=== PATIENT | male | born 1960 | race Caucasian/White ===

== ENCOUNTER 2021-01-24 09:43 | Outpatient (RCR) | payer BC, SELFPAY ==
[2021-01-24] MEDS: COVID-19 VACC, MRNA(PFIZER)/PF 30 MCG/0.3 ML SYRINGE IM (17:15)
[2021-02-14] MEDS: COVID-19 VACC, MRNA(PFIZER)/PF 30 MCG/0.3 ML SYRINGE IM (16:55)
== END 2021-01-24 23:59 ==
LOC: IMMUN 09:43
PROVIDERS: Visit Provider Family Medicine
DX: Z23 Encounter for immunization (principal)
CPT/HCPCS: 0001A; 0002A; 91300

== ENCOUNTER 2021-11-17 10:39 | Outpatient (CLI) | payer BC, SELFPAY ==
[2021-11-17 12:18] LABS: Absolute Lymphocyte Count 1.53 X10^3/uL (0.83-4.51); Basophil# 0.02 X10^3/uL; Basophil% 0.3 % (0-1); Eosinophil# 0.13 X10^3/uL; Eosinophils% 1.7 % (0-5); Hematocrit 42.4 % (40-54); Hemoglobin 15.3 g/dL (13.0-16.5); Lymphocyte # 1.53 X10^3/ul (0.83-4.51); Lymphocyte % 20.4 % (19-41); Mean Corp Hgb Conc 36.1 g/dL (32-36); Mean Corpuscular Hgb 33.3 pg (27.0-32.0); Mean Corpuscular Volume 92.2 fL (80-94); Mean Platelet Vol. 9.7 fl (6.2-12.0); Monocyte# 0.75 X10^3/uL; NRBC Flagged by Analyzer 0 % (0-5); Neutrophil # 5.02 X10^3/uL (2.7-7.7); Neutrophil % 66.9 % (47-70); Platelet Count 257 K/mm3 (150-450); RBC Distribution Width CV 12.5 % (11.6-14.6); RBC Distribution Width SD 41.2 fl (35.1-43.9); White Blood Count 7.5 K/mm3 (4.4-11.0)
[2021-11-17 12:42] LABS: AST(SGOT) 26 U/L (15-37); Alanine Aminotransfer ALT/SGPT 50 U/L (16-61); Albumin, Serum 3.8 g/dL (3.2-5.0); Alkaline Phosphatase 59 U/L (45-117); Anion Gap 8 (5-15); BUN 16 mg/dL (7-18); BUN/Creat Ratio 17.9 RATIO (10-20); Calcium,Total 9.2 mg/dL (8.5-10.1); Chloride 104 mmol/L (98-107); Cholesterol 210 mg/dL (200); Creatinine, Serum 0.89 mg/dL (0.70-1.30); EST Glomerular Filtration Rate 91 mL/min (>60); Est Glom Filt Rate - Afr Amer 111 mL/min (>60); Globulin 3.9 g/dL (2.2-4.2); Glucose 125 mg/dL (74-106); High Density Lipoprotein 42 mg/dL; Potassium 4.9 mmol/L (3.5-5.1); Protein, Total 7.7 g/dL (6.4-8.2); Sodium Level 139 mmol/L (136-145); Triglycerides 173 mg/dL; Very Low Density Lipoprotein 35 mg/dL (5-40)
[2021-11-18 12:49] LABS: Hemoglobin A1c 5.5 % (3.8-5.6)
[2021-11-20 11:08] LABS: Testosterone, Free 8.11 ng/dL (5.00-21.00)
[2021-11-21 13:59] LABS: Testosterone, % Free 2.21 % (1.50-4.20); Testosterone, Total 367 ng/dL (264-916)
== END 2021-11-17 23:59 | disposition short-term general hospital (02) ==
LOC: BIMLAB 10:40
PROVIDERS: PCP Internal Medicine; Referring Provider Internal Medicine; Visit Provider Internal Medicine
DX: I10 Essential (primary) hypertension (principal); R73.9 Hyperglycemia, unspecified; N52.9 Male erectile dysfunction, unspecified
CPT/HCPCS: 36415; 80053; 80061; 83036; 84402; 84403; 85025

== ENCOUNTER 2022-01-05 13:58 | Outpatient (CLI) | payer BC, SELFPAY ==
[2022-01-05 15:37] LABS: Anion Gap 6 (5-15); BUN 17 mg/dL (7-18); BUN/Creat Ratio 18.5 RATIO (10-20); Calcium,Total 8.9 mg/dL (8.5-10.1); Chloride 98 mmol/L (98-107); Creatinine, Serum 0.92 mg/dL (0.70-1.30); EST Glomerular Filtration Rate 89 mL/min (>60); Est Glom Filt Rate - Afr Amer 107 mL/min (>60); Glucose 129 mg/dL (74-106); Potassium 3.8 mmol/L (3.5-5.1); Sodium Level 135 mmol/L (136-145)
== END 2022-01-05 23:59 | disposition home or self-care (01) ==
LOC: BIMLAB 13:59
PROVIDERS: PCP Internal Medicine; Visit Provider Internal Medicine
DX: I10 Essential (primary) hypertension (principal)
CPT/HCPCS: 36415; 80048

== ENCOUNTER 2022-01-29 08:13 | Outpatient (CLI) | payer BC, SELFPAY ==
--- NOTE | 2022-01-29 08:14 | EKG12_ITS ---
Test Reason : HTN Blood Pressure : / mmHG Vent. Rate : 076 BPM Atrial Rate : 076 BPM P-R Int : 146 ms QRS Dur : 094 ms QT Int : 384 ms P-R-T Axes : 023 005 049 degrees QTc Int : 432 ms Normal sinus rhythm Normal ECG Confirmed by CAMILLA FELDER, JC ([id number]), editor sound MEHREEN TORRES ([id number]) on 01/29/2022 1:33:59 PM Referred By: Filipe Ybarra Confirmed By:JOE SAMPSON MD
== END 2022-01-29 23:59 | disposition home or self-care (01) ==
LOC: PSN 08:13
PROVIDERS: PCP Internal Medicine; Referring Provider Internal Medicine; Visit Provider Internal Medicine
DX: I10 Essential (primary) hypertension (principal)
CPT/HCPCS: 93005

== ENCOUNTER → 2022-06-09 | Outpatient (CLI) | payer BC, SELFPAY ==
--- NOTE | 2022-06-09 13:36 | VDLE_ITS ---
Reason For Study: Swelling Procedure LEFT This is a venous duplex using B-mode, color GSV is normal. flow and spectral Doppler. CFV is compressible, spontaneous, phasic, Exam performed in department. competent, and demonstrates normal A preliminary report was called and/or faxed augmentation. to [facility]. FV is compressible, spontaneous, phasic, competent and demonstrates normal augmentation. POP V is compressible, spontaneous, phasic, competent and demonstrates normal augmentation. T/P Trunk is compressible. PTV is compressible. LT PerV is compressible. VL/Venous Duplex US, Unilateral Interpretation Summary There is no evidence of left lower extremity deep vein thrombosis. Left great s aphenous vein appears patent and compressible segmentally. Ordering Physician: Khadar Mead Referring Physician: Filipe Ybarra Performed By: Thalia Nielsen RVT
== END | disposition home or self-care (01) ==
PROVIDERS: PCP Internal Medicine; Visit Provider Surgery
DX: M79.89 Other specified soft tissue disorders (principal); R23.8 Other skin changes
CPT/HCPCS: 93971

== ENCOUNTER → 2022-09-25 | Outpatient (CLI) | payer BC, SELFPAY ==
[2022-09-25 15:26] LABS: Anion Gap 6 (5-15); BUN 22 mg/dL (7-18); BUN/Creat Ratio 22.8 RATIO (10-20); Calcium,Total 8.9 mg/dL (8.5-10.1); Chloride 102 mmol/L (98-107); Creatinine, Serum 0.96 mg/dL (0.70-1.30); EST Glomerular Filtration Rate 83 mL/min (>60); Est Glom Filt Rate - Afr Amer 101 mL/min (>60); Glucose 115 mg/dL (74-106); Potassium 4.3 mmol/L (3.5-5.1); Sodium Level 137 mmol/L (136-145)
== END | disposition home or self-care (01) ==
LOC: BIMLAB 11:48
PROVIDERS: PCP Internal Medicine; Referring Provider Internal Medicine; Visit Provider Internal Medicine
DX: I10 Essential (primary) hypertension (principal)
CPT/HCPCS: 36415; 80048

== ENCOUNTER → 2023-04-21 | Outpatient (CLI) | payer BC, SELFPAY ==
[2023-04-21 13:09] LABS: Absolute Lymphocyte Count 1.13 X10^3/uL (0.83-4.51); Absolute Neutrophil Count 2.7 X10^3/uL (2.0-7.7); Basophil# 0.01 X10^3/uL; Basophil% 0.2 % (0-1); Eosinophil# 0.14 X10^3/uL; Eosinophils% 3.1 % (0-5); Hematocrit 41.8 % (40-54); Hemoglobin 14.8 g/dL (13.0-16.5); Lymphocyte # 1.13 X10^3/ul (0.83-4.51); Lymphocyte % 25.2 % (19-41); Mean Corp Hgb Conc 35.4 g/dL (32-36); Mean Corpuscular Hgb 34.3 pg (27.0-32.0); Mean Corpuscular Volume 96.8 fL (80-94); Mean Platelet Vol. 10.4 fl (6.2-12.0); Monocyte# 0.45 X10^3/uL; NRBC Flagged by Analyzer 0 % (0-5); Neutrophil # 2.74 X10^3/uL (2.7-7.7); Neutrophil % 61.3 % (47-70); Platelet Count 188 K/mm3 (150-450); Red Blood Count 4.32 M/mm3 (4.6-6.2); White Blood Count 4.5 K/mm3 (4.4-11.0)
[2023-04-21 14:29] LABS: ALB/GLOB Ratio 1.3 RATIO (0.9-2.4); AST(SGOT) 73 U/L (15-37); Alanine Aminotransfer ALT/SGPT 109 U/L (16-61); Alkaline Phosphatase 54 U/L (45-117); Anion Gap 5 (5-15); BUN 22 mg/dL (7-18); BUN/Creat Ratio 23.3 RATIO (10-20); Calcium,Total 8.5 mg/dL (8.5-10.1); Chloride 103 mmol/L (98-107); Cholesterol 202 mg/dL (200); Creatinine, Serum 0.94 mg/dL (0.70-1.30); EST Glomerular Filtration Rate 85 mL/min (>60); Est Glom Filt Rate - Afr Amer 103 mL/min (>60); Glucose 157 mg/dL (74-106); High Density Lipoprotein 39 mg/dL; Sodium Level 137 mmol/L (136-145); Triglycerides 208 mg/dL; Very Low Density Lipoprotein 42 mg/dL (5-40)
[2023-04-21 19:41] LABS: Hemoglobin A1c 5.7 % (3.8-5.6)
== END | disposition home or self-care (01) ==
LOC: BIMLAB 11:31
PROVIDERS: PCP Internal Medicine; Visit Provider Internal Medicine
DX: I10 Essential (primary) hypertension (principal); R73.9 Hyperglycemia, unspecified
CPT/HCPCS: 36415; 80053; 80061; 83036; 85025

== ENCOUNTER → 2024-01-12 | Outpatient (CLI) | payer BC, SELFPAY ==
[2024-01-12 12:54] LABS: ALB/GLOB Ratio 1.2 RATIO (0.9-2.4); AST(SGOT) 57 U/L (15-37); Alanine Aminotransfer ALT/SGPT 74 U/L (16-61); Albumin, Serum 4.1 g/dL (3.2-5.0); Alkaline Phosphatase 51 U/L (45-117); Anion Gap 8 (5-15); BUN 26 mg/dL (7-18); Calcium,Total 9.7 mg/dL (8.5-10.1); Chloride 104 mmol/L (98-107); Creatinine, Serum 1.04 mg/dL (0.70-1.30); EST Glomerular Filtration Rate 76 mL/min (>60); Est Glom Filt Rate - Afr Amer 92 mL/min (>60); Globulin 3.3 g/dL (2.2-4.2); Glucose 133 mg/dL (74-106); Potassium 4.1 mmol/L (3.5-5.1); Protein, Total 7.4 g/dL (6.4-8.2); Sodium Level 139 mmol/L (136-145)
[2024-01-12 13:12] LABS: Hemoglobin A1c 5.8 % (3.8-5.6)
== END | disposition home or self-care (01) ==
LOC: BIMLAB 09:20
PROVIDERS: PCP Internal Medicine; Visit Provider Internal Medicine
DX: I10 Essential (primary) hypertension (principal); R73.03 Prediabetes
CPT/HCPCS: 36415; 80053; 83036

== ENCOUNTER 2024-03-27 06:54 | Day surgery (SDC) | payer BC, SELFPAY ==
--- NOTE | 2024-03-22 06:52 | EKG12_ITS ---
Test Reason : PRE-OP Blood Pressure : / mmHG Vent. Rate : 068 BPM Atrial Rate : 068 BPM P-R Int : 158 ms QRS Dur : 092 ms QT Int : 404 ms P-R-T Axes : 029 -01 022 degrees QTc Int : 429 ms Normal sinus rhythm Normal ECG Confirmed by ITZEL FELDER, JENA ([id number]), writer editor MEHREEN TORRES ([id number]) on 03/22/2024 1:16:17 PM Referred By: Khadar Mead Confirmed By:JENA ROBBINS MD
[2024-03-22 07:09] LABS: Bacteria 0 SEEN /hpf (None Seen); Mucous, Urine 0 SEEN /hpf (<or=2+); Red Blood Cells-Urine 0 SEEN /hpf (0-5); Squamous Epithelial Cells - UA 0 SEEN /hpf (0-5); White Blood Cells 0 SEEN /hpf (0-5)
[2024-03-22 07:23] LABS: Hematocrit 40.8 % (40-54); Hemoglobin 14.2 g/dL (13.0-16.5); Mean Corp Hgb Conc 34.8 g/dL (32-36); Mean Corpuscular Hgb 32.8 pg (27.0-32.0); Mean Corpuscular Volume 94.2 fL (80-94); Mean Platelet Vol. 9.5 fl (6.2-12.0); Platelet Count 216 K/mm3 (150-450); RBC Distribution Width CV 12.2 % (11.6-14.6); RBC Distribution Width SD 42.3 fl (35.1-43.9); Red Blood Count 4.33 M/mm3 (4.6-6.2); White Blood Count 5.6 K/mm3 (4.4-11.0)
[2024-03-22 08:09] LABS: PSA,Total- Diagnostic 4.22 ng/mL (0.0-4.0)
[2024-03-22 08:16] LABS: Anion Gap 4 (5-15); BUN 25 mg/dL (7-18); BUN/Creat Ratio 24.5 RATIO (10-20); Calcium,Total 9.2 mg/dL (8.5-10.1); Chloride 103 mmol/L (98-107); Creatinine, Serum 1.02 mg/dL (0.70-1.30); EST Glomerular Filtration Rate 78 mL/min (>60); Est Glom Filt Rate - Afr Amer 94 mL/min (>60); Glucose 139 mg/dL (74-106); Potassium 3.8 mmol/L (3.5-5.1); Sodium Level 137 mmol/L (136-145)
[2024-03-22 08:56] LABS: Color, Urine Yellow (Yellow); Glucose, Dipstick Normal (Normal); Ketone-Dipstick Negative (Negative); Leukocyte Esterase-Dipstick Negative /ul (Negative); Nitrite-Dipstick Negative (Negative); Occult Blood-Urine Negative /ul (Negative); Protein-Dipstick Negative (Negative); Urine Bilirubin Dipstick Negative (Negative); Urine Clarity Clear (Clear); Urine Urobilinogen Normal (Normal); Urine pH 6.5 (5.0 - 8.0)
--- NOTE | 2024-03-24 14:53 | NURSING ---
will take finesteride as well wednesday morning
[2024-03-27] VITALS (7 sets, daily range): BP systolic 155–180; BP diastolic 77–94; PULSE 59–70; RESP 14–18; TEMP 35.8–36.5; O2SAT 88–97; BMI 32.5
--- NOTE | 2024-03-27 07:21 | PCM.HP.BLA ---
History and Physical Date of Admission: 03/27/24 [facility] Complaint: hernias Accompanied by: Is patient in pain?: No Allergies No Known Allergies Allergy (Verified 03/16/24 08:09) Medications ascorbate calcium (vitamin C) 500 mg tablet 500 mg PO DAILY 11/05/21 [History Confirmed 03/16/24] aspirin 81 mg chewable tablet 81 mg PO DAILY 11/05/21 [History Confirmed 03/16/24] cholecalciferol (vitamin D3) 50 mcg (2,000 unit) capsule 50 mcg PO DAILY 11/05/21 [History Confirmed 03/16/24] docosahexaenoic acid 200 mg capsule (Algal [place]-3 DHA) mg PO 11/05/21 [History Confirmed 03/16/24] famotidine 20 mg tablet 20 mg PO DAILY 11/05/21 [History Confirmed 03/16/24] multivitamin (Daily Multi-Vitamin tablet) 1 tab PO DAILY 11/05/21 [History Confirmed 03/16/24] loratadine 10 mg tablet (Claritin) 10 mg PO DAILY 03/19/23 [History Confirmed 03/16/24] tadalafil 20 mg tablet 10 mg (1/2 x 20 mg) PO DAILY PRN sexual activity #30 tabs 06/28/23 [Rx Confirmed 03/16/24] amlodipine 5 mg tablet 5 mg PO DAILY #90 tabs 01/05/24 [Rx Confirmed 03/16/24] doxazosin 4 mg tablet 4 mg PO BID 3 months #180 tabs 01/05/24 [Rx Confirmed 03/16/24] valsartan 160 mg-hydrochlorothiazide 25 mg tablet 1 tab PO DAILY #90 tabs 01/05/24 [Rx Confirmed 03/16/24] [facility] Medical History (Updated 03/16/24 @ 09:[address] Khadar Mead MD) Abdominal discomfort Borderline type 2 diabetes mellitus BPH (benign prostatic hyperplasia) Colon cancer screening Dermatitis Erectile dysfunction Flu vaccine need GERD (gastroesophageal reflux disease) Great toe pain Hyperglycemia Hypertension Obesity Seasonal allergies Umbilical hernia Surgical History History of right knee joint replacement Family History Other Heart disease Hypertension Myocardial infarction Social History Smoking Status: Former smoker how long ago did patient quit smokin11/15/1989 alcohol intake: current alcohol intake frequency: holidays/special occasions only what type of physical activity do you participate in: walking frequency: daily HPI HPI HPI: 64-year-old gentleman. I have most recently seen him June 09, 2022. He presented at that time wanting an umbilical herniorrhaphy and a right inguinal herniorrhaphy. Also considered a tap block. I had also seen him previously November 25, 2021 for the same issue. We were considering an umbilical herniorrhaphy with Ventralex mesh on laparoscopic right inguinal herniorrhaphy. He is had issue with uncontrolled hypertension and also significant venous insufficiency. The patient states only now has he had his hypertension better controlled. He is on multiple different medications that is being controlled by Dr. Filipe Ybarra. He has been on low-dose aspirin for 30 years. Has never had any documented cardiac or KID CLUB ATTENDANT events. He does take doxazosin. He has nocturia x 2. He has never seen a urologist. He suspects that his right inguinal hernia has progressively enlarged. ROS General General: No weight change, appetite, fatigue, colon cancer, breast cancer or weakness HEENT HEENT: No difficulty swallowing, eye injury, eye surgery, swollen glands or hoarseness Endo Endocrine: No thyroid disease, diabetes mellitus, thyroid cancer, Hair loss, heat intolerance or cold intolerance Skin Skin: No rash or changing moles Musc Musculoskeletal: No back problems, arthritis, rheumatoid arthritis, gout or joint pain Cardio Cardiovascular: Yes high blood pressure; No murmur, pacemaker, heart disease, atrial fibrillation, heart attack, heart stent, palpitations, shortness of breat with exertion or chest pain Psych Psychiatric: No depression, anxiety or hearing voices Resp Respiratory: No shortness of breath, No sleep apnea, No cough, No COPD, No asthma, No emphysema and No wheezing Gastro Gastrointestinal: No abdominal pain, No nausea or vomiting, No diarrhea, No constipation, No blood in stool, No acid reflux, No hemorrhoids, No ulcers, No gallbladder problem and No black,tarry stools Frank Hematologic: Yes blood thinners, No blood disorders, No bleeding, No anemia and No blood clots Additional Details: baby aspirin/ fish oil Neuro Neurologic: No numbness, No tingling and No weakness Exam Const General: cooperative, healthy appearing, comfortable and no acute distress HENMT Head: normal to inspection Eyes General: appearance normal, both eyes and all related structures Neck Neck: normal visual inspection Chest Chest palpation & inspection: normal inspection of the chest Resp Effort & Inspection: normal respiratory effort Auscultation: clear to auscultation bilaterally Cardio Rate: regular rate Rhythm: regular rhythm GI Inspection: normal to inspection and obesity Palpation: soft Other: Umbilical hernia, approximately 2 cm diameter defect but difficult to appreciate Other: None reducible right inguinal hernia. Testicles descended. No defect on the left. Bilateral proximal thighs have significant superficial venous engorgement distention. Nontender Musc Cervical Spine: normal cervical lordosis Skin General: no rashes or lesions noted Neuro General: patient alert and patient awake Extrem Other: Bilateral lower extremities have very significant varicose veins. Hyperpigmentation noted. Psych Appearance: grossly normal Assessment and Plan Assessment and Plan (1) Inguinal hernia of right side without obstruction or gangrene: Status: Acute (2) Umbilical hernia: Status: Chronic Qualifiers: Obstruction and gangrene presence: without obstruction or gangrene Qualified Code(s): K42.9 - Umbilical hernia without obstruction or gangrene (3) BPH (benign prostatic hyperplasia): Status: Acute Qualifiers: Lower urinary tract symptom presence: symptoms present Lower urinary tract symptom detail: nocturia Qualified Code(s): N40.1 - Benign prostatic hyperplasia with lower urinary tract symptoms; R35.1 - Nocturia Plan: Patient presents with an umbilical hernia and a progressively enlarging right inguinal hernia. The right inguinal hernia is now incompletely reducible. I propose for him an umbilical herniorrhaphy with Ventralex mesh in combination with a laparoscopic right inguinal herniorrhaphy with mesh. He is aware of technique, benefit, risk and alternatives. It is of note that he has significant bilateral extremity superficial venous incompetency. Great care will need to be taken at the time of surgery to avoid any venous enlargement. He has nocturia x 2. He is already on doxazosin. We have notified Dr. Filipe Ybarra and she will assist with additional medications in hopes of preventing a postoperative urinary catheter. The patient is very much aware of the technique, benefit, risk, alternatives. He will need to delay returning to golf. We discussed potential trip plans that he has particularly driving and he will need to wear support hose and exit the vehicle frequently. That trip is not scheduled till the end of April. He and his have had an opportunity ask and have questions answered. I have asked him to stop his low-dose aspirin as current recommendations are consistent with the same. I appreciate the option of assisting with his surgical care and appreciate the medical assistance regarding his urinary obstructive symptoms. Copy: Dr. Filipe eMad M.D., F.A.C.S. I have examined the patient and the H&P has been reviewed. There are no clinical changes since date of exam. Khadar Mead M.D., F.A.C.S.
--- NOTE | 2024-03-27 07:22 | DCINST_ITS ---
Discharge Instructions Procedure General Surgery Diet Discharge Diet: Light diet - advance as tolerated (if you have questions about your diet instructions, please talk to you doctor.) Activity Discharge Activity: May Not Drive (for 3-5 days or while taking narcotic pain medicine.) May shower in (days): 1 Lifting Restrictions: 10 pounds Dressing / Incision Call your doctor if your incision/area has: Continuous Slow Oozing, Sudden Increased Bleeding, Increased Pain/ Swelling, Increased Redness and Foul Smelling Discharge Call your doctor if you observe: Fever of 101 or Higher Suture Line Care: Avoid Pulling/Pushing and Avoid Pinching/Bending Additional Dressing/Incision Instructions:: Change or remove dressing in 4 days. Leave steri-strips in place for 1 week. Follow Up Care Please Follow Up With: Khadar Mead MD When: Call [phone] to make an appointment to be seen in about 10 days. Test Results: Test results from this visit will be discussed in further detail at your follow- up appointment, if applicable. Discharge Plan Admission Attending Provider: Khadar Mead Primary Care Provider: Filipe Ybarra Discharge Orders/Prescriptions Prescriptions: No Action multivitamin [Daily Multi-Vitamin] Tablet 1 tab PO DAILY ascorbate calcium (vitamin C) 500 mg tablet 1 g PO DAILY cholecalciferol (vitamin D3) 50 mcg (2,000 unit) capsule 50 mcg PO DAILY famotidine 20 mg tablet 20 mg PO DAILY PRN (Reason: GERD) loratadine [Claritin] 10 mg tablet 10 mg PO DAILY PRN (Reason: allergy symptoms) finasteride 5 mg tablet 5 mg PO DAILY Qty: 30 0RF [place]-3 350 mg-235 mg- 90 mg-597 mg capsule,delayed release(DR/EC) 1 cap PO DAILY clotrimazole-betamethasone 1-0.05 % cream 1 applic topical BID tadalafil 20 mg tablet 10 mg PO DAILY PRN (Reason: sexual activity) Qty: 30 3RF Rx Instructions: administer approximately 30min before sexual activity; do not use more than 1 dose per 24hrs amlodipine 5 mg tablet 5 mg PO DAILY Qty: 90 1RF doxazosin 4 mg tablet 4 mg PO BID 90 Days Qty: 180 1RF Patient Comments: TAKES 5PM THEN 2ND DOSE 9PM valsartan-hydrochlorothiazide 160-25 mg tablet 1 tab PO DAILY Qty: 90 1RF Referrals / Follow Up: Filipe Ybarra MD [Primary Care Provider] - Disposition Disposition (needs filled in before D/C Order can be placed): Home, Self Care
[2024-03-27] MEDS: Lactated Ringers 1,000 ML 15 ML IV (07:32)
--- NOTE | 2024-03-27 09:00 | HERN_PTH ---
PATIENT: ZHENG WATKINS LOC: [facility] [place] U#:[id number] AGE/SX: 64/M ROOM: RE03/27/[address]: Dr. Khadar Mead MD : 1960 BED: DIS: 03/27/2024 SPEC #: [id number] RECD: 03/27/24 11:07 STATUS: TIMOTHY STROUDAlirio #: [id number] PHONG: 03/27/24 09:[address]: Khadar Mead DEPT: SURGICAL PATHOLOGY RECD BY: Vida Wright ENTERED: 03/27/24 13:42 SP TYPE: Hernia OTHR DR: Dr. Filipe Ybarra MD Tissues: HERNIA Procedures: Surgery Specimen Level II HEADER OPERATION: Laparoscopic right inguinal hernia repair and umbilical hernia PRE-OP DIAGNOSIS: Inguinal hernia of right side without obstruction or gangrene TISSUE SUBMITTED: Hernia sac and contents MICROSCOPIC DIAGNOSIS Hernia sac and contents: Mesothelial lined fibroadipose and fibroconnective tissue, consistent with hernia sac. /mr 03/28/24 MICROSCOPIC DESCRIPTION Slides are reviewed. GROSS DESCRIPTION Received in fixative is one container labeled with the patient's name and designated Hernia sac and contents. The specimen consists of a sacular fragment of pink-yellow tissue measuring 5.8 x 4.0 x 3.5cm. Serial sections do not reveal mass lesions. Ball Fringe Machine Operator sections are submitted in one cassette. EDMOND/ 03/27/2024 TC:5 CPT: 40432
[2024-03-27] MEDS: Cefazolin 2 GM in 0.9% Normal Saline (100mL Bag) 100 ML IV (09:05)
[2024-03-27] MEDS: Bupivacaine Mpf 0.5% 30 ML VIAL (10:17)
--- NOTE | 2024-03-27 10:35 | OP.PCM_ITS ---
Report of Operation Date of Procedure: 03/27/24 Pre-Operative Diagnosis: Right inguinal hernia and umbilical hernia Post-Operative Diagnosis: Direct and indirect right inguinal hernias Umbilical hernia Surgery/Procedure Performed:: Laparoscopic right inguinal herniorrhaphy with Bard 3D max extra-large mesh. Reference [id number], lot [id number], expiry date 09/11/28 Umbilical herniorrhaphy 4 cm diameter with [address] hernia patch. Reference [id number], lot [id number], expiry date 06/11/2025 Description of Surgical Findings:: Timeout informed consent was obtained. 64-year-old gentleman was taken to the operating placed on the table underwent general tracheal intubation esthesia. Ancef 2 g were given intravenously preoperatively. The abdomen was sterilely prepped and draped in routine fashion. 0.5% Marcaine was used as a local anesthetic. Total of 30 cc was used. Skin sites were Ning size. A curvilinear incision was made in the inferior portion of the umbilicus and sharp blunt dissection was used to completely dissect free preperitoneal fatty tissue within an umbilical hernia. The hernia sac and contents were amputated and submitted as a specimen. The retrorectus space was completely dissected free. A Scott catheter was inserted and the abdomen was insufflated with CO2 to a pressure of 10 mmHg pressure. 10 mm trocar inserted. 10 mm laparoscope inserted. No incisional trocar injuries. Under direct visualization a 5 mm port was placed in the right and left lower quadrants. Inspection revealed no defect on the left. There was evidence of a hernial defect on the right which ended up being the direct defect that could be visualized with urinary bladder involvement. A ilioinguinal nerve block was performed on the right using the local. The peritoneum superior lateral to the internal ring was incised carried medially and then tedious dissection was required to evacuate the urinary bladder from the direct defect. There was a significant amount of fibrofatty tissue encountered throughout this entire procedure that had to be carefully dissected free. Careful dissection performed laterally of the cord structures identified fibrofatty tissue evacuated from that indirect inguinal hernia as well. The pubic tubercle pubic ramus urinary bladder was freed the direct space and indirect space completely dissected free. A extra-large 3D Bard Max mesh was placed so as to cover the direct indirect and femoral areas. It seemed to have a very nice positional lie. It sat just beneath the pubic ramus and was secured in place laterally superiorly and medially with secure strap. Great ca re was taken to assure that it was secured at the pubic ramus to keep in shape and keep it tucked beneath the hernial defects. The fibrofatty tissue then was briefly stapled to the superior portion of the Maxis to keep it from immediately edging underneath the mesh. The peritoneum was closed with Hem-o-star clips and secure strap. Throughout the procedure hemostasis had been achieved mostly with Hem-o-star clips. Excellent coverage of the defect was achieved. The abdomen was allowed to deflate of the CO2. A [address] mesh was placed at the umbilical hernial defect in the retrorectus space. The peritoneum itself was attempted to be completely closed with a 3-0 Vicryl suture there was 1 slight edge that did not allow for closure. The mesh was secured in place with interrupted 0 Nurolon securing the tails of the mesh and then simple sutures securing the fascia and the anterior portion of the mesh. I felt that I had excellent closure. I reinserted the laparoscope s aw that there was just 1 portion of the mesh but the peritoneum had not completely closed just further assured positioning with 2 firings of the secure strap. Was very happy with how that mesh was sitting. The abdomen was allowed to deflated CO2 the trocars were removed the fascia at the umbilicus was closed with multiple interrupted 4-0 Monocryl subdermal stitches. Port sites closed with the same. Dermabond was applied followed by cotton balls Telfa OpSite dressing and Telfa OpSite dressings at the port sites. Sponge and instrument and needle counts were reported to the surgeon to be cor rect. Specimens: Umbilical hernia sac and contents. Drains none. Blood loss minimal. The patient was taken to recovery room in satisfied condition without apparent complication Khadar Mead M.D., F.A.C.S. Surgeon: Khadar Mead Type of Anesthesia: General and Local Anesthesiologist: Robson Luna
[2024-03-27] MEDS: HYDROcodone Bitartrate/Apap 5/325 Tablet PO (12:21)
== END 2024-03-27 14:04 | disposition home or self-care (01) ==
LOC: SDC 06:57 → AC 06:57
PROVIDERS: PCP Internal Medicine; Referring Provider Surgery; Visit Provider Surgery
PROC: (CPT 49650; principal; 2024-03-27 08:45)
DX: K40.90 Unilateral inguinal hernia, without obstruction or gangrene, not specified as recurrent (principal); N40.1 Benign prostatic hyperplasia with lower urinary tract symptoms; K42.9 Umbilical hernia without obstruction or gangrene; I87.2 Venous insufficiency (chronic) (peripheral); Z87.891 Personal history of nicotine dependence; I10 Essential (primary) hypertension; Z79.82 Long term (current) use of aspirin; Z79.899 Other long term (current) drug therapy; Z79.01 Long term (current) use of anticoagulants; R35.1 Nocturia; K21.9 Gastro-esophageal reflux disease without esophagitis
CPT/HCPCS: 49650; 00840; 36415; 80048; 81001; 84153; 85027; 88302; 93005; J7120; C1781; J2405

== ENCOUNTER → 2024-09-01 | Outpatient (CLI) | payer BC, SELFPAY ==
[2024-09-01 12:14] LABS: Absolute Lymphocyte Count 1.16 X10^3/uL (0.83-4.51); Absolute Neutrophil Count 3.6 X10^3/uL (2.0-7.7); Basophil# 0.03 X10^3/uL; Basophil% 0.6 % (0-1); Eosinophil# 0.12 X10^3/uL; Eosinophils% 2.2 % (0-5); Hematocrit 40.9 % (40-54); Hemoglobin 14.1 g/dL (13.0-16.5); Lymphocyte # 1.16 X10^3/ul (0.83-4.51); Lymphocyte % 21.4 % (19-41); Mean Corp Hgb Conc 34.5 g/dL (32-36); Mean Corpuscular Hgb 32.3 pg (27.0-32.0); Mean Corpuscular Volume 93.6 fL (80-94); Mean Platelet Vol. 10.2 fl (6.2-12.0); Monocyte# 0.48 X10^3/uL; Monocyte% 8.8 % (0-10); NRBC Flagged by Analyzer 0 % (0-5); Neutrophil # 3.63 X10^3/uL (2.7-7.7); Neutrophil % 66.8 % (47-70); Platelet Count 211 K/mm3 (150-450); RBC Distribution Width CV 12.1 % (11.6-14.6); RBC Distribution Width SD 41.8 fl (35.1-43.9); Red Blood Count 4.37 M/mm3 (4.6-6.2); White Blood Count 5.4 K/mm3 (4.4-11.0)
[2024-09-01 12:49] LABS: ALB/GLOB Ratio 1.1 RATIO (0.9-2.4); AST(SGOT) 36 U/L (15-37); Alanine Aminotransfer ALT/SGPT 58 U/L (16-61); Albumin, Serum 3.8 g/dL (3.2-5.0); Alkaline Phosphatase 56 U/L (45-117); Anion Gap 3 (5-15); BUN 22 mg/dL (7-18); BUN/Creat Ratio 20.8 RATIO (10-20); Calcium,Total 9.2 mg/dL (8.5-10.1); Chloride 102 mmol/L (98-107); Cholesterol 184 mg/dL (200); Creatinine, Serum 1.06 mg/dL (0.70-1.30); EST Glomerular Filtration Rate 74 mL/min (>60); Est Glom Filt Rate - Afr Amer 90 mL/min (>60); Globulin 3.4 g/dL (2.2-4.2); Glucose 147 mg/dL (74-106); High Density Lipoprotein 42 mg/dL; PSA,Total- Diagnostic 3.96 ng/mL (0.0-4.0); Protein, Total 7.2 g/dL (6.4-8.2); Sodium Level 135 mmol/L (136-145); Triglycerides 124 mg/dL; Very Low Density Lipoprotein 25 mg/dL (5-40)
[2024-09-01 13:07] LABS: Hemoglobin A1c 5.9 % (3.8-5.6)
== END | disposition home or self-care (01) ==
LOC: BIMLAB 09:52
PROVIDERS: PCP Internal Medicine; Referring Provider Internal Medicine; Visit Provider Internal Medicine
DX: N40.0 Benign prostatic hyperplasia without lower urinary tract symptoms (principal); R73.03 Prediabetes; I10 Essential (primary) hypertension
CPT/HCPCS: 36415; 80053; 80061; 83036; 84153; 85025

== ENCOUNTER 2025-01-06 10:04 | Emergency (ER) | payer MEDICARE, SELFPAY ==
[2025-01-06 10:05] VITALS: BP 155/83; PULSE 89; RESP 16; TEMP 36.2; O2SAT 94; BMI 33.0
--- NOTE | 2025-01-06 10:21 | VDLE_ITS ---
Reason For Study Reason For Study: Left leg pain RIGHT LEFT CFV is compressible, spontaneous, phasic, competent GSV is normal. and demonstrates normal augmentation. CFV is compressible, spontaneous, phasic, competent, Procedure and demonstrates normal augmentation. This is a venous duplex using B-mode, color flow and FV is compressible, spontaneous, phasic, competent spectral Doppler. and demonstrates normal augmentation. Exam performed portable in ED. POP V is compressible, spontaneous, phasic, competent A preliminary report was called and/or faxed to and demonstrates normal augmentation. John. T/P Trunk is compressible. PTV is compressible. LT PerV is compressible. Nonvascularized structure noted in the left popliteal fossa to mid calf. VL/Venous Duplex US, Unilateral Interpretation Summary Deep veins of the left lower extremity are patent and compressible segmentally. There is no evidence of left lower extremity deep vein thrombosis. The left great saphenous vein appears patent an d compressible segmentally. Nonvascularized structure noted in the left popliteal fossa to mid calf. Ordering Physician: Albert Lopez Referring Physician: Filipe Ybarra Performed By: Thalia Nielsen RVT
--- NOTE | 2025-01-06 10:38 | ED.VIS.LOWEX ---
HPI History of Present Illness Chief Complaint: Lower Extremity Injury Narrative Narrative: 4-year-old male past medical history of hypertension presents with left calf pain and swelling that has had for the last 4 days. He denies any recent trauma or periods of immobilization. He states his pain in his calf started as cramping on Wednesday evening/early Wednesday morning. He was having multiple body aches as well. While the cramping went away, he noticed swelling of his left calf. He denies any chest pain or shortness of breath. No left inner thigh pain. Of note, he also states that he used to walk the track at least 2 miles a day, but has not been doing that for the last week or so. He went to urgent care who sent him to the emergency department with concern for DVT. [facility] Medical History Varicose veins of both legs with edema Hypersomnolence Wears glasses Alcohol use Rash History of steroid therapy Gastric reflux Chewing tobacco dependence in remission History of edema BPH (benign prostatic hyperplasia) Borderline type 2 diabetes mellitus Abdominal discomfort Great toe pain Flu vaccine need Dermatitis Obesity Hyperglycemia Colon cancer screening Hypertension Erectile dysfunction Umbilical hernia GERD (gastroesophageal reflux disease) Seasonal allergies Home Medications ?Medication ?Instructions ?Recorded ?Last Taken ?Type ascorbate calcium (vitamin C) 500 1 g PO DAILY 11/05/21 03/26/24 History mg tablet cholecalciferol (vitamin D3) 50 50 mcg PO DAILY 11/05/21 03/26/24 History mcg (2,000 unit) capsule multivitamin (Daily Multi-Vitamin 1 tab PO DAILY 11/05/21 03/26/24 History tablet) loratadine 10 mg tablet (Claritin) 10 mg PO DAILY PRN allergy symptoms 03/19/23 03/26/24 History omega 3 350 mg-dha 235 mg-epa 90 1 cap PO DAILY 03/20/24 03/26/24 History mg-fish oil 597 mg capsule,delay rel ([place]-3) aspirin 81 mg tablet,delayed 81 mg PO QDAY 08/22/24 Unknown History release (Adult Aspirin Regimen) tadalafil 20 mg tablet 10 mg (1/2 x 20 mg) PO DAILY #30 09/18/24 Unknown Rx TABLETS amlodipine 5 mg tablet 5 mg PO DAILY #90 tabs 11/27/24 Unknown Rx doxazosin 4 mg tablet 4 mg PO BID 3 months #180 tabs 11/27/24 Unknown Rx valsartan 160 1 tab PO DAILY #90 tabs 11/27/24 Unknown Rx mg-hydrochlorothiazide 25 mg tablet Allergy/AdvReac Type Severity Reaction Status Date / Time No Known Allergies Allergy Verified 09/01/24 09:22 Family History Other Heart disease Hypertension Myocardial infarction Surgical History Status post inguinal hernia repair Social History household members: spouse Smoking Status: Former smoker how long ago did patient quit smokin11/15/1989 alcohol intake: current alcohol intake frequency: holidays/special occasions only what type of physical activity do you participate in: walking frequency: daily ROS ROS ED ROS Narrative Review of systems positive for left calf pain and swelling worse with movement. No left inner thigh pain or swelling. No fevers or chills, no cough or shortness of breath. No chest pain. EXAM Physical Exam Narrative Exam Narrative: Afebrile. Vital signs noted. Nontoxic-appearing. Cardiovascular examination reveals a regular rate and rhythm. Lungs are clear to auscultation bilaterally. Abdomen is soft and nontender with normal active bowel sounds. Inspection of the left lower extremity does reveal mild swelling of the left calf circumferentially. Palpable dorsalis pedis pulse, left. EHL intact. No palpable cord. No noted erythema or crepitance. No left inner thigh pain or swelling. Extension and flexion of left knee intact. Const Vital Signs: 01/06/25 10:05 Temperature 97.1 F L Temperature Source Temporal Pulse Rate 89 Respiratory Rate 16 Blood Pressure 155/83 H Blood Pressure Mean 107 Pulse Ox 94 Oxygen Delivery Method Room Air MDM MDM MDM Narrative Medical decision making narrative: Differential diagnosis includes but not limited to DVT versus calf strain/muscle tear. I have a low concern for fracture underlying as there is no history of trauma. I do not feel that this is necrotizing fasciitis either. Ultrasound was obtained to rule out DVT. I did review his EMR Problem list he has history of varicose veins of both legs with noted edema. He may just have peripheral edema as well from incompetent veins as he states he usually wears compression stockings when he walks. In discussion with the tube test technician, there is no evidence of DVT. Patient may have a ruptured Krause's cyst or muscle tear. I do not feel that he requires laboratory work or any other imaging currently. He will be placed in an Jasbir bandage on his left calf, told to elevate his left leg when possible and follow-up with his primary care provider. Return instructions to the emergency department were reviewed. Disposition is discharged home in stable condition. History & Record Review Discussion w/independent historian: Patient and Family Discharge Plan Triage Chief Complaint: Lower Extremity Injury ED Provider: Albert Lopez Dx/Rx/DC Orders Clinical Impression: Pain of left calf, Swelling of calf Instructions: ED Bandage Elastic Wrap, ED Peripheral Edema, Unilateral, ED Muscle Strain, Extremity Prescriptions: No Action multivitamin [Daily Multi-Vitamin] Tablet 1 tab PO DAILY ascorbate calcium (vitamin C) 500 mg tablet 1 g PO DAILY cholecalciferol (vitamin D3) 50 mcg (2,000 unit) capsule 50 mcg PO DAILY loratadine [Claritin] 10 mg tablet 10 mg PO DAILY PRN (Reason: allergy symptoms) aspirin [Adult Aspirin Regimen] 81 mg tablet,delayed release (DR/EC) 81 mg PO QDAY [place]-3 350 mg-235 mg- 90 mg-597 mg capsule,delayed release(DR/EC) 1 cap PO DAILY tadalafil 20 mg tablet 10 mg PO DAILY Qty: 30 3RF valsartan-hydrochlorothiazide 160-25 mg tablet 1 tab PO DAILY Qty: 90 1RF doxazosin 4 mg tablet 4 mg PO BID 90 Days Qty: 180 1RF Patient Comments: TAKES 5PM THEN 2ND DOSE 9PM amlodipine 5 mg tablet 5 mg PO DAILY Qty: 90 1RF Primary Care Provider: Filipe Ybarra Referrals: Filipe Ybarra MD [Primary Care Provider] - 3-5 Days if not improving Activity Restrictions/Additional Instructions: Return with fever, increased swelling and pain, new or worsening symptoms. Print Language: Maldivian Disposition Disposition: Home, Self Care
[2025-01-06 11:13] VITALS: BP 141/82; PULSE 84; RESP 16; TEMP 36.6; O2SAT 98
== END 2025-01-06 11:19 | disposition home or self-care (01) ==
PROVIDERS: Emergency Provider Emergency Medicine; PCP Internal Medicine; Visit Provider Emergency Medicine
DX: M79.662 Pain in left lower leg (principal); M79.89 Other specified soft tissue disorders; I10 Essential (primary) hypertension; Z87.891 Personal history of nicotine dependence; K21.9 Gastro-esophageal reflux disease without esophagitis
CPT/HCPCS: 93971; 99282

== ENCOUNTER → 2025-01-10 | Outpatient (CLI) | payer MEDICARE, SELFPAY ==
[2025-01-10 16:56] LABS: Absolute Lymphocyte Count 1.12 X10^3/uL (0.83-4.51); Absolute Neutrophil Count 4.6 X10^3/uL (2.0-7.7); Basophil# 0.02 X10^3/uL; Basophil% 0.3 % (0-1); Eosinophil# 0.12 X10^3/uL; Eosinophils% 1.8 % (0-5); Hematocrit 37.3 % (40-54); Lymphocyte # 1.12 X10^3/ul (0.83-4.51); Lymphocyte % 17.1 % (19-41); Mean Corp Hgb Conc 34.9 g/dL (32-36); Mean Corpuscular Hgb 32.2 pg (27.0-32.0); Mean Corpuscular Volume 92.3 fL (80-94); Mean Platelet Vol. 9.3 fl (6.2-12.0); Monocyte# 0.69 X10^3/uL; Monocyte% 10.6 % (0-10); NRBC Flagged by Analyzer 0 % (0-5); Neutrophil # 4.56 X10^3/uL (2.7-7.7); Neutrophil % 69.7 % (47-70); Platelet Count 303 K/mm3 (150-450); RBC Distribution Width CV 11.9 % (11.6-14.6); RBC Distribution Width SD 40.1 fl (35.1-43.9); Red Blood Count 4.04 M/mm3 (4.6-6.2); White Blood Count 6.5 K/mm3 (4.4-11.0)
[2025-01-10 17:14] LABS: Erythrocyte Sedimentation Rate 21 mm/hr (0-20)
[2025-01-10 17:35] LABS: ALB/GLOB Ratio 1.4 RATIO (0.9-2.4); AST(SGOT) 22 U/L (<=37); Alanine Aminotransfer ALT/SGPT 14 U/L (<=46); Albumin, Serum 3.9 g/dL (3.4-4.8); Alkaline Phosphatase 62 U/L (40-129); Anion Gap 11 (5-15); BUN 16 mg/dL (4-19); BUN/Creat Ratio 18.7 RATIO (10-20); Calcium 9.1 mg/dL (7.6-11.0); Chloride 97 mmol/L (96-108); Creatinine, Serum 0.9 mg/dL (0.8-1.3); EST Glomerular Filtration Rate 96 (>60); Globulin 2.8 g/dL (2.2-4.2); Glucose 141 mg/dL (70-99); Potassium 4.4 mmol/L (3.3-5.1); Protein, Total 6.7 g/dL (5.9-8.4); Sodium Level 136 mmol/L (133-145); Total Bilirubin 0.58 mg/dL (0.00-1.30)
[2025-01-10 17:38] LABS: Carbon Dioxide 28.1 mmol/L (22.0-29.0); Rheumatoid Factor < 10.0 IU/mL (<15)
[2025-01-11 12:03] LABS: CPK Total, Creatine Kinase 53 U/L (24-195)
[2025-01-12 15:08] LABS: ANTINUCLEAR ANTIBODIES DIRECT Negative (Negative)
== END | disposition home or self-care (01) ==
LOC: BIMLAB 14:21
PROVIDERS: PCP Internal Medicine; Referring Provider Internal Medicine; Visit Provider Internal Medicine
DX: I10 Essential (primary) hypertension (principal); R53.83 Other fatigue; R53.81 Other malaise; M19.90 Unspecified osteoarthritis, unspecified site; M79.10 Myalgia, unspecified site
CPT/HCPCS: 36415; 80053; 82550; 84439; 84443; 85025; 85652; 86038; 86140; 86200; 86225; 86235; 86431

== ENCOUNTER → 2025-01-17 | Outpatient (CLI) | payer MEDICARE, SELFPAY ==
[2025-01-17 09:39] LABS: Bacteria 0 SEEN /hpf (None Seen); Mucous, Urine 0 SEEN /hpf (<or=2+); Squamous Epithelial Cells - UA 0 SEEN /hpf (0-5); White Blood Cells 0 SEEN /hpf (0-5)
[2025-01-17 12:32] LABS: Absolute Lymphocyte Count 0.94 X10^3/uL (0.83-4.51); Absolute Neutrophil Count 5.2 X10^3/uL (2.0-7.7); Basophil# 0.02 X10^3/uL; Basophil% 0.3 % (0-1); Eosinophil# 0.15 X10^3/uL; Eosinophils% 2.1 % (0-5); Hematocrit 35.6 % (40-54); Hemoglobin 12.7 g/dL (13.0-16.5); Lymphocyte # 0.94 X10^3/ul (0.83-4.51); Lymphocyte % 13.2 % (19-41); Mean Corp Hgb Conc 35.7 g/dL (32-36); Mean Corpuscular Hgb 32.5 pg (27.0-32.0); Mean Platelet Vol. 8.8 fl (6.2-12.0); Monocyte# 0.78 X10^3/uL; Monocyte% 10.9 % (0-10); NRBC Flagged by Analyzer 0 % (0-5); Neutrophil # 5.22 X10^3/uL (2.7-7.7); Neutrophil % 73.2 % (47-70); Platelet Count 362 K/mm3 (150-450); RBC Distribution Width CV 11.9 % (11.6-14.6); RBC Distribution Width SD 39.7 fl (35.1-43.9); Red Blood Count 3.91 M/mm3 (4.6-6.2); White Blood Count 7.1 K/mm3 (4.4-11.0)
[2025-01-17 12:36] LABS: Color, Urine Yellow (Yellow); Glucose, Dipstick Normal (Normal); Ketone-Dipstick Negative (Negative); Leukocyte Esterase-Dipstick Negative /ul (Negative); Nitrite-Dipstick Negative (Negative); Occult Blood-Urine Negative /ul (Negative); Protein-Dipstick 15 mg/dl (Negative); Urine Bilirubin Dipstick Negative (Negative); Urine Clarity Clear (Clear); Urine Urobilinogen Normal (Normal)
[2025-01-17 14:27] LABS: ALB/GLOB Ratio 1.3 RATIO (0.9-2.4); AST(SGOT) 22 U/L (<=37); Alanine Aminotransfer ALT/SGPT 16 U/L (<=46); Albumin, Serum 3.8 g/dL (3.4-4.8); Alkaline Phosphatase 55 U/L (40-129); Anion Gap 14 (5-15); BUN 17 mg/dL (4-19); Calcium,Total 9.5 mg/dL (7.6-11.0); Carbon Dioxide 24.9 mmol/L (21.0-32.0); Chloride 96 mmol/L (98-108); Creatinine, Serum 0.86 mg/dL (0.70-1.20); EST Glomerular Filtration Rate 96 (>60); Glucose 136 mg/dL (70-99); Potassium 4.7 mmol/L (3.3-5.1); Protein, Total 6.8 g/dL (5.9-8.4); Sodium Level 135 mmol/L (133-145)
[2025-01-17 18:51] LABS: Red Blood Cells-Urine 0 SEEN /hpf (0-5)
== END | disposition home or self-care (01) ==
PROVIDERS: PCP Internal Medicine; Referring Provider Internal Medicine; Visit Provider Internal Medicine
DX: R79.82 Elevated C-reactive protein (CRP) (principal); M79.10 Myalgia, unspecified site; R53.81 Other malaise; R53.83 Other fatigue
CPT/HCPCS: 36415; 80053; 81001; 85025; 86140

== ENCOUNTER → 2025-02-09 | Outpatient (CLI) | payer MEDICARE, SELFPAY ==
--- NOTE | 2025-02-09 08:00 | CT_ITS ---
PROCEDURE: EXTREMITY LOWER WITH CONTRAST 02/09/2025 REASON FOR EXAM: 64-year-old male, LEFT CALF PAIN, ELEVATED CRP TECHNIQUE: Axial CT images of the left lower extremity obtained with intravenous contrast. Coronal and Sagittal reconstruction series were provided. CONTRAST: Isovue 370 VOLUME: 100mL One or more dose reduction techniques were used (e.g., Automated exposure control, adjustment of the mA and/or kV according to patient size, use of iterative reconstruction technique). RADIATION DOSE SUMMARY: CTDlvol: 15 mGy DLP: 1100 mGycm COMPARISON: None. FINDINGS: Bones: No acute osseous fracture or aggressive osseous lesions. No evidence of osteomyelitis. Joints: Mild degenerative changes of the left knee joint. The joint spaces of the left knee and ankle are maintained. No traumatic subluxation or dislocation. Soft Tissues: There is a thin, rim enhancing hypodense fluid collection within the superficial posterior compartment of the left leg, between the medial gastrocnemius and soleus muscles. This measures approximately 5.1 x 1.0 x11.7 cm (AP x TV x CC, series 2, image 96 and series 303, image 77). There is an additional rim enhancing hypodense fluid collection which arises from the medial head of the gastrocnemius in the lower thigh, only visible on axial imaging. CT/Extremity Lower WITH Contrast IMPRESSION: Abscess within the superficial posterior compartment of the left leg, between t he medial gastrocnemius and soleus muscles. Additional partially visualized abscess within the medial head of the gastrocne mius within the lower thigh, only visible on axial imaging. CT of the left lower thigh is recommended for imaging completion. mike surgical consultation for possible incision and debridement is recommended. Reading Location: [id number]
== END | disposition home or self-care (01) ==
LOC: CT 07:54
PROVIDERS: PCP Internal Medicine; Referring Provider Internal Medicine; Visit Provider Internal Medicine
DX: R79.82 Elevated C-reactive protein (CRP) (principal); M79.89 Other specified soft tissue disorders; M79.10 Myalgia, unspecified site; M79.662 Pain in left lower leg
CPT/HCPCS: 73701; Q9967

== ENCOUNTER 2025-02-13 10:57 | Emergency (ER) | payer MEDICARE, SELFPAY ==
[2025-02-13 10:59] VITALS: BP 174/62; PULSE 75; RESP 16; TEMP 36.6; O2SAT 98; BMI 34.3
--- NOTE | 2025-02-13 11:15 | EKG12_ITS ---
Test Reason : GENERAL Blood Pressure : */* mmHG Vent. Rate : 69 BPM Atrial Rate : 69 BPM P-R Int : 148 ms QRS Dur : 94 ms QT Int : 394 ms P-R-T Axes : 24 -3 9 degrees QTcB Int : 422 ms Normal sinus rhythm Minimal voltage criteria for LVH, may be normal variant ( R in aVL ) Borderline ECG Confirmed by Peyman Adame ([id number]), assignment editor BRENNEN PEDRAZA ([id number]) on 02/14/2025 7:47:13 AM Referred By: Confirmed By: Peyman Adame
--- NOTE | 2025-02-13 11:21 | EX.ED.DYSGE1 ---
HPI History of Present Illness Chief Complaint: Lower Extremity Injury Detail of Chief Complaint: Abscess of the left leg involving the superficial posterior compartment and Informant: patient and spouse/S.O. Onset/Context/Timing Onset: - (CT done today. Was seen approxi a month ago to rule out DVT and was.) Context: - (Unknown since patient has no symptoms other than slight swelling) Timing: - (Unable to determine) Quality: Abscess posterior superficial compartment of the left leg and head of the g Location: Left leg posteriorly Current Severity: Asymptomatic Maximum Severity: Asymptomatic Worsened by: Not applicable Relieved by: Not applicable Associated Symptoms Associated Symptoms: Abnormal CAT scan Narrative Narrative: Patient is a 64-year-old male with history of GERD, hypertension, borderline type 2 diabetes and BMI of 34.4. Last ate/drank at 0600. He has no antibiotic allergies. Denies a traumatic fever, heart murmur, mitral prolapse. He denies fever, chills night sweats. He is not on any immunosuppressive meds. He has history of hypertension on amlodipine and valsartan. Prior similar symptoms: No Recent Illness/Hospitalization: No PFSH PFSH Medical History Abnormal computed tomography of lower extremity Leg abscess Lumbar radiculopathy Lumbar strain Elevated C-reactive protein (CRP) Myalgia Malaise and fatigue Arthritis Varicose veins of both legs with edema Hypersomnolence Wears glasses Alcohol use Rash History of steroid therapy Gastric reflux Chewing tobacco dependence in remission History of edema BPH (benign prostatic hyperplasia) Borderline type 2 diabetes mellitus Abdominal discomfort Great toe pain Flu vaccine need Dermatitis Obesity Hyperglycemia Colon cancer screening Hypertension Erectile dysfunction Umbilical hernia GERD (gastroesophageal reflux disease) Seasonal allergies Home Medications ?Medication ?Instructions ?Recorded ?Last Taken ?Type ascorbate calcium (vitamin C) 500 1,000 mg PO DAILY 11/05/21 02/13/25 History mg tablet cholecalciferol (vitamin D3) 50 50 mcg PO DAILY 11/05/21 02/13/25 History mcg (2,000 unit) capsule multivitamin (Daily Multi-Vitamin 1 tab PO DAILY 11/05/21 02/13/25 History tablet) loratadine 10 mg tablet (Claritin) 10 mg PO DAILY PRN allergy symptoms 03/19/23 02/13/25 History omega 3 350 mg-dha 235 mg-epa 90 1 cap PO DAILY 03/20/24 02/13/25 History mg-fish oil 597 mg capsule,delay rel ([place]-3) aspirin 81 mg tablet,delayed 81 mg PO DAILY 08/22/24 02/13/25 History release (Adult Aspirin Regimen) tadalafil 20 mg tablet 10 mg (1/2 x 20 mg) PO DAILY #30 09/18/24 Unknown Rx TABLETS amlodipine 5 mg tablet 5 mg PO DAILY #90 tabs 11/27/24 02/13/25 Rx doxazosin 4 mg tablet 4 mg PO BID 3 months #180 tabs 11/27/24 02/13/25 Rx valsartan 160 1 tab PO DAILY #90 tabs 11/27/24 02/13/25 Rx mg-hydrochlorothiazide 25 mg tablet metaxalone 800 mg tablet 800 mg PO TID PRN muscle pain #20 02/12/25 02/13/25 Rx tabs prednisone 10 mg tablet 10 mg PO DAILY #30 tabs 02/12/25 02/13/25 Rx famotidine 20 mg tablet (Acid 20 mg PO DAILY 02/13/25 02/13/25 History Controller) Allergy/AdvReac Type Severity Reaction Status Date / Time No Known Allergies Allergy Verified 02/13/25 10:58 Family History Other Heart disease Hypertension Myocardial infarction Surgical History Status post inguinal hernia repair Social History household members: spouse Smoking Status: Former smoker how long ago did patient quit smokin11/15/1989 alcohol intake: current alcohol intake frequency: holidays/special occasions only what type of physical activity do you participate in: walking frequency: daily ROS ROS ED Constitutional Constitutional ED: Denies chills, fever(s), subjective or sweats Eyes Eyes: Denies change in vision Cardiovascular Cardiovascular: Denies chest pain or palpitations Respiratory/Chest Respiratory/Chest: Denies cough, dyspnea or dyspnea on exertion Gastrointestinal Gastrointestinal: Denies abdominal pain, nausea or vomiting Musculoskeletal Musculoskeletal: Denies arthralgias or myalgias Integumentary Reports abscess; Denies rash Neurologic Neurologic: Denies weakness Hematologic/Lymphatic Hematologic/Lymphatic: Reports systems reviewed and no addt'l complaints, except as documented EXAM Physical Exam Const Vital Signs: 02/13/25 10:59 Temperature 97.8 F Temperature Source Temporal Pulse Rate 75 Respiratory Rate 16 Blood Pressure 174/62 H Blood Pressure Mean 99 Pulse Ox 98 Oxygen Delivery Method Room Air Positive well nourished and well developed Constitutional Narrative: BMI 34.4. Blood pressure is elevated 174/62. General Appearance ED: well developed and NAD; Negative for pallor HEENT Reports moist mucous membranes Eyes PERRL and EOMs intact bilaterally General Eye ED: Negative for pale conjunctiva or scleral icterus Neck no lymphadenopathy, supple and no JVD Resp normal respiratory effort and clear to auscultation bilaterally Cardio regular rate, regular rhythm, S1 normal heart sound, S2 normal heart sound and no murmurs Extremity Extremity Narrative: Slight swelling on the left. There is no leg vein distention, discoloration, palpable cords tenderness on the distribution deep venous system. There is no evidence of cellulitis of the left lower extremity. Neuro oriented x3 and CN's II-XII intact bilaterally Sensorium / Orientation: alert Psych mental status grossly normal Skin no rashes or lesions noted, no wounds and skin turgor normal General Skin Exam: Negative for jaundice or pallor MDM MDM MDM Narrative Medical decision making narrative: Patient has an abscess posterior compartment left leg between the medial gastroc anemias and the soleus muscle. There is an additional abscess noted within the medial head of the gastrocnemius within the lower thigh only visible on axial imaging. Sepsis workup was undertaken. Patient denies history of diabetes however past medical history reveals he has type 2 diabetes and his blood sugars recently have been approximately 150. He is diet controlled. He is on no medication. Sepsis workup was undertaken. He was started on vancomycin and ampicillin. Will contact Dr. Casey Howell since he will need in all likelihood operative intervention in light of where the abscesses are located. Lab Data Attestation: I reviewed the patient's lab results. Lab results narrative: White count reveals shift. White count is 6.7. H&H is normal. Indices are unremarkable. Labs: Laboratory Results - last 24 hr 02/13/25 11:15 WBC 6.7 RBC 4.28 L Hgb 13.9 Hct 39.5 L MCV 92.3 MCH 32.5 H MCHC 35.2 RDW Std Deviation 45.1 H RDW Coeff of [place] 13.2 Plt Count 176 MPV 9.6 Immature Gran % (Auto) 0.600 Neut % (Auto) 89.5 H Lymph % (Auto) 8.2 L [place] % (Auto) 1.6 Eos % (Auto) 0.0 Baso % (Auto) 0.1 Absolute Neuts (auto) 6.0 Absolute Lymphs (auto) 0.55 L Nucleated RBC % 0 ESR 6 Sodium 137 Potassium 4.4 Chloride 98 Carbon Dioxide 24.8 Anion Gap 14 BUN 21 H Creatinine 0.92 Estim Creat Clear Calc 95.86 Est GFR (MDRD) Non-Af 92 BUN/Creatinine Ratio 23.1 H Glucose 186 H Lactic Acid 2.6 H* Calcium 9.2 Total Bilirubin 0.57 AST 23 ALT 22 Alkaline Phosphatase 50 C-React Prot Ext Range 4.14 H Total Protein 7.1 Albumin 4.6 Globulin 2.5 Albumin/Globulin Ratio 1.9 Abscess within the superficial posterior compartment of the left leg, between the medial gastrocnemius and soleus muscles. Additional partially visualized abscess within the medial head of the gastrocnemius within the lower thigh, only visible on axial imaging. CT of the left lower thigh is recommended for imaging completion. Urgent surgical consultation for possible incision and debridement is recommended. CT was performed as an outpatient today. EKG Initial EKG: Attestation: I personally reviewed and interpreted this EKG as follows: Interpretation: Sinus Rhythm (Rate is 69. There is evidence of LVH by voltage criteria. AR interval is 148 ms. History is a 94 ms. QT durations are 94 ms. [place] is normal) Management Discussion w/another healthcare provider: Director Sales And Marketing ([place] was asked to page Dr. Casey Howell is on for orthopedics. Dr. Howell recommended sending to radiology suite to have this drained by ultrasound or CT. I was informed that Dr. Olivo is not in house. Will obtain ESR and CRP. If these are elevated we will contact Dr. Howell and give ) Treatment and Re-Evaluation :: CT was reviewed again. CT was performed on 09 February. With a normal white count, normal ESR and slightly elevated CRP which is markedly lower than it was January 15 (101 down to 4) would indicate this is not an infectious process and in all likelihood represents a ruptured muscle and specifically plantaris muscle. Comments:: Patient was instructed to stop the muscle relaxant because there is adverse effects that someone his age and would not recommend prednisone either. This is probably the reason why his blood sugar is elevated and there are other potential complications. Discharge Plan Triage Chief Complaint: Lower Extremity Injury ED Provider: Madi Brooks Dx/Rx/DC Orders Clinical Impression: Traumatic rupture of left plantaris muscle, Borderline type 2 diabetes mellitus, Elevated blood pressure reading with diagnosis of hypertension, BMI 34.0-34.9,adult Instructions: Self-Care for Strains and Sprains Prescriptions: No Action multivitamin [Daily Multi-Vitamin] Tablet 1 tab PO DAILY ascorbate calcium (vitamin C) 500 mg tablet 1,000 mg PO DAILY cholecalciferol (vitamin D3) 50 mcg (2,000 unit) capsule 50 mcg PO DAILY loratadine [Claritin] 10 mg tablet 10 mg PO DAILY PRN (Reason: allergy symptoms) aspirin [Adult Aspirin Regimen] 81 mg tablet,delayed release (DR/EC) 81 mg PO DAILY prednisone 10 mg tablet 10 mg PO DAILY Qty: 30 0RF Rx Instructions: 4 tablets daily x3 days, then 3 tablets daily x3 days, then 2 tablets daily x3 days, then 1 tablet daily x3 days metaxalone 800 mg tablet 800 mg PO TID PRN (Reason: muscle pain) Qty: 20 0RF [place]-3 350 mg-235 mg- 90 mg-597 mg capsule,delayed release(DR/EC) 1 cap PO DAILY famotidine [Acid Controller] 20 mg tablet 20 mg PO DAILY tadalafil 20 mg tablet 10 mg PO DAILY Qty: 30 3RF valsartan-hydrochlorothiazide 160-25 mg tablet 1 tab PO DAILY Qty: 90 1RF doxazosin 4 mg tablet 4 mg PO BID 90 Days Qty: 180 1RF amlodipine 5 mg tablet 5 mg PO DAILY Qty: 90 1RF Primary Care Provider: Filipe Ybarra Referrals: Filipe Ybarra MD [Primary Care Provider] - 1-2 Weeks Activity Restrictions/Additional Instructions: 1. Your blood sugar is elevated 186. This should be rechecked in 1 to 2 weeks when you have your blood pressure rechecked which was elevated at 174/62. 2. If you have some discomfort with walking or swelling recommend ice 6 times a day to your left calf Print Language: Portuguese Disposition Disposition: Home, Self Care
[2025-02-13] MEDS: Ampicillin/Sulbactam 3 GM in 0.9% Normal Saline (100mL MB+) 100 ML IV (11:45)
[2025-02-13 11:46] LABS: Absolute Lymphocyte Count 0.55 X10^3/uL (0.83-4.51); Basophil# 0.01 X10^3/uL; Basophil% 0.1 % (0-1); Hematocrit 39.5 % (40-54); Hemoglobin 13.9 g/dL (13.0-16.5); Lymphocyte # 0.55 X10^3/ul (0.83-4.51); Lymphocyte % 8.2 % (19-41); Mean Corp Hgb Conc 35.2 g/dL (32-36); Mean Corpuscular Hgb 32.5 pg (27.0-32.0); Mean Corpuscular Volume 92.3 fL (80-94); Mean Platelet Vol. 9.6 fl (6.2-12.0); Monocyte# 0.11 X10^3/uL; Monocyte% 1.6 % (0-10); NRBC Flagged by Analyzer 0 % (0-5); Neutrophil # 6.02 X10^3/uL (2.7-7.7); Neutrophil % 89.5 % (47-70); POSITIVE DIFFERENTIAL YES; Platelet Count 176 K/mm3 (150-450); RBC Distribution Width CV 13.2 % (11.6-14.6); RBC Distribution Width SD 45.1 fl (35.1-43.9); Red Blood Count 4.28 M/mm3 (4.6-6.2); White Blood Count 6.7 K/mm3 (4.4-11.0)
[2025-02-13 12:06] LABS: ALB/GLOB Ratio 1.9 RATIO (0.9-2.4); AST(SGOT) 23 U/L (<=37); Alanine Aminotransfer ALT/SGPT 22 U/L (<=46); Albumin, Serum 4.6 g/dL (3.4-4.8); Alkaline Phosphatase 50 U/L (40-129); Anion Gap 14 (5-15); BUN 21 mg/dL (4-19); BUN/Creat Ratio 23.1 RATIO (10-20); Calcium,Total 9.2 mg/dL (7.6-11.0); Carbon Dioxide 24.8 mmol/L (21.0-32.0); Chloride 98 mmol/L (98-108); Creatinine, Serum 0.92 mg/dL (0.70-1.20); EST Glomerular Filtration Rate 92 (>60); Estimated Creatinine Clearance 95.86 ml/min (50-250); Globulin 2.5 g/dL (2.2-4.2); Glucose 186 mg/dL (70-99); Potassium 4.4 mmol/L (3.3-5.1); Protein, Total 7.1 g/dL (5.9-8.4); Sodium Level 137 mmol/L (133-145); Total Bilirubin 0.57 mg/dL (0.00-1.30)
[2025-02-13 12:20] LABS: Lactic Acid 2.6 mmol/L (0.0-2.0)
[2025-02-13 12:45] LABS: Erythrocyte Sedimentation Rate 6 mm/hr (0-20)
[2025-02-13 12:53] LABS: CRP 4.14 mg/L (0.0-3.0)
[2025-02-13] MEDS: Vancomycin HCl 2,000 MG in 0.9% Normal Saline (500mL Bag) 500 ML 250 MG IV (12:56)
[2025-02-13 14:26] VITALS: BP 163/82; PULSE 60; RESP 20; TEMP 36.4; O2SAT 97
[2025-02-13 15:37] LABS: Reflex Lactate? Y
== END 2025-02-13 15:46 | disposition home or self-care (01) ==
PROVIDERS: Emergency Provider Emergency Medicine; PCP Internal Medicine; Visit Provider Emergency Medicine
DX: S89.92XA Unspecified injury of left lower leg, initial encounter (principal); E11.9 Type 2 diabetes mellitus without complications; L02.416 Cutaneous abscess of left lower limb; I10 Essential (primary) hypertension; Z87.891 Personal history of nicotine dependence; X58.XXXA Exposure to other specified factors, initial encounter; Z79.82 Long term (current) use of aspirin; Z79.899 Other long term (current) drug therapy
CPT/HCPCS: 80053; 83605; 85025; 85652; 86140; 87040; 93005; 96365; 96367; 99283; A4216; J0295

== ENCOUNTER 2025-03-28 08:30 | Outpatient (RCR) | payer MEDICARE, SELFPAY ==
--- NOTE | 2025-03-06 10:55 | HP.PTEVAL ---
Patient's Visit Information Visit Information Visit Information: ZHNEG WATKINS is a 65 year old M referred to Physical Therapy by SIERRA Lazo with a diagnosis of . Date of Evaluation: 03/06/25 Physical Therapist: Gerson Barker, PT, Cert MDT, OCS Visit Plan Frequency: 2x /Week Duration: 4 Weeks Plan: PT INTERVENTIONS ANY EX'S ,DLS ,POSTURAL EX'S ,LE FLEXABILITY ,ACTIVITY MODIFICATION AND MODALITIES PRN Subjective Subjective: This 65 y/o male presents to physical therapy with lumbar radiculopathy. This patient has had lumbar radicular ~ 1 month. Patient developed insidious onset of lateral leg pain right lumbar. Medication prednisone ,muscle relaxer. Symptoms are intermittent. Seen DR recommended PT. Aggravating bending ,lifting extended walking. Alleviating factors sitting. C/O paresthesia/tingling-. Coughing/sneezing-. Bowel/bladder-. Patient had 3 hernia repair last year. Patient pain affects sleeping. No h/o leg or back pain. Patient hobbie golfing. No imaging . Patient condition affects QOL and function adn golfing. Patient goals to decrease pain with golfing. SOCIAL: VOCATION: [employer] Pain Right Lower Extremity: Pain Intensity (Out of 10): 5 Pain Intensity Range: 10 Objective Objective: POSTURE: mild forward posture GAIT: reciprocal pattern NEURO: occasionally c/o tingling right leg ,reflexes L3-4,L4-5,L-S1 SYMMTRIES: align PALPATION: tender LS right side FLEXABILITY: hamstrings min tight LUMBAR ROM: flexion min loss ,extension min loss ,side glide min loss MMT: quads/hams 4/5 ,hip flexion 4-/5,ankle 5/5 Special Tests L/S Slump test left side: Negative L/S Slump test right side: Negative L/S Left Straight Leg Raise: Negative L/S Right Straight Leg Raise: Negative Balance/Special Test Scores Oswestry Low Back Score: 27 Goals Goal 1:: Patient to be I with HEP BACK Goal Time Frame: 4-6 Weeks Goal 2:: Patient to improve lumbar ROM for function of recovery for golfing Goal Time Frame: 4-6 Weeks Goal 3:: Patient to improve back oswestry score by 5 points to improve QOL Goal Time Frame: 4-6 Weeks Goal 4:: Patient to demonstrate 50 % improvement with with less pain and improved function. Goal Time Frame: 4-6 Weeks Rehabilitation Potential Physical Therapy Diagnosis: Patient has lumbar derangement below knee vs stenosis with pain with positioning and motion testing worse with flexion better with extension with symptoms intermittent thus benefit from skilled PT Rehabilitation Potential: Good Anticipated Interventions Patient/Client Instruction: Educate patient on: Condition and Plan of Care For the Purpose of:: To decrease pain, To increase ROM, To improve muscle performance and motor function, To improve ability to perform ADL's, To increase tolerance to activity/condition/position, To improve ability of physical actions for home/community/work/leisure, To improve health of tissue, To decrease soft tissue restriction, To increase flexibility/ROM, To improve endurance and To reduce risk of recurrence Therapeutic Exercise to Include: Strength training, Body mechanics, Postural training, Flexibilty training, Dynamic Lumbar Stabilization and Any Exercises For the Purpose of:: To decrease pain, To increase ROM, To improve muscle performance and motor function, To improve ability to perform ADL's, To improve ability of physical actions for home/community/work/leisure, To improve health of tissue, To decrease soft tissue restriction, To increase flexibility/ROM, To reduce risk of recurrence and To improve tolerance to ADL's TENS: Yes IF ES: Yes Cryotherapy (ice pack, ice massage): Yes Thermo therapy (hot pack): Yes Ultrasound (thermal/non thermal): Yes For the Purpose of:: To decrease pain, To increase ROM, To improve nutrient delivery to tissue, To increase oxygenation perfusion, To improve health of tissue and To decrease soft tissue restriction Text: Thank you for the opportunity to evaluate your patient. For Medicare and Medicare HMO plans, please review the plan of care and approve it. It will need to be FAXED BACK to us at [phone] for Medicare purposes. For Medicare only, by signing this I certify the plan of care. Please let me know if there are questions or concerns regarding this plan of care. Physician Signature: Date:
--- NOTE | 2025-06-27 08:48 | HP.PT.NRP ---
Patient Information Patient Information: ZHENG WATKINS was seen in my office for initial evaluation on 03/06/25. The following Plan of Care was established for this patient: POC Established Initial Frequency: 2x /Week Initial Duration: 4 Weeks Anticipated Interventions Patient/Client Instruction: Educate patient on: Condition and Plan of Care For the Purpose of:: To decrease pain, To increase ROM, To improve muscle performance and motor function, To improve ability to perform ADL's, To increase tolerance to activity/condition/position, To improve ability of physical actions for home/community/work/leisure, To improve health of tissue, To decrease soft tissue restriction, To increase flexibility/ROM, To improve endurance and To reduce risk of recurrence Therapeutic Exercise to Include: Strength training, Body mechanics, Postural training, Flexibilty training, Dynamic Lumbar Stabilization and Zain Exercises For the Purpose of:: To decrease pain, To increase ROM, To improve muscle performance and motor function, To improve ability to perform ADL's, To improve ability of physical actions for home/community/work/leisure, To improve health of tissue, To decrease soft tissue restriction, To increase flexibility/ROM, To reduce risk of recurrence and To improve tolerance to ADL's TENS: Yes IF ES: Yes Cryotherapy (ice pack, ice massage): Yes Thermo therapy (hot pack): Yes Ultrasound (thermal/non thermal): Yes For the Purpose of:: To decrease pain, To increase ROM, To improve nutrient delivery to tissue, To increase oxygenation perfusion, To improve health of tissue and To decrease soft tissue restriction Last Seen Last Seen: This patient was last seen in our office . Pertinent comments regarding their Physical therapy will appear below: Patient was seen for PT for lumbar radiculopathy with progressing with decrease pain ,will return to MD At this point I will be discontinuing this patient from physical therapy. I would be happy to see this patient again in the future if found appropriate by the physician. Thank you! Gerson Barker, PT, Cert MDT, OCS Balance/Gait/Functional tests Balance/Special Test Scores Oswestry Low Back Score: 14
== END 2025-03-28 19:00 | disposition home or self-care (01) ==
LOC: PT 08:30
PROVIDERS: PCP Internal Medicine; Referring Provider Physician Assistant; Visit Provider Physician Assistant
DX: S39.012D Strain of muscle, fascia and tendon of lower back, subsequent encounter (principal); M54.16 Radiculopathy, lumbar region
CPT/HCPCS: 97014; 97110; 97162; 97530; G0283

== ENCOUNTER 2025-03-28 09:32 | Outpatient (CLI) | payer MEDICARE, SELFPAY ==
--- NOTE | 2025-03-28 09:33 | RAD_ITS ---
EXAM: XR Lumbosacral Spine Flexion/Extension Only, 2 or 3 Views CLINICAL INDICATION: LUMBAR RADICULOPATHY, RIGHT SIDE TECHNIQUE: Lateral flexion/extension views of the lumbar spine and sacrum. COMPARISON: No relevant prior studies available. FINDINGS: VERTEBRAE: Moderate facet arthropathy of L3-S1. Anterior spurring T12-L4. No acute fracture. Normal sagittal alignment. No instability. SACRUM/COCCYX: Unremarkable as visualized. No acute fracture. DISC SPACES: No acute findings. No significant narrowing. SOFT TISSUES: Unremarkable. RAD/L/S Spine Min 4 Views IMPRESSION: Degenerative changes as above. Reading Location: [id number]
== END 2025-03-28 23:59 | disposition home or self-care (01) ==
LOC: MTRAD 09:33
PROVIDERS: PCP Internal Medicine; Referring Provider Internal Medicine; Visit Provider Internal Medicine
DX: M54.16 Radiculopathy, lumbar region (principal); S39.012D Strain of muscle, fascia and tendon of lower back, subsequent encounter
CPT/HCPCS: 72110; 97014; 97530; G0283

== ENCOUNTER → 2025-04-27 | Outpatient (CLI) | payer MEDICARE, SELFPAY ==
--- NOTE | 2025-04-27 14:14 | VDLE_ITS ---
Reason For Study Reason For Study: RLE SWELLING RIGHT GSV is normal. CFV is compressible, spontaneous, phasic, competent and demonstrates normal augmentation. FV is compressible, spontaneous, phasic, competent and demonstrates normal augmentation. POP V is compressible, spontaneous, phasic, competent and demonstrates normal augmentation. T/P Trunk is compressible. PTV is compressible. RT PerV is compressible. Procedure This is a venous duplex using B-mode, color flow and spectral Doppler. Exam performed in department. A preliminary report was called and/or faxed to Luis ESQUIVEL @ [phone] @ 14:30. VL/Venous Duplex US, Unilateral Interpretation Summary Deep veins of the right lower extremity are patent and compressible segmentally . There is no evidence of right lower extremity deep vein thrombosis. Valvular competence appears intact within the p roximal deep venous system on the right . The right great saphenous vein appears patent and compressible segmentally. Ordering Physician: Luis Chan Referring Physician: Filipe Ybarra Performed By: Rakel Garcia, RDCS, RVT
--- OUTSIDE RECORDS SUMMARY | 2025-04-27 19:37 | XMS RPT_ITS | CCD ---
Author Organization [facility] Care Team Providers Care Outside Solar Sales Consultant Name Role Phone Dr. Filipe Ybarra Primary Care Provider [phone]) Dr. Filipe Ybarra Referring Provider [phone] ABEL Larios NP Attending Provider 1(330) Dr. Filipe Ybarra Attending Provider 1(330)2 Dr. Khadar Mead Attending Provider Dr. Filipe Ybarra Primary Care Provider 1(33 0) Dr. Filipe Ybarra Referring Provider [phone])2 Dr. Khadar Mead Attending Provider Dr. Khadar Mead Referring Provider Dr. Filipe Ybarra Attending Provider [phone])2 Rajni Maciel Attending Provider Unavailable SIERRA Rodriguez Attending Provider Unavail Dr. Filipe Rios Primary Care Provider 1(33 0) Dr. Filipe Ybarra Attending Provider 1(330)2 Dr. Filipe Ybarra Referring Provider [phone])2 Dr. Filipe Ybarra Primary Care Provider 1(33 0) Dr. Filipe Ybarra Attending Provider 1(330)2 Dr. Filipe Ybarra Referring Provider [phone])2 SIERRA Mena Attending Provider Dr. Khadar Mead Attending Provider EVELYN Velasco Attending Provider Dr. Khadar Mead Referring Provider Dr. Khadar Mead Other Provider Jose Braydenfran Dobbins Primary Care Provider Tate FELDER, Dr. Dent Primary Care Provider Albert Lopez MD Attending Provider John FELDER, Albert Emergency Provider Dr. Lior Wall MD Attending Provider John FELDER, Albert Referring Provider Tate FELDER, Dr. Dent Attending Provider Tate FELDER, Dr. Dent Referring Provider Shady Hampton Attending Provider Todd FELDER, Dr. Barraza Emergency Provider [phone] Madi Brooks MD Attending Provider Shady Hampton Referring Provider [phone] Oleghe, Efewongbe Primary Care Unavailable Oleghe, Efewongbe Attending Unavailable Oleghe, Efewongbe Referring Unavailable Oleghe, Efewongbe Primary Care Unavailable Oleghe, Efewongbe Referring Unavailable Khadar Mead Attending Unavailable Mary Bridges Attending Unavailable Oleghe, Efewongbe Primary Care Unavailable Oleghe, Efewongbe Referring Unavailable Oleghe, Efewongbe Primary Care Unavailable Oleghe, Efewongbe Referring Unavailable Oleghe, Efewongbe Attending Unavailable Oleghe, Efewongbe Primary Care Unavailable Madi Brooks Attending Unavailable Oleghe, Efewongbe Referring Unavailable Oleghe, Efewongbe Primary Care Unavailable Oleghe, Efewongbe Attending Unavailable Oleghe, Efewongbe Attending Unavailable Oleghe, Efewongbe Referring Unavailable Oleghe, Efewongbe Primary Care Unavailable Oleghe, Efewongbe Primary Care Unavailable Shady Hampton Referring Unavailable Shady Hampton Attending Unavailable Oleghe, Efewongbe Attending Unavailable Oleghe, Efewongbe Referring Unavailable Oleghe, Efewongbe Primary Care Unavailable Oleghe, Efewongbe Primary Care Unavailable Oleghe, Efewongbe Attending Unavailable Oleghe, Efewongbe Referring Unavailable Oleghe, Efewongbe Attending Unavailable Oleghe, Efewongbe Referring Unavailable Oleghe, Efewongbe Primary Care Unavailable Oleghe, Efewongbe Referring Unavailable Oleghe, Efewongbe Primary Care Unavailable Khadar Mead Attending Unavailable Oleghe, Efewongbe Primary Care Unavailable Ladan Dahl Attending Unavailable Oleghe, Efewongbe Referring Unavailable Lior Wall Attending Unavailable Oleghe, Efewongbe Primary Care Unavailable Albert Lopez Referring Unavailable Oleghe, Efewongbe Primary Care Unavailable Oleghe, Efewongbe Attending Unavailable Oleghe, Efewongbe Primary Care Unavailable Oleghe, Efewongbe Referring Unavailable Khadar Mead Attending Unavailable Oleghe, Efewongbe Referring Unavailable Oleghe, Efewongbe Primary Care Unavailable Shady Hampton Attending Unavailable Oleghe, Efewongbe Attending Unavailable Oleghe, Efewongbe Referring Unavailable Oleghe, Efewongbe Primary Care Unavailable Oleghe, Efewongbe Referring Unavailable Oleghe, Efewongbe Primary Care Unavailable Shady Hampton Attending Unavailable Oleghe, Efewongbe Referring Unavailable Oleghe, Efewongbe Primary Care Unavailable Oleghe, Efewongbe Attending Unavailable Oleghe, Efewongbe Primary Care Unavailable Oleghe, Efewongbe Referring Unavailable Oleghe, Efewongbe Attending Unavailable Oleghe, Efewongbe Primary Care Unavailable MargothaAlbert Attending Unavailable Oleghe, Efewongbe Referring Unavailable Oleghe, Efewongbe Attending Unavailable Oleghe, Efewongbe Primary Care Unavailable Oleghe, Efewongbe Attending Unavailable Oleghe, Efewongbe Referring Unavailable Oleghe, Efewongbe Primary Care Unavailable Luis Regan Attending Provider Medications Current Medications Medication Drug Class(es) Dates Sig (Normalized) Sig (Original) amLODIPine 5 mg oral tablet (20 sources) Dihydropyridine Calcium Channel Aury Start: 03-20-2022 End: 04-10-2025 take 1 tablet by mouth once daily Amlodipine 5 mg tablet Active 5 mg PO DAILY April 10, 2025 10:16am Start: 11-26-2021 End: 03-20-2022 take 1 tablet by mouth once daily Amlodipine 10 mg tablet Discontinued 10 mg PO DAILY December 22, 2021 11:11am March 20, 2022 1:24pm aspirin 81 mg delayed release oral tablet (16 sources) Platelet Aggregation Inhibitor, Nonsteroidal Anti-inflammatory Drug Start: 08-22-2024 take 1 tablet by mouth once daily Aspirin (Adult Aspirin Regimen) 81 mg tablet,delayed release (DR/EC) Active 81 mg PO DAILY August 22, 2024 12:00am Start: 11-05-2021 End: 03-21-2024 take 1 tablet by mouth once daily Aspirin 81 mg tablet,chewable Discontinued 81 mg PO DAILY November 05, 2021 1:00am March 21, 2024 9:13am calcium ascorbate 500 mg oral tablet (10 sources) Start: 11-05-2021 take 2 tablets by mouth once daily Ascorbate Calcium (Vitamin C) 500 mg tablet Active 1000 mg PO DAILY November 05, 2021 1:00am Start: 11-05-2021 take 1 g by mouth once daily A scorbate Calcium (Vitamin C) 500 mg tablet Active 1 g PO DAILY November 05, 2021 1:00am Start: 11-05-2021 take 1 g by mouth once daily A scorbate Calcium (Vitamin C) Active 1 GM PO DAILY November 05, 2021 1:00am cholecalciferol 0.05 mg oral capsule (10 sources) Vitamin D Start: 11-05-2021 take 1 capsule by mouth once daily Cholecalciferol (Vitamin D3) 50 mcg (2,000 unit) capsule Active 50 ug PO DAILY November 05, 2021 1:00am docosahexaenoic acid 200 mg oral capsule (3 sources) Start: 11-05-2021 Docosahexaenoic Acid (Algal [place]-3 Dha) 200 mg capsule Active MG PO November 05, 2021 12:00am doxazosin 4 mg oral tablet (20 sources) alpha-Adrener gic Aury Start: 05-03-2023 End: 04-11-2025 take 1 tablet by mouth twice daily Doxazosin 4 mg tablet Active 4 mg PO TWICE A DAY 180 April 11, 2025 5:25pm Start: 07-16-2022 End: 05-03-2023 take 4 mg by mouth twice daily Doxazosin 8 mg tablet Discontinued 4 mg PO TWICE A DAY July 16, 2022 12:00am May 03, 2023 3:44pm Start: 07-16-2022 End: 05-03-2023 take 4 mg by mouth twice daily Doxazosin Discontinued 4 MG PO TWICE A DAY July 16, 2022 12:00am May 03, 2023 3:44pm Start: 02-06-2022 End: 07-16-2022 take 1 tablet by mouth twice daily Doxazosin 4 mg tablet Discontinued 4 mg PO TWICE A DAY 180 July 14, 2022 1:48pm July 16, 2022 12:10pm Start: 01-05-2022 End: 02-06-2022 take 1 tablet by mouth at bedtime Doxazosin 2 mg tablet Discontinued 2 mg PO AT BEDTIME January 05, 2022 1:00am February 06, 2022 9:45am famotidine 20 mg oral tablet (14 sources) Histamine-2 Receptor Antagonist Start: 02-13-2025 take 1 tablet by mouth once daily Famotidine (Acid Controller) 20 mg tablet Active 20 mg PO DAILY February 13, 2025 12:00am Start: 11-05-2021 End: 09-01-2024 take 1 tablet by mouth once daily as needed for gastroesophageal reflux disease Famotidine 20 mg tablet Discontinued 20 mg PO DAILY as needed for GERD November 05, 2021 1:00am September 01, 2024 12:28pm hydroCHLOROthiazide 25 mg / valsartan 160 mg oral tablet (20 sources) Thiazide Diuretic, Angiotensin 2 Receptor Aury Start: 03-19-2023 End: 04-10-2025 Valsartan-Hydrochlorothiazid e 160-25 mg tablet Active 1 {tbl} PO DAILY April 10, 2025 10:16am Start: 03-19-2023 End: 01-05-2024 take 1 tablet by mouth once daily Valsartan-Hydrochlorothiazide Discontinu ed 1 TABLET PO DAILY October 15, 2023 5:10pm January 05, 2024 9:59pm loratadine 10 mg oral tablet (18 sources) Start: 03-19-2023 take 1 tablet by mouth once daily as needed Loratadine (Claritin) 10 mg tablet Active 10 mg PO DAILY as needed for allergy symptoms March 19, 2023 12:00am Start: 11-05-2021 End: 09-25-2022 take 1 tablet by mouth once daily Loratadine (Claritin) 10 mg tablet Discontinued 10 mg PO DAILY November 05, 2021 1:00am September 25, 2022 11:50am Multivitamin (Daily Multi-Vitamin) tablet (10 sources) Start: 11-05-2021 Multivitamin ( Daily Multi-Vitamin) tablet Active 1 {tbl} PO DAILY November 05, 2021 1:00am Start: 11-05-2021 take 1 tablet by rainer once daily Multivitamin (Daily Multi-Vitamin) tablet Active 1 TABLET PO DAILY November 05, 2021 12:00am Start: 11-05-2021 [facility] Multiv[facility]amin (Daily Multi-Vitamin) tablet Active 1 TABLET PO DAILY November 05, 2021 1:00am [place] 4-Ajq-Nmu-Fish Oil ([place]-3) 350 mg-235 mg- 90 mg-597 mg capsule,delayed release(DR/EC) (7 sources) Start: 03-20-2024 [place] 3-Dha-Ep a-Fish Oil ([place]-3) 350 mg-235 mg- 90 mg-597 mg capsule,delayed release(DR/EC) Active 1 NMA PO DAILY March 20, 2024 12:00am Start: 03-20-2024 take 1 capsule by mo [facility] once daily [place] 1-Cbt-Eql-Fish Oil ([place]-3) 350 mg-235 mg- 90 mg-597 mg capsule,delayed release(DR/EC) Active 1 CAP PO DAILY March 20, 2024 12:00am tadalafil 20 mg oral tablet (20 sources) Phosphodiesterase 5 Inhibitor Start: 07-06-2024 End: 09-18-2024 take 1 tablet by mouth once daily Tadalafil 20 mg tablet Active 10 mg PO DAILY September 18, 2024 5:26pm Start: 08-18-2022 End: 07-06-2024 take 1 tablet by mouth every twenty-four hours Tadalafil 20 mg tablet Discontinued 10 mg PO DAILY as needed for sexual activity June 28, 2023 8:35am July 06, 2024 11:51am administer approximately 30min before sexual activity; do not use more than 1 dose per 24hrs Start: 08-18-2022 End: 06-28-2023 take 1 dose by mouth every twenty-four hours Tadalafil Discontinued 10 MG PO DAILY February 25, 2023 10:14am June 28, 2023 8:36am administer approximately 30min before sexual activity; do not use more than 1 dose per 24hrs Completed/Discontinued Medications Medication Drug Class(es) Dates Sig (Normalized) Sig (Original) acetaminophen 325 mg / HYDROcodone bitartrate 5 mg oral tablet (7 sources) Opioid Agonist Start: 03-27-2024 End: 05-03-2024 Hydrocodone-Acetami nophen 5-325 mg tablet Discontinued 1 {tbl} PO EVERY 6 HOURS as needed for pain 8 March 27, 2024 May 03, 2024 9:15am Start: 03-27-2024 take 1 tablet by rainer th every six hours Hydrocodone-Acetaminophen Active 1 TABLE T PO EVERY 6 HOURS 8 March 27, 2024 200 actuat albuterol 0.09 mg/actuat dry powder inhaler (9 sources) beta2-Adrenergic Agonist Start: 09-08-2022 End: 12-11-2022 Albuterol Sulfate 90 mcg/actuation aerosol powdr breath activated Discontinued 2 NMA INHALATION Q4H as needed September 08, 2022 12:00am December 11, 2022 10:34am Start: 09-08-2022 End: 12-11-2022 Albuterol Sulfate Discontinu ed 2 INH INHALATION Q4H September 08, 2022 12:00am December 11, 2022 10:34am amoxicillin 875 mg / clavulanate 125 mg oral tablet (9 sources) Penicillin-class Antibacterial Start: 09-08-2022 End: 09-25-2022 Amoxicillin-Pot Clavulanate 875-125 mg tablet Discontinued 1 {tbl} PO Q12H September 08, 2022 12:00am September 25, 2022 11:49am Start: 09-08-2022 End: 09-25-2022 take 1 tablet by mouth every twelve hours Amoxicillin-Pot Clavulanate Discontinued 1 TABLET PO Q12H September 08, 2022 12:00am September 25, 2022 11:49am benzonatate 100 mg oral capsule (9 sources) Non-narcotic Antitussive Start: 09-08-2022 End: 03-19-2023 take 1 capsule by mouth twice daily as needed Benzonatate 100 mg capsule Discontinued 100 mg PO TWICE A DAY as needed September 08, 2022 12:00am March 19, 2023 8:43am betamethasone 0.5 mg/ml / clotrimazole 10 mg/ml topical cream (14 sources) Azole Antifungal, Corticosteroid Start: 03-20-2024 End: 05-03-2024 Clotrimazole-Beta methasone 1-0.05 % cream Discontinued 1 NMA TOPICAL TWICE A DAY March 20, 2024 12:00am May 03, 2024 9:16am Start: 03-20-2024 Clotrimazole-B etamethasone Active 1 APPLIC TOPICAL TWICE A DAY March 20, 2024 12:00am Start: 02-02-2024 End: 02-16-2024 Clotrimazole-Betamethasone 1 -0.05 % cream Discontinued 1 NMA TOPICAL TWICE A DAY 45 February 02, 2024 12:00am February 15, 2024 12:00am February 16, 2024 12:05am Start: 02-02-2024 End: 02-16-2024 Clotrimazole-Betamethasone D iscontinued 1 APPLIC TOPICAL TWICE A DAY 45 February 02, 2024 12:00am February 16, 2024 12:05am CD cream (10 sources) Start: 11-05-2021 End: 06-19-2022 CD cream Discontinued TOPICA L as needed November 05, 2021 1:00am June 19, 2022 9:16am Start: 11-05-2021 End: 06-19-2022 CD cream Discontinued TOPICA L November 05, 2021 1:00am June 19, 2022 9:16am Start: 11-05-2021 End: 06-19-2022 CD cream Discontinued TOPICA L November 05, 2021 12:00am June 19, 2022 8:16am Start: 11-05-2021 CD cream Activ e TOPICAL November 05, 2021 1:00am doxycycline hyclate 100 mg oral capsule (6 sources) Tetracycline-class Drug Start: 08-22-2024 End: 09-05-2024 take 1 capsule by mouth twice daily Doxycycline Hyclate 100 mg capsule Discontinued 100 mg PO TWICE A DAY August 22, 2024 12:00am September 04, 2024 12:00am September 05, 2024 12:08am finasteride 5 mg oral tablet (7 sources) 5-alpha Reductase Inhibitor Start: 03-22-2024 End: 05-03-2024 take 1 tablet by mouth once daily Finasteride 5 mg tablet Discontinued 5 mg PO DAILY March 22, 2024 12:00am May 03, 2024 9:16am hydroCHLOROthiazide 25 mg / triamterene 37.5 mg oral tablet (20 sources) Potassium-sparing Diuretic, Thiazide Diuretic Start: 12-22-2021 End: 03-19-2023 Triamterene-Hyd rochlorothiazid 37.5-25 mg tablet Discontinued 1 {tbl} PO EVERY MORNING December 22, 2022 4:19pm March 19, 2023 9:05am Start: 12-22-2021 End: 03-19-2023 take 1 tablet by mouth once daily in the morning Triamterene-Hydrochlorothiazid Discontin ued 1 TABLET PO EVERY MORNING December 22, 2022 4:19pm March 19, 2023 9:05am metaxalone 800 mg oral tablet (4 sources) Start: 02-12-2025 End: 03-26-2025 take 1 tablet by mouth three times daily as needed for pain Metaxalone 800 mg tablet Discontinued 800 mg PO THREE TIMES A DAY as needed for muscle pain February 12, 2025 12:00am March 26, 2025 3:00pm methylPREDNISolone 4 mg oral tablet (10 sources) Corticosteroid Start: 03-20-2022 End: 04-08-2022 take 1 tablet by mouth once Methylprednisolone (Medrol ([place])) 4 mg tablets,dose pack Discontinued 0 PO per package directions March 20, 2022 12:00am April 08, 2022 9:18am PO PER PKG DIR 24 hr metoprolol succinate 100 mg extended release oral tablet (20 sources) beta-Adrenergic Aury Start: 08-18-2022 End: 03-19-2023 take 1 tablet by mouth once daily Metoprolol Succinate 100 mg tablet extended release 24 hr Discontinued 100 mg PO DAILY 60 February 25, 2023 10:13am March 19, 2023 9:08am Start: 07-31-2022 End: 08-18-2022 take 1 tablet by mouth once daily Metoprolol Succinate 50 mg tablet extended release 24 hr Discontinued 50 mg PO DAILY 60 July 31, 2022 12:00am August 18, 2022 11:39am predniSONE 10 mg oral tablet (20 sources) Start: 02-12-2025 End: 03-26-2025 take 4 tablets by mouth once daily, then take 3 tablets by mouth once daily, then take 2 tablets by mouth once daily, then take 1 tablet by mouth once daily Prednisone 10 mg tablet Discontinued 10 mg PO DAILY March 12, 2025 12:00am March 26, 2025 3:00pm 4 tablets daily x3 days, then 3 tablets daily x3 days, then 2 tablets daily x3 days, then 1 tablet daily x3 days Start: 02-01-2025 End: 02-12-2025 take 2 tablets by mouth once daily, then take 5 mg by mouth once daily Prednisone 10 mg tablet Discontinued 10 mg PO daily February 01, 2025 12:00am February 12, 2025 10:49am Start after completing 20 mg tablet. 10 mg daily x 2 weeks, then 5 mg daily x 2 weeks. Start: 01-17-2025 End: 02-01-2025 take 3 tablets by mouth once daily, then take 1 tablet by mouth once daily Prednisone 20 mg tablet Discontinued 20 mg PO daily January 17, 2025 1:00am February 01, 2025 9:38pm Take 60mg daily x 3 days then 20 mg daily. Start: 02-02-2024 End: 02-14-2024 Prednisone 10 mg tablet Disc ontinued 10 mg PO daily 13 11February 02, 2024 12:00am February 13, 2024 12:00am February 14, 2024 12:06am Take 4 tabs once daily days 1-3 3 tabs once daily days 4-6 2 tabs once daily days 7-9 and 1 tab once daily days 10-12. sildenafil 100 mg oral tablet (20 sources) Phosphodiesterase 5 Inhibitor Start: 02-06-2022 End: 08-18-2022 Sildenafil (Viagra) 100 mg tablet Discontinued 100 mg PO DAILY as needed for sexual activity July 17, 2022 11:26am August 18, 2022 11:36am administer 30 minutes to 4 hours before activity Start: 11-24-2021 End: 02-06-2022 Sildenafil 50 mg tablet Disc ontinued 50 mg PO DAILY as needed for sexual activity November 24, 2021 1:00am February 06, 2022 9:45am administer 30 minutes to 4 hours before activity triamcinolone acetonide 1 mg/ml topical cream (19 sources) Corticosteroid Start: 04-08-2022 End: 07-17-2022 Triamcinolone Acetonide 0.1 % cream Discontinued 1 NMA TOPICAL TWICE A DAY as needed for Dermatitis 453.6 June 11, 2022 10:58am July 17, 2022 10:55am valACYclovir 1000 mg oral tablet (2 sources) Herpesvirus Nucleoside Analog DNA Polymerase Inhibitor, Herpes Simplex Virus Nucleoside Analog DNA Polymerase Inhibitor, Herpes Zoster Virus Nucleoside Analog DNA Polymerase Inhibitor Start: 03-12-2025 End: 03-26-2025 Valacyclovir 1 gram tablet Discontinued 1000 mg PO THREE TIMES A DAY March 12, 2025 12:00am March 26, 2025 3:01pm Problems Active Problems Problem Classification Problem Date Documented Date Episodic/Chronic Abdominal hernia (20 sources) Umbilical hernia; Translations: [Umbilical hernia without obstruction or gangrene] Onset: 05-15-2024 Episodic Abdominal pain (8 sources) Abdominal discomfort; Translations: [Unspecified abdominal pain] 03-19-2023 Episodic Allergic reactions (12 sources) Inflammatory dermatosis; Translations: [Dermatitis, unspecified] Episodic Diabetes mellitus without complication (20 sources) Hyperglycemia; Translations: [Hyperglycemia, unspecified] Onset: 02-14-2025 11-17-2021 Episodic E Codes: Fall (1 source) Unspecified fall, initial encounter; Translations: [Unspecified fall] Episodic E Codes: Natural/environment (6 sources) Insect bite - wound; Translations: [Bitten or stung by nonvenomous insect and other nonvenomous arthropods, initial encounter] 08-22-2024 Episodic Esophageal disorders (12 sources) Gastroesophageal reflux disease; Translations: [Gastro-esophageal reflux disease without esophagitis] 01-12-2024 Chronic Essential hypertension (20 sources) Hypertensive disorder; Translations: [Essential (primary) hypertension] Onset: 01-25-2025 Chronic Hyperplasia of prostate (11 sources) Benign prostatic hyperplasia; Translations: [Benign prostatic hyperplasia without lower urinary tract symptoms] Onset: 09-01-2024 03-22-2024 Chronic Immunizations and screening for infectious disease (10 sources) Needs influenza immunization; Translations: [Encounter for immunization] Episodic Malaise and fatigue (20 sources) Malaise and fatigue; Translations: [Other malaise] Onset: 01-17-2025 01-10-2025 Episodic Osteoarthritis (18 sources) Arthritis; Translations: [Unspecified osteoarthritis, unspecified site] 01-10-2025 Chronic Other connective tissue disease (10 sources) Swelling of lower leg; Translations: [Other specified soft tissue disorders] 06-09-2022 Episodic Other connective tissue disease (10 sources) Swelling of left lower limb; Translations: [Other specified soft tissue disorders] 06-09-2022 Episodic Other connective tissue disease (4 sources) Other specified soft tissue disorders; Translations: [Swelling of limb] Episodic Other connective tissue disease (9 sources) Pain in hallux; Translations: [Pain in unspecified toe(s)] 09-25-2022 Episodic Other connective tissue disease (1 source) Pain in unspecified toe(s); Translations: [Pain in limb] Episodic Other connective tissue disease (6 sources) Swollen calf; Translations: [Other specified soft tissue disorders] 01-14-2025 Episodic Other connective tissue disease (15 sources) Muscle pain; Translations: [Myalgia, unspecified site] 01-10-2025 Episodic Other connective tissue disease (12 sources) Pain in calf; Translations: [Pain in left lower leg] 01-14-2025 Episodic Other connective tissue disease (1 source) Myalgia, unspecified site; Translations: [Myalgia, unspecified site] Onset: 01-17-2025 Episodic Other connective tissue disease (1 source) Pain in left lower leg; Translations: [Pain in left lower leg] Onset: 01-17-2025 Episodic Other connective tissue disease (1 source) Swelling of right lower limb; Translations: [Other specified soft tissue disorders] 04-27-2025 Episodic Other diseases of veins and lymphatics (1 source) Venous insufficiency (chronic) (peripheral); Translations: [Venous (peripheral) insufficiency, unspecified] Episodic Other inflammatory condition of skin (7 sources) Psoriasis; Translations: [Psoriasis, unspecified] 02-02-2024 Chronic Other inflammatory condition of skin (1 source) Psoriasis, unspecified; Translations: [Other psoriasis] 02-02-2024 Chronic Other male genital disorders (14 sources) Male erectile dysfunction, unspecified; Translations: [Erectile dysfunction] Chronic Other nutritional; endocrine; and metabolic disorders (10 sources) Obesity; Translations: [Obesity, unspecified] 07-31-2022 Chronic Other nutritional; endocrine; and metabolic disorders (4 sources) Obesity, unspecified; Translations: [Obesity, unspecified] Chronic Other nutritional; endocrine; and metabolic disorders (4 sources) Body mass index 30+ - obesity; Translations: [Body mass index (BMI) 34.0-34.9, adult] 02-13-2025 Chronic Other screening for suspected conditions (not mental disorders or infectious disease) (20 sources) Patient encounter status; Translations: [Encounter for screening for malignant neoplasm of colon] Onset: 03-01-2025 11-17-2021 Episodic Other upper respiratory disease (10 sources) Seasonal allergy; Translations: [Other seasonal allergic rhinitis] 11-17-2021 Chronic Other upper respiratory infections (1 source) Acute upper respiratory infection, unspecified; Translations: [Acute upper respiratory infections of unspecified site] Episodic Otitis media and related conditions (1 source) Otitis media, unspecified, unspecified ear; Translations: [Unspecified otitis media] Episodic Residual codes; unclassified (6 sources) Hypersomnia; Translations: [Hypersomnia, unspecified] 05-03-2024 Chronic Residual codes; unclassified (2 sources) Hypersomnia, unspecified; Translations: [Hypersomnia, unspecified] Onset: 05-03-2024 Chronic Skin and subcutaneous tissue infections (5 sources) Abscess of lower limb; Translations: [Cutaneous abscess of limb, unspecified] Onset: 02-16-2025 02-12-2025 Episodic Spondylosis; intervertebral disc disorders; other back problems (20 sources) Dorsalgia, unspecified; Translations: [Backache, unspecified] Onset: 03-28-2025 Episodic Sprains and strains (20 sources) Strain of knee; Translations: [Strain of unspecified muscle(s) and tendon(s) at lower leg level, right leg, initial encounter] Onset: 02-13-2025 02-02-2024 Episodic Varicose veins of lower extremity (6 sources) Varicose veins of lower limb co-occurrent with edema; Translations: [Varicose veins of bilateral lower extremities with other complications] 09-01-2024 Episodic Past or Other Problems Problem Classification Problem Date Documented Da te Episodic/Chronic Genitourinary symptoms and ill-defined conditions (1 source) Nocturia; Translations: [Nocturia] Onset: 09-01-2024 Episodic Results Test Name Value Interpretation Reference Range Facility L/S Spine Min 4 Viewson 03-15 L/S Spine Min 4 Views [facility] [address], [place] [address] (045) L/S Spine Min 4 Views MR#: [id number] Acct: [id number] Name: ZHENG WATKINS Rep #: [id number] : 1960 M 65 From: Rickey Aguilera MD PCP: Dr. Filipe Ybarra MD Status: REG CLI Study: L/S Spine Min 4 Views Date of Exam: 03/28/25 Exam# [id number] Ordering Dr: Filipe Ybarra MD EXAM: XR Lumbosacral Spine Flexion/Extension Only, 2 or 3 Views CLINICAL INDICATION: LUMBAR RADICULOPATHY, RIGHT SIDE TECHNIQUE: Lateral flexion/extension views of the lumbar spine and sacrum. COMPARISON: No relevant prior studies available. FINDINGS: VERTEBRAE: Moderate facet arthropathy of L3-S1. Anterior spurring T12-L4. No acute fracture. Normal sagittal alignment. No instability. SACRUM/COCCYX: Unremarkable as visualized. No acute fracture. DISC SPACES: No acute findings. No significant narrowing. SOFT TISSUES: Unremarkable. RAD/L/S Spine Min 4 Views IMPRESSION: Degenerative changes as above. Reading Location: [id number] CC: Dr. Filipe Ybarra MD Complaint Analyst: Signed Normal [facility] Internal Medicine Office Vis laura 03-26-2025 Internal Medicine Office Visit [facility] [address] [place] [address] [place] [address] OFFICE VISIT Date of Service: 03/26/25 MR#: [id number] Acct: [id number] Name: ZHENG WATKINS Rep #: [id number] : 1960 Provider: Dr. Filipe alvarez MD Age/Sex: 65/M Location: [facility] [place].[facility] Status: Signed Intake Vital Signs 02/14/25 13:12 03/26/25 15:02 Height 5 ft 9 in 5 ft 9 in Weight: 227 lb BMI 33.5 BP 142/78 H Blood Pressure Location Lt brachial Position Sitting Respiration 16 Pulse 76 Pulse Source Monitor Temp 98.7 F Temp Source Temporal Pulse Oximetry (%) 93 Oxygen Delivery Method room air Intake Visit Reasons: FU ON SCIATICA Chief Complaint: Back pain Is patient in pain?: Yes (RIGHT SCIATICA) Pain scale (1-10): 5 Allergies No Known Allergies Allergy (Verified 03/26/25 14:57) Medications ???Medication ???Instructions ???Recorded ???Confirmed ???Type ascorbate calcium (vitamin C) 500 1,000 mg PO DAILY 11/05/21 History mg tablet cholecalciferol (vitamin D3) 50 50 mcg PO DAILY 11/05/21 03/26/25 History mcg (2,000 unit) capsule multivitamin (Daily Multi-Vitamin 1 tab PO DAILY 11/05/21 03/26/25 History tablet) loratadine 10 mg tablet (Claritin) 10 mg PO DAILY PRN allergy sympt oms 03/19/23 03/26/25 History omega 3 350 mg-dha 235 mg-epa 90 1 cap PO DAILY 03/20/24 03/26/25 H istory mg-fish oil 597 mg capsule,delay rel ([place]-3) aspirin 81 mg tablet,delayed 81 mg PO DAILY 08/22/24 03/26/25 H istory release (Adult Aspirin Regimen) tadalafil 20 mg tablet 10 mg (1/2 x 20 mg) PO DAILY #30 1 11/18/23 03/26/25 Rx TABLETS amlodipine 5 mg tablet 5 mg PO DAILY #90 tabs 11/27/24 Rx doxazosin 4 mg tablet 4 mg PO BID 3 months #180 tabs 03/26/25 Rx valsartan 160 1 tab PO DAILY #90 tabs 11/27/24 0 03/26/25 Rx mg-hydrochlorothiazi de 25 mg tablet famotidine 20 mg tablet (Acid 20 mg PO DAILY 02/13/25 03/26/25 H istory Controller) Have you fallen in the past year?: No PFSH Medical History (Updated 03/26/25 @ 17:[address] Filipe bYarra MD) Back pain Abnormal computed tomography of lower extremity Leg abscess Lumbar radiculopathy Lumbar strain Elevated C-reactive protein (CRP) Myalgia Malaise and fatigue Arthritis Varicose veins of both legs with edema Hypersomnolence Wears glasses Alcohol use Rash History of steroid therapy Gastric reflux Chewing tobacco dependence in remission History of edema BPH (benign prostatic hyperplasia) Borderline type 2 diabetes mellitus Abdominal discomfort Great toe pain Flu vaccine need Dermatitis Obesity Hyperglycemia Colon cancer screening Hypertension Erectile dysfunction Umbilical hernia GERD (gastroesophageal reflux disease) Seasonal allergies Surgical History Status post inguinal hernia repair Family History Other Heart disease Hypertension Myocardial infarction Social History household members: spouse Smoking Status: Former smoker how long ago did patient quit smokin11/15/1989 alcohol intake: current alcohol intake frequency: holidays/special occasions only what type of physical activity do you participate in: walking frequency: daily HPI HPI Chief Complaint: Back pain Details: ZHENG WATKINS, is a 65 M who presents to the office today for an acute visit. Has been in therapy for lumbar radiculopathy however, therapy so far has not been helpful. He reports back pain which radiates down his right lower extremity. Sharp pain, no numbness or tingling. Pain is said to be worse after prolonged standing/walking, has to take a break with some improvement. No change in bowel or bladder habit ROS Const Constitutional: No body ache, chills, excessive sweating, fatigue, fever(s), frequent falls, headache(s), snoring, weakness, sleep problems or change in appetite Eyes Eyes: No blurry vision, change in vision or Light sensitivity ENT ENT: No abnormal hearing, ear or mastoid pain, tinnitus, nasal congestion, nasal discharge, headache(s), neck pain or sore throat Resp Respiratory: No cough, shortness of breath, snoring or wheezing Cardio Cardiology: No chest pain at rest, chest pain with exertion, excessive sweating, shortness of breath, dyspnea on exertion, lightheadedness, orthopnea or palpitations Gastro GI: No abdominal pain, change in bowel habits, constipation, cramping, diarrhea or nausea/dyspepsia Genitourinary Male: No burning urination, painful urination, urinary incontinence or urinary frequency Musc Musculoskeletal: Positive for sciatica and other (PT NOT HELPFUL WITH RIGHT SIDED SCIATICA; MEDS NOT HELPFUL); No abn (more content not included)... Normal [facility] Urgent Care Visit Reporton 0 03-12-2025 Urgent Care Visit Report [facility] [address], [address] [place] [address] OFFICE VISIT Date of Service: 03/12/25 MR#: [id number] Acct: [id number] Name: ZHENG WATKINS Rep #: [id number] : 1960 Provider: SIERRA Lazo Age/Sex: 65/M Location: [facility] [place] Status: Signed Intake Vital Signs 02/14/25 13:12 Height 5 ft 9 in Weight: 231 lb 6 oz BMI 34.1 BP 138/78 H Blood Pressure Location Rt brachial Position Sitting Respiration 16 Pulse 73 Pulse Source Monitor Temp 98.1 F Temp Source Temporal Pulse Oximetry (%) 94 Oxygen Delivery Method room air Intake Visit Reasons: RASH ON LOWER BACK, RIGHT EYE SWOLLEN Chief Complaint: Follow-up Pharmaceutical Operator Required: No Is patient in pain?: No Allergies No Known Allergies Allergy (Verified 03/12/25 09:18) Medications ???Medication ???Instructions ???Recorded ???Confirmed ???Type ascorbate calcium (vitamin C) 500 1,000 mg PO DAILY 11/05/21 History mg tablet cholecalciferol (vitamin D3) 50 50 mcg PO DAILY 11/05/21 03/12/25 History mcg (2,000 unit) capsule multivitamin (Daily Multi-Vitamin 1 tab PO DAILY 11/05/21 03/12/25 History tablet) loratadine 10 mg tablet (Claritin) 10 mg PO DAILY PRN allergy sympt oms 03/19/23 03/12/25 History omega 3 350 mg-dha 235 mg-epa 90 1 cap PO DAILY 03/20/24 03/12/25 H istory mg-fish oil 597 mg capsule,delay rel ([place]-3) aspirin 81 mg tablet,delayed 81 mg PO DAILY 08/22/24 03/12/25 H istory release (Adult Aspirin Regimen) tadalafil 20 mg tablet 10 mg (1/2 x 20 mg) PO DAILY #30 1 11/18/23 03/12/25 Rx TABLETS amlodipine 5 mg tablet 5 mg PO DAILY #90 tabs 11/27/24 Rx doxazosin 4 mg tablet 4 mg PO BID 3 months #180 tabs 03/12/25 Rx valsartan 160 1 tab PO DAILY #90 tabs 11/27/24 0 03/12/25 Rx mg-hydrochlorothiazi de 25 mg tablet metaxalone 800 mg tablet 800 mg PO TID PRN muscle pain #20 02/12/25 03/12/25 Rx tabs prednisone 10 mg tablet 10 mg PO DAILY #30 tabs 02/12/25 0 03/12/25 Rx famotidine 20 mg tablet (Acid 20 mg PO DAILY 02/13/25 03/12/25 H istory Controller) prednisone 10 mg tablet 10 mg PO DAILY #30 tabs 03/12/25 0 03/12/25 Rx valacyclovir 1 gram tablet 1,000 mg PO TID #21 tabs 03/12/25 03/12/25 Rx Have you fallen in the past year?: No Nurse's Note: Rash on lower back, which started after playing golf on . He has sciatica and iced it that day. He has some pain. RL back is affected. It is reddish purple and swollen. Yesterday he woke up w/ R eye swollen. Has not been treating w/ anything. Does have numbness and tingling down R side of back into leg, pt has sciatica thought. No loss of vision in R eye, or discharge. Pt denies any change of soaps, foods or perfumes. [facility] Medical History Abnormal computed tomography of lower extremity Leg abscess Lumbar radiculopathy Lumbar strain Elevated C-reactive protein (CRP) Myalgia Malaise and fatigue Arthritis Varicose veins of both legs with edema Hypersomnolence Wears glasses Alcohol use Rash History of steroid therapy Gastric reflux Chewing tobacco dependence in remission History of edema BPH (benign prostatic hyperplasia) Borderline type 2 diabetes mellitus Abdominal discomfort Great toe pain Flu vaccine need Dermatitis Obesity Hyperglycemia Colon cancer screening Hypertension Erectile dysfunction Umbilical hernia GERD (gastroesophageal reflux disease) Seasonal allergies Surgical History Status post inguinal hernia repair Family History Other Heart disease Hypertension Myocardial infarction Social History household members: spouse Smoking Status: Former smoker how long ago did patient quit smokin11/15/1989 alcohol intake: current alcohol intake frequency: holidays/special occasions only what type of physical activity do you participate in: walking frequency: daily HPI HPI Chief Complaint: Follow-up Details: ZHENG WATKINS, is a 65 M who presents to the office today for initial evaluation 4-day history of right eye/upper eyelid/lower eyelid and right gluteal pain with new onset fine erythematous edematous rash appreciated to the same regions approximately 48 hours ago. No complaints of fever, chills, sweats, lightheadedness/dizz iness, nausea/vomiting, cough, or chest pressure/shortness of breath/dyspnea on exertion. Chickenpox as a child. Unsure if close contacts with similar complaints. No byjo-yzh-jgxyhuf products taken to assist. No other associated symptoms and no other al (more content not included)... Normal [facility] Inital Evaluation (1) - PTon 03-06-2025 Inital Evaluation (1) - PT [facility] Physical Therapy [facility] [address] [place] [address]. [address] [place] [address] / REHABILITATION SERVICES INITIAL EVALUATION MR#: [id number] Acct: [id number] Name: ZHENG WATKINS Rep #: [id number] : 1960 65 From: Gerson Barker PT, Cert. MD Edwards, OCS Referring Dr.: SIERRA Lazo Status: REG R CR Insurance: [facility] [id number] SELF PAY INSURANCE Patient's Visit Information Visit Information Visit Information: ZHENG WATKINS is a 65 year old M referred to Physical Therapy by SIERRA Lazo with a diagnosis of . Date of Evaluation: 03/06/25 Physical Therapist: Gerson Barker, PT, Cert MDT, OCS Visit Plan Frequency: 2x /Week Duration: 4 Weeks Plan: PT INTERVENTIONS ZAIN EX'S ,DLS ,POSTURAL EX'S ,LE FLEXABILITY ,ACTIVITY MODIFICATION AND MODALITIES PRN Subjective Subjective: This 65 y/o male presents to physical therapy with lumbar radiculopathy. This patient has had lumbar radicular 1 month. Patient developed insidious onset of lateral leg pain right lumbar. Medication prednisone ,muscle relaxer. Symptoms are intermittent. Seen DR recommended PT. Aggravating bending ,lifting extended walking. Alleviating factors sitting. C/O paresthesia/tingling -. Coughing/sneezing-. Bowel/bladder-. Patient had 3 hernia repair last year. Patient pain affects sleeping. No h/o leg or back pain. Patient hobbie golfing. No imaging . Patient condition affects QOL and function adn golfing. Patient goals to decrease pain with golfing. SOCIAL: VOCATION: [employer] Pain Right Lower Extremity: Pain Intensity (Out of 10): 5 Pain Intensity Range: 10 Objective Objective: POSTURE: mild forward posture GAIT: reciprocal pattern NEURO: occasionally c/o tingling right leg ,reflexes L3-4,L4-5,L-S1 SYMMTRIES: align PALPATION: tender LS right side FLEXABILITY: hamstrings min tight LUMBAR ROM: flexion min loss ,extension min loss ,side glide min loss MMT: quads/hams 4/5 ,hip flexion 4-/5,ankle 5/5 Special Tests L/S Slump test left side: Negative L/S Slump test right side: Negative L/S Left Straight Leg Raise: Negative L/S Right Straight Leg Raise: Negative Balance/Special Test Scores Oswestry Low Back Score: 27 Goals Goal 1:: Patient to be I with HEP BACK Goal Time Frame: 4-6 Weeks Goal 2:: Patient to improve lumbar ROM for function of recovery for golfing Goal Time Frame: 4-6 Weeks Goal 3:: Patient to improve back oswestry score by 5 points to improve QOL Goal Time Frame: 4-6 Weeks Goal 4:: Patient to demonstrate 50 % improvement with with less pain and improved function. Goal Time Frame: 4-6 Weeks Rehabilitation Potential Physical Therapy Diagnosis: Patient has lumbar derangement below knee vs stenosis with pain with positioning and motion testing worse with flexion better with extension with symptoms intermittent thus benefit from skilled PT Rehabilitation Potential: Good Anticipated Interventions Patient/Client Instruction: Educate patient on: Condition and Plan of Care For the Purpose of:: To decrease pain, To increase ROM, To improve muscle performance and motor function, To improve ability to perform ADL's, To increase tolerance to activity/condition/p osition, To improve ability of physical actions for home/community/work/ leisure, To improve health of tissue, To decrease soft tissue restriction, To increase flexibility/ROM, To improve endurance and To reduce risk of recurrence Therapeutic Exercise to Include: Strength training, Body mechanics, Postural training, Flexibilty training, Dynamic Lumbar Stabilization and Zain Exercises For the Purpose of:: To decrease pain, To increase ROM, To improve muscle performance and motor function, To improve ability to perform ADL's, To improve ability of physical actions for home/community/work/ leisure, To improve health of tissue, To decrease soft tissue restriction, To increase flexibility/ROM, To reduce risk of recurrence and To improve tolerance to ADL's TENS: Yes IF ES: Yes Cryotherapy (ice pack, ice massage): Yes Thermo therapy (hot pack): Yes Ultrasound (thermal/non thermal): Yes For the Purpose of:: To decrease pain, To increase ROM, To improve nutrient delivery to tissue, To increase oxygenation perfusion, To improve health of tissue and To decrease soft tissue restriction Text: Thank you for the opportunity to evaluate your patient. For Medicare and Medicare HMO plans, please review the plan of care and approve it. It will need to be FAXED BACK to us at [phone] for Medicare purposes. For Medicare only, by signing this I certify the plan of care. Please let me know if there are questions or concerns regarding this plan of care. Physician Signature: D ate: 03/06/25 1056 CC: Dr. Filipe Ybarra MD; (more content not included)... Normal [facility] Culture, Blood (WB)on 2024 CUB Blood cultures x2, from two different sites No growth in 5 days. Normal [facility] Comment on above: Performed By: #### L 100.0100, M200.1000, L500.4050, L503.6005 ####[facility] [id number] [place], [address] CUB Blood cultures x2, from two different sites No growth in 5 days. Normal [facility] Comment on above: Performed By: #### M 200.1000 ####[facility] [id number] [place], [address] Internal Medicine Office Vis iton 02-14-2025 Internal Medicine Office Visit [facility] [address] [place] [address] OFFICE VISIT Date of Service: 02/14/25 MR#: [id number] Acct: [id number] Name: ZHENG WATKINS Rep #: [id number] : 1960 Provider: Dr. Filipe alvarez MD Age/Sex: 64/M Location: [facility] [place].[facility] Status: Signed Intake Vital Signs 01/17/25 08:50 02/13/25 10:59 02/14/25 13:12 Height 5 ft 9 in 5 ft 9 in 5 ft 9 in Weight: 231 lb 6 oz BMI 34.1 BP 138/78 H Blood Pressure Location Rt brachial Position Sitting Respiration 16 Pulse 73 Pulse Source Monitor Temp 98.1 F Temp Source Temporal Pulse Oximetry (%) 94 Oxygen Delivery Method room air Intake Visit Reasons: 1 M FU Chief Complaint: Follow-up Pharmaceutical Operator Required: No Accompanied by: Self Is patient in pain?: No Allergies No Known Allergies Allergy (Verified 02/14/25 13:11) Medications ???Medication ???Instructions ???Recorded ???Confirmed ???Type ascorbate calcium (vitamin C) 500 1,000 mg PO DAILY 11/05/21 History mg tablet cholecalciferol (vitamin D3) 50 50 mcg PO DAILY 11/05/21 02/14/25 History mcg (2,000 unit) capsule multivitamin (Daily Multi-Vitamin 1 tab PO DAILY 11/05/21 02/14/25 History tablet) loratadine 10 mg tablet (Claritin) 10 mg PO DAILY PRN allergy sympt oms 03/19/23 02/14/25 History omega 3 350 mg-dha 235 mg-epa 90 1 cap PO DAILY 03/20/24 02/14/25 H istory mg-fish oil 597 mg capsule,delay rel ([place]-3) aspirin 81 mg tablet,delayed 81 mg PO DAILY 08/22/24 02/14/25 H istory release (Adult Aspirin Regimen) tadalafil 20 mg tablet 10 mg (1/2 x 20 mg) PO DAILY #30 1 11/18/23 02/14/25 Rx TABLETS amlodipine 5 mg tablet 5 mg PO DAILY #90 tabs 11/27/24 Rx doxazosin 4 mg tablet 4 mg PO BID 3 months #180 tabs 02/14/25 Rx valsartan 160 1 tab PO DAILY #90 tabs 11/27/24 0 02/14/25 Rx mg-hydrochlorothiazi de 25 mg tablet metaxalone 800 mg tablet 800 mg PO TID PRN muscle pain #20 02/12/25 02/14/25 Rx tabs prednisone 10 mg tablet 10 mg PO DAILY #30 tabs 02/12/25 0 02/14/25 Rx famotidine 20 mg tablet (Acid 20 mg PO DAILY 02/13/25 02/14/25 H istory Controller) Have you fallen in the past year?: No [facility] Medical History Abnormal computed tomography of lower extremity Leg abscess Lumbar radiculopathy Lumbar strain Elevated C-reactive protein (CRP) Myalgia Malaise and fatigue Arthritis Varicose veins of both legs with edema Hypersomnolence Wears glasses Alcohol use Rash History of steroid therapy Gastric reflux Chewing tobacco dependence in remission History of edema BPH (benign prostatic hyperplasia) Borderline type 2 diabetes mellitus Abdominal discomfort Great toe pain Flu vaccine need Dermatitis Obesity Hyperglycemia Colon cancer screening Hypertension Erectile dysfunction Umbilical hernia GERD (gastroesophageal reflux disease) Seasonal allergies Surgical History Status post inguinal hernia repair Family History Other Heart disease Hypertension Myocardial infarction Social History household members: spouse Smoking Status: Former smoker how long ago did patient quit smokin11/15/1989 alcohol intake: current alcohol intake frequency: holidays/special occasions only what type of physical activity do you participate in: walking frequency: daily HPI HPI Chief Complaint: Follow-up Details: ZHENG WATKINS, is a 64 M who presents to the office today for follow-up. No acute concerns at this time. At his last visit about a month ago, he had reported almost generalized joint pain, swelling and feeling of unwell. CRP checked x 2 with significant elevation. ESR was also slightly elevated. Due to inability to get into see rheumatology in a timely fashion and significantly worsening markers/symptoms he was started on prednisone. Did really well with significant symptom improvement following this. Due to more pain in his left calf/lower extremity he had a CAT scan ordered which was only done last week. This was concerning for possible collection/abscess. Was referred to Ortho who suggested emergent evaluation at the ER. Was seen at the ER yesterday, repeat testing done showed significant improvement in his CRP and ESR. Normal white count. He had also reported significant improvement in his pain and swelling. Abnormality noted on CAT scan thought to be from a muscle injury/tear. History of borderline diabetes, last A1c was at 5.9 in August. Currently not on any medication. Following his left lower extremity pain, he has cut back on his activity and on the steroid, he (more content not included)... Normal [facility] Laboratory - Hematology and Cell countsOrdered By: Filipe Ybarra on 02-14-2025 HbA1c (Bld) [Mass fraction] 6.0 % 4.2-6.3 [facility] 12 Lead EKGon 02-13-2025 12 Lead EKG [facility] [address] [place] [address] 12 Lead EKG 02/13/25 1120 MR#: [id number] Acct: [id number] Name: ZHENG WATKINS Rep #: [id number] : 1960 64 From: Peyman Adame MD Attending Dr: Status: DEP ER Ordering Dr: Madi Brooks MD Date: 02/13/25 Location: ED Sex: M C Admitted: Test Reason : GENERAL Blood Pressure : */* mmHG Vent. Rate : 69 BPM Atrial Rate : 69 BPM P-R Int : 148 ms QRS Dur : 94 ms QT Int : 394 ms P-R-T Axes : 24 -3 9 degrees QTcB Int : 422 ms Normal sinus rhythm Minimal voltage criteria for LVH, may be normal variant ( R in aVL ) Borderline ECG Confirmed by Peyman Adame ([id number]), content editor BRENNEN PEDRAZA ([id number]) on 02/14/2025 7:47:13 AM Referred By: Confirmed By: Peyman Adame 02/14/25 0747 Date Peyman Adame MD CC: Dr. Filipe Ybarra MD; Dr. Madi Brooks MD Signed Normal [facility] Absolute lymphocyte countOrd ered By: Madi Brooks on 02-13-2025 Lymphocytes Auto (Unsp spec) [#/Vol] 0.55 10*3/uL Low 0.83-4.51 [facility] Absolute neutrophil countOrd ered By: Madi Brooks on 02-13-2025 Neutrophils (Bld) [#/Vol] 6.0 10*3/uL 2.0-7.7 [facility] Anion gap in Serum or Plasma Ordered By: Madi Brooks on 02-13-2025 Anion gap [Moles/Vol] 14 mmol/L 5-15 [facility] Automated lymphocyte count a s percentage of total leukocytesOrdered By: Madi Brooks on 02-13-2025 Lymphocytes/100 WBC Auto (Unsp spec) 8.2 % Low 19-41 [facility] BUN/creatinine ratioOrdered By: Madi Brooks on 02-13-2025 Urea nitrogen/Creatinine [Mass ratio] 23.1 mg/mg High 10-20 [facility] Basophil percentageOrdered B y: Madi Brooks on 02-13-2025 Basophils/100 WBC (Bld) 0.1 % 0-1 [facility] Bilirubin, totalOrdered By: Madi Brooks on 02-13-2025 Bilirubin [Mass/Vol] 0.57 mg/dL 0.00-1.30 [facility] Blood cultureOrdered By: Madialexis Brooks on 02-13-2025 Bacteria identified Cx Nom (Bld) No growth in 5 days. [facility] Bacteria identified Cx Nom (Bld) No growth in 5 days. [facility] CBC W/Diff, Automatedon Absolute Lymph 0.55 X10 3/uL Low 0.83-4.51 [facility] Comment on above: Performed By: #### L 100.0100, M200.1000, L500.4050, L503.6005 #### [facility] Laboratory [address] [place], [address] Absolute Neut 6.0 X10 3/uL Normal 2.0-7.7 [facility] Comment on above: Performed By: #### L 100.0100, M200.1000, L500.4050, L503.6005 #### [facility] [address] [place], [address] Basophils/100 WBC (Bld) 0.1 % Normal 0-1 [facility] Comment on above: Performed By: #### L 100.0100, M200.1000, L500.4050, L503.6005 #### [facility] [address] [place], [address] Eosinophils/100 WBC (Bld) 0.0 % Normal 0-5 [facility] Comment on above: Performed By: #### L 100.0100, M200.1000, L500.4050, L503.6005 #### [facility] [address] [place], [address] Erythrocyte distribution width (RBC) [Ratio] 13.2 % Normal 11.6-14.6 [facility] Comment on above: Performed By: #### L 100.0100, M200.1000, L500.4050, L503.6005 #### [facility] [address] [place], [address] Hematocrit (Bld) [Volume fraction] 39.5 % Low 40-54 [facility] Comment on above: Performed By: #### L 100.0100, M200.1000, L500.4050, L503.6005 #### [facility] [address] [place], [address] Hemoglobin (Bld) [Mass/Vol] 13.9 g/dL Normal 13.0-16.5 [facility] Comment on above: Performed By: #### L 100.0100, M200.1000, L500.4050, L503.6005 #### [facility] Laboratory [address] [place], [address] IG% 0.600 Normal 0.0-0.9 [facility] Comment on above: Result Comment: IG% - Immature Granulocytes (promyelocytes, myelocytes and metamyelocytes) > 1% indicates that a LEFT SHIFT is Present. Performed By: #### L 100.0100, M200.1000, L500.4050, L503.6005 #### [facility] Laboratory [address] [place], [address] Lymphocytes/100 WBC (Bld) 8.2 % Low 19-41 [facility] Comment on above: Performed By: #### L 100.0100, M200.1000, L500.4050, L503.6005 #### [facility] Laboratory [address] [place], [address] MCH (RBC) [Entitic mass] 32.5 pg High 27.0-32.0 [facility] Comment on above: Performed By: #### L 100.0100, M200.1000, L500.4050, L503.6005 #### [facility] Laboratory [address] [place], [address] MCHC (RBC) [Mass/Vol] 35.2 g/dL Normal 32-36 [facility] Comment on above: Performed By: #### L 100.0100, M200.1000, L500.4050, L503.6005 #### [facility] Laboratory [address] [place], [address] MCV (RBC) [Entitic vol] 92.3 fL Normal 80-94 [facility] Comment on above: Performed By: #### L 100.0100, M200.1000, L500.4050, L503.6005 #### [facility] Laboratory [address] [place] [place], [address] Monocytes/100 WBC (Bld) 1.6 % Normal 0-10 [facility] Comment on above: Performed By: #### L 100.0100, M200.1000, L500.4050, L503.6005 #### [facility] Laboratory [address] [place], [address] Neutrophils/100 WBC (Bld) 89.5 % High 47-70 [facility] Comment on above: Performed By: #### L 100.0100, M200.1000, L500.4050, L503.6005 #### [facility] Laboratory [address] [place], [address] Nucleated RBC (Bld) [#/Vol] 0 10*3/uL Normal 0-5 [facility] Comment on above: Performed By: #### L 100.0100, M200.1000, L500.4050, L503.6005 #### [facility] Laboratory [address] [place], [address] Platelet mean volume (Bld) [Entitic vol] 9.6 fL Normal 6.2-12.0 [facility] Comment on above: Performed By: #### L 100.0100, M200.1000, L500.4050, L503.6005 #### [facility] Laboratory [address] [place], [address] Platelets (Bld) [#/Vol] 176 10*3/uL Normal 150-450 [facility] Comment on above: Performed By: #### L 100.0100, M200.1000, L500.4050, L503.6005 #### [facility] Laboratory [address] [place], [address] RBC (Bld) [#/Vol] 4.28 10*6/uL Low 4.6-6.2 [facility] Comment on above: Performed By: #### L 100.0100, M200.1000, L500.4050, L503.6005 #### [facility] Laboratory [address] [place], [address] RDW SD 45.1 fl High 35.1-43.9 [facility] Comment on above: Performed By: #### L 100.0100, M200.1000, L500.4050, L503.6005 #### [facility] Laboratory [address] [place], [address] WBC (Bld) [#/Vol] 6.7 10*3/uL Normal 4.4-11.0 [facility] Comment on above: Performed By: #### L 100.0100, M200.1000, L500.4050, L503.6005 #### [facility] Laboratory [address] [place], [address] CRPon 02-13-2025 C-REACTIVE PROT 4.14 mg/L High 0.0-3.0 [facility] Comment on above: Performed By: #### L 501.4910, L101.9900 ####[facility] [address] [place], [address] CRP [Mass/Vol]Ordered By: Aracelis Brooks on 02-13-2025 C-Reactive Protein Extended Range 4.14 mg/L High 0.0-3.0 [facility] Carbon dioxide, total [Moles /volume] in Central venous bloodOrdered By: Madi Brooks on 02-13-2025 CO2 [Moles/Vol] 24.8 mmol/L 21.0-32.0 [facility] Chloride assayOrdered By: Aracelis Brooks on 02-13-2025 Chloride [Moles/Vol] 98 mmol/L 98-108 [facility] Comprehensive Metabolic Prof ilon 02-13-2025 Albumin [Mass/Vol] 4.6 g/dL Normal 3.4-4.8 [facility] Comment on above: Performed By: #### L 100.0100, M200.1000, L500.4050, L503.6005 ####[facility] [address] [place], [address] Albumin/Globulin [Mass ratio] 1.9 {ratio} Normal 0.9-2.4 [facility] Comment on above: Performed By: #### L 100.0100, M200.1000, L500.4050, L503.6005 ####[facility] [address] [place], [address] ALK PHOS 50 U/L Normal 40-129 [facility] Comment on above: Performed By: #### L 100.0100, M200.1000, L500.4050, L503.6005 ####[facility] [address] [place], [address] ALT [Catalytic activity/Vol] 22 U/L Normal <=46 [facility] Comment on above: Performed By: #### L 100.0100, M200.1000, L500.4050, L503.6005 ####[facility] [address] [place], [address] AST [Catalytic activity/Vol] 23 U/L Normal <=37 [facility] Comment on above: Performed By: #### L 100.0100, M200.1000, L500.4050, L503.6005 ####[facility] [address] [place], [address] Bilirubin [Mass/Vol] 0.57 mg/dL Normal 0.00-1.30 [facility] Comment on above: Performed By: #### L 100.0100, M200.1000, L500.4050, L503.6005 ####[facility] [address] [place], [address] BUN/CRE 23.1 RATIO High 10-20 [facility] Comment on above: Performed By: #### L 100.0100, M200.1000, L500.4050, L503.6005 ####[facility] [address] [place], [address] Calcium [Mass/Vol] 9.2 mg/dL Normal 7.6-11.0 [facility] Comment on above: Performed By: #### L 100.0100, M200.1000, L500.4050, L503.6005 ####[facility] [address] [place], [address] Chloride [Moles/Vol] 98 mmol/L Normal 98-108 [facility] Comment on above: Performed By: #### L 100.0100, M200.1000, L500.4050, L503.6005 ####[facility] [address] [place], [address] CO2 [Moles/Vol] 24.8 mmol/L Normal 21.0-32.0 [facility] Comment on above: Performed By: #### L 100.0100, M200.1000, L500.4050, L503.6005 ####[facility] [address] [place], [address] Creatinine [Mass/Vol] 0.92 mg/dL Normal 0.70-1.20 [facility] Comment on above: Performed By: #### L 100.0100, M200.1000, L500.4050, L503.6005 ####[facility] [address] [place], [address] ECRCL 95.86 ml/min Normal 50-250 [facility] Comment on above: Performed By: #### L 100.0100, M200.1000, L500.4050, L503.6005 ####[facility] [address] [place], [address] GAP 14 Normal 5-15 [facility] Comment on above: Performed By: #### L 100.0100, M200.1000, L500.4050, L503.6005 ####[facility] [address] [place], [address] GFR/1.73 sq M.predicted among non-blacks MDRD (S/P/Bld) [Vol rate/Area] 92 mL/min/{1.73_m2} Normal >60 [facility] Comment on above: Result Comment: mL/m in/1.73m2 CKD-EPI Creatinine Equation (2020) Performed By: #### L 100.0100, M200.1000, L500.4050, L503.6005 ####[facility] [address] [place], [address] Globulin (S) [Mass/Vol] 2.5 g/dL Normal 2.2-4.2 [facility] Comment on above: Performed By: #### L 100.0100, M200.1000, L500.4050, L503.6005 ####[facility] [address] [place], [address] Glucose [Mass/Vol] 186 mg/dL High 70-99 [facility] Comment on above: Performed By: #### L 100.0100, M200.1000, L500.4050, L503.6005 ####[facility] [address] [place], [address] Potassium [Moles/Vol] 4.4 mmol/L Normal 3.3-5.1 [facility] Comment on above: Performed By: #### L 100.0100, M200.1000, L500.4050, L503.6005 ####[facility] [address] [place], [address] Sodium [Moles/Vol] 137 mmol/L Normal 133-145 [facility] Comment on above: Performed By: #### L 100.0100, M200.1000, L500.4050, L503.6005 ####[facility] [address] [place], [address] T PROT 7.1 g/dL Normal 5.9-8.4 [facility] Comment on above: Performed By: #### L 100.0100, M200.1000, L500.4050, L503.6005 ####[facility] [address] [place], [address] Urea nitrogen [Mass/Vol] 21 mg/dL High 4-19 [facility] Comment on above: Performed By: #### L 100.0100, M200.1000, L500.4050, L503.6005 ####[facility] [address] [place], [address] Emergency Department Summary on 02-13-2025 Emergency Department Summary [facility] Medical Records Department [address] [place] [address] Emergency Department Summary 02/13/25 MR#: [id number] Acct: [id number] Name: ZHENG WATKINS Rep #: [id number] : 1960 64 From: Madi Brooks MD PCP: Dr. Filipe Ybarra MD Status:REG ER Location: ED HPI History of Present Illness Chief Complaint: Lower Extremity Injury Detail of Chief Complaint: Abscess of the left leg involving the superficial posterior compartment and Informant: patient and spouse/S.O. Onset/Context/Timing Onset: - (CT done today. Was seen approxi a month ago to rule out DVT and was.) Context: - (Unknown since patient has no symptoms other than slight swelling) Timing: - (Unable to determine) Quality: Abscess posterior superficial compartment of the left leg and head of the g Location: Left leg posteriorly Current Severity: Asymptomatic Maximum Severity: Asymptomatic Worsened by: Not applicable Relieved by: Not applicable Associated Symptoms Associated Symptoms: Abnormal CAT scan Narrative Narrative: Patient is a 64-year-old male with history of GERD, hypertension, borderline type 2 diabetes and BMI of 34.4. Last ate/drank at 0600. He has no antibiotic allergies. Denies a traumatic fever, heart murmur, mitral prolapse. He denies fever, chills night sweats. He is not on any immunosuppressive meds. He has history of hypertension on amlodipine and valsartan. Prior similar symptoms: No Recent Illness/Hospitalizat ion: No PFSH PFSH Medical History Abnormal computed tomography of lower extremity Leg abscess Lumbar radiculopathy Lumbar strain Elevated C-reactive protein (CRP) Myalgia Malaise and fatigue Arthritis Varicose veins of both legs with edema Hypersomnolence Wears glasses Alcohol use Rash History of steroid therapy Gastric reflux Chewing tobacco dependence in remission History of edema BPH (benign prostatic hyperplasia) Borderline type 2 diabetes mellitus Abdominal discomfort Great toe pain Flu vaccine need Dermatitis Obesity Hyperglycemia Colon cancer screening Hypertension Erectile dysfunction Umbilical hernia GERD (gastroesophageal reflux disease) Seasonal allergies Home Medications ???Medication ???Instructions ???Recorded ???Last Taken ???Type ascorbate calcium (vitamin C) 500 1,000 mg PO DAILY 11/05/21 History mg tablet cholecalciferol (vitamin D3) 50 50 mcg PO DAILY 11/05/21 02/13/25 History mcg (2,000 unit) capsule multivitamin (Daily Multi-Vitamin 1 tab PO DAILY 11/05/21 02/13/25 History tablet) loratadine 10 mg tablet (Claritin) 10 mg PO DAILY PRN allergy sympt oms 03/19/23 02/13/25 History omega 3 350 mg-dha 235 mg-epa 90 1 cap PO DAILY 03/20/24 02/13/25 H istory mg-fish oil 597 mg capsule,delay rel ([place]-3) aspirin 81 mg tablet,delayed 81 mg PO DAILY 08/22/24 02/13/25 H istory release (Adult Aspirin Regimen) tadalafil 20 mg tablet 10 mg (1/2 x 20 mg) PO DAILY #30 1 11/18/23 Unknown Rx TABLETS amlodipine 5 mg tablet 5 mg PO DAILY #90 tabs 11/27/24 Rx doxazosin 4 mg tablet 4 mg PO BID 3 months #180 tabs 02/13/25 Rx valsartan 160 1 tab PO DAILY #90 tabs 11/27/24 0 02/13/25 Rx mg-hydrochlorothiazi de 25 mg tablet metaxalone 800 mg tablet 800 mg PO TID PRN muscle pain #20 02/12/25 02/13/25 Rx tabs prednisone 10 mg tablet 10 mg PO DAILY #30 tabs 02/12/25 0 02/13/25 Rx famotidine 20 mg tablet (Acid 20 mg PO DAILY 02/13/25 02/13/25 H istory Controller) Allergy/AdvReac Type Severity Reaction Status Date / Time No Known Allergies Allergy Verified 02/13/25 10:58 Family History Other Heart disease Hypertension Myocardial infarction Surgical History Status post inguinal hernia repair Social History household members: spouse Smoking Status: Former smoker how long ago did patient quit smokin11/15/1989 alcohol intake: current alcohol intake frequency: holidays/special occasions only what type of physical activity do you participate in: walking frequency: daily ROS ROS ED Constitutional Constitutional ED: Denies chills, fever(s), subjective or sweats Eyes Eyes: Denies change in vision Cardiovascular Cardiovascular: Denies chest pain or palpitations Respiratory/Chest Respiratory/Chest: Denies cough, dyspnea or dyspnea on exertion Gastrointestinal Gastrointestinal: Denies abdominal pain, nausea or vomiting Musculoskeletal Musculoskeletal: Denies arthralgias or myalgias Integumentary Reports abscess; Denies rash Neurologic Neurologic: Denies weakness Hematologic/Lymphati c Hematolog (more content not included)... Normal [facility] Eosinophil percentageOrdered By: Madi Brooks on 02-13-2025 Eosinophils/100 WBC (Bld) 0.0 % 0-5 [facility] Erythrocyte Sed Rateon 02-13 SED RATE 6 mm/hr Normal 0-20 [facility] Comment on above: Performed By: #### L 501.6710, L101.9900 ####[facility] [address] [place], [address] Erythrocyte distribution wid th ratioOrdered By: Madi Brooks on 02-13-2025 Erythrocyte distribution width (RBC) [Ratio] 13.2 % 11.6-14.6 [facility] Erythrocyte distribution wid th standard deviationOrdered By: Madialexis Brooks on 02-13-2025 Erythrocyte distribution width (RBC) [Entitic vol] 45.1 fL High 35.1-43.9 [facility] Erythrocyte distribution width (RBC) [Ratio] 45.1 fl High 35.1-43.9 [facility] Erythrocyte sedimentation ra teOrdered By: Madi Brooks on 02-13-2025 ESR (Bld) [Velocity] 6 mm/h 0-20 [facility] Estimation of creatinine raphael aranceOrdered By: Madi Brooks on 02-13-2025 Estimated Creatinine Clearance Calc 95.86 ml/min 50-250 [facility] GFR/1.73 sq M.predicted sebastián g non-blacks MDRD (S/P/Bld) [Vol rate/Area]Ordered By: Madi Brooks on 02-13-2025 Estimated GFR (MDRD) Non-Af Amer 92 >60 [facility] Comment on above: mL/min/1.73m2 CKD-EP I Creatinine Equation (2020) Glomerular filtration rate ( GFR) estimation/1.73 sq m using serum, plasma, or whole bOrdered By: Madi Brooks on 02-13-2025 GFR/1.73 sq M.predicted among non-blacks MDRD (S/P/Bld) [Vol rate/Area] 92 mL/min/{1.73_m2} >60 [facility] Comment on above: mL/min/1.73m2 CKD-EP I Creatinine Equation (2020) Hematocrit Auto (Bld) [Volum e fraction]Ordered By: Madi Brooks on 02-13-2025 Hematocrit (Bld) [Volume fraction] 39.5 % Low 40-54 [facility] Hemoglobin measurementOrdere d By: Madialexis Brooks on 02-13-2025 Hemoglobin (Bld) [Mass/Vol] 13.9 g/dL 13.0-16.5 [facility] Immature granulocytes/100 WB C Auto (Bld)Ordered By: Madialexis Brooks on 02-13-2025 Immature granulocytes/100 WBC (Bld) 0.600 % 0.0-0.9 [facility] Comment on above: IG% - Immature Granu locytes (promyelocytes, myelocytes and metamyelocytes) > 1% indicates that a LEFT SHIFT is Present. Laboratory - Chemistry and C hemistry - challengeOrdered By: Madi Brooks on 02-13-2025 AST [Catalytic activity/Vol] 23 U/L <38 [facility] Lactic Acidon 02-13-2025 Lactate [Moles/Vol] 2.6 mmol/L Invalid Interpretation Code 0.0-2.0 [facility] Comment on above: Order Comment: Y Result Comment: Crit ical Result(s) Called at 02/13/2025 by Gerson Jj to [employer]??Results read back by same. Critical Result(s) Called at 02/13/2025-12:10 by Gerson Jj to [employer]??Results read back by same. AMENDED REPORT 02/13/25 1220 LACTIC ACID previously reported as: 2.6 *H mmol/L Critical Result(s) Called at 02/13/2025 by Gerson Jj to [employer]??Results read back by same. Performed By: #### L 100.0100, M200.1000, L500.4050, L503.6005 ####[facility] [address] [place], [address] Lactic acid measurementOrder ed By: Madi Brooks on 02-13-2025 Lactate [Moles/Vol] 2.6 mmol/L High 0.0-2.0 [facility] Comment on above: Critical Result(s) C alled at 02/13/2025 by Gerson Jj to [employer] Results read back by same. Critical Result(s) Called at 02/13/2025-12:10 by Gerson Jj to [employer] Results read back by same.Previous reported result: 2.6 mmol/LEdited by: AUTOINAyad on 02/13/25:1220 AMENDED REPORT 02/13/25 1220 LACTIC ACID previously reported as: 2.6 *H mmol/L Critical Result(s) Called at 02/13/2025 by Gerson Jj to [employer] Results read back by same. Lymphocytes Auto (Unsp spec) [#/Vol]Ordered By: Madi Brooks on 02-13-2025 Lymphocytes (Bld) [#/Vol] 0.55 10*3/uL Low 0.83-4.51 [facility] Lymphocytes/100 WBC Auto (Un sp spec)Ordered By: Madi Brooks on 02-13-2025 Lymphocytes/100 WBC (Bld) 8.2 % Low 19-41 [facility] MCV (mean corpuscular volume ) determinationOrdered By: Madi Brooks on 02-13-2025 MCV (RBC) [Entitic vol] 92.3 fL 80-94 [facility] Mean corpuscular hemoglobin (MCH) determinationOrdered By: Madi Brooks on 02-13-2025 MCH (RBC) [Entitic mass] 32.5 pg High 27.0-32.0 [facility] Mean corpuscular hemoglobin concentration (MCHC) determinationOrdered By: Madi Brooks on 02-13-2025 MCHC (RBC) [Mass/Vol] 35.2 g/dL 32-36 [facility] Mean platelet volume determi nationOrdered By: Madi Brooks on 02-13-2025 Platelet mean volume (Bld) [Entitic vol] 9.6 fL 6.2-12.0 [facility] Monocyte percentageOrdered B y: Madi Brooks on 02-13-2025 Monocytes/100 WBC (Bld) 1.6 % 0-10 [facility] Neutrophil percentageOrdered By: Madi Brooks on 02-13-2025 Neutrophils/100 WBC (Bld) 89.5 % High 47-70 [facility] Nucleated red blood cell per centageOrdered By: Madi Brooks on 02-13-2025 Nucleated RBC/100 WBC (Bld) [Ratio] 0 % 0-5 [facility] Platelet countOrdered By: Aracelis Brooks on 02-13-2025 Platelets (Bld) [#/Vol] 176 10*3/uL 150-450 [facility] Potassium (Unsp spec) [Mass/ Vol]Ordered By: Madi Brooks on 02-13-2025 Potassium [Moles/Vol] 4.4 mmol/L 3.3-5.1 [facility] Potassium measurement (mass/ volume)Ordered By: Madi Brooks on 02-13-2025 Potassium (Unsp spec) [Mass/Vol] 4.4 mmol/L 3.3-5.1 [facility] RBC Auto (Bld) [#/Vol]Ordere d By: Madi Brooks on 02-13-2025 RBC (Bld) [#/Vol] 4.28 10*6/uL Low 4.6-6.2 [facility] Serum creatinine measurement (mass/volume)Ordered By: Madi Brooks on 02-13-2025 Creatinine [Mass/Vol] 0.92 mg/dL 0.70-1.20 [facility] Serum globulin measurementOr dered By: Madi Brooks on 02-13-2025 Globulin (S) [Mass/Vol] 2.5 g/dL 2.2-4.2 [facility] Serum glucose measurement (m ass/volume)Ordered By: Madi Brooks on 02-13-2025 Glucose [Mass/Vol] 186 mg/dL High 70-99 [facility] Serum or plasma C reactive p rotein measurement (mass/volume)Ordered By: Madi Brooks on 02-13-2025 CRP [Mass/Vol] 4.14 mg/L High 0.0-3.0 [facility] Serum or plasma alanine sood otransferase (ALT) measurementOrdered By: Madialexis Brooks on 02-13-2025 ALT [Catalytic activity/Vol] 22 U/L <47 [facility] Serum or plasma albumin allen urement (mass/volume)Ordered By: Madialexis Brooks on 02-13-2025 Albumin [Mass/Vol] 4.6 g/dL 3.4-4.8 [facility] Serum or plasma albumin/glob ulin mass ratioOrdered By: Madi Brooks on 02-13-2025 Albumin/Globulin [Mass ratio] 1.9 {ratio} 0.9-2.4 [facility] Serum or plasma alkaline almita sphatase measurementOrdered By: Madi Brooks on 02-13-2025 ALP [Catalytic activity/Vol] 50 U/L 40-129 [facility] Serum or plasma calcium allen urement (mass/volume)Ordered By: Madialexis Brooks on 02-13-2025 Calcium [Mass/Vol] 9.2 mg/dL 7.6-11.0 [facility] Serum or plasma urea nitroge n measurement (mass/volume)Ordered By: Madi Brooks on 02-13-2025 Urea nitrogen [Mass/Vol] 21 mg/dL High 4-19 [facility] Sodium levelOrdered By: Madialexis Brooks on 02-13-2025 Sodium [Moles/Vol] 137 mmol/L 133-145 [facility] Total proteinOrdered By: Madialexis Brooks on 02-13-2025 Protein [Mass/Vol] 7.1 g/dL 5.9-8.4 [facility] White blood cell (WBC) count Ordered By: Madialexis Brooks on 02-13-2025 WBC (Bld) [#/Vol] 6.7 10*3/uL 4.4-11.0 [facility] Urgent Care Visit Reporton 0 02-12-2025 Urgent Care Visit Report [facility] [address] , [address] [place] [address] OFFICE VISIT Date of Service: 02/12/25 MR#: [id number] Acct: [id number] Name: ZHENG WATKINS Rep #: [id number] : 1960 Provider: SIERRA Lazo Age/Sex: 64/M Location: [facility] Status: Signed Intake Vital Signs 01/17/25 08:50 02/12/25 10:46 Height 5 ft 9 in 5 ft 9 in Weight: 232 lb 236 lb BMI 34.2 34.8 BP 128/68 H 132/84 H Blood Pressure Location Lt brachial Lt brachial Position Sitting Sitting Respiration 16 16 Pulse 82 64 Pulse Source Monitor Monitor Temp 98 F Temp Source Temporal Pulse Oximetry (%) 91 95 Oxygen Delivery Method room air room air Intake Visit Reasons: [place] PAIN Chief Complaint: Body ache, Swelling Pharmaceutical Operator Required: No Is patient in pain?: Yes (R lower back) Pain scale (1-10): 5 Allergies No Known Allergies Allergy (Verified 02/12/25 10:43) Medications ???Medication ???Instructions ???Recorded ???Confirmed ???Type ascorbate calcium (vitamin C) 500 1 g PO DAILY 11/05/21 02/12/25 Hi story mg tablet cholecalciferol (vitamin D3) 50 50 mcg PO DAILY 11/05/21 02/12/25 History mcg (2,000 unit) capsule multivitamin (Daily Multi-Vitamin 1 tab PO DAILY 11/05/21 02/12/25 History tablet) loratadine 10 mg tablet (Claritin) 10 mg PO DAILY PRN allergy sympt oms 03/19/23 02/12/25 History omega 3 350 mg-dha 235 mg-epa 90 1 cap PO DAILY 03/20/24 02/12/25 H istory mg-fish oil 597 mg capsule,delay rel ([place]-3) aspirin 81 mg tablet,delayed 81 mg PO QDAY 08/22/24 02/12/25 Hi story release (Adult Aspirin Regimen) tadalafil 20 mg tablet 10 mg (1/2 x 20 mg) PO DAILY #30 1 11/18/23 02/12/25 Rx TABLETS amlodipine 5 mg tablet 5 mg PO DAILY #90 tabs 11/27/24 Rx doxazosin 4 mg tablet 4 mg PO BID 3 months #180 tabs 02/12/25 Rx valsartan 160 1 tab PO DAILY #90 tabs 11/27/24 0 02/12/25 Rx mg-hydrochlorothiazi de 25 mg tablet metaxalone 800 mg tablet 800 mg PO TID PRN muscle pain #20 02/12/25 02/12/25 Rx tabs prednisone 10 mg tablet 10 mg PO DAILY #30 tabs 02/12/25 0 02/12/25 Rx Have you fallen in the past year?: No Nurse's Note: R lower back into hip and down leg. States it is radiating, hurts to move and is difficult to get comfortable. Did not injure himself. States sx's started about a week ago. Is going on a trip next week where he will be sitting and wants it fixed before then. Has tried some stretches which did not help much. Sitting down is not too bad. It will jump to a 10 if he moves the wrong way. States he is not sleeping the best but is still sleeping. [facility] Medical History (Updated 02/12/25 @ 11:40 by Shady ESQUIVEL, PA) Lumbar radiculopathy Lumbar strain Elevated C-reactive protein (CRP) Myalgia Malaise and fatigue Arthritis Varicose veins of both legs with edema Hypersomnolence Wears glasses Alcohol use Rash History of steroid therapy Gastric reflux Chewing tobacco dependence in remission History of edema BPH (benign prostatic hyperplasia) Borderline type 2 diabetes mellitus Abdominal discomfort Great toe pain Flu vaccine need Dermatitis Obesity Hyperglycemia Colon cancer screening Hypertension Erectile dysfunction Umbilical hernia GERD (gastroesophageal reflux disease) Seasonal allergies Surgical History Status post inguinal hernia repair Family History Other Heart disease Hypertension Myocardial infarction Social History household members: spouse Smoking Status: Former smoker how long ago did patient quit smokin11/15/1989 alcohol intake: current alcohol intake frequency: holidays/special occasions only what type of physical activity do you participate in: walking frequency: daily HPI HPI Chief Complaint: Body ache, Swelling Details: ZHENG WATKINS, is a 64 M who presents to the office today for initial evaluation approximately 1.5 to 2- week history of persistent right low back pain with intermittent paresthesias radiating to the lateral aspect of the right lower leg. No caudal complaints upon questioning. No known injury/heavy left or fall to the same. PMH NC. No opps-hhz-esahufs products abdomen taken to assist. No other associated symptoms and no other alleviating/aggravat ing factors. ROS Const Constitutional: No other (As above) Exam Const General: cooperative, healthy appearing and no acute distress Orientation: alert and awake Chest Chest palpation inspection: normal inspection of the chest Resp Effort Inspection: normal respiratory effort and able to speak in c (more content not included)... Normal [facility] Extremity Lower WITH Contras ton 02-09-2025 Extremity Lower WITH Contrast [facility] [address] [place] [address] Extremity Lower WITH Contrast MR#: [id number] Acct: [id number] Name: ZHENG WATKINS Rep #: [id number] : 1960 M 64 From: Vika Aguilar nd, MD PCP: Dr. Filipe Ybarra MD Status: REG CLI Study: Extremity Lower WITH Contrast Date of Exam: Exam# [id number] Ordering Dr: Filipe Ybarra MD PROCEDURE: EXTREMITY LOWER WITH CONTRAST 02/09/2025 REASON FOR EXAM: 64-year-old male, LEFT CALF PAIN, ELEVATED CRP TECHNIQUE: Axial CT images of the left lower extremity obtained with intravenous contrast. Coronal and Sagittal reconstruction series were provided. CONTRAST: Isovue 370 VOLUME: 100mL One or more dose reduction techniques were used (e.g., Automated exposure control, adjustment of the mA and/or kV according to patient size, use of iterative reconstruction technique). RADIATION DOSE SUMMARY: CTDlvol: 15 mGy DLP: 1100 mGycm COMPARISON: None. FINDINGS: Bones: No acute osseous fracture or aggressive osseous lesions. No evidence of osteomyelitis. Joints: Mild degenerative changes of the left knee joint. The joint spaces of the left knee and ankle are maintained. No traumatic subluxation or dislocation. Soft Tissues: There is a thin, rim enhancing hypodense fluid collection within the superficial posterior compartment of the left leg, between the medial gastrocnemius and soleus muscles. This measures approximately 5.1 x 1.0 x11.7 cm (AP x TV x CC, series 2, image 96 and series 303, image 77). There is an additional rim enhancing hypodense fluid collection which arises from the medial head of the gastrocnemius in the lower thigh, only visible on axial imaging. CT/Extremity Lower WITH Contrast IMPRESSION: Abscess within the superficial posterior compartment of the left leg, between the medial gastrocnemius and soleus muscles. Additional partially visualized abscess within the medial head of the gastrocnemius within the lower thigh, only visible on axial imaging. CT of the left lower thigh is recommended for imaging completion. Urgent surgical consultation for possible incision and debridement is recommended. Reading Location: [facility] CC: Dr. Filipe Ybarra MD Complaint Analyst: Signed Normal [facility] CCP IgG Antibodieson 025 CCP IgG Ab. [facility] Comment on above: Result Comment: TEST RESULTS LIMITS Anti-CCP Ab, IgG/IgA 3 units 0-19 Negative <20 Weak positive 20 - 39 Moderate positive 40 - 59 Strong positive >59 TESTING PERFORMED AT [facility]. ORIGINAL REPORT ON FILE IN LAB CONTAINS ADDITIONAL TEST SITE INFORMATION. Performed By: #### L 101.9900, L4600.0100, L501.6710, L100.0100, L500.4050, L501.9520, L505.7010, L3100.5450, L506.0400 ####[facility] [id number] [place], [address] Absolute lymphocyte countOrd ered By: Filipe Ybarra on 01-17-2025 Lymphocytes Auto (Unsp spec) [#/Vol] 0.94 10*3/uL 0.83-4.51 [facility] Absolute neutrophil countOrd ered By: Filipe Ybarra on 01-17-2025 Neutrophils (Bld) [#/Vol] 5.2 10*3/uL 2.0-7.7 [facility] Anion gap in Serum or Plasma Ordered By: Filipe Ybarra on 01-17-2025 Anion gap [Moles/Vol] 14 mmol/L 5-15 [facility] Automated lymphocyte count a s percentage of total leukocytesOrdered By: Filipe Ybarra on 01-17-2025 Lymphocytes/100 WBC Auto (Unsp spec) 13.2 % Low 19-41 [facility] BUN/creatinine ratioOrdered By: [facility] Summersalysa on 01-17-2025 Urea nitrogen/Creatinine [Mass ratio] 20.0 mg/mg 10-20 [facility] Basophil percentageOrdered B y: Filipe Ybarra on 01-17-2025 Basophils/100 WBC (Bld) 0.3 % 0-1 [facility] Bilirubin Test strip Ql (U)O rdered By: Filipe Ybarra on 01-17-2025 Bilirubin Ql (U) Negative Negative [facility] Bilirubin, totalOrdered By: Filipe Ybarra on 01-17-2025 Bilirubin [Mass/Vol] 0.40 mg/dL 0.00-1.30 [facility] CBC W/Diff, Automatedon Absolute Lymph 0.94 X10 3/uL Normal 0.83-4.51 [facility] Comment on above: Performed By: #### L 500.4050, L501.6710, L100.0100, L400.0001 #### [facility] Laboratory [address] [place], [address] Absolute Neut 5.2 X10 3/uL Normal 2.0-7.7 [facility] Comment on above: Performed By: #### L 500.4050, L501.6710, L100.0100, L400.0001 #### [facility] [address] [place], [address] Basophils/100 WBC (Bld) 0.3 % Normal 0-1 [facility] Comment on above: Performed By: #### L 500.4050, L501.6710, L100.0100, L400.0001 #### [facility] [address] [place], [address] Eosinophils/100 WBC (Bld) 2.1 % Normal 0-5 [facility] Comment on above: Performed By: #### L 500.4050, L501.6710, L100.0100, L400.0001 #### [facility] [address] [place], [address] Erythrocyte distribution width (RBC) [Ratio] 11.9 % Normal 11.6-14.6 [facility] Comment on above: Performed By: #### L 500.4050, L501.6710, L100.0100, L400.0001 #### [facility] [address] [place], [address] Hematocrit (Bld) [Volume fraction] 35.6 % Low 40-54 [facility] Comment on above: Performed By: #### L 500.4050, L501.6710, L100.0100, L400.0001 #### [facility] [address] [place], [address] Hemoglobin (Bld) [Mass/Vol] 12.7 g/dL Low 13.0-16.5 [facility] Comment on above: Performed By: #### L 500.4050, L501.6710, L100.0100, L400.0001 #### [facility] [address] [place], [address] IG% 0.300 Normal 0.0-0.9 [facility] Comment on above: Result Comment: IG% - Immature Granulocytes (promyelocytes, myelocytes and metamyelocytes) > 1% indicates that a LEFT SHIFT is Present. Performed By: #### L 500.4050, L501.6710, L100.0100, L400.0001 #### [facility] [address] [place], [address] Lymphocytes/100 WBC (Bld) 13.2 % Low 19-41 [facility] Comment on above: Performed By: #### L 500.4050, L501.6710, L100.0100, L400.0001 #### [facility] [address] [place], [address] MCH (RBC) [Entitic mass] 32.5 pg High 27.0-32.0 [facility] Comment on above: Performed By: #### L 500.4050, L501.6710, L100.0100, L400.0001 #### [facility] [address] [place], [address] MCHC (RBC) [Mass/Vol] 35.7 g/dL Normal 32-36 [facility] Comment on above: Performed By: #### L 500.4050, L501.6710, L100.0100, L400.0001 #### [facility] [address] [place], [address] MCV (RBC) [Entitic vol] 91.0 fL Normal 80-94 [facility] Comment on above: Performed By: #### L 500.4050, L501.6710, L100.0100, L400.0001 #### [facility] [address] [place], [address] Monocytes/100 WBC (Bld) 10.9 % High 0-10 [facility] Comment on above: Performed By: #### L 500.4050, L501.6710, L100.0100, L400.0001 #### [facility] [address] [place], [address] Neutrophils/100 WBC (Bld) 73.2 % High 47-70 [facility] Comment on above: Performed By: #### L 500.4050, L501.6710, L100.0100, L400.0001 #### [facility] [address] [place], [address] Nucleated RBC (Bld) [#/Vol] 0 10*3/uL Normal 0-5 [facility] Comment on above: Performed By: #### L 500.4050, L501.6710, L100.0100, L400.0001 #### [facility] [address] [place], [address] Platelet mean volume (Bld) [Entitic vol] 8.8 fL Normal 6.2-12.0 [facility] Comment on above: Performed By: #### L 500.4050, L501.6710, L100.0100, L400.0001 #### [facility] [address] [place], [address] Platelets (Bld) [#/Vol] 362 10*3/uL Normal 150-450 [facility] Comment on above: Performed By: #### L 500.4050, L501.6710, L100.0100, L400.0001 #### [facility] [address] [place], [address] RBC (Bld) [#/Vol] 3.91 10*6/uL Low 4.6-6.2 [facility] Comment on above: Performed By: #### L 500.4050, L501.6710, L100.0100, L400.0001 #### [facility] [address] [place], [address] RDW SD 39.7 fl Normal 35.1-43.9 [facility] Comment on above: Performed By: #### L 500.4050, L501.6710, L100.0100, L400.0001 #### [facility] [address] [place], [address] WBC (Bld) [#/Vol] 7.1 10*3/uL Normal 4.4-11.0 [facility] Comment on above: Performed By: #### L 500.4050, L501.6710, L100.0100, L400.0001 #### [facility] [address] [place], [address] CRPon 01-17-2025 C-REACTIVE PROT 101.00 mg/L High 0.0-3.0 [facility] Comment on above: Performed By: #### L 500.4050, L501.6710, L100.0100, L400.0001 #### [facility] [address] [place], [address] CRP [Mass/Vol]Ordered By: Cindy Ybarra on 01-17-2025 C-Reactive Protein Extended Range 101.00 mg/L High 0.0-3.0 [facility] Carbon dioxide, total [Moles /volume] in Central venous bloodOrdered By: Filipe Ybarra on 01-17-2025 CO2 [Moles/Vol] 24.9 mmol/L 21.0-32.0 [facility] Chloride assayOrdered By: Cindy Ybarra on 01-17-2025 Chloride [Moles/Vol] 96 mmol/L Low 98-108 [facility] Comprehensive Metabolic Prof ilon 01-17-2025 Albumin [Mass/Vol] 3.8 g/dL Normal 3.4-4.8 [facility] Comment on above: Performed By: #### L 500.4050, L501.6710, L100.0100, L400.0001 #### [facility] [address] [place], [address] Albumin/Globulin [Mass ratio] 1.3 {ratio} Normal 0.9-2.4 [facility] Comment on above: Performed By: #### L 500.4050, L501.6710, L100.0100, L400.0001 #### [facility] [address] [place], [address] ALK PHOS 55 U/L Normal 40-129 [facility] Comment on above: Performed By: #### L 500.4050, L501.6710, L100.0100, L400.0001 #### [facility] [address] [place], [address] ALT [Catalytic activity/Vol] 16 U/L Normal <=46 [facility] Comment on above: Performed By: #### L 500.4050, L501.6710, L100.0100, L400.0001 #### [facility] [address] [place], [address] AST [Catalytic activity/Vol] 22 U/L Normal <=37 [facility] Comment on above: Performed By: #### L 500.4050, L501.6710, L100.0100, L400.0001 #### [facility] [address] [place], [address] Bilirubin [Mass/Vol] 0.40 mg/dL Normal 0.00-1.30 [facility] Comment on above: Performed By: #### L 500.4050, L501.6710, L100.0100, L400.0001 #### [facility] [address] [place], [address] BUN/CRE 20.0 RATIO Normal 10-20 [facility] Comment on above: Performed By: #### L 500.4050, L501.6710, L100.0100, L400.0001 #### [facility] [address] [place], [address] Calcium [Mass/Vol] 9.5 mg/dL Normal 7.6-11.0 [facility] Comment on above: Performed By: #### L 500.4050, L501.6710, L100.0100, L400.0001 #### [facility] [address] [place], [address] Chloride [Moles/Vol] 96 mmol/L Low 98-108 [facility] Comment on above: Performed By: #### L 500.4050, L501.6710, L100.0100, L400.0001 #### [facility] [address] [place], [address] CO2 [Moles/Vol] 24.9 mmol/L Normal 21.0-32.0 [facility] Comment on above: Performed By: #### L 500.4050, L501.6710, L100.0100, L400.0001 #### [facility] [address] [place], [address] Creatinine [Mass/Vol] 0.86 mg/dL Normal 0.70-1.20 [facility] Comment on above: Performed By: #### L 500.4050, L501.6710, L100.0100, L400.0001 #### [facility] [address] [place], [address] GAP 14 Normal 5-15 [facility] Comment on above: Performed By: #### L 500.4050, L501.6710, L100.0100, L400.0001 #### [facility] [address] [place], [address] GFR/1.73 sq M.predicted among non-blacks MDRD (S/P/Bld) [Vol rate/Area] 96 mL/min/{1.73_m2} Normal >60 [facility] Comment on above: Result Comment: mL/m in/1.73m2 CKD-EPI Creatinine Equation (2020) Performed By: #### L 500.4050, L501.6710, L100.0100, L400.0001 #### [facility] [address] [place], [address] Globulin (S) [Mass/Vol] 3.0 g/dL Normal 2.2-4.2 [facility] Comment on above: Performed By: #### L 500.4050, L501.6710, L100.0100, L400.0001 #### [facility] [address] [place], [address] Glucose [Mass/Vol] 136 mg/dL High 70-99 [facility] Comment on above: Performed By: #### L 500.4050, L501.6710, L100.0100, L400.0001 #### [facility] [address] [place], [address] Potassium [Moles/Vol] 4.7 mmol/L Normal 3.3-5.1 [facility] Comment on above: Performed By: #### L 500.4050, L501.6710, L100.0100, L400.0001 #### [facility] [address] [place], [address] Sodium [Moles/Vol] 135 mmol/L Normal 133-145 [facility] Comment on above: Performed By: #### L 500.4050, L501.6710, L100.0100, L400.0001 #### [facility] [address] [place], [address] T PROT 6.8 g/dL Normal 5.9-8.4 [facility] Comment on above: Performed By: #### L 500.4050, L501.6710, L100.0100, L400.0001 #### [facility] [address] [place], [address] Urea nitrogen [Mass/Vol] 17 mg/dL Normal 4-19 [facility] Comment on above: Performed By: #### L 500.4050, L501.6710, L100.0100, L400.0001 #### [facility] [address] [place], [address] Eosinophil percentageOrdered By: Filipe Ybarra on 01-17-2025 Eosinophils/100 WBC (Bld) 2.1 % 0-5 [facility] Epithelial cells.squamous LM Ql (Urine sed)Ordered By: Filipe Ybarra on 01-17-2025 Epithelial cells.squamous LM.HPF (Urine sed) [#/Area] 0 /[HPF] 0-5 [facility] Erythrocyte distribution wid th ratioOrdered By: imerclaremorefernando Ybarra on 01-17-2025 Erythrocyte distribution width (RBC) [Ratio] 11.9 % 11.6-14.6 [facility] Erythrocyte distribution wid th standard deviationOrdered By: [facility] on 01-17-2025 Erythrocyte distribution width (RBC) [Entitic vol] 39.7 fL 35.1-43.9 [facility] Erythrocyte distribution width (RBC) [Ratio] 39.7 fl 35.1-43.9 [facility] GFR/1.73 sq M.predicted sebastián g non-blacks MDRD (S/P/Bld) [Vol rate/Area]Ordered By: Filipe Ybarra on 01-17-2025 Estimated GFR (MDRD) Non-Af Amer 96 >60 [facility] Comment on above: mL/min/1.73m2 CKD-EP I Creatinine Equation (2020) Glomerular filtration rate ( GFR) estimation/1.73 sq m using serum, plasma, or whole bOrdered By: Filipe Ybarra on 01-17-2025 GFR/1.73 sq M.predicted among non-blacks MDRD (S/P/Bld) [Vol rate/Area] 96 mL/min/{1.73_m2} >60 [facility] Comment on above: mL/min/1.73m2 CKD-EP I Creatinine Equation (2020) Glucose Ql (U)Ordered By: Cindy Ybarra on 01-17-2025 Urine Glucose (UA) Normal mg/dl Normal [facility] Hematocrit Auto (Bld) [Volum e fraction]Ordered By: Filipe Ybarra on 01-17-2025 Hematocrit (Bld) [Volume fraction] 35.6 % Low 40-54 [facility] Hemoglobin measurementOrdere d By: Filipe Ybarra on 01-17-2025 Hemoglobin (Bld) [Mass/Vol] 12.7 g/dL Low 13.0-16.5 [facility] Immature granulocytes/100 WB C Auto (Bld)Ordered By: Filipe Ybarra on 01-17-2025 Immature granulocytes/100 WBC (Bld) 0.300 % 0.0-0.9 [facility] Comment on above: IG% - Immature Granu locytes (promyelocytes, myelocytes and metamyelocytes) > 1% indicates that a LEFT SHIFT is Present. Internal Medicine Office Vis itoadam 01-17-2025 Internal Medicine Office Visit [facility] [address] [place] [address] [place] [address] OFFICE VISIT Date of Service: 01/17/25 MR#: [id number] Acct: [id number] Name: ZHENG WATKINS Rep #: [id number] : 1960 Provider: Dr. Filipe alvarez MD Age/Sex: 64/M Location: [facility] [place] [place] Status: Signed Intake Vital Signs 09/01/24 09:25 01/10/25 11:37 01/17/25 08:50 Height 5 ft 10 in 5 ft 9 in 5 ft 9 in Weight: 232 lb BMI 34.2 BP 128/68 H Blood Pressure Location Lt brachial Position Sitting Respiration 16 Pulse 82 Pulse Source Monitor Temp 98 F Temp Source Temporal Pulse Oximetry (%) 91 Oxygen Delivery Method room air Intake Visit Reasons: FU Chief Complaint: Body ache, Swelling Pharmaceutical Operator Required: No Accompanied by: Self Is patient in pain?: No Allergies No Known Allergies Allergy (Verified 01/17/25 08:49) Medications ???Medication ???Instructions ???Recorded ???Confirmed ???Type ascorbate calcium (vitamin C) 500 1 g PO DAILY 11/05/21 01/17/25 Hi story mg tablet cholecalciferol (vitamin D3) 50 50 mcg PO DAILY 11/05/21 01/17/25 History mcg (2,000 unit) capsule multivitamin (Daily Multi-Vitamin 1 tab PO DAILY 11/05/21 01/17/25 History tablet) loratadine 10 mg tablet (Claritin) 10 mg PO DAILY PRN allergy sympt oms 03/19/23 01/17/25 History omega 3 350 mg-dha 235 mg-epa 90 1 cap PO DAILY 03/20/24 01/17/25 H istory mg-fish oil 597 mg capsule,delay rel ([place]-3) aspirin 81 mg tablet,delayed 81 mg PO QDAY 08/22/24 01/17/25 Hi story release (Adult Aspirin Regimen) tadalafil 20 mg tablet 10 mg (1/2 x 20 mg) PO DAILY #30 1 11/18/23 01/17/25 Rx TABLETS amlodipine 5 mg tablet 5 mg PO DAILY #90 tabs 11/27/24 Rx doxazosin 4 mg tablet 4 mg PO BID 3 months #180 tabs 01/17/25 Rx valsartan 160 1 tab PO DAILY #90 tabs 11/27/24 0 01/17/25 Rx mg-hydrochlorothiazi de 25 mg tablet Have you fallen in the past year?: No Nurse's Note: follow up lots of inflammation and swelling in hands knees feet jarod and legs PFSH Medical History (Updated 01/17/25 @ 09:[address] Filipe Ybarra MD) Elevated C-reactive protein (CRP) Myalgia Malaise and fatigue Arthritis Varicose veins of both legs with edema Hypersomnolence Wears glasses Alcohol use Rash History of steroid therapy Gastric reflux Chewing tobacco dependence in remission History of edema BPH (benign prostatic hyperplasia) Borderline type 2 diabetes mellitus Abdominal discomfort Great toe pain Flu vaccine need Dermatitis Obesity Hyperglycemia Colon cancer screening Hypertension Erectile dysfunction Umbilical hernia GERD (gastroesophageal reflux disease) Seasonal allergies Surgical History Status post inguinal hernia repair Family History Other Heart disease Hypertension Myocardial infarction Social History household members: spouse Smoking Status: Former smoker how long ago did patient quit smokin11/15/1989 alcohol intake: current alcohol intake frequency: holidays/special occasions only what type of physical activity do you participate in: walking frequency: daily HPI HPI Chief Complaint: Body ache, Swelling Details: ZHENG WATKINS, is a 64 M who presents to the office today for close follow-up. Seen a few days ago due to concerns for left lower extremity pain, feeling of unwell, hand pain and swelling. Symptoms started out with his left lower extremity but has progressed to an almost allover body pain and swelling. Had workup done with significantly elevated CRP and slightly elevated ESR. ZACHARY negative, rheumatoid factor within range however anti-CCP has been pending. Some symptom relief on ibuprofen but not complete. Still has pain, swelling of his fingers and stiffness. Lower extremity swelling remains the same, not sure if left is greater than right. Has not been able to do much due to concern for reinjuring. No chills or recorded fever. No nausea, vomiting or change in bowel habit. Prior to his visit last week, he was seen at the emergency room and had venous duplex done which was negative. ROS Const Constitutional: Positive for fatigue; No body ache, excessive sweating, fever(s), frequent falls, headache(s), snoring, weakness, weight change, sleep problems or change in appetite Eyes Eyes: No blurry vision, change in vision, bulging eyes, floaters, visual disturbances, eye pain or Light sensitivity ENT ENT: No abnormal hearing, ear or mastoid pain, tinnitus, balance problems, nosebleed/epistaxis, nasal congestion, headache(s), neck pain or sore throat Resp Respiratory: No cough, excessive phlegm production, pain on inspir (more content not included)... Normal [facility] Ketones Test strip Ql (U)Ord ered By: Filipe Ybarra on 01-17-2025 Ketones Ql (U) Negative Negative [facility] Laboratory - Chemistry and C hemistry - challengeOrdered By: Filipe Yabrra on 01-17-2025 AST [Catalytic activity/Vol] 22 U/L <38 [facility] Lymphocytes Auto (Unsp spec) [#/Vol]Ordered By: Filipe Ybarra on 01-17-2025 Lymphocytes (Bld) [#/Vol] 0.94 10*3/uL 0.83-4.51 [facility] Lymphocytes/100 WBC Auto (Un sp spec)Ordered By: Filipe Ybarra on 01-17-2025 Lymphocytes/100 WBC (Bld) 13.2 % Low 19-41 [facility] MCV (mean corpuscular volume ) determinationOrdered By: Filipe Ybarra on 01-17-2025 MCV (RBC) [Entitic vol] 91.0 fL 80-94 [facility] Mean corpuscular hemoglobin (MCH) determinationOrdered By: Filipe Ybarra on 01-17-2025 MCH (RBC) [Entitic mass] 32.5 pg High 27.0-32.0 [facility] Mean corpuscular hemoglobin concentration (MCHC) determinationOrdered By: Filipe Ybarra on 01-17-2025 MCHC (RBC) [Mass/Vol] 35.7 g/dL 32-36 [facility] Mean platelet volume determi nationOrdered By: Filipe Ybarra on 01-17-2025 Platelet mean volume (Bld) [Entitic vol] 8.8 fL 6.2-12.0 [facility] Microscopic analysis of urin e for red blood cells (RBC)Ordered By: Filipe Ybarra on 01-17-2025 Microscopic analysis of urine for red blood cells (RBC) 0 SEEN /hpf 0-5 [facility] Urine RBC 0 SEEN /hpf 0-5 [facility] Monocyte percentageOrdered B y: Filipe Ybarra on 01-17-2025 Monocytes/100 WBC (Bld) 10.9 % High 0-10 [facility] Mucus LM Ql (Urine sed)Order ed By: Filipe Ybarra on 01-17-2025 Mucus Ql (Urine sed) 0 SEEN /hpf [facility] Neutrophil percentageOrdered By: Filipe Ybarra on 01-17-2025 Neutrophils/100 WBC (Bld) 73.2 % High 47-70 [facility] Nitrite Test strip Ql (U)Ord ered By: Filipe Ybarra on 01-17-2025 Nitrite Ql (U) Negative Negative [facility] Nucleated red blood cell per centageOrdered By: Filipe Ybarra on 01-17-2025 Nucleated RBC/100 WBC (Bld) [Ratio] 0 % 0-5 [facility] Platelet countOrdered By: Cindy Ybarra on 01-17-2025 Platelets (Bld) [#/Vol] 362 10*3/uL 150-450 [facility] Potassium (Unsp spec) [Mass/ Vol]Ordered By: Filipe Ybarra on 01-17-2025 Potassium [Moles/Vol] 4.7 mmol/L 3.3-5.1 [facility] Potassium measurement (mass/ volume)Ordered By: Filipe Ybarra on 01-17-2025 Potassium (Unsp spec) [Mass/Vol] 4.7 mmol/L 3.3-5.1 [facility] Protein Test strip Ql (U)Ord ered By: Filipe Ybarra on 01-17-2025 Protein Ql (U) 15 mg/dl High Negative [facility] RBC Auto (Bld) [#/Vol]Ordere d By: Filipe Ybarra on 01-17-2025 RBC (Bld) [#/Vol] 3.91 10*6/uL Low 4.6-6.2 [facility] Serum creatinine measurement (mass/volume)Ordered By: Filipe Ybarra on 01-17-2025 Creatinine [Mass/Vol] 0.86 mg/dL 0.70-1.20 [facility] Serum globulin measurementOr dered By: Filipe Ybarra on 01-17-2025 Globulin (S) [Mass/Vol] 3.0 g/dL 2.2-4.2 [facility] Serum glucose measurement (m ass/volume)Ordered By: Filipe Ybarra on 01-17-2025 Glucose [Mass/Vol] 136 mg/dL High 70-99 [facility] Serum or plasma C reactive p rotein measurement (mass/volume)Ordered By: Filipe Ybarra on 01-17-2025 CRP [Mass/Vol] 101.00 mg/L High 0.0-3.0 [facility] Serum or plasma alanine sood otransferase (ALT) measurementOrdered By: Filipe Ybarra on 01-17-2025 ALT [Catalytic activity/Vol] 16 U/L <47 [facility] Serum or plasma albumin allen urement (mass/volume)Ordered By: Filipe Ybarra on 01-17-2025 Albumin [Mass/Vol] 3.8 g/dL 3.4-4.8 [facility] Serum or plasma albumin/glob ulin mass ratioOrdered By: Filipe Ybarra on 01-17-2025 Albumin/Globulin [Mass ratio] 1.3 {ratio} 0.9-2.4 [facility] Serum or plasma alkaline almita sphatase measurementOrdered By: Filipe Ybarra on 01-17-2025 ALP [Catalytic activity/Vol] 55 U/L 40-129 [facility] Serum or plasma calcium allen urement (mass/volume)Ordered By: Filipe Ybarra on 01-17-2025 Calcium [Mass/Vol] 9.5 mg/dL 7.6-11.0 [facility] Serum or plasma urea nitroge n measurement (mass/volume)Ordered By: Filipe Ybarra on 01-17-2025 Urea nitrogen [Mass/Vol] 17 mg/dL 4-19 [facility] Sodium levelOrdered By: Katia becerraxander Tate on 01-17-2025 Sodium [Moles/Vol] 135 mmol/L 133-145 [facility] Squamous epithelial cells de tection in urine sediment by light microscopyOrdered By: Filipe Ybarra on 01-17-2025 Epithelial cells.squamous LM Ql (Urine sed) 0 SEEN /hpf 0-5 [facility] Total proteinOrdered By: Felice Ybarra on 01-17-2025 Protein [Mass/Vol] 6.8 g/dL 5.9-8.4 [facility] Urinalysis, Completeon 01-17 RBC 0 SEEN Normal 0-5 [facility] Comment on above: Order Comment: COLLE CTOR TO SPECIFY Performed By: #### L 500.4059, L501.6710, L100.0100, L400.0001 #### [facility] Laboratory [address] [place], [address] Urine blood detectionOrdered By: Filipe Ybarra on 01-17-2025 Urine Occult Blood Negative Negative [facility] Urine clarityOrdered By: Felice Ybarra on 01-17-2025 Clarity (U) Clear Clear [facility] Urine color determinationOrd ered By: Filipe Ybarra on 01-17-2025 Color (U) Yellow Yellow [facility] Urine glucose detectionOrder ed By: Filipe Ybarra on 01-17-2025 Glucose Ql (U) Normal mg/dl Normal [facility] Urine leukocyte esterase det ection by dipstickOrdered By: Filipe Ybarra on 01-17-2025 Leukocyte esterase Test strip Ql (U) Negative Negative [facility] Urine pHOrdered By: Yoli Ybarra on 01-17-2025 pH (U) 6.0 [pH] 5.0 - 8.0 [facility] Urine sediment bacteria coun t by microscopy (number/high power field)Ordered By: Filipe Ybarra on 01-17-2025 Bacteria LM.HPF (Urine sed) [#/Area] 0 /[HPF] None Seen [facility] Urine specific gravity measu rementOrdered By: Filipe Ybarra on 01-17-2025 Specific gravity (U) [Rel density] 1.010 1.002-1.030 [facility] Urine urobilinogen measureme ntOrdered By: Filipe Ybarra on 01-17-2025 Urobilinogen Ql (U) Normal mg/dl Normal [facility] Urobilinogen Ql (U)Ordered B y: Filipe Ybarra on 01-17-2025 Urine Urobilinogen Normal mg/dl Normal [facility] White blood cell (WBC) count Ordered By: Filipe Ybarra on 01-17-2025 WBC (Bld) [#/Vol] 7.1 10*3/uL 4.4-11.0 [facility] White blood cell countOrdere d By: Filipe Ybarra on 01-17-2025 Urine WBC 0 SEEN /hpf 0-5 [facility] White blood cell count 0 SEEN /hpf 0-5 [facility] ZACHARY w/ Reflex Mult Confirmon 01-15-2025 ANTI-DNA (DS)AB TNP Normal [facility] Comment on above: Performed By: #### L 101.9900, L4600.0100, L501.6710, L100.0100, L500.4050, L501.9520, L505.7010, L3100.5450, L506.0400 ####[facility] [address] [place], [place], [phone]) ANTISCLERODERM TNP Normal [facility] Comment on above: Performed By: #### L 101.9900, L4600.0100, L501.6710, L100.0100, L500.4050, L501.9520, L505.7010, L3100.5450, L506.0400 ####[facility] [address] [place], [place], [id number] CPK Total, Creatine Kinaseon 01-11-2025 CPK TOTAL 53 U/L Normal 24-195 [facility] Comment on above: Performed By: #### L 501.3620 ####[facility] [address] [place], [place], [id number] ZACHARY serumOrdered By: Andrew Ybarra on 01-10-2025 Anti-Nuclear Antibody Screen Negative Negative [facility] Comment on above: Performed at: [address] [id number] Director: Joey Edmondson PhD, Phone: [phone] Absolute lymphocyte countOrd ered By: Filipe Ybarra on 01-10-2025 Lymphocytes Auto (Unsp spec) [#/Vol] 1.12 10*3/uL 0.83-4.51 [facility] Absolute neutrophil countOrd ered By: Filipe Ybarra on 01-10-2025 Neutrophils (Bld) [#/Vol] 4.6 10*3/uL 2.0-7.7 [facility] Automated lymphocyte count a s percentage of total leukocytesOrdered By: Filipe Ybarra on 01-10-2025 Lymphocytes/100 WBC Auto (Unsp spec) 17.1 % Low 19-41 [facility] BUN/creatinine ratioOrdered By: Filipe Ybarra on 01-10-2025 Urea nitrogen/Creatinine [Mass ratio] 18.7 mg/mg 10- [facility] Basophil percentageOrdered B y: Filipe Ybarra on 01-10-2025 Basophils/100 WBC (Bld) 0.3 % 0-1 [facility] Bilirubin, totalOrdered By: Filipe Ybarra on 01-10-2025 Bilirubin [Mass/Vol] 0.58 mg/dL 0.00-1.30 [facility] CBC W/Diff, Automatedon 12-17 Absolute Lymph 1.12 X10 3/uL Normal 0.83-4.51 [facility] Comment on above: Performed By: #### L 101.9900, L4600.0100, L501.6710, L100.0100, L500.4050, L501.9520, L505.7010, L3100.5450, L506.0400 ####[facility] [address] [place], [address] Absolute Neut 4.6 X10 3/uL Normal 2.0-7.7 [facility] Comment on above: Performed By: #### L 101.9900, L4600.0100, L501.6710, L100.0100, L500.4050, L501.9520, L505.7010, L3100.5450, L506.0400 ####[facility] [address] [place], [address] Basophils/100 WBC (Bld) 0.3 % Normal 0-1 [facility] Comment on above: Performed By: #### L 101.9900, L4600.0100, L501.6710, L100.0100, L500.4050, L501.9520, L505.7010, L3100.5450, L506.0400 ####[facility] [address] [place], [address] Eosinophils/100 WBC (Bld) 1.8 % Normal 0-5 [facility] Comment on above: Performed By: #### L 101.9900, L4600.0100, L501.6710, L100.0100, L500.4050, L501.9520, L505.7010, L3100.5450, L506.0400 ####[facility] [address] [place], [address] Erythrocyte distribution width (RBC) [Ratio] 11.9 % Normal 11.6-14.6 [facility] Comment on above: Performed By: #### L 101.9900, L4600.0100, L501.6710, L100.0100, L500.4050, L501.9520, L505.7010, L3100.5450, L506.0400 ####[facility] [address] [place], [address] Hematocrit (Bld) [Volume fraction] 37.3 % Low 40-54 [facility] Comment on above: Performed By: #### L 101.9900, L4600.0100, L501.6710, L100.0100, L500.4050, L501.9520, L505.7010, L3100.5450, L506.0400 ####[facility] [address] [place], [address] Hemoglobin (Bld) [Mass/Vol] 13.0 g/dL Normal 13.0-16.5 [facility] Comment on above: Performed By: #### L 101.9900, L4600.0100, L501.6710, L100.0100, L500.4050, L501.9520, L505.7010, L3100.5450, L506.0400 ####[facility] [address] [place], [address] IG% 0.500 Normal 0.0-0.9 [facility] Comment on above: Result Comment: IG% - Immature Granulocytes (promyelocytes, myelocytes and metamyelocytes) > 1% indicates that a LEFT SHIFT is Present. Performed By: #### L 101.9900, L4600.0100, L501.6710, L100.0100, L500.4050, L501.9520, L505.7010, L3100.5450, L506.0400 ####[facility] [address] [place], [address] Lymphocytes/100 WBC (Bld) 17.1 % Low 19-41 [facility] Comment on above: Performed By: #### L 101.9900, L4600.0100, L501.6710, L100.0100, L500.4050, L501.9520, L505.7010, L3100.5450, L506.0400 ####[facility] [address] [place], [address] MCH (RBC) [Entitic mass] 32.2 pg High 27.0-32.0 [facility] Comment on above: Performed By: #### L 101.9900, L4600.0100, L501.6710, L100.0100, L500.4050, L501.9520, L505.7010, L3100.5450, L506.0400 ####[facility] [address] [place], [address] MCHC (RBC) [Mass/Vol] 34.9 g/dL Normal 32-36 [facility] Comment on above: Performed By: #### L 101.9900, L4600.0100, L501.6710, L100.0100, L500.4050, L501.9520, L505.7010, L3100.5450, L506.0400 ####[facility] [address] [place], [address] MCV (RBC) [Entitic vol] 92.3 fL Normal 80-94 [facility] Comment on above: Performed By: #### L 101.9900, L4600.0100, L501.6710, L100.0100, L500.4050, L501.9520, L505.7010, L3100.5450, L506.0400 ####[facility] [address] [place], [address] Monocytes/100 WBC (Bld) 10.6 % High 0-10 [facility] Comment on above: Performed By: #### L 101.9900, L4600.0100, L501.6710, L100.0100, L500.4050, L501.9520, L505.7010, L3100.5450, L506.0400 ####[facility] [address] [place], [address] Neutrophils/100 WBC (Bld) 69.7 % Normal 47-70 [facility] Comment on above: Performed By: #### L 101.9900, L4600.0100, L501.6710, L100.0100, L500.4050, L501.9520, L505.7010, L3100.5450, L506.0400 ####[facility] [address] [place], [address] Nucleated RBC (Bld) [#/Vol] 0 10*3/uL Normal 0-5 [facility] Comment on above: Performed By: #### L 101.9900, L4600.0100, L501.6710, L100.0100, L500.4050, L501.9520, L505.7010, L3100.5450, L506.0400 ####[facility] [address] [place], [address] Platelet mean volume (Bld) [Entitic vol] 9.3 fL Normal 6.2-12.0 [facility] Comment on above: Performed By: #### L 101.9900, L4600.0100, L501.6710, L100.0100, L500.4050, L501.9520, L505.7010, L3100.5450, L506.0400 ####[facility] [address] [place], [address] Platelets (Bld) [#/Vol] 303 10*3/uL Normal 150-450 [facility] Comment on above: Performed By: #### L 101.9900, L4600.0100, L501.6710, L100.0100, L500.4050, L501.9520, L505.7010, L3100.5450, L506.0400 ####[facility] [address] [place], [address] RBC (Bld) [#/Vol] 4.04 10*6/uL Low 4.6-6.2 [facility] Comment on above: Performed By: #### L 101.9900, L4600.0100, L501.6710, L100.0100, L500.4050, L501.9520, L505.7010, L3100.5450, L506.0400 ####[facility] [address] [place], [address] RDW SD 40.1 fl Normal 35.1-43.9 [facility] Comment on above: Performed By: #### L 101.9900, L4600.0100, L501.6710, L100.0100, L500.4050, L501.9520, L505.7010, L3100.5450, L506.0400 ####[facility] [address] [place], [address] WBC (Bld) [#/Vol] 6.5 10*3/uL Normal 4.4-11.0 [facility] Comment on above: Performed By: #### L 101.9900, L4600.0100, L501.6710, L100.0100, L500.4050, L501.9520, L505.7010, L3100.5450, L506.0400 ####[facility] [address] [place], [address] CRPon 01-10-2025 C-REACTIVE PROT 83.20 mg/L High 0.0-3.0 [facility] Comment on above: Performed By: #### L 101.9900, L4600.0100, L501.6710, L100.0100, L500.4050, L501.9520, L505.7010, L3100.5450, L506.0400 ####[facility] [address] [place], [place], [id number] CRP [Mass/Vol]Ordered By: Cindy Ybarra on 01-10-2025 C-Reactive Protein Extended Range 83.20 mg/L High 0.0-3.0 [facility] Carbon dioxide measurementOr dered By: Filipe Ybarra on 01-10-2025 CO2 [Moles/Vol] 28.1 mmol/L 22.0-29.0 [facility] Centromere B antibody assayO rdered By: Filipe Ybarra on 01-10-2025 Centromere B Antibody [facility] Comment on above: Test not performed Chloride measurementOrdered By: Filipe Ybarra on 01-10-2025 Chloride [Moles/Vol] 97 mmol/L 96-108 [facility] Chromatin antibody assayOrde red By: Filipe Ybarra on 01-10-2025 Antichromatin Antibodies [facility] Comment on above: Test not performed Comprehensive Metabolic Prof ilon 01-10-2025 CO2 [Moles/Vol] 28.1 mmol/L Normal 22.0-29.0 [facility] Comment on above: Performed By: #### L 101.9900, L4600.0100, L501.6710, L100.0100, L500.4050, L501.9520, L505.7010, L3100.5450, L506.0400 ####[facility] [address] [place], [place], [address] Creatinine [Moles/Vol]Ordere d By: Filipe Ybarra on 01-10-2025 Creatinine [Mass/Vol] 0.9 mg/dL 0.8-1.3 [facility] Cyclic citrullinated peptide IgG QnOrdered By: Filipe Ybarra on 01-10-2025 Cyclic Citrullinated Peptide IgG Ab See comment [facility] Comment on above: TEST RESULTS LIMITSA nti-CCP Ab, IgG/IgA 3 units 0-19 Negative <20 Weak positive 20 - 39 Moderate positive 40 - 59 Strong positive >59 TESTING PERFORMED AT [facility]. ORIGINAL REPORT ON FILE IN LAB CONTAINS ADDITIONAL TEST SITE INFORMATION. DNA double strand Ab Qn (S)O rdered By: Filipe Ybarra on 01-10-2025 Anti-Double Strand DNA Antibody TNP [facility] Comment on above: Test not performed Eosinophil percentageOrdered By: Filipe Ybarra on 01-10-2025 Eosinophils/100 WBC (Bld) 1.8 % 0-5 [facility] Erythrocyte Sed Rateon 01-10 SED RATE 21 mm/hr High 0-20 [facility] Comment on above: Performed By: #### L 101.9900, L4600.0100, L501.6710, L100.0100, L500.4050, L501.9520, L505.7010, L3100.5450, L506.0400 ####[facility] [address] [place], [address] Erythrocyte distribution wid th ratioOrdered By: Filipe Ybarra on 01-10-2025 Erythrocyte distribution width (RBC) [Ratio] 11.9 % 11.6-14.6 [facility] Erythrocyte distribution wid th standard deviationOrdered By: Filipe Ybarra on 01-10-2025 Erythrocyte distribution width (RBC) [Entitic vol] 40.1 fL 35.1-43.9 [facility] Erythrocyte distribution width (RBC) [Ratio] 40.1 fl 35.1-43.9 [facility] Erythrocyte sedimentation ra teOrdered By: Filipe Ybarra on 01-10-2025 ESR (Bld) [Velocity] 21 mm/h High 0-20 [facility] GFR/1.73 sq M.predicted sebastián g non-blacks MDRD (S/P/Bld) [Vol rate/Area]Ordered By: Filipe Ybarra on 01-10-2025 Estimated GFR (MDRD) Non-Af Amer 96 >60 [facility] Comment on above: mL/min/1.73m2 CKD-EP I Creatinine Equation (2020) Glomerular filtration rate ( GFR) estimation/1.73 sq m using serum, plasma, or whole bOrdered By: Filipe Ybarra on 01-10-2025 GFR/1.73 sq M.predicted among non-blacks MDRD (S/P/Bld) [Vol rate/Area] 96 mL/min/{1.73_m2} >60 [facility] Comment on above: mL/min/1.73m2 CKD-EP I Creatinine Equation (2020) Hematocrit Auto (Bld) [Volum e fraction]Ordered By: Filipe Ybarra on 01-10-2025 Hematocrit (Bld) [Volume fraction] 37.3 % Low 40-54 [facility] Hemoglobin measurementOrdere d By: Filipe Ybarra on 01-10-2025 Hemoglobin (Bld) [Mass/Vol] 13.0 g/dL 13.0-16.5 [facility] Immature granulocytes/100 WB C Auto (Bld)Ordered By: shayla Ybarra on 01-10-2025 Immature granulocytes/100 WBC (Bld) 0.500 % 0.0-0.9 [facility] Comment on above: IG% - Immature Granu locytes (promyelocytes, myelocytes and metamyelocytes) > 1% indicates that a LEFT SHIFT is Present. Internal Medicine Office Vis laura 01-10-2025 Internal Medicine Office Visit [facility] [address] [place] [address] OFFICE VISIT Date of Service: 01/10/25 MR#: [id number] Acct: [id number] Name: ZHENG WATKINS Rep #: [id number] : 1960 Provider: Dr. Filipe alvarez MD Age/Sex: 64/M Location: [facility] [place] Status: Signed Intake Vital Signs 01/06/25 10:05 01/10/25 11:37 Height 5 ft 9 in 5 ft 9 in Weight: 223 lb 9.6 oz 232 lb 8 oz BMI 33.0 34.3 BP 155/83 H 137/78 H Blood Pressure Location Rt brachial Position Sitting Respiration 16 16 Pulse 89 71 Pulse Source Monitor Temp 97.1 F L 96.3 F L Temp Source Temporal Temporal Pulse Oximetry (%) 94 98 Oxygen Delivery Method room air Intake Visit Reasons: Pain Chief Complaint: Acute visit. Feeling well. Left calf pain Pharmaceutical Operator Required: No Accompanied by: Is patient in pain?: No Allergies No Known Allergies Allergy (Verified 01/10/25 11:34) Medications ???Medication ???Instructions ???Recorded ???Confirmed ???Type ascorbate calcium (vitamin C) 500 1 g PO DAILY 11/05/21 01/10/25 Hi story mg tablet cholecalciferol (vitamin D3) 50 50 mcg PO DAILY 11/05/21 01/10/25 History mcg (2,000 unit) capsule multivitamin (Daily Multi-Vitamin 1 tab PO DAILY 11/05/21 01/10/25 History tablet) loratadine 10 mg tablet (Claritin) 10 mg PO DAILY PRN allergy sympt oms 03/19/23 01/10/25 History omega 3 350 mg-dha 235 mg-epa 90 1 cap PO DAILY 03/20/24 01/10/25 H istory mg-fish oil 597 mg capsule,delay rel ([place]-3) aspirin 81 mg tablet,delayed 81 mg PO QDAY 08/22/24 01/10/25 Hi story release (Adult Aspirin Regimen) tadalafil 20 mg tablet 10 mg (1/2 x 20 mg) PO DAILY #30 1 11/18/23 01/10/25 Rx TABLETS amlodipine 5 mg tablet 5 mg PO DAILY #90 tabs 11/27/24 Rx doxazosin 4 mg tablet 4 mg PO BID 3 months #180 tabs 01/10/25 Rx valsartan 160 1 tab PO DAILY #90 tabs 11/27/24 0 01/10/25 Rx mg-hydrochlorothiazi de 25 mg tablet Have you fallen in the past year?: No Nurse's Note: left leg swelling er said bakers cyst now having swelling on right leg with discomfort [facility] Medical History (Updated 01/10/25 @ 23:[address] Filipe Ybarra MD) Myalgia Malaise and fatigue Arthritis Varicose veins of both legs with edema Hypersomnolence Wears glasses Alcohol use Rash History of steroid therapy Gastric reflux Chewing tobacco dependence in remission History of edema BPH (benign prostatic hyperplasia) Borderline type 2 diabetes mellitus Abdominal discomfort Great toe pain Flu vaccine need Dermatitis Obesity Hyperglycemia Colon cancer screening Hypertension Erectile dysfunction Umbilical hernia GERD (gastroesophageal reflux disease) Seasonal allergies Surgical History Status post inguinal hernia repair Family History Other Heart disease Hypertension Myocardial infarction Social History household members: spouse Smoking Status: Former smoker how long ago did patient quit smokin11/15/1989 alcohol intake: current alcohol intake frequency: holidays/special occasions only what type of physical activity do you participate in: walking frequency: daily HPI HPI Chief Complaint: Acute visit. Feeling well. Left calf pain Details: ZHENG WATKINS, is a 64 M who presents to the office today for an acute visit. Reports about a 2-week history of feeling unwell. Had an almost generalized body ache and fatigue but not enough to stop him from his activities. Went walking 2 weeks ago and developed a sudden sharp pain in his left calf area. Also noted swelling which was concerning so went to an urgent care and was subsequently directed to the emergency room. Had imaging to rule out a DVT and this came back negative. Pain has persisted. Worse with certain movements and also present at rest. Has been wearing an Jasbir wrap to help with the swelling. 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 Shortness of breath, nausea, vomiting or change in bowel habit. ROS Const Constitutional: Positive for fatigue; No body ache, excessive sweating, fever(s), frequent falls, headache(s), malaise, snoring, weakness, weight change, sleep problems or change in appetite Eyes Eyes: No blurry vision, change in vision, floaters, visual disturbances, eye pain or Light sensitivity ENT ENT: No abnormal hearing, ear or mastoid pain, tinnitus, balance problems, nosebleed/epistaxis, nasal congestion, headache(s), neck pain or sore throat Resp Respiratory: No cough, excessive phlegm production, shortness of breath, snoring or wheezing Cardio Cardiology: No chest pain at rest, ches (more content not included)... Normal [facility] Herminia-1 antibody assayOrdered B y: Filipe Ybarra on 01-10-2025 HERMINIA-1 Antibody TNP [facility] Comment on above: Test not performed Laboratory - Chemistry and C hemistry - challengeOrdered By: Filipe Ybarra on 01-10-2025 AST [Catalytic activity/Vol] 22 U/L <38 [facility] Lymphocytes Auto (Unsp spec) [#/Vol]Ordered By: Filipe Ybarra on 01-10-2025 Lymphocytes (Bld) [#/Vol] 1.12 10*3/uL 0.83-4.51 [facility] Lymphocytes/100 WBC Auto (Un sp spec)Ordered By: Filipe Ybarra on 01-10-2025 Lymphocytes/100 WBC (Bld) 17.1 % Low 19-41 [facility] MCV (mean corpuscular volume ) determinationOrdered By: Filipe Ybarra on 01-10-2025 MCV (RBC) [Entitic vol] 92.3 fL 80-94 [facility] Mean corpuscular hemoglobin (MCH) determinationOrdered By: Filipe Ybarra on 01-10-2025 MCH (RBC) [Entitic mass] 32.2 pg High 27.0-32.0 [facility] Mean corpuscular hemoglobin concentration (MCHC) determinationOrdered By: Filipe Ybarra on 01-10-2025 MCHC (RBC) [Mass/Vol] 34.9 g/dL 32-36 [facility] Mean platelet volume determi nationOrdered By: Filipe Ybarra on 01-10-2025 Platelet mean volume (Bld) [Entitic vol] 9.3 fL 6.2-12.0 [facility] Monocyte percentageOrdered B y: Filipe Ybarra on 01-10-2025 Monocytes/100 WBC (Bld) 10.6 % High 0-10 [facility] Neutrophil percentageOrdered By: shayla Ybarra on 01-10-2025 Neutrophils/100 WBC (Bld) 69.7 % 47-70 [facility] Nucleated red blood cell per centageOrdered By: Filipe Ybarra on 01-10-2025 Nucleated RBC/100 WBC (Bld) [Ratio] 0 % 0-5 [facility] Platelet countOrdered By: Cindy imerrell Ybarra on 01-10-2025 Platelets (Bld) [#/Vol] 303 10*3/uL 150-450 [facility] RBC Auto (Bld) [#/Vol]Ordere d By: Filipe Ybarra on 01-10-2025 RBC (Bld) [#/Vol] 4.04 10*6/uL Low 4.6-6.2 [facility] [employer] abOrdered By: Filipe Ybarra on 01-10-2025 [employer] Antibody TNP [facility] Comment on above: Test not performed Rheumatoid Factoron 01-10-20 25 RHEUMATOID FAC < 10.0 Normal <15 [facility] Comment on above: Performed By: #### L 101.9900, L4600.0100, L501.6710, L100.0100, L500.4050, L501.9520, L505.7010, L3100.5450, L506.0400 ####[facility] [address] [place], [place], [id number] Rheumatoid factor Ql (S)Orde red By: Filipe Ybarra on 01-10-2025 Rheumatoid Factor < 10.0 IU/mL <15 [facility] SCL-70 extractable nuclear A b Qn (S)Ordered By: Filipe Ybarra on 01-10-2025 Scl-70 (Scleroderma) Antibody [facility] Comment on above: Test not performed SS-A IgG antibody assayOrder ed By: Filipe Ybarra on 01-10-2025 SS-A/Ro IgG Antibody [facility] Comment on above: Test not performed SS-B IgG antibody assayOrder ed By: Filipe Ybarra on 01-10-2025 SS-B/La IgG Antibody [facility] Comment on above: Test not performed Serum DNA double strand anti body assay (units/volume)Ordered By: Filipe Ybarra on 01-10-2025 DNA double strand Ab Qn (S) [facility] Comment on above: Test not performed Serum Scl-70 antibody assay (units/volume)Ordered By: Filipe Ybarra on 01-10-2025 SCL-70 extractable nuclear Ab Qn (S) [facility] Comment on above: Test not performed Serum globulin measurementOr dered By: Filipe Ybarra on 01-10-2025 Globulin (S) [Mass/Vol] 2.8 g/dL 2.2-4.2 [facility] Serum glucose measurement (m ass/volume)Ordered By: Filipe Ybarra on 01-10-2025 Glucose [Mass/Vol] 141 mg/dL High 70-99 [facility] Serum or plasma C reactive p rotein measurement (mass/volume)Ordered By: Filipe Ybarra on 01-10-2025 CRP [Mass/Vol] 83.20 mg/L High 0.0-3.0 [facility] Serum or plasma alanine sood otransferase (ALT) measurementOrdered By: Filipe Ybarra on 01-10-2025 ALT [Catalytic activity/Vol] 14 U/L <47 [facility] Serum or plasma albumin allen urement (mass/volume)Ordered By: Filipe Ybarra on 01-10-2025 Albumin [Mass/Vol] 3.9 g/dL 3.4-4.8 [facility] Serum or plasma albumin/glob ulin mass ratioOrdered By: Katiaclaremorefernando Summersmarioalysa on 01-10-2025 Albumin/Globulin [Mass ratio] 1.4 {ratio} 0.9-2.4 [facility] Serum or plasma alkaline almita sphatase measurementOrdered By: Filipe Ybarra on 01-10-2025 ALP [Catalytic activity/Vol] 62 U/L 40-129 [facility] Serum or plasma anion gap de termination (moles/volume)Ordered By: shayla Ybarra on 01-10-2025 Anion gap [Moles/Vol] 11 mmol/L 5-15 [facility] Serum or plasma calcium allen urement (mass/volume)Ordered By: Cindyshayla Ybarra on 01-10-2025 Calcium [Mass/Vol] 9.1 mg/dL 7.6-11.0 [facility] Serum or plasma creatine kin ase activityOrdered By: Cindyshayla Ybarra on 01-10-2025 CK [Catalytic activity/Vol] 53 U/L 24-195 [facility] Serum or plasma creatinine m easurement (moles/volume)Ordered By: Cindyimerestefaníafernando Ybarra on 01-10-2025 Creatinine [Moles/Vol] 0.9 mg/dL 0.8-1.3 [facility] Serum or plasma cyclic citru llinated peptide IgG antibody assay (units/volume)Ordered By: Filipe Ybarra on 01-10-2025 Cyclic citrullinated peptide IgG Qn See comment [facility] Comment on above: TEST RESULTS LIMITSA nti-CCP Ab, IgG/IgA 3 units 0-19 Negative <20 Weak positive 20 - 39 Moderate positive 40 - 59 Strong positive >59 TESTING PERFORMED AT [facility]. ORIGINAL REPORT ON FILE IN LAB CONTAINS ADDITIONAL TEST SITE INFORMATION. Serum or plasma potassium me asurementOrdered By: Filipe Ybarra on 01-10-2025 Potassium [Moles/Vol] 4.4 mmol/L 3.3-5.1 [facility] Serum or plasma sodium measu rement (moles/volume)Ordered By: Filipe Ybarra on 01-10-2025 Sodium [Moles/Vol] 136 mmol/L 133-145 [facility] Serum or plasma urea nitroge n measurement (mass/volume)Ordered By: Filipe Ybarra on 01-10-2025 Urea nitrogen [Mass/Vol] 16 mg/dL 4-19 [facility] Serum rheumatoid factor dete ctionOrdered By: Filipe Ybarra on 01-10-2025 Rheumatoid factor Ql (S) < 10.0 IU/mL <15 [facility] Brewer antibody assayOrdered By: Filipe Ybarra on 01-10-2025 SM Antibody TNP [facility] Comment on above: Test not performed T4 Free Directon 01-10-2025 T4 FREE DIRECT 1.40 ng/dL Normal 0.76-1.46 [facility] Comment on above: Performed By: #### L 101.9900, L4600.0100, L501.6710, L100.0100, L500.4050, L501.9520, L505.7010, L3100.5450, L506.0400 ####[facility] [address] [place], [address] T4 freeOrdered By: Filipe Ybarra on 01-10-2025 Free T4 [Mass/Vol] 1.40 ng/dL 0.76-1.46 [facility] TSH DL <= 0.005 mIU/L QnOrde red By: Filipe Ybarra on 01-10-2025 Thyroid Stimulating Hormone (TSH) 1.220 uIU/mL 0.300-4.200 [facility] TSH Qn 1.220 uIU/mL 0.300-4.200 [facility] Thyroid Stim Hormone (TSH)on 01-10-2025 TSH 1.220 uIU/mL Normal 0.300-4.200 [facility] Comment on above: Performed By: #### L 101.9900, L4600.0100, L501.6710, L100.0100, L500.4050, L501.9520, L505.7010, L3100.5450, L506.0400 ####[facility] [address] [place], [address] Total proteinOrdered By: Felice Ybarra on 01-10-2025 Protein [Mass/Vol] 6.7 g/dL 5.9-8.4 [facility] White blood cell (WBC) count Ordered By: Filipe Ybarra on 01-10-2025 WBC (Bld) [#/Vol] 6.5 10*3/uL 4.4-11.0 [facility] Emergency Department Summary on 01-06-2025 Emergency Department Summary [facility] Medical Records Department [address] [place] [address] Emergency Department Summary 01/06/25 MR#: [id number] Acct: [id number] Name: ZHENG WATKINS Rep #: [id number] : 1960 64 From: Albert Lopez MD PCP: Dr. Filipe Ybarra MD Status:REG ER Location: ED HPI History of Present Illness Chief Complaint: Lower Extremity Injury Narrative Narrative: 4-year-old male past medical history of hypertension presents with left calf pain and swelling that has had for the last 4 days. He denies any recent trauma or periods of immobilization. He states his pain in his calf started as cramping on Wednesday evening/early Wednesday morning. He was having multiple body aches as well. While the cramping went away, he noticed swelling of his left calf. He denies any chest pain or shortness of breath. No left inner thigh pain. Of note, he also states that he used to walk the track at least 2 miles a day, but has not been doing that for the last week or so. He went to urgent care who sent him to the emergency department with concern for DVT. [facility] Medical History Varicose veins of both legs with edema Hypersomnolence Wears glasses Alcohol use Rash History of steroid therapy Gastric reflux Chewing tobacco dependence in remission History of edema BPH (benign prostatic hyperplasia) Borderline type 2 diabetes mellitus Abdominal discomfort Great toe pain Flu vaccine need Dermatitis Obesity Hyperglycemia Colon cancer screening Hypertension Erectile dysfunction Umbilical hernia GERD (gastroesophageal reflux disease) Seasonal allergies Home Medications ???Medication ???Instructions ???Recorded ???Last Taken ???Type ascorbate calcium (vitamin C) 500 1 g PO DAILY 11/05/21 03/26/24 Hi story mg tablet cholecalciferol (vitamin D3) 50 50 mcg PO DAILY 11/05/21 03/26/24 History mcg (2,000 unit) capsule multivitamin (Daily Multi-Vitamin 1 tab PO DAILY 11/05/21 03/26/24 History tablet) loratadine 10 mg tablet (Claritin) 10 mg PO DAILY PRN allergy sympt oms 03/19/23 03/26/24 History omega 3 350 mg-dha 235 mg-epa 90 1 cap PO DAILY 03/20/24 03/26/24 H istory mg-fish oil 597 mg capsule,delay rel ([place]-3) aspirin 81 mg tablet,delayed 81 mg PO QDAY 08/22/24 Unknown His tory release (Adult Aspirin Regimen) tadalafil 20 mg tablet 10 mg (1/2 x 20 mg) PO DAILY #30 1 11/18/23 Unknown Rx TABLETS amlodipine 5 mg tablet 5 mg PO DAILY #90 tabs 11/27/24 Un known Rx doxazosin 4 mg tablet 4 mg PO BID 3 months #180 tabs Unknown Rx valsartan 160 1 tab PO DAILY #90 tabs 11/27/24 U nknown Rx mg-hydrochlorothiazi de 25 mg tablet Allergy/AdvReac Type Severity Reaction Status Date / Time No Known Allergies Allergy Verified 09/01/24 09:22 Family History Other Heart disease Hypertension Myocardial infarction Surgical History Status post inguinal hernia repair Social History household members: spouse Smoking Status: Former smoker how long ago did patient quit smokin11/15/1989 alcohol intake: current alcohol intake frequency: holidays/special occasions only what type of physical activity do you participate in: walking frequency: daily ROS ROS ED ROS Narrative Review of systems positive for left calf pain and swelling worse with movement. No left inner thigh pain or swelling. No fevers or chills, no cough or shortness of breath. No chest pain. EXAM Physical Exam Narrative Exam Narrative: Afebrile. Vital signs noted. Nontoxic-appearing. Cardiovascular examination reveals a regular rate and rhythm. Lungs are clear to auscultation bilaterally. Abdomen is soft and nontender with normal active bowel sounds. Inspection of the left lower extremity does reveal mild swelling of the left calf circumferentially. Palpable dorsalis pedis pulse, left. EHL intact. No palpable cord. No noted erythema or crepitance. No left inner thigh pain or swelling. Extension and flexion of left knee intact. Const Vital Signs: 01/06/25 10:05 Temperature 97.1 F L Temperature Source Temporal Pulse Rate 89 Respiratory Rate 16 Blood Pressure 155/83 H Blood Pressure Mean 107 Pulse Ox 94 Oxygen Delivery Method Room Air MDM MDM MDM Narrative Medical decision making narrative: Differential diagnosis includes but not limited to DVT versus calf strain/muscle tear. I have a low concern for fracture underlying as there is no history of trauma. I do not feel that this is necrotizing fasciitis either. Ultrasound was obtained to rule out DVT. I did review his EMR Problem list he h (more content not included)... Normal [facility] Venous Duplex US, Unilateral on 01-06-2025 Venous Duplex US, Unilateral [facility] Cardiovascular Services [address] [place] [address] Venous Duplex US, Unilateral 01/06/25 1054 MR#: [id number] Acct: [id number] Name: ZHENG WATKINS Rep #: [id number] : 1960 64 From: Lior Wall MD Attending Dr: Status: DEP ER Ordering Dr: Albert Lopez MD Date: 01/06/25 Location: ED Sex: M C Admitted: Reason For Study Reason For Study: Left leg pain RIGHT LEFT CFV is compressible, spontaneous, phasic, competent GSV is normal. and demonstrates normal augmentation. CFV is compressible, spontaneous, phasic, competent, Procedure and demonstrates normal augmentation. This is a venous duplex using B-mode, color flow and FV is compressible, spontaneous, phasic, competent spectral Doppler. and demonstrates normal augmentation. Exam performed portable in ED. POP V is compressible, spontaneous, phasic, competent A preliminary report was called and/or faxed to and demonstrates normal augmentation. John. T/P Trunk is compressible. PTV is compressible. LT PerV is compressible. Nonvascularized structure noted in the left popliteal fossa to mid calf. VL/Venous Duplex US, Unilateral Interpretation Summary Deep veins of the left lower extremity are patent and compressible segmentally. There is no evidence of left lower extremity deep vein thrombosis. The left great saphenous vein appears patent and compressible segmentally. Nonvascularized structure noted in the left popliteal fossa to mid calf. Ordering Physician: Albert Lopez Referring Physician: Filipe Ybarra Performed By: Thalia Nielsen Jerry 01/08/25 1605 Date Lior Wall MD CC: Dr. Albert Lopez MD; Dr. Filipe Ybarra MD Date Dictated: 01/06/25 1054 Date Transcribed: 01/08/25 1605 Complaint Analyst: Signed Normal [facility] CBC W/Diff, Automatedon 10-1 Absolute Lymph 1.16 X10 3/uL Normal 0.83-4.51 [facility] Comment on above: Performed By: #### L 500.4050, L500.4100, L501.9940, L501.9985, L100.0100 ####[facility] [address] [place], [address] Absolute Neut 3.6 X10 3/uL Normal 2.0-7.7 [facility] Comment on above: Performed By: #### L 500.4050, L500.4100, L501.9940, L501.9985, L100.0100 ####[facility] [address] [place], [address] Basophils/100 WBC (Bld) 0.6 % Normal 0-1 [facility] Comment on above: Performed By: #### L 500.4050, L500.4100, L501.9940, L501.9985, L100.0100 ####[facility] [address] [place], [address] Eosinophils/100 WBC (Bld) 2.2 % Normal 0-5 [facility] Comment on above: Performed By: #### L 500.4050, L500.4100, L501.9940, L501.9985, L100.0100 ####[facility] [address] [place], [address] Erythrocyte distribution width (RBC) [Ratio] 12.1 % Normal 11.6-14.6 [facility] Comment on above: Performed By: #### L 500.4050, L500.4100, L501.9940, L501.9985, L100.0100 ####[facility] [address] [place], [address] Hematocrit (Bld) [Volume fraction] 40.9 % Normal 40-54 [facility] Comment on above: Performed By: #### L 500.4050, L500.4100, L501.9940, L501.9985, L100.0100 ####[facility] [address] [place], [address] Hemoglobin (Bld) [Mass/Vol] 14.1 g/dL Normal 13.0-16.5 [facility] Comment on above: Performed By: #### L 500.4050, L500.4100, L501.9940, L501.9985, L100.0100 ####[facility] [address] [place], [address] IG% 0.200 Normal 0.0-0.9 [facility] Comment on above: Result Comment: IG% - Immature Granulocytes (promyelocytes, myelocytes and metamyelocytes) > 1% indicates that a LEFT SHIFT is Present. Performed By: #### L 500.4050, L500.4100, L501.9940, L501.9985, L100.0100 ####[facility] [address] [place], [address] Lymphocytes/100 WBC (Bld) 21.4 % Normal 19-41 [facility] Comment on above: Performed By: #### L 500.4050, L500.4100, L501.9940, L501.9985, L100.0100 ####[facility] [address] [place], [address] MCH (RBC) [Entitic mass] 32.3 pg High 27.0-32.0 [facility] Comment on above: Performed By: #### L 500.4050, L500.4100, L501.9940, L501.9985, L100.0100 ####[facility] [address] [place], [address] MCHC (RBC) [Mass/Vol] 34.5 g/dL Normal 32-36 [facility] Comment on above: Performed By: #### L 500.4050, L500.4100, L501.9940, L501.9985, L100.0100 ####[facility] [address] [place], [address] MCV (RBC) [Entitic vol] 93.6 fL Normal 80-94 [facility] Comment on above: Performed By: #### L 500.4050, L500.4100, L501.9940, L501.9985, L100.0100 ####[facility] [address] [place], [address] Monocytes/100 WBC (Bld) 8.8 % Normal 0-10 [facility] Comment on above: Performed By: #### L 500.4050, L500.4100, L501.9940, L501.9985, L100.0100 ####[facility] [address] [place], [address] Neutrophils/100 WBC (Bld) 66.8 % Normal 47-70 [facility] Comment on above: Performed By: #### L 500.4050, L500.4100, L501.9940, L501.9985, L100.0100 ####[facility] [address] [place], [address] Nucleated RBC (Bld) [#/Vol] 0 10*3/uL Normal 0-5 [facility] Comment on above: Performed By: #### L 500.4050, L500.4100, L501.9940, L501.9985, L100.0100 ####[facility] [address] [place], [address] Platelet mean volume (Bld) [Entitic vol] 10.2 fL Normal 6.2-12.0 [facility] Comment on above: Performed By: #### L 500.4050, L500.4100, L501.9940, L501.9985, L100.0100 ####[facility] [address] [place], [address] Platelets (Bld) [#/Vol] 211 10*3/uL Normal 150-450 [facility] Comment on above: Performed By: #### L 500.4050, L500.4100, L501.9940, L501.9985, L100.0100 ####[facility] [address] [place], [address] RBC (Bld) [#/Vol] 4.37 10*6/uL Low 4.6-6.2 [facility] Comment on above: Performed By: #### L 500.4050, L500.4100, L501.9940, L501.9985, L100.0100 ####[facility] [address] [place], [address] RDW SD 41.8 fl Normal 35.1-43.9 [facility] Comment on above: Performed By: #### L 500.4050, L500.4100, L501.9940, L501.9985, L100.0100 ####[facility] [address] [place], [address] WBC (Bld) [#/Vol] 5.4 10*3/uL Normal 4.4-11.0 [facility] Comment on above: Performed By: #### L 500.4050, L500.4100, L501.9940, L501.9985, L100.0100 ####[facility] [address] [place], [address] Comprehensive Metabolic Prof ilon 09-01-2024 Albumin [Mass/Vol] 3.8 g/dL Normal 3.2-5.0 [facility] Comment on above: Performed By: #### L 500.4050, L500.4100, L501.9940, L501.9985, L100.0100 ####[facility] [address] [place], [address] Albumin/Globulin [Mass ratio] 1.1 {ratio} Normal 0.9-2.4 [facility] Comment on above: Performed By: #### L 500.4050, L500.4100, L501.9940, L501.9985, L100.0100 ####[facility] [address] [place], [address] ALK P 56 U/L Normal 45-117 [facility] Comment on above: Performed By: #### L 500.4050, L500.4100, L501.9940, L501.9985, L100.0100 ####[facility] [address] [place], [address] ALT [Catalytic activity/Vol] 58 U/L Normal 16-61 [facility] Comment on above: Performed By: #### L 500.4050, L500.4100, L501.9940, L501.9985, L100.0100 ####[facility] [address] [place], [address] AST [Catalytic activity/Vol] 36 U/L Normal 15-37 [facility] Comment on above: Performed By: #### L 500.4050, L500.4100, L501.9940, L501.9985, L100.0100 ####[facility] [address] [place], [address] Bilirubin [Mass/Vol] 0.50 mg/dL Normal 0.20-1.00 [facility] Comment on above: Result Comment: For patients on eltrombopag therapy, use of Dimension [place] TBIL is not recommended. Performed By: #### L 500.4050, L500.4100, L501.9940, L501.9985, L100.0100 ####[facility] [address] [place], [address] BUN/CRE 20.8 RATIO High 10-20 [facility] Comment on above: Performed By: #### L 500.4050, L500.4100, L501.9940, L501.9985, L100.0100 ####[facility] [address] [place], [address] CA,Total 9.2 mg/dL Normal 8.5-10.1 [facility] Comment on above: Performed By: #### L 500.4050, L500.4100, L501.9940, L501.9985, L100.0100 ####[facility] [facility] [address] [place], [address] Chloride [Moles/Vol] 102 mmol/L Normal 98-107 [facility] Comment on above: Performed By: #### L 500.4050, L500.4100, L501.9940, L501.9985, L100.0100 ####[facility] [address] [place], [address] CO2 [Moles/Vol] 30.0 mmol/L Normal 21.0-32.0 [facility] Comment on above: Performed By: #### L 500.4050, L500.4100, L501.9940, L501.9985, L100.0100 ####[facility] [address] [place], [address] Creatinine [Mass/Vol] 1.06 mg/dL Normal 0.70-1.30 [facility] Comment on above: Result Comment: The validity of the calculated GFR GFRAA in patients over 70 years has not been determined. Clinical correlation is essential. Performed By: #### L 500.4050, L500.4100, L501.9940, L501.9985, L100.0100 ####[facility] [address] [place], [address] EST GFR - AA 90 mL/min Normal >60 [facility] Comment on above: Result Comment: Afri can [place] GFR Calc Performed By: #### L 500.4050, L500.4100, L501.9940, L501.9985, L100.0100 ####[facility] [address] [place], [address] GAP 3 Low 5-15 [facility] Comment on above: Performed By: #### L 500.4050, L500.4100, L501.9940, L501.9985, L100.0100 ####[facility] [address] [place], [address] GFR/1.73 sq M.predicted among non-blacks MDRD (S/P/Bld) [Vol rate/Area] 74 mL/min/{1.73_m2} Normal >60 [facility] Comment on above: Result Comment: Non- GFR Calc Performed By: #### L 500.4050, L500.4100, L501.9940, L501.9985, L100.0100 ####[facility] [address] [place], [address] Globulin (S) [Mass/Vol] 3.4 g/dL Normal 2.2-4.2 [facility] Comment on above: Performed By: #### L 500.4050, L500.4100, L501.9940, L501.9985, L100.0100 ####[facility] [address] [place], [address] Glucose [Mass/Vol] 147 mg/dL High 74-106 [facility] Comment on above: Result Comment: Fast ing Glucose result greater than or equal to 126 mg/dL suggests DIABETES MELLITUS per A.D.A. criteria. Performed By: #### L 500.4050, L500.4100, L501.9940, L501.9985, L100.0100 ####[facility] [address] [place], [address] Potassium [Moles/Vol] 4.0 mmol/L Normal 3.5-5.1 [facility] Comment on above: Performed By: #### L 500.4050, L500.4100, L501.9940, L501.9985, L100.0100 ####[facility] [address] [place], [address] Sodium [Moles/Vol] 135 mmol/L Low 136-145 [facility] Comment on above: Performed By: #### L 500.4050, L500.4100, L501.9940, L501.9985, L100.0100 ####[facility] [address] [place], [address] T PROT 7.2 g/dL Normal 6.4-8.2 [facility] Comment on above: Performed By: #### L 500.4050, L500.4100, L501.9940, L501.9985, L100.0100 ####[facility] [address] [place], [address] Urea nitrogen [Mass/Vol] 22 mg/dL High 06-01 [facility] Comment on above: Performed By: #### L 500.4050, L500.4100, L501.9940, L501.9985, L100.0100 ####[facility] [address] [place], [address] Hemoglobin A1con 09-01-2024 HbA1c (Bld) [Mass fraction] 5.9 % High 3.8-5.6 [facility] Comment on above: Result Comment: Norm al < 5.7 % Prediabetic 5.7 - 6.4 % Diabetic >or= 6.5 % Please note range changes. Performed By: #### L 500.4050, L500.4100, L501.9940, L501.9985, L100.0100 ####[facility] [address] [place], [address] Internal Medicine Office Vis laura 09-01-2024 Internal Medicine Office Visit [facility] [address] [place] [address] [place] [address] OFFICE VISIT Date of Service: 09/01/24 MR#: [id number] Acct: [id number] Name: ZHENG WATKINS Rep #: [id number] : 1960 Provider: Dr. Filipe alvarez MD Age/Sex: 64/M Location: [facility] Status: Signed Intake Vital Signs 05/03/24 09:17 08/22/24 08:34 09/01/24 09:25 Height 5 ft 10 in 5 ft 10 in 5 ft 10 in Weight: 230 lb 6 oz BMI 33.0 BP 140/78 H Blood Pressure Location Lt brachial Position Sitting Respiration 16 Pulse 75 Pulse Source Monitor Temp 97.6 F L Temp Source Temporal Pulse Oximetry (%) 98 Oxygen Delivery Method room air Intake Visit Reasons: 4 M FU Chief Complaint: 4m f/u Pharmaceutical Operator Required: No Accompanied by: Self Is patient in pain?: No Allergies No Known Allergies Allergy (Verified 09/01/24 09:22) Medications ???Medication ???Instructions ???Recorded ???Confirmed ???Type ascorbate calcium (vitamin C) 500 1 g PO DAILY 11/05/21 09/01/24 History mg tablet cholecalciferol (vitamin D3) 50 50 mcg PO DAILY 11/05/21 09/01/24 History mcg (2,000 unit) capsule multivitamin (Daily Multi-Vitamin 1 tab PO DAILY 11/05/21 09/01/24 History tablet) loratadine 10 mg tablet (Claritin) 10 mg PO DAILY PRN allergy symptoms 03/19/23 09/01/24 History omega 3 350 mg-dha 235 mg-epa 90 1 cap PO DAILY 03/20/24 09/01/24 History mg-fish oil 597 mg capsule,delay rel ([place]-3) doxazosin 4 mg tablet 4 mg PO BID 3 months #180 tabs 05/02/24 09/01/24 Rx tadalafil 20 mg tablet 10 mg (1/2 x 20 mg) PO DAILY #30 07/06/24 09/01/24 Rx TABLETS amlodipine 5 mg tablet 5 mg PO DAILY #30 tabs 07/28/24 09/01/24 Rx valsartan 160 1 tab PO DAILY #90 tabs 08/10/24 09/01/24 Rx mg-hydrochlorothiazi de 25 mg tablet aspirin 81 mg tablet,delayed 81 mg PO QDAY 08/22/24 09/01/24 History release (Adult Aspirin Regimen) doxycycline hyclate 100 mg capsule 100 mg PO BID 14 days #28 caps 08/22/24 09/01/24 Rx Have you fallen in the past year?: No PFSH Medical History (Updated 09/01/24 @ 12:[address] Filipe Ybarra MD) Varicose veins of both legs with edema Hypersomnolence Wears glasses Alcohol use Rash History of steroid therapy Gastric reflux Chewing tobacco dependence in remission History of edema BPH (benign prostatic hyperplasia) Borderline type 2 diabetes mellitus Abdominal discomfort Great toe pain Flu vaccine need Dermatitis Obesity Hyperglycemia Colon cancer screening Hypertension Erectile dysfunction Umbilical hernia GERD (gastroesophageal reflux disease) Seasonal allergies Surgical History Status post inguinal hernia repair Family History Other Heart disease Hypertension Myocardial infarction Social History Smoking Status: Former smoker how long ago did patient quit smokin11/15/1989 alcohol intake: current alcohol intake frequency: holidays/special occasions only what type of physical activity do you participate in: walking frequency: daily HPI HPI Chief Complaint: 4m f/u Details: ZHENG WATKINS, is a 64 M who presents to the office today for follow-up of his chronic medical conditions. History of hypertension, blood pressure today at 140/78 mmHg. No chest pain, palpitation or shortness of breath. Tries to stay active. Also history of venous insufficiency/varico sity. Does not consistently wear his compression. No significant pain or worsening edema reported. Chronic history of reflux. Currently on famotidine which he only takes as needed. Not very consistent with use. Reflux is really bad when he chewed tobacco but has not been chewing lately. Other chronic medical conditions are stable. ROS Const Constitutional: No body ache, chills, excessive sweating, fatigue, fever(s), frequent falls, headache(s), snoring, weakness or change in appetite Eyes Eyes: No blurry vision, change in vision, bulging eyes, floaters, visual disturbances, eye pain or Light sensitivity ENT ENT: No abnormal hearing, ear or mastoid pain, tinnitus, balance problems, nosebleed/epistaxis, nasal congestion, headache(s), neck pain or sore throat Resp Respiratory: No cough, excessive phlegm production, pain on inspiration, shortness of breath, snoring or wheezing Cardio Cardiology: No chest pain at rest, chest pain with exertion, excessive sweating, dyspnea on exertion, lightheadedness, orthopnea or palpitations Gastro GI: No abdominal pain, change in bowel habits, constipation, cramping, diarrhea, nausea/dyspepsia or vomiting Genitourinary Male: No burning urination, painful urination, urinary incontinence or urinary frequency Musc Musculoskele (more content not included)... Normal [facility] Lipid Profileon 09-01-2024 Cholesterol [Mass/Vol] 184 mg/dL Normal 200 [facility] Comment on above: Result Comment: <200 mg/dL Desirable 200-240 mg/dL Borderline >240 mg/dL High Risk Performed By: #### L 500.4050, L500.4100, L501.9940, L501.9985, L100.0100 ####[facility] [address] [place], [address] Cholesterol in HDL [Mass/Vol] 42 mg/dL Normal [facility] Comment on above: Result Comment: The drugs N-Acetylcysteine and Metamizole may falsely depress this assay. Reference Range HDL <40 mg/dL Low HDL Cholesterol HDL >or= 60 mg/dL High HDL Cholesterol Performed By: #### L 500.4050, L500.4100, L501.9940, L501.9985, L100.0100 ####[facility] [address] [facility] [place], [address] Cholesterol in LDL [Mass/Vol] 117 mg/dL Normal 0-130 [facility] Comment on above: Performed By: #### L 500.4050, L500.4100, L501.9940, L501.9985, L100.0100 ####[facility] [address] [place], [address] Cholesterol in VLDL [Mass/Vol] 25 mg/dL Normal 5-40 [facility] Comment on above: Performed By: #### L 500.4050, L500.4100, L501.9940, L501.9985, L100.0100 ####[facility] [address] [place], [address] Triglyceride [Mass/Vol] 124 mg/dL Normal [facility] Comment on above: Result Comment: The drugs N-Acetylcysteine and Metamizole may falsely depress this assay. Serum Triglycerides Reference Interval Normal <150 mg/dL Borderline high 150 - 199 mg/dL High 200 - 499 mg/dL Very High > or = 500 mg/dL Performed By: #### L 500.4050, L500.4100, L501.9940, L501.9985, L100.0100 ####[facility] [address] [place], [address] PSA,Total- Diagnosticon 08-15 PSA, DIAGNOSTIC 3.96 ng/mL Normal 0.0-4.0 [facility] Comment on above: Result Comment: This test was performed using the TPSA assay method for the [employer] chemistry system. Values obtained with different assay methods cannot be used interchangably. When changing PSA assays in the course of monitoring a patient, additional sequential testing should be carried out to confirm baseline values. Performed By: #### L 500.4050, L500.4100, L501.9940, L501.9985, L100.0100 ####[facility] [address] [place], [address] Office Visit Reporton 2023 Office Visit Report [facility] [address] [place] [address] OFFICE VISIT Date of Service: 08/22/24 MR#: [id number] Acct: [id number] Patient: ZHENG WATKINS Rep #: [id number] : 1960 Provider: ABEL Davis Age/Sex: 64/M Location: [facility] [place].[facility] Status: Signed Intake Vital Signs 05/03/24 09:17 08/22/24 08:34 Height 5 ft 10 in 5 ft 10 in BP 152/74 H Blood Pressure Location Lt brachial Position Sitting Respiration 16 Pulse 72 Pulse Source Monitor Temp 98.4 F Temp Source Temporal Pulse Oximetry (%) 94 Oxygen Delivery Method room air Intake Visit Reasons: RED SPOT ON L CALF Chief Complaint: left posterior calf puncture-type wound infection Accompanied by: Self Is patient in pain?: No Allergies No Known Allergies Allergy (Verified 08/22/24 08:32) Medications ???Medication ???Instructions ???Recorded ???Confirmed ???Type ascorbate calcium (vitamin C) 500 1 g PO DAILY 11/05/21 08/22/24 History mg tablet cholecalciferol (vitamin D3) 50 50 mcg PO DAILY 11/05/21 08/22/24 History mcg (2,000 unit) capsule famotidine 20 mg tablet 20 mg PO DAILY PRN GERD 11/05/21 08/22/24 History multivitamin (Daily Multi-Vitamin 1 tab PO DAILY 11/05/21 08/22/24 History tablet) loratadine 10 mg tablet (Claritin) 10 mg PO DAILY PRN allergy symptoms 03/19/23 08/22/24 History omega 3 350 mg-dha 235 mg-epa 90 1 cap PO DAILY 03/20/24 08/22/24 History mg-fish oil 597 mg capsule,delay rel ([place]-3) doxazosin 4 mg tablet 4 mg PO BID 3 months #180 tabs 05/02/24 08/22/24 Rx tadalafil 20 mg tablet 10 mg (1/2 x 20 mg) PO DAILY #30 07/06/24 08/22/24 Rx TABLETS amlodipine 5 mg tablet 5 mg PO DAILY #30 tabs 07/28/24 08/22/24 Rx valsartan 160 1 tab PO DAILY #90 tabs 08/10/24 08/22/24 Rx mg-hydrochlorothiazi de 25 mg tablet aspirin 81 mg tablet,delayed 81 mg PO QDAY 08/22/24 08/22/24 History release (Adult Aspirin Regimen) doxycycline hyclate 100 mg capsule 100 mg PO BID 14 days #28 caps 08/22/24 08/22/24 Rx Have you fallen in the past year?: No PFSH Medical History Hypersomnolence Wears glasses Alcohol use Rash History of steroid therapy Gastric reflux Chewing tobacco dependence in remission History of edema BPH (benign prostatic hyperplasia) Borderline type 2 diabetes mellitus Abdominal discomfort Great toe pain Flu vaccine need Dermatitis Obesity Hyperglycemia Colon cancer screening Hypertension Erectile dysfunction Umbilical hernia GERD (gastroesophageal reflux disease) Seasonal allergies Surgical History Status post inguinal hernia repair Family History Other Heart disease Hypertension Myocardial infarction Social History Smoking Status: Former smoker how long ago did patient quit smokin11/15/1989 alcohol intake: current alcohol intake frequency: holidays/special occasions only what type of physical activity do you participate in: walking frequency: daily HPI HPI Chief Complaint: left posterior calf puncture-type wound infection Details: ZHENG WATKINS, is a 64 M who presents to the office today for a superficial red spot on leg; he noticed this, this morning. No pain, no itching. He reports he went golfing this past weekend and knew there were ticks there; does not remember having tick on him. Denies any fevers/chills. ROS Const Constitutional: No body ache, chills, fatigue, fever(s) or headache(s) ENT ENT: No headache(s) Resp Respiratory: No cough Musc Musculoskeletal: No abnormal gait, joint pain or joint swelling Skin Skin: Positive for other (see HPI) Neuro Neurology: No abnormal gait or headache(s) Endo Endocrine: No fatigue Exam Const General: cooperative, healthy appearing, comfortable and no acute distress Chest Chest palpation inspection: normal inspection of the chest Resp Effort Inspection: normal respiratory effort, able to speak in complete sentences and symmetric chest movement Skin General: other (left calf; erythematous; cellulitis; scabbing; bug bite appearance.) Psych Affect: normal affect Speech and Movement: speech and movement normal Attitude: cooperative Coding Level of Care Code Established Pt Off vis,est,level 3 Patient Type Established Diagnoses Bug bite W57.XXXA Assessment and Plan Assessment and Plan (1) Bug bite: Status: Acute Plan: Suspected infection starting. Treat with doxy for broad coverage given exposure to ticks. Unable to locate tick--Appears more like a scabbed area at this time; Consult with PCP with changes to area. Incorporate probiotic. Contact PCP/RTO if symptoms worsen, develops fever, (more content not included)... Normal [facility] Surgery Visit Reporton 06-12 Surgery Visit Report [facility] [address] [place] [address] OFFICE VISIT Date of Service: 06/12/24 MR#: [id number] Acct: [id number] Name: ZHENG WATKINS Rep #: [id number] : 1960 Provider: Dr. Khadar tello MD Age/Sex: 64/M Location: [facility] Status: Signed Intake Vital Signs 05/03/24 09:17 Height 5 ft 10 in Weight: 231 lb BMI 33.1 BP 130/80 H Blood Pressure Location Lt brachial Position Sitting Respiration 16 Pulse 87 Pulse Source Monitor Temp 98.9 F Temp Source Temporal Pulse Oximetry (%) 93 Oxygen Delivery Method room air Intake Visit Reasons: INCISION CHECK Chief Complaint: Incision check Pharmaceutical Operator Required: No Is patient in pain?: No Allergies No Known Allergies Allergy (Verified 06/12/24 09:56) Medications ???Medication ???Instructions ???Recorded ???Confirmed ???Type ascorbate calcium (vitamin C) 500 1 g PO DAILY 11/05/21 06/12/24 History mg tablet cholecalciferol (vitamin D3) 50 50 mcg PO DAILY 11/05/21 06/12/24 History mcg (2,000 unit) capsule famotidine 20 mg tablet 20 mg PO DAILY PRN GERD 11/05/21 06/12/24 History multivitamin (Daily Multi-Vitamin 1 tab PO DAILY 11/05/21 06/12/24 History tablet) loratadine 10 mg tablet (Claritin) 10 mg PO DAILY PRN allergy symptoms 03/19/23 06/12/24 History tadalafil 20 mg tablet 10 mg (1/2 x 20 mg) PO DAILY PRN 06/28/23 06/12/24 Rx sexual activity #30 tabs amlodipine 5 mg tablet 5 mg PO DAILY #90 tabs 01/05/24 06/12/24 Rx valsartan 160 1 tab PO DAILY #90 tabs 01/05/24 06/12/24 Rx mg-hydrochlorothiazi de 25 mg tablet omega 3 350 mg-dha 235 mg-epa 90 1 cap PO DAILY 03/20/24 06/12/24 History mg-fish oil 597 mg capsule,delay rel ([place]-3) doxazosin 4 mg tablet 4 mg PO BID 3 months #180 tabs 05/02/24 06/12/24 Rx Have you fallen in the past year?: No PFSH Medical History Hypersomnolence Wears glasses Alcohol use Rash History of steroid therapy Gastric reflux Chewing tobacco dependence in remission History of edema BPH (benign prostatic hyperplasia) Borderline type 2 diabetes mellitus Abdominal discomfort Great toe pain Flu vaccine need Dermatitis Obesity Hyperglycemia Colon cancer screening Hypertension Erectile dysfunction Umbilical hernia GERD (gastroesophageal reflux disease) Seasonal allergies Surgical History Status post inguinal hernia repair Family History Other Heart disease Hypertension Myocardial infarction Social History Smoking Status: Former smoker how long ago did patient quit smokin11/15/1989 alcohol intake: current alcohol intake frequency: holidays/special occasions only what type of physical activity do you participate in: walking frequency: daily HPI HPI HPI: 64-year-old gentleman. I have most recently seen him postoperatively on May 30, 2024. Previously on May 15, 2024 I assisted him with a laparoscopic right inguinal hernia pair with an extra-large mesh. He has had some postoperative seroma and on May 30 I aspirated 23 cc of old bloody fluid. He returns now for routine follow-up. He was otherwise progressing quite well. The patient has no complaints today. He actually is scheduled to proceed with a golf game later today. He has no discomfort and has not had much discomfort throughout his entire course. ROS General General: No weight change, appetite, fatigue, colon cancer, breast cancer or weakness HEENT HEENT: No difficulty swallowing, eye injury, eye surgery, swollen glands or hoarseness Endo Endocrine: No thyroid disease, diabetes mellitus, thyroid cancer, Hair loss, heat intolerance or cold intolerance Skin Skin: No rash or changing moles Musc Musculoskeletal: No back problems, arthritis, rheumatoid arthritis, gout or joint pain Cardio Cardiovascular: Yes high blood pressure; No murmur, pacemaker, heart disease, atrial fibrillation, heart attack, heart stent, palpitations, shortness of breat with exertion or chest pain Psych Psychiatric: No depression, anxiety or hearing voices Resp Respiratory: No shortness of breath, No sleep apnea, No cough, No COPD, No asthma, No emphysema and No wheezing Gastro Gastrointestinal: No abdominal pain, No nausea or vomiting, No diarrhea, No constipation, No blood in stool, No acid reflux, No hemorrhoids, No ulcers, No gallbladder problem and No black,tarry stools Frank Hematologic: Yes blood thinners, No blood disorders, No bleeding, No anemia and No blood clots Additional Details: baby aspirin/ fish oil Neuro Neurologic: No numbness, No tingling and No weakness (more content not included)... Normal [facility] Surgery Visit Reporton 05-30 Surgery Visit Report [facility] [address] [place] [address] OFFICE VISIT Date of Service: 05/30/24 MR#: [id number] Acct: [id number] Name: ZHENG WATKINS Rep #: [id number] : 1960 Provider: Dr. Khadar tello MD Age/Sex: 64/M Location: [facility] Status: Signed Intake Vital Signs 05/03/24 09:17 Height 5 ft 10 in Weight: 231 lb BMI 33.1 BP 130/80 H Blood Pressure Location Lt brachial Position Sitting Respiration 16 Pulse 87 Pulse Source Monitor Temp 98.9 F Temp Source Temporal Pulse Oximetry (%) 93 Oxygen Delivery Method room air Intake Visit Reasons: HERNIA INCISION CHECK Chief Complaint: c/o non painful lump at inguinal hernia site Allergies No Known Allergies Allergy (Verified 05/15/24 12:52) Have you fallen in the past year?: No [facility] Medical History (Updated 05/03/24 @ 11:[address] Filipe Ybarra MD) Hypersomnolence Wears glasses Alcohol use Rash History of steroid therapy Gastric reflux Chewing tobacco dependence in remission History of edema BPH (benign prostatic hyperplasia) Borderline type 2 diabetes mellitus Abdominal discomfort Great toe pain Flu vaccine need Dermatitis Obesity Hyperglycemia Colon cancer screening Hypertension Erectile dysfunction Umbilical hernia GERD (gastroesophageal reflux disease) Seasonal allergies Surgical History Status post inguinal hernia repair Family History Other Heart disease Hypertension Myocardial infarction Social History Smoking Status: Former smoker how long ago did patient quit smokin11/15/1989 alcohol intake: current alcohol intake frequency: holidays/special occasions only what type of physical activity do you participate in: walking frequency: daily HPI HPI HPI: I have most recently seen this 64-year-old gentleman on May 15, 2024 and this was in follow-up of a right inguinal hernia repair which had done laparoscopically with an extra-large mesh. I did do an aspiration of 23 cc of old bloody fluid seroma of that right groin. The umbilical hernia repair and right inguinal repair were very solid previously The patient is had no pain with the procedure. He still notices some bulging Exam Other: Right groin. Clean dry solid. There is some fullness still noted in the proximal right scrotal area. Prepped this with Betadine. Used ultrasound showed multiple areas of loculation. With his permission sterilely I used 1% lidocaine and inserted an 18-gauge needle was able to get 18 cc of old bloody fluid. The amount of loculation however prevented a more complete procedure Assessment and Plan Assessment and Plan (1) Status post inguinal hernia repair: Status: Acute Plan: He is doing well. Sterile gauze and tape was applied. Clean procedure was performed. I anticipate office follow-up in 10 days. He is to use moist warm heat once or twice daily to help resolve. We may or may not need further intervention. The hernia repair itself is quite solid. Copy: Dr. Filipe Mead M.D., F.A.C.S. Coding Level of Care Code Global Post Op Diagnoses Status post inguinal hernia repair Z98.890; Z87.19 Clinical Quality Measures Falls Risk Screening/Assistive Devices Have you fallen in the past year?: No 05/30/24 1512 Date Khadar Mead MD Cosigner Signature: Date (if applicable) CC: Dr. Filipe Ybarra MD Normal [facility] Surgery Visit Reporton 05-12 Surgery Visit Report [facility] [address] [place] [address] OFFICE VISIT Date of Service: 05/15/24 MR#: [id number] Acct: [id number] Name: ZHENG WATKINS Rep #: [id number] : 1960 Provider: Dr. Khadar tello MD Age/Sex: 64/M [facility] [facility] Status: Signed Intake Vital Signs 03/27/24 07:30 05/03/24 09:17 Height 5 ft 10 in 5 ft 10 in Weight: 231 lb BMI 33.1 BP 130/80 H Blood Pressure Location Lt brachial Position Sitting Respiration 16 Pulse 87 Pulse Source Monitor Temp 98.9 F Temp Source Temporal Pulse Oximetry (%) 93 Oxygen Delivery Method room air Intake Visit Reasons: c/o non painful lump hernia site. Chief Complaint: c/o non painful lump at inguinal hernia site Is patient in pain?: No Allergies No Known Allergies Allergy (Verified 05/15/24 12:52) Medications ???Medication ???Instructions ???Recorded ???Confirmed ???Type ascorbate calcium (vitamin C) 500 1 g PO DAILY 11/05/21 05/15/24 History mg tablet cholecalciferol (vitamin D3) 50 50 mcg PO DAILY 11/05/21 05/15/24 History mcg (2,000 unit) capsule famotidine 20 mg tablet 20 mg PO DAILY PRN GERD 11/05/21 05/15/24 History multivitamin (Daily Multi-Vitamin 1 tab PO DAILY 11/05/21 05/15/24 History tablet) loratadine 10 mg tablet (Claritin) 10 mg PO DAILY PRN allergy symptoms 03/19/23 05/15/24 History tadalafil 20 mg tablet 10 mg (1/2 x 20 mg) PO DAILY PRN 06/28/23 05/15/24 Rx sexual activity #30 tabs amlodipine 5 mg tablet 5 mg PO DAILY #90 tabs 01/05/24 05/15/24 Rx valsartan 160 1 tab PO DAILY #90 tabs 01/05/24 05/15/24 Rx mg-hydrochlorothiazi de 25 mg tablet omega 3 350 mg-dha 235 mg-epa 90 1 cap PO DAILY 03/20/24 05/15/24 History mg-fish oil 597 mg capsule,delay rel ([place]-3) doxazosin 4 mg tablet 4 mg PO BID 3 months #180 tabs 05/02/24 05/15/24 Rx Have you fallen in the past year?: No Subjective Details: 64-year-old gentleman. On March 27, 2024 he had a laparoscopic right inguinal herniorrhaphy with an extra-large Bard 3D max mesh for direct and indirect right inguinal hernia. Also an umbilical herniorrhaphy with a [address] mesh. He was seen in follow-up by Jessica Daniel on April 06, 2024. At that point he was noting minimal incisional discomfort and appeared to be making excellent progress. He has concerns about some left groin swelling. Objective Details: Mild seroma right groin Coding Level of Care Code Global Post Op Diagnoses Inguinal hernia of right side without obstruction or gangrene K40.90 [facility] Medical History (Updated 05/03/24 @ 11:[address] Filipe Ybarra MD) Hypersomnolence Wears glasses Alcohol use Rash History of steroid therapy Gastric reflux Chewing tobacco dependence in remission History of edema BPH (benign prostatic hyperplasia) Borderline type 2 diabetes mellitus Abdominal discomfort Great toe pain Flu vaccine need Dermatitis Obesity Hyperglycemia Colon cancer screening Hypertension Erectile dysfunction Umbilical hernia GERD (gastroesophageal reflux disease) Seasonal allergies Surgical History Status post inguinal hernia repair Family History Other Heart disease Hypertension Myocardial infarction Social History Smoking Status: Former smoker how long ago did patient quit smokin11/15/1989 alcohol intake: current alcohol intake frequency: holidays/special occasions only what type of physical activity do you participate in: walking frequency: daily Assessment and Plan (No Qualifiers) Assessment and Plan (1) Inguinal hernia of right side without obstruction or gangrene: Status: Acute Plan: With patient permission I inspected the right groin. Copiously painted the area with Betadine. Used a sterile probe. 1% lidocaine was used as local aesthetic. I then advanced an 18-gauge needle. I was able to aspirate 23 cc of old liquidy bloody fluid. On inspection however he is got multiple areas of loculation. Topical antibiotic ointment and gauze dressing applied. He was given activity and wound care instructions. I plan to see him back on May 30 for reinspection and possible repeat aspiration if indicated. The umbilical hernia and the right inguinal hernia repairs are very solid. Khadar Mead M.D., F.A.C.S. 05/15/24 1306 Date Khadar Mead MD Cosign Signature: Date (if applicable) CC: Normal [facility] Internal Medicine Office Vis laura 05-03-2024 Internal Medicine Office Visit [facility] [address] [place] [address] [place] [address] OFFICE VISIT Date of Service: 05/03/24 MR#: [id number] Acct: [id number] Name: ZHENG WATKINS Rep #: [id number] : 1960 Provider: Dr. Filipe alvarez MD Age/Sex: 64/M Location: [facility] [place].[facility] Status: Signed Intake Vital Signs 01/12/24 08:52 03/27/24 07:30 05/03/24 09:17 Height 5 ft 10 in 5 ft 10 in 5 ft 10 in Weight: 231 lb BMI 33.1 BP 130/80 H Blood Pressure Location Lt brachial Position Sitting Respiration 16 Pulse 87 Pulse Source Monitor Temp 98.9 F Temp Source Temporal Pulse Oximetry (%) 93 Oxygen Delivery Method room air Intake Visit Reasons: 4 M FU Chief Complaint: 4 M FU Is patient in pain?: No Allergies No Known Allergies Allergy (Verified 05/03/24 09:12) Medications ???Medication ???Instructions ???Recorded ???Confirmed ???Type ascorbate calcium (vitamin C) 500 1 g PO DAILY 11/05/21 05/03/24 History mg tablet cholecalciferol (vitamin D3) 50 50 mcg PO DAILY 11/05/21 05/03/24 History mcg (2,000 unit) capsule famotidine 20 mg tablet 20 mg PO DAILY PRN GERD 11/05/21 05/03/24 History multivitamin (Daily Multi-Vitamin 1 tab PO DAILY 11/05/21 05/03/24 History tablet) loratadine 10 mg tablet (Claritin) 10 mg PO DAILY PRN allergy symptoms 03/19/23 05/03/24 History tadalafil 20 mg tablet 10 mg (1/2 x 20 mg) PO DAILY PRN 06/28/23 05/03/24 Rx sexual activity #30 tabs amlodipine 5 mg tablet 5 mg PO DAILY #90 tabs 01/05/24 05/03/24 Rx valsartan 160 1 tab PO DAILY #90 tabs 01/05/24 05/03/24 Rx mg-hydrochlorothiazi de 25 mg tablet omega 3 350 mg-dha 235 mg-epa 90 1 cap PO DAILY 03/20/24 05/03/24 History mg-fish oil 597 mg capsule,delay rel ([place]-3) doxazosin 4 mg tablet 4 mg PO BID 3 months #180 tabs 05/02/24 05/03/24 Rx PFSH Medical History (Updated 05/03/24 @ 11:[address] Filipe Ybarra MD) Hypersomnolence Wears glasses Alcohol use Rash History of steroid therapy Gastric reflux Chewing tobacco dependence in remission History of edema BPH (benign prostatic hyperplasia) Borderline type 2 diabetes mellitus Abdominal discomfort Great toe pain Flu vaccine need Dermatitis Obesity Hyperglycemia Colon cancer screening Hypertension Erectile dysfunction Umbilical hernia GERD (gastroesophageal reflux disease) Seasonal allergies Surgical History Status post inguinal hernia repair Family History Other Heart disease Hypertension Myocardial infarction Social History Smoking Status: Former smoker how long ago did patient quit smokin11/15/1989 alcohol intake: current alcohol intake frequency: holidays/special occasions only what type of physical activity do you participate in: walking frequency: daily HPI HPI Chief Complaint: 4 M FU Details: ZHENG WATKINS, is a 64 M who presents to the office today for follow-up of his chronic medical conditions. Since his last visit, had hernia surgery which was uneventful. Minimal pain postsurgery. Concern for right groin swelling however he believes that this is improving. Has an appointment with general surgery in May. No change in bowel or bladder habit. History of hypertension, blood pressure today is at 130/80 mmHg. Has been taking his medication as prescribed. No chest pain, palpitation or shortness of breath. He reports concerns for ongoing fatigue. He states that he could sleep for 7 to 8 hours and still fall asleep while sedentary. He does snore. As above, history of hypertension and is currently at a BMI of 33.1. Other chronic medical conditions are stable. ROS Const Constitutional: Positive for other (REPORTS HERNIA SURGERY MID MARCH WENT WELL); No body ache, chills, excessive sweating, fatigue, fever(s), frequent falls, headache(s), snoring, weakness, sleep problems or change in appetite Eyes Eyes: No blurry vision, change in vision, bulging eyes, floaters, visual disturbances or Light sensitivity ENT ENT: No abnormal hearing, ear or mastoid pain, tinnitus, balance problems, nosebleed/epistaxis, nasal congestion, nasal discharge, headache(s), neck pain or sore throat Resp Respiratory: No cough, chest congestion, pain on inspiration, shortness of breath, snoring or wheezing Cardio Cardiology: No chest pain at rest, chest pain with exertion, excessive sweating, shortness of breath, dyspnea on exertion, lightheadedness, orthopnea or palpitations Gastro GI: No abdominal pain, change in bowel habits, constipation, cramping, diarrhea or nausea/dyspepsia Genitourinary Male: No burning urination, painful urination, urinary incontinence, urinary frequency, suprapubic fullness or si (more content not included)... Normal [facility] Basophil percentageOrdered B y: Filipe Ybarra on 03-22-2024 Basophil percentage 0 SEEN /hpf 0-5 [facility] Basophil percentage 4.22 ng/mL 0.0-4.0 [facility] Comment on above: This test was perfor med using the TPSA assay method for [employer] chemistry system. Values obtained with differentassay methods cannot be used interchangably.When changing PSA assays in the course of monitoring apatient, additional sequential testing should be carriedout to confirm baseline values. Basophil percentageOrdered B y: Khadar Mead on 03-22-2024 Chloride [Moles/Vol] 103 mmol/L 98-107 [facility] Glucose [Mass/Vol] 139 mg/dL 74-106 [facility] Comment on above: Fasting Glucose resu lt greater than or equal to 126 mg/dL suggests DIABETES MELLITUS per A.D.A. criteria. Hemoglobin (Bld) [Mass/Vol] 14.2 g/dL 13.0-16.5 [facility] Potassium [Moles/Vol] 3.8 mmol/L 3.5-5.1 [facility] Sodium [Moles/Vol] 137 mmol/L 136-145 [facility] WBC (Bld) [#/Vol] 5.6 10*3/uL 4.4-11.0 [facility] Bilirubin Test strip Ql (U)O rdered By: Filipe Ybarra on 03-22-2024 Bilirubin Ql (U) Negative Negative [facility] Determination of erythrocyte mean corpuscular volume (MCV)Ordered By: Khadar Mead on 03-22-2024 MCV (RBC) [Entitic vol] 94.2 fL 80-94 [facility] Erythrocyte distribution wid th ratioOrdered By: Khadar Mead on 03-22-2024 Erythrocyte distribution width (RBC) [Ratio] 12.2 % 11.6-14.6 [facility] Erythrocyte distribution wid th standard deviationOrdered By: Khadar Mead on 03-22-2024 Erythrocyte distribution width (RBC) [Entitic vol] 42.3 fL 35.1-43.9 [facility] Hematocrit Auto (Bld) [Volum e fraction]Ordered By: Khadar Mead on 03-22-2024 Hematocrit (Bld) [Volume fraction] 40.8 % 40-54 [facility] Ketones Test strip Ql (U)Ord ered By: Filipe Ybarra on 03-22-2024 Ketones Ql (U) Negative Negative [facility] Laboratory - Chemistry and C hemistry - challengeOrdered By: Khadar Mead on 03-22-2024 CO2 [Moles/Vol] 30.0 mmol/L 21.0-32.0 [facility] Urea nitrogen/Creatinine [Mass ratio] 24.5 mg/mg 10-20 [facility] Laboratory - Hematology and Cell countsOrdered By: Khadar Mead on 03-22-2024 MCH (RBC) [Entitic mass] 32.8 pg 27.0-32.0 [facility] MCHC (RBC) [Mass/Vol] 34.8 g/dL 32-36 [facility] Platelet mean volume (Bld) [Entitic vol] 9.5 fL 6.2-12.0 [facility] Platelets (Bld) [#/Vol] 216 10*3/uL 150-450 [facility] Mucus LM Ql (Urine sed)Order ed By: Filipe Ybarra on 03-22-2024 Mucus Ql (Urine sed) 0 SEEN /hpf [facility] Nitrite Test strip Ql (U)Ord ered By: Filipe Ybarra on 03-22-2024 Nitrite Ql (U) Negative Negative [facility] No Panel InformationOrdered By: Filipe Ybarra on 03-22-2024 Urine RBC 0 SEEN /hpf 0-5 [facility] No Panel InformationOrdered By: Khadar Mead on 03-22-2024 Estimated GFR (MDRD) Amer 94 mL/min >60 [facility] Comment on above: GFR Calc Estimated GFR (MDRD) Non-Af Amer 78 mL/min >60 [facility] Comment on above: Non- GFR Calc Protein Test strip Ql (U)Ord ered By: Filipe Ybarra on 03-22-2024 Protein Ql (U) Negative Negative [facility] RBC Auto (Bld) [#/Vol]Ordere d By: Khadar Mead on 03-22-2024 RBC (Bld) [#/Vol] 4.33 10*6/uL 4.6-6.2 [facility] Serum or plasma calcium allen urement (mass/volume)Ordered By: Khadar Mead on 03-22-2024 Calcium [Mass/Vol] 9.2 mg/dL 8.5-10.1 [facility] Serum or plasma creatinine m easurement (mass/volume)Ordered By: Khadar Mead on 03-22-2024 Creatinine [Mass/Vol] 1.02 mg/dL 0.70-1.30 [facility] Comment on above: The validity of the calculated GFR & GFRAA in patients over 70 years has not been determined. Clinical correlation is essential. Serum or plasma urea nitroge n measurement (mass/volume)Ordered By: Khadar Mead on 03-22-2024 Urea nitrogen [Mass/Vol] 25 mg/dL 7-18 [facility] Squamous epithelial cells de tection in urine sediment by light microscopyOrdered By: Filipe Ybarra on 03-22-2024 Epithelial cells.squamous LM Ql (Urine sed) 0 SEEN /hpf 0-5 [facility] Thin prep Papanicolaou smear with manual screeningOrdered By: Khadar Mead on 03-22-2024 Thin prep Papanicolaou smear with manual screening 4 5-15 [facility] Urine blood detectionOrdered By: Filipe Ybarra on 03-22-2024 RBC Ql (U) Negative Negative [facility] Urine clarityOrdered By: Felice Ybarra on 03-22-2024 Clarity (U) Clear Clear [facility] Urine color determinationOrd ered By: Filipe Ybarra on 03-22-2024 Color (U) Yellow Yellow [facility] Urine glucose detectionOrder ed By: Filipe Ybarra on 03-22-2024 Glucose Ql (U) Normal mg/dl Normal [facility] Urine leukocyte esterase det ection by dipstickOrdered By: Filipe Ybarra on 03-22-2024 Leukocyte esterase Test strip Ql (U) Negative Negative [facility] Urine pHOrdered By: Yoli Ybarra on 03-22-2024 pH (U) 6.5 [pH] 5.0 - 8.0 [facility] Urine sediment bacteria coun t by microscopy (number/high power field)Ordered By: Filipe Ybarra on 03-22-2024 Bacteria LM.HPF (Urine sed) [#/Area] 0 /[HPF] None Seen [facility] Urine specific gravity measu rementOrdered By: Filipe Ybarra on 03-22-2024 Specific gravity (U) [Rel density] 1.010 1.002-1.030 [facility] Urine urobilinogen measureme ntOrdered By: Filipe Ybarra on 03-22-2024 Urobilinogen Ql (U) Normal mg/dl Normal [facility] Basophil percentageOrdered B y: Filipe Ybarra on 01-12-2024 Bilirubin [Mass/Vol] 0.70 mg/dL 0.20-1.00 [facility] Comment on above: For patients on eltr ombopag therapy, use of Dimension [place] TBIL is not recommended. Chloride [Moles/Vol] 104 mmol/L 98-107 [facility] Glucose [Mass/Vol] 133 mg/dL 74-106 [facility] Comment on above: Fasting Glucose resu lt greater than or equal to 126 mg/dL suggests DIABETES MELLITUS per A.D.A. criteria. Potassium [Moles/Vol] 4.1 mmol/L 3.5-5.1 [facility] Protein [Mass/Vol] 7.4 g/dL 6.4-8.2 [facility] Sodium [Moles/Vol] 139 mmol/L 136-145 [facility] Laboratory - Chemistry and C hemistry - challengeOrdered By: Filipe Ybarra on 01-12-2024 Albumin/Globulin [Mass ratio] 1.2 {ratio} 0.9-2.4 [facility] ALP [Catalytic activity/Vol] 51 U/L 45-117 [facility] ALT [Catalytic activity/Vol] 74 U/L 16-61 [facility] CO2 [Moles/Vol] 27.0 mmol/L 21.0-32.0 [facility] Globulin (S) [Mass/Vol] 3.3 g/dL 2.2-4.2 [facility] Urea nitrogen/Creatinine [Mass ratio] 25.0 mg/mg 10-20 [facility] No Panel InformationOrdered By: Filipe Ybarra on 01-12-2024 Estimated GFR (MDRD) Amer 92 mL/min >60 [facility] Comment on above: GFR Calc Estimated GFR (MDRD) Non-Af Amer 76 mL/min >60 [facility] Comment on above: Non- GFR Calc Serum or plasma calcium allen urement (mass/volume)Ordered By: Filipe Ybarra on 01-12-2024 Calcium [Mass/Vol] 9.7 mg/dL 8.5-10.1 [facility] Serum or plasma creatinine m easurement (mass/volume)Ordered By: Filipe Ybarra on 01-12-2024 Creatinine [Mass/Vol] 1.04 mg/dL 0.70-1.30 [facility] Comment on above: The validity of the calculated GFR & GFRAA in patients over 70 years has not been determined. Clinical correlation is essential. Serum or plasma urea nitroge n measurement (mass/volume)Ordered By: Filipe Ybarra on 01-12-2024 Urea nitrogen [Mass/Vol] 26 mg/dL 7-18 [facility] Thin prep Papanicolaou smear with manual screeningOrdered By: Filipe Ybarra on 01-12-2024 Thin prep Papanicolaou smear with manual screening 4.1 g/dL 3.2-5.0 [facility] Thin prep Papanicolaou smear with manual screening 57 U/L 15-37 [facility] Thin prep Papanicolaou smear with manual screening 8 5-15 [facility] Whole blood hemoglobin A1c/t otal hemoglobin ratio (mass fraction)Ordered By: Filipe Ybarra on 01-12-2024 HbA1c (Bld) [Mass fraction] 5.8 % 3.8-5.6 [facility] Comment on above: Normal < 5.7 % Predi abetic 5.7 - 6.4 % Diabetic >or= 6.5 % Please note range changes. Basophil percentageon 2021 Chloride [Moles/Vol] 102 mmol/L 98-107 [facility] Work Phone: Glucose [Mass/Vol] 115 mg/dL 74-106 [facility] Work Phone: Comment on above: Fasting Glucose resu lt from 100 to 125 mg/dL suggests IMPAIRED HOMEOSTASIS per A.D.A. criteria. Potassium [Moles/Vol] 4.3 mmol/L 3.5-5.1 [facility] Work Phone: Sodium [Moles/Vol] 137 mmol/L 136-145 [facility] Work Phone: Laboratory - Chemistry and C hemistry - challengeon 09-25-2022 CO2 [Moles/Vol] 29.0 mmol/L 21.0-32.0 [facility] Work Phone: Urea nitrogen/Creatinine [Mass ratio] 22.8 mg/mg 10-20 [facility] Work Phone: No Panel Informationon 09-25 Estimated GFR (MDRD) Amer 101 mL/min >60 [facility] Work Phone: Comment on above: GFR Calc Estimated GFR (MDRD) Non-Af Amer 83 mL/min >60 [facility] Work Phone: Comment on above: Non- GFR Calc Serum or plasma calcium allen urement (mass/volume)on 09-25-2022 Calcium [Mass/Vol] 8.9 mg/dL 8.5-10.1 [facility] Work Phone: Serum or plasma creatinine m easurement (mass/volume)on 09-25-2022 Creatinine [Mass/Vol] 0.96 mg/dL 0.70-1.30 [facility] Work Phone: Comment on above: The validity of the calculated GFR & GFRAA in patients over 70 years has not been determined. Clinical correlation is essential. Serum or plasma urea nitroge n measurement (mass/volume)on 09-25-2022 Urea nitrogen [Mass/Vol] 22 mg/dL 7-18 [facility] Work Phone: Thin prep Papanicolaou smear with manual screeningon 09-25-2022 Thin prep Papanicolaou smear with manual screening 6 5-15 [facility] Work Phone: XR Toes - right 3 Viewson IMPRESSION: No acute radiographic abnormalities seen in the first digit. Complaint Analyst: WILLIAM Transcribe Date/Time: Oct 16 2020 1:16P Dictated by : DAKOTAH JONES MD This examination was interpreted and the report reviewed and electronically signed by: DAKOTAH JONES MD on Oct 16 2020 1:27PM [facility] DIVISION OF RADIOLOGY * * *Final Report* * * DATE OF EXAM: Oct 16 2020 1:10PM [id number] - XR TOE 3V AP/LAT/OBL RT / PROCEDURE REASON: Injury of right great toe, initial encounter * * * * Physician Interpretation * * * * EXAM TITLE: XR TOE 3V AP/LAT/OBL RT EXAM DATE/TIME: 10/16/2020 1:10 PM COMPARISON: None CLINICAL INDICATION/HISTORY: Injury. TECHNIQUE: AP, lateral and oblique views of the first digit of the right foot are presented. FINDINGS: No fractures or subluxations are noted in the first digit. The joint spaces are well preserved. The mineralization of the bones is normal. There is no significant soft tissue swelling. DIVISION OF RADIOLOGY Provider, [facility] - 10/16/2020 * * *Final Report* * * DATE OF EXAM: Oct 16 2020 1:10PM WOX [id number] - XR TOE 3V AP/LAT/OBL RT / PROCEDURE REASON: Injury of right great toe, initial encounter * * * * Physician Interpretation * * * * EXAM TITLE: XR TOE 3V AP/LAT/OBL RT EXAM DATE/TIME: 10/16/2020 1:10 PM COMPARISON: None CLINICAL INDICATION/HISTORY: Injury. TECHNIQUE: AP, lateral and oblique views of the first digit of the right foot are presented. FINDINGS: No fractures or subluxations are noted in the first digit. The joint spaces are well preserved. The mineralization of the bones is normal. There is no significant soft tissue swelling. IMPRESSION IMPRESSION: No acute radiographic abnormalities seen in the first digit. Complaint Analyst: WILLIAM Transcribe Date/Time: Oct 16 2020 1:16P Dictated by : DAKOTAH JONES MD This examination was interpreted and the report reviewed and electronically signed by: DAKOTAH JONES MD on Oct 16 2020 1:27PM EST [facility] Radiology Study observation (narrative) [facility] XR Toes - right 3 ViewsOrder ed By: [facility] Provider on 10-16-2020 [facility] Vital Signs Date Time Vital Sign Value Performing Clinician Faci littom 04-27-2025 12:24-0400 Body height 175.[address] Filipe Ybarra MD Work Phone: [facility] 04-27-2025 12:24-0400 Body mass index (BMI) [Ratio] 34.5 kg/m2 Dr. Filipe Ybarra MD Work Phone: [facility] 04-27-2025 12:24-0400 Body temperature 97.8 [degF] Dr. Filipe Ybarra MD Work Phone: [facility] 04-27-2025 12:24-0400 Body weight 106.[address] Filipe Ybarra MD Work Phone: [facility] 04-27-2025 12:24-0400 Diastolic blood pressure 68 mm[Hg] Dr. Filipe Ybarra MD Work Phone: [facility] 04-27-2025 12:24-0400 Heart rate 85 /min Dr. Filipe Ybarra MD Work Phone: [facility] 04-27-2025 12:24-0400 Respiratory rate 18 /min Dr. Filipe Ybarra MD Work Phone: [facility] 04-27-2025 12:24-0400 SaO2% (BldA) [Mass fraction] 94 % Dr. Filipe Ybarra MD Work Phone: [facility] 04-27-2025 12:24-0400 Systolic blood pressure 130 mm[Hg] Dr. Filipe Ybarra MD Work Phone: [facility] 03-26-2025 15:02-0400 Body height 175.[address] Filipe Ybarra MD Work Phone: [facility] 03-26-2025 15:02-0400 Body mass index (BMI) [Ratio] 33.5 kg/m2 Dr. Filipe Ybarra MD Work Phone: [facility] 03-26-2025 15:02-0400 Body temperature 98.7 [degF] Dr. Filipe Ybarra MD Work Phone: [facility] 03-26-2025 15:02-0400 Body weight 102.[address] Filipe Ybarra MD Work Phone: [facility] 03-26-2025 15:02-0400 Diastolic blood pressure 78 mm[Hg] Dr. Filipe Ybarra MD Work Phone: [facility] 03-26-2025 15:02-0400 Heart rate 76 /min Dr. Filipe Ybarra MD Work Phone: [facility] 03-26-2025 15:02-0400 Respiratory rate 16 /min Dr. iFlipe Ybarra MD Work Phone: [facility] 03-26-2025 15:02-0400 SaO2% (BldA) [Mass fraction] 93 % Dr. Filipe Ybarra MD Work Phone: [facility] 03-26-2025 15:02-0400 Systolic blood pressure 142 mm[Hg] Dr. Filipe Ybarra MD Work Phone: [facility] 02-14-2025 13:12-0400 Body height 175.[address] Filipe Ybarra MD Work Phone: [facility] 02-14-2025 13:12-0400 Body mass index (BMI) [Ratio] 34.1 kg/m2 Dr. Filipe Ybarra MD Work Phone: [facility] 02-14-2025 13:12-0400 Body temperature 98.1 [degF] Dr. Filipe Ybarra MD Work Phone: [facility] 02-14-2025 13:12-0400 Body weight 104.[address] Filipe Ybarra MD Work Phone: [facility] 02-14-2025 13:12-0400 Diastolic blood pressure 78 mm[Hg] Dr. Filipe Ybarra MD Work Phone: [facility] 02-14-2025 13:12-0400 Heart rate 73 /min Dr. Filipe Ybarra MD Work Phone: [facility] 02-14-2025 13:12-0400 Respiratory rate 16 /min Dr. Filipe Ybarra MD Work Phone: [facility] 02-14-2025 13:12-0400 SaO2% (BldA) [Mass fraction] 94 % Dr. Filipe Ybarra MD Work Phone: [facility] 02-14-2025 13:12-0400 Systolic blood pressure 138 mm[Hg] Dr. Filipe Ybarra MD Work Phone: [facility] 02-13-2025 14:26-0400 Body temperature 97.6 [degF] Dr. Filipe Ybarra MD Work Phone: [facility] 02-13-2025 14:26-0400 Diastolic blood pressure 82 mm[Hg] Dr. Filipe Ybarra MD Work Phone: [facility] 02-13-2025 14:26-0400 Heart rate 60 /min Dr. Filipe Ybarra MD Work Phone: [facility] 02-13-2025 14:26-0400 Respiratory rate 20 /min Dr. Filipe Ybarra MD Work Phone: [facility] 02-13-2025 14:26-0400 SaO2% (BldA) [Mass fraction] 97 % Dr. Filipe Ybarra MD Work Phone: [facility] 02-13-2025 14:26-0400 Systolic blood pressure 163 mm[Hg] Dr. Filipe Ybarra MD Work Phone: [facility] 02-13-2025 10:59-0400 Body height 175.[address] Filipe Ybarra MD Work Phone: [facility] 02-13-2025 10:59-0400 Body mass index (BMI) [Ratio] 34.3 kg/m2 Dr. Filipe Ybarra MD Work Phone: [facility] 02-13-2025 10:59-0400 Body weight 105.[address] Filipe Ybarra MD Work Phone: [facility] 02-12-2025 10:46-0400 Body mass index (BMI) [Ratio] 34.8 kg/m2 Dr. Filipe Ybarra MD Work Phone: [facility] 02-12-2025 10:46-0400 Body weight 107.[address] Filipe Ybarra MD Work Phone: [facility] 02-12-2025 10:46-0400 Diastolic blood pressure 84 mm[Hg] Dr. Filipe Ybarra MD Work Phone: [facility] 02-12-2025 10:46-0400 Heart rate 64 /min Dr. Filipe Ybarra MD Work Phone: [facility] 02-12-2025 10:46-0400 Respiratory rate 16 /min Dr. Filipe Ybarra MD Work Phone: [facility] 02-12-2025 10:46-0400 SaO2% (BldA) [Mass fraction] 95 % Dr. Filipe Ybarra MD Work Phone: [facility] 02-12-2025 10:46-0400 Systolic blood pressure 132 mm[Hg] Dr. Filipe Ybarra MD Work Phone: [facility] 01-17-2025 08:50-0500 Body height 175.[address] Filipe Ybarra MD Work Phone: [facility] 01-17-2025 08:50-0500 Body mass index (BMI) [Ratio] 34.2 kg/m2 Dr. Filipe Ybarra MD Work Phone: [facility] 01-17-2025 08:50-0500 Body temperature 98 [degF] Dr. Filipe Ybarra MD Work Phone: [facility] 01-17-2025 08:50-0500 Body weight 105.[address] Filipe Ybarra MD Work Phone: [facility] 01-17-2025 08:50-0500 Diastolic blood pressure 68 mm[Hg] Dr. Filipe Ybarra MD Work Phone: [facility] 01-17-2025 08:50-0500 Heart rate 82 /min Dr. Filipe Ybarra MD Work Phone: [facility] 01-17-2025 08:50-0500 Respiratory rate 16 /min Dr. Filipe Ybarra MD Work Phone: [facility] 01-17-2025 08:50-0500 SaO2% (BldA) [Mass fraction] 91 % Dr. Filipe Ybarra MD Work Phone: [facility] 01-17-2025 08:50-0500 Systolic blood pressure 128 mm[Hg] Dr. Filipe Ybarra MD Work Phone: [facility] 01-10-2025 11:37-0500 Body mass index (BMI) [Ratio] 34.3 kg/m2 Dr. Filipe Ybarra MD Work Phone: [facility] 01-10-2025 11:37-0500 Body temperature 96.3 [degF] Dr. Filipe Ybarra MD Work Phone: [facility] 01-10-2025 11:37-0500 Body weight 105.[address] Filipe Ybarra MD Work Phone: [facility] 01-10-2025 11:37-0500 Diastolic blood pressure 78 mm[Hg] Dr. Filipe Ybarra MD Work Phone: [facility] 01-10-2025 11:37-0500 Heart rate 71 /min Dr. Filipe Ybarra MD Work Phone: [facility] 01-10-2025 11:37-0500 Respiratory rate 16 /min Dr. Filipe Ybarra MD Work Phone: [facility] 01-10-2025 11:37-0500 SaO2% (BldA) [Mass fraction] 98 % Dr. Filipe Ybarra MD Work Phone: [facility] 01-10-2025 11:37-0500 Systolic blood pressure 137 mm[Hg] Dr. Filipe Ybarra MD Work Phone: [facility] 01-06-2025 11:13-0500 Body temperature 97.9 [degF] Dr. Filipe Ybarra MD Work Phone: [facility] 01-06-2025 11:13-0500 Diastolic blood pressure 82 mm[Hg] Dr. Filipe Ybarra MD Work Phone: [facility] 01-06-2025 11:13-0500 Heart rate 84 /min Dr. Filipe Ybarra MD Work Phone: [facility] 01-06-2025 11:13-0500 Respiratory rate 16 /min Dr. Filipe Ybarra MD Work Phone: [facility] 01-06-2025 11:13-0500 SaO2% (BldA) [Mass fraction] 98 % Dr. Filipe Ybarra MD Work Phone: [facility] 01-06-2025 11:13-0500 Systolic blood pressure 141 mm[Hg] Dr. Filipe Ybarra MD Work Phone: [facility] 01-06-2025 10:05-0500 Body mass index (BMI) [Ratio] 33 kg/m2 Dr. Filipe Ybarra MD Work Phone: [facility] 01-06-2025 10:05-0500 Body weight 101.[address] Filipe Ybarra MD Work Phone: [facility] 03-27-2024 13:35-0400 Body temperature 97.7 [degF] Dr. Filipe Ybarra Work Phone: [facility] 03-27-2024 13:35-0400 Diastolic blood pressure 77 mm[Hg] Dr. Filipe Ybarra Work Phone: [facility] 03-27-2024 13:35-0400 Heart rate 59 /min Dr. Filipe Ybarra Work Phone: [facility] 03-27-2024 13:35-0400 Respiratory rate 16 /min Dr. Filipe Ybarra Work Phone: [facility] 03-27-2024 13:35-0400 SaO2% (BldA) [Mass fraction] 95 % Dr. Filipe Ybarra Work Phone: [facility] 03-27-2024 13:35-0400 Systolic blood pressure 168 mm[Hg] Dr. Filipe Ybarra Work Phone: [facility] 03-27-2024 11:05-0400 Inhaled oxygen flow rate 4 L/min Dr. Filipe Ybarra Work Phone: [facility] 03-27-2024 07:30-0400 Body height 177.[address] Filipe Ybarra Work Phone: [facility] 03-27-2024 07:30-0400 Body mass index (BMI) [Ratio] 32.5 kg/m2 Dr. Filipe Ybarra Work Phone: [facility] 03-27-2024 07:30-0400 Body weight 103.[address] Filipe Ybarra Work Phone: [facility] 03-22-2024 15:16-0400 Body mass index (BMI) [Ratio] 32 kg/m2 Dr. Filipe Ybarra Work Phone: [facility] 03-22-2024 15:16-0400 Body temperature 97.8 [degF] Dr. Filipe Ybarra Work Phone: [facility] 03-22-2024 15:16-0400 Body weight 101.[address] Filipe Ybarra Work Phone: [facility] 03-22-2024 15:16-0400 Diastolic blood pressure 62 mm[Hg] Dr. Filipe Ybarra Work Phone: [facility] 03-22-2024 15:16-0400 Heart rate 80 /min Dr. Filipe Ybarra Work Phone: [facility] 03-22-2024 15:16-0400 Respiratory rate 16 /min Dr. Filipe Ybarra Work Phone: [facility] 03-22-2024 15:16-0400 SaO2% (BldA) [Mass fraction] 98 % Dr. Filipe Ybarra Work Phone: [facility] 03-22-2024 15:16-0400 Systolic blood pressure 132 mm[Hg] Dr. Filipe Ybarra Work Phone: [facility] 03-21-2024 09:13-0400 Body mass index (BMI) [Ratio] 31.5 kg/m2 Dr. Filipe Ybarra Work Phone: [facility] 03-21-2024 09:13-0400 Body weight 99.[address] Filipe Ybarra Work Phone: [facility] 03-21-2024 09:13-0400 Diastolic blood pressure 98 mm[Hg] Dr. Filipe Ybarra Work Phone: [facility] 03-21-2024 09:13-0400 Respiratory rate 16 /min Dr. Filipe Ybarra Work Phone: [facility] 03-21-2024 09:13-0400 Systolic blood pressure 160 mm[Hg] Dr. Filipe Ybarra Work Phone: [facility] 03-16-2024 08:08-0400 Body mass index (BMI) [Ratio] 31.7 kg/m2 Dr. Filipe Ybarra Work Phone: [facility] 03-16-2024 08:08-0400 Body temperature 97.5 [degF] Dr. Filipe Ybarra Work Phone: [facility] 03-16-2024 08:08-0400 Body weight 100.[address] Filipe Ybarra Work Phone: [facility] 03-16-2024 08:08-0400 Diastolic blood pressure 82 mm[Hg] Dr. Filipe Ybarra Work Phone: [facility] 03-16-2024 08:08-0400 Heart rate 70 /min Dr. Filipe Ybarra Work Phone: [facility] 03-16-2024 08:08-0400 Respiratory rate 18 /min Dr. Filipe Ybarra Work Phone: [facility] 03-16-2024 08:08-0400 SaO2% (BldA) [Mass fraction] 97 % Dr. Filipe Ybarra Work Phone: [facility] 03-16-2024 08:08-0400 Systolic blood pressure 136 mm[Hg] Dr. Filipe Ybarra Work Phone: [facility] 02-02-2024 09:04-0400 Body mass index (BMI) [Ratio] 31.5 kg/m2 Dr. Filipe Ybarra Work Phone: [facility] 02-02-2024 09:04-0400 Body temperature 98.8 [degF] Dr. Filipe Ybarra Work Phone: [facility] 02-02-2024 09:04-0400 Body weight 99.[address] Filipe Ybarra Work Phone: [facility] 02-02-2024 09:04-0400 Diastolic blood pressure 90 mm[Hg] Dr. Filipe Ybarra Work Phone: [facility] 02-02-2024 09:04-0400 Heart rate 73 /min Dr. Filipe Ybarra Work Phone: [facility] 02-02-2024 09:04-0400 Respiratory rate 16 /min Dr. Filipe Ybarra Work Phone: [facility] 02-02-2024 09:04-0400 SaO2% (BldA) [Mass fraction] 95 % Dr. Filipe Ybarra Work Phone: [facility] 02-02-2024 09:04-0400 Systolic blood pressure 156 mm[Hg] Dr. Filipe Ybarra Work Phone: [facility] 01-12-2024 08:52-0500 Body height 177.[address] Filipe Ybarra Work Phone: [facility] 01-12-2024 08:52-0500 Body mass index (BMI) [Ratio] 32.6 kg/m2 Dr. Filipe Ybarra Work Phone: [facility] 01-12-2024 08:52-0500 Body temperature 97.2 [degF] Dr. Filipe Ybarra Work Phone: [facility] 01-12-2024 08:52-0500 Body weight 103.[address] Filipe Ybarra Work Phone: [facility] 01-12-2024 08:52-0500 Diastolic blood pressure 60 mm[Hg] Dr. Filipe Ybarra Work Phone: [facility] 01-12-2024 08:52-0500 Heart rate 92 /min Dr. Filipe Ybarra Work Phone: [facility] 01-12-2024 08:52-0500 Respiratory rate 16 /min Dr. Filipe Ybarra Work Phone: [facility] 01-12-2024 08:52-0500 SaO2% (BldA) [Mass fraction] 96 % Dr. Filipe Ybarra Work Phone: [facility] 01-12-2024 08:52-0500 Systolic blood pressure 128 mm[Hg] Dr. Filipe Ybarra Work Phone: [facility] 10-11-2023 12:55-0500 Body mass index (BMI) [Ratio] 34 kg/m2 Dr. Filipe Ybarra Work Phone: [facility] 10-11-2023 12:55-0500 Body temperature 98.2 [degF] Dr. Filipe Ybarra Work Phone: [facility] 10-11-2023 12:55-0500 Body weight 107.[address] Filipe Ybarra Work Phone: [facility] 10-11-2023 12:55-0500 Diastolic blood pressure 88 mm[Hg] Dr. Filipe Ybarra Work Phone: [facility] 10-11-2023 12:55-0500 Heart rate 73 /min Dr. Filipe Ybarra Work Phone: [facility] 10-11-2023 12:55-0500 Respiratory rate 16 /min Dr. Filipe Ybarra Work Phone: [facility] 10-11-2023 12:55-0500 SaO2% (BldA) [Mass fraction] 98 % Dr. Filipe Ybarra Work Phone: [facility] 10-11-2023 12:55-0500 Systolic blood pressure 160 mm[Hg] Dr. Filipe Ybarra Work Phone: [facility] 09-25-2022 10:54-0500 Body temperature 97.5 [degF] Dr. Filipe Ybarra Work Phone: [facility] Work Phone: 09-25-2022 10:54-0500 Body weight 101.[address] Filipe Ybarra Work Phone: [facility] Work Phone: 09-25-2022 10:54-0500 Diastolic blood pressure 92 mm[Hg] Dr. Filipe Ybarra Work Phone: [facility] Work Phone: 09-25-2022 10:54-0500 Heart rate 60 /min Dr. Filipe Ybarra Work Phone: [facility] Work Phone: 09-25-2022 10:54-0500 Respiratory rate 18 /min Dr. Filipe Ybarra Work Phone: [facility] Work Phone: 09-25-2022 10:54-0500 SaO2% (BldA) [Mass fraction] 95 % Dr. Filipe Ybarra Work Phone: [facility] Work Phone: 09-25-2022 10:54-0500 Systolic blood pressure 144 mm[Hg] Dr. Filipe Ybarra Work Phone: [facility] Work Phone: 09-08-2022 14:03-0400 Body height 177.[address] Filipe Ybarra Work Phone: [facility] Work Phone: 09-08-2022 14:03-0400 Body mass index (BMI) [Ratio] 30.9 kg/m2 Dr. Filipe Ybarra Work Phone: [facility] Work Phone: 09-08-2022 14:03-0400 Body temperature 97 [degF] Dr. Filipe Ybarra Work Phone: [facility] Work Phone: 09-08-2022 14:03-0400 Body weight 97.[address] Filipe Ybarra Work Phone: [facility] Work Phone: 09-08-2022 14:03-0400 Diastolic blood pressure 92 mm[Hg] Dr. Filipe Ybarra Work Phone: [facility] Work Phone: 09-08-2022 14:03-0400 Heart rate 70 /min Dr. Filipe Ybarra Work Phone: [facility] Work Phone: 09-08-2022 14:03-0400 Respiratory rate 16 /min Dr. Filipe Ybarra Work Phone: [facility] Work Phone: 09-08-2022 14:03-0400 SaO2% (BldA) [Mass fraction] 97 % Dr. Filipe Ybarra Work Phone: [facility] Work Phone: 09-08-2022 14:03-0400 Systolic blood pressure 140 mm[Hg] Dr. Filipe Ybarra Work Phone: [facility] Work Phone: 08-18-2022 11:08-0400 Body mass index (BMI) [Ratio] 31.8 kg/m2 Dr. Filipe Ybarra Work Phone: [facility] Work Phone: 08-18-2022 11:08-0400 Body temperature 97.8 [degF] Dr. Filipe Ybarra Work Phone: [facility] Work Phone: 08-18-2022 11:08-0400 Body weight 100.[address] Filipe Ybarra Work Phone: [facility] Work Phone: 08-18-2022 11:08-0400 Diastolic blood pressure 86 mm[Hg] Dr. Filipe Ybarra Work Phone: [facility] Work Phone: 08-18-2022 11:08-0400 Heart rate 77 /min Dr. Filipe Ybarra Work Phone: [facility] Work Phone: 08-18-2022 11:08-0400 Respiratory rate 14 /min Dr. Filipe Ybarra Work Phone: [facility] Work Phone: 08-18-2022 11:08-0400 SaO2% (BldA) [Mass fraction] 96 % Dr. Filipe Ybarra Work Phone: [facility] Work Phone: 08-18-2022 11:08-0400 Systolic blood pressure 158 mm[Hg] Dr. Filipe Ybarra Work Phone: [facility] Work Phone: 07-31-2022 10:16-0400 Body mass index (BMI) [Ratio] 31.8 kg/m2 Dr. Filipe Ybarra Work Phone: [facility] Work Phone: 07-31-2022 10:16-0400 Body temperature 98.1 [degF] Dr. Filipe Ybarra Work Phone: [facility] Work Phone: 07-31-2022 10:16-0400 Body weight 100.[address] Filipe Ybarra Work Phone: [facility] Work Phone: 07-31-2022 10:16-0400 Diastolic blood pressure 110 mm[Hg] Dr. Filipe Ybarra Work Phone: [facility] Work Phone: 07-31-2022 10:16-0400 Heart rate 78 /min Dr. Filipe Ybarra Work Phone: [facility] Work Phone: 07-31-2022 10:16-0400 Respiratory rate 16 /min Dr. Filipe Ybarra Work Phone: [facility] Work Phone: 07-31-2022 10:16-0400 SaO2% (BldA) [Mass fraction] 95 % Dr. Filipe Ybarra Work Phone: [facility] Work Phone: 07-31-2022 10:16-0400 Systolic blood pressure 180 mm[Hg] Dr. Filipe Ybarra Work Phone: [facility] Work Phone: 07-17-2022 10:49-0400 Body mass index (BMI) [Ratio] 31.1 kg/m2 Dr. Filipe Ybarra Work Phone: [facility] Work Phone: 07-17-2022 10:49-0400 Body temperature 97.4 [degF] Dr. Filipe Ybarra Work Phone: [facility] Work Phone: 07-17-2022 10:49-0400 Body weight 98.[address] Filipe Ybarra Work Phone: [facility] Work Phone: 07-17-2022 10:49-0400 Diastolic blood pressure 90 mm[Hg] Dr. Filipe Ybarra Work Phone: [facility] Work Phone: 07-17-2022 10:49-0400 Heart rate 74 /min Dr. Filipe Ybarra Work Phone: [facility] Work Phone: 07-17-2022 10:49-0400 Respiratory rate 18 /min Dr. Filipe Ybarra Work Phone: [facility] Work Phone: 07-17-2022 10:49-0400 SaO2% (BldA) [Mass fraction] 96 % Dr. Filipe Ybarra Work Phone: [facility] Work Phone: 07-17-2022 10:49-0400 Systolic blood pressure 170 mm[Hg] Dr. Filipe Ybarra Work Phone: [facility] Work Phone: 07-03-2022 09:10-0400 Body mass index (BMI) [Ratio] 31.8 kg/m2 Dr. Filipe Ybarra Work Phone: [facility] Work Phone: 07-03-2022 09:10-0400 Body temperature 97.8 [degF] Dr. Filipe Ybarra Work Phone: [facility] Work Phone: 07-03-2022 09:10-0400 Body weight 100.[address] Filipe Ybarra Work Phone: [facility] Work Phone: 07-03-2022 09:10-0400 Diastolic blood pressure 118 mm[Hg] Dr. Filipe Ybarra Work Phone: [facility] Work Phone: 07-03-2022 09:10-0400 Heart rate 79 /min Dr. Filipe Ybarra Work Phone: [facility] Work Phone: 07-03-2022 09:10-0400 Respiratory rate 16 /min Dr. Filipe Ybarra Work Phone: [facility] Work Phone: 07-03-2022 09:10-0400 SaO2% (BldA) [Mass fraction] 95 % Dr. Filipe Ybarra Work Phone: [facility] Work Phone: 07-03-2022 09:10-0400 Systolic blood pressure 184 mm[Hg] Dr. Filipe Ybarra Work Phone: [facility] Work Phone: 06-19-2022 09:12-0400 Body mass index (BMI) [Ratio] 31.7 kg/m2 Dr. Filipe Ybarra Work Phone: [facility] Work Phone: 06-19-2022 09:12-0400 Body temperature 96.8 [degF] Dr. Filipe Ybarra Work Phone: [facility] Work Phone: 06-19-2022 09:12-0400 Body weight 100.[address] Filipe Ybarra Work Phone: [facility] Work Phone: 06-19-2022 09:12-0400 Diastolic blood pressure 92 mm[Hg] Dr. Filipe Ybarra Work Phone: [facility] Work Phone: 06-19-2022 09:12-0400 Heart rate 82 /min Dr. Filipe Ybarra Work Phone: [facility] Work Phone: 06-19-2022 09:12-0400 Respiratory rate 16 /min Dr. Filipe Ybarra Work Phone: [facility] Work Phone: 06-19-2022 09:12-0400 SaO2% (BldA) [Mass fraction] 95 % Dr. Filipe Ybarra Work Phone: [facility] Work Phone: 06-19-2022 09:12-0400 Systolic blood pressure 160 mm[Hg] Dr. Filipe Ybrara Work Phone: [facility] Work Phone: 06-09-2022 12:43-0400 Body height 177.[address] Filipe Ybarra Work Phone: [facility] Work Phone: 06-09-2022 12:43-0400 Body mass index (BMI) [Ratio] 31.5 kg/m2 Dr. Filipe Ybarra Work Phone: [facility] Work Phone: 06-09-2022 12:43-0400 Body temperature 98.2 [degF] Dr. Filipe Ybarra Work Phone: [facility] Work Phone: 06-09-2022 12:43-0400 Body weight 99.[address] Filipe Ybarra Work Phone: [facility] Work Phone: 06-09-2022 12:43-0400 Diastolic blood pressure 89 mm[Hg] Dr. Filipe Ybarra Work Phone: [facility] Work Phone: 06-09-2022 12:43-0400 Heart rate 75 /min Dr. Filipe Ybarra Work Phone: [facility] Work Phone: 06-09-2022 12:43-0400 Respiratory rate 16 /min Dr. Filipe Ybarra Work Phone: [facility] Work Phone: 06-09-2022 12:43-0400 SaO2% (BldA) [Mass fraction] 98 % Dr. Filipe Ybarra Work Phone: [facility] Work Phone: 06-09-2022 12:43-0400 Systolic blood pressure 174 mm[Hg] Dr. Filipe Ybarra Work Phone: [facility] Work Phone: 04-08-2022 09:21-0400 Body mass index (BMI) [Ratio] 31.8 kg/m2 Dr. Filipe Ybarra Work Phone: [facility] Work Phone: 04-08-2022 09:21-0400 Body temperature 98.7 [degF] Dr. Filipe Ybarra Work Phone: [facility] Work Phone: 04-08-2022 09:21-0400 Body weight 100.[address] Filipe Ybarra Work Phone: [facility] Work Phone: 04-08-2022 09:21-0400 Diastolic blood pressure 86 mm[Hg] Dr. Filipe Ybarra Work Phone: [facility] Work Phone: 04-08-2022 09:21-0400 Heart rate 90 /min Dr. Filipe Ybarra Work Phone: [facility] Work Phone: 04-08-2022 09:21-0400 Respiratory rate 14 /min Dr. Filipe Ybarra Work Phone: [facility] Work Phone: 04-08-2022 09:21-0400 SaO2% (BldA) [Mass fraction] 97 % Dr. Filipe Ybarra Work Phone: [facility] Work Phone: 04-08-2022 09:21-0400 Systolic blood pressure 138 mm[Hg] Dr. Filipe Ybarra Work Phone: [facility] Work Phone: 03-20-2022 12:50-0400 Body mass index (BMI) [Ratio] 31.8 kg/m2 Dr. Filipe Ybarra Work Phone: [facility] Work Phone: 03-20-2022 12:50-0400 Body temperature 98.2 [degF] Dr. Filipe Ybarra Work Phone: [facility] Work Phone: 03-20-2022 12:50-0400 Body weight 100.[address] Filipe Ybarra Work Phone: [facility] Work Phone: 03-20-2022 12:50-0400 Diastolic blood pressure 76 mm[Hg] Dr. Filipe Ybarra Work Phone: [facility] Work Phone: 03-20-2022 12:50-0400 Heart rate 77 /min Dr. Filipe Ybarra Work Phone: [facility] Work Phone: 03-20-2022 12:50-0400 Respiratory rate 16 /min Dr. Filipe Ybarra Work Phone: [facility] Work Phone: 03-20-2022 12:50-0400 SaO2% (BldA) [Mass fraction] 97 % Dr. Filipe Ybarra Work Phone: [facility] Work Phone: 03-20-2022 12:50-0400 Systolic blood pressure 118 mm[Hg] Dr. Filipe Ybarra Work Phone: [facility] Work Phone: Encounters Encounter Date Encounter Type Care Provider Facility Start: 04-27-2025 End: 04-27-[address] Filipe Ybarra MD Work Phone: [facility] Work Phone: Start: 04-27-2025 End: 04-27-2025 Patient encounter procedure Luis ESQUIVEL -[facility] Work Phone: Start: 03-28-2025 End: 03-28-[address] Filipe Ybarra MD Work Phone: [facility] Work Phone: Start: 03-28-2025 End: 03-28-[address] Filipe Ybarra MD -Radiology [place] Work Phone: Start: 03-28-2025 ambulatory Filipe Ybarra Facili ty:[facility] Start: 03-28-2025 Registered Recurring Shady ESQUIVEL -Physical Therapy Work Phone: Start: 03-28-2025 End: 03-28-2025 ambulatory Filipe Ybarra Facility:[facility] Start: 03-26-2025 End: 03-26-[address] Filipe Ybarra MD -[facility] Work Phone: Start: 03-26-2025 End: 03-26-2025 ambulatory Filipe Ybarra Facility:[facility] Start: 03-12-2025 End: 03-12-2025 Patient encounter procedure Shady Chan [facility] -[facility] Work Phone: Start: 03-12-2025 End: 03-12-2025 ambulatory Filipe Ybarra Facility:[facility] Start: 02-14-2025 End: 02-14-[address] Filipe Ybarra MD -[facility] Work Phone: Start: 02-14-2025 End: 02-14-2025 ambulatory Filipe Ybarra Facility:[facility] Start: 02-13-2025 End: 02-13-2025 Emergency department patient visit Dr. Filipe Ybarra MD Work Phone: -Emergency Department Work Phone: Start: 02-12-2025 End: 02-12-2025 ambulatory Filipe Ybarra Facility:[facility] Start: 02-12-2025 End: 02-12-2025 Patient encounter procedure Shady ESQUIVEL -[facility] Work Phone: Start: 02-09-2025 End: 02-09-[address] Filipe Ybarra MD Work Phone: [facility] Work Phone: Start: 02-09-2025 End: 02-09-[address] Filipe Ybarra MD -[facility] Work Phone: Start: 02-09-2025 End: 02-09-2025 ambulatory Filipe Ybarra Facility:[facility] Start: 01-17-2025 End: 01-17-[address] Filipe Ybarra MD Work Phone: [facility] Work Phone: Start: 01-17-2025 End: 01-17-[address] Filipe Ybarra MD -Laboratory, [facility] Start: 01-17-2025 End: 01-17-[address] Filipe Ybarra MD -[facility] Work Phone: Start: 01-17-2025 End: 01-17-2025 ambulatory [facility] Start: 01-17-2025 End: 01-17-2025 ambulatory [facility] Facility:[facility] Start: 01-10-2025 End: 01-10-[address] Filipe Ybarra MD Work Phone: [facility] Work Phone: Start: 01-10-2025 End: 01-10-[address] Filipe Yabrra MD -[facility], [facility] Start: 01-10-2025 End: 01-10-[address] Filipe Ybarra MD -[facility] Work Phone: Start: 01-10-2025 End: 01-10-2025 ambulatory [facility] Start: 01-10-2025 End: 01-10-2025 ambulatory [facility] Facility:[facility] Start: 01-06-2025 ambulatory Lior Wall Facility:[facility] Start: 01-06-2025 Non-patient / Non-visit Dr. Lior lara MD -[facility] Start: 01-06-2025 End: 01-06-2025 Emergency department patient visit Dr. Albert Lopez MD -Emergency Department Work Phone: Start: 01-06-2025 ambulatory Efewongbe Oleghe Facili ty:[facility] Start: 09-25-2024 ambulatory Efewongbe Oleghe Facili ty:[facility] Start: 09-01-2024 End: 09-01-2024 ambulatory Efewongbe Oleghe Facility:[facility] Start: 09-01-2024 End: 09-01-2024 ambulatory Efimerongbe Olemarioe Facility:[facility] Start: 08-22-2024 End: 08-22-2024 ambulatory Mary Bridges Facility:[facility] Start: 06-12-2024 End: 06-12-2024 ambulatory Efimerongbe Rolae Facility:[facility] Start: 06-08-2024 ambulatory Efimerongbe Rolae Facili ty:[facility] Start: 05-30-2024 End: 05-30-2024 ambulatory Efimerongbe Olemarioe Facility:[facility] Start: 05-15-2024 End: 05-15-2024 ambulatory Efimerongbe Rolae Facility:[facility] Start: 05-03-2024 End: 05-03-2024 ambulatory Efimerongbe Olemarioe Facility:[facility] Start: 03-27-2024 Non-patient / Non-visit Dr. Cindy Ybarra Work Phone: [facility] Start: 03-27-2024 End: 03-27-2024 Admission to same day surgery center Dr. Filipe Ybarra Work Phone: [facility] Start: 03-27-2024 End: 03-27-[address] Filipe Ybarra Work Phone: [facility] Work Phone: Start: 03-22-2024 End: 03-22-[address] Filipe Ybarra Work Phone: [facility] Work Phone: Start: 03-21-2024 End: 03-21-[address] Filipe Ybarra Work Phone: [facility] Work Phone: Start: 03-16-2024 End: 03-16-[address] Filipe Ybarra Work Phone: [facility] Work Phone: Start: 02-02-2024 End: 02-02-[address] Filipe Ybarra Work Phone: [facility] Work Phone: Start: 01-12-2024 End: 01-12-[address] Filipe Ybarra Work Phone: [facility] Work Phone: Start: 01-12-2024 End: 01-12-[address] Filipe Ybarra Work Phone: [facility] Work Phone: Start: 10-11-2023 End: 10-11-[address] Filipe Ybarra Work Phone: [facility] Work Phone: Start: 09-25-2022 End: 09-25-[address] Filipe Ybarra Work Phone: [facility] Work Phone: Start: 09-25-2022 End: 09-25-[address] Filipe Ybarra Work Phone: [facility] Start: 09-25-2022 End: 09-25-[address] Filipe Ybarra Work Phone: [facility] Start: 09-08-2022 End: 09-08-[address] Filipe Ybarra Work Phone: [facility] Start: 08-18-2022 End: 08-18-[address] Filipe Ybarra Work Phone: [facility] Start: 07-31-2022 End: 07-31-[address] Filipe Ybarra Work Phone: [facility] Start: 07-17-2022 End: 07-17-[address] Filipe Ybarra Work Phone: [facility] Start: 07-16-2022 Non-patient / Non-visit Dr. Cindy Ybarra Work Phone: [facility] Start: 07-03-2022 End: 07-03-[address] Filipe Ybarra Work Phone: [facility] Start: 06-19-2022 End: 06-19-[address] Filipe Ybarra Work Phone: [facility] Start: 06-09-2022 Non-patient / Non-visit Dr. Cindy Ybarra Work Phone: [facility] Start: 06-09-2022 End: 06-09-[address] Filipe Ybarra Work Phone: [facility]-Cardiovascular Services Start: 06-09-2022 End: 06-09-[address] Filipe Ybarra Work Phone: [facility] Start: 04-08-2022 End: 04-08-[address] Filipe Ybarra Work Phone: [facility] Start: 03-20-2022 End: 03-20-[address] Filipe Ybarra Work Phone: [facility] Start: 10-16-2020 End: 10-16-2020 Subsequent hospital visit by physician [facility] Work Phone: Radiology Comment on above: Injury of right grea t toe, initial encounter [S99.921A] Procedures Date Procedure Procedure Detail Performing Clinician Start: 03-28-2025 X-ray of lumbosacral spine Dr. Filipe Ybarra MD Work Phone: Start: 02-13-[address] River Ybarra MD Work Phone: Start: 02-13-[address] Filipe Ybarra MD Work Phone: Start: 02-09-2025 CT of lower limb wit h contrast Dr. Filipe Ybarra MD Work Phone: Start: 01-17-2025 Urnls dip stick/tabl et reagent auto microscopy Dr. Filipe Ybarra MD Work Phone: Start: 01-10-[address] Felice Ybarra MD Work Phone: Comment on above: Performed at: [place] [id number] Director: Joey Edmondson PhD, Phone: [phone] Start: 01-10-2025 Antibody to centrome re measurement Dr. Filipe Ybarra MD Work Phone: Comment on above: Test not performed Start: 01-10-2025 Antibody to extracta ble nuclear antigen measurement Dr. Filipe Ybarra MD Work Phone: Comment on above: Test not performed Start: 01-10-2025 Antibody to HERMINIA-[address] Filipe Ybarra MD Work Phone: Comment on above: Test not performed Start: 01-10-2025 Antibody to lupus La protein measurement Dr. Filipe Ybarra MD Work Phone: Comment on above: Test not performed Start: 01-10-2025 Antibody to SS-A measurement Dr. Filipe Ybarra MD Work Phone: Comment on above: Test not performed Start: 01-10-[address] Filipe Ybarra MD Work Phone: Comment on above: Test not performed Start: 01-10-2025 [employer] antibody measurement Dr. Filipe Ybarra MD Work Phone: Comment on above: Test not performed Start: 03-27-2024 Laparoscopic repair of inguinal hernia Dr. 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 Filipe Ybarra MD Work Phone: Comment on above: Right 03/27/24 Plan of Treatment Date Care Activity Detail Author Start: 2034 RSV Vaccine (1 - 1-dose 75+ series) RSV Vaccine (1 - 1-dose 75+ series) [facility] Start: 02-13-2025 [facility] Start: 02-13-2025 Bacteria identified in Blood by Culture Blood Culture [facility] Start: 02-13-2025 Blood culture Blood Culture [facility] Start: 02-13-2025 End: 02-13-2025 [facility] Start: 01-06-2025 [facility] Start: 07-16-2024 Covid-19 Vaccine ( season) Covid-19 Vaccine ( season) [facility] Start: 07-16-2024 Influenza vaccination Influenza Vaccine (#1) [facility] Start: 03-27-2024 Patient discharge [facility] Start: 02-19-2024 Advance Directive Discussion Advance Directive Discussion [facility] Start: 02-19-2024 Pneumococcal Vaccine: 65+ (1 of 1 - PCV) Pneumococcal Vaccine: 65+ (1 of 1 - PCV) [facility] Start: 09-25-2022 Patient referral [facility] Work Phone: Start: 06-16-2014 Shingrix Vaccine (2 of 3) Shingrix Vaccine (2 of 3) [facility] Start: 2014 Prostate specific antigen measurement Prostate Cancer Screening Discussion [facility] Start: 02-19-2004 Diabetes Screening Diabetes Screening [facility] Start: 02-19-2004 Screening for malignant neoplasm of colon [facility] Start: 1994 Lipid panel Lipid Screening [facility] Start: 1978 Urine microalbumin profile DTaP,Tdap,Td Vaccine (1 - Tdap) [facility] Start: 1977 Anxiety Screening Anxiety Screening [facility] Start: 1977 Depression Screening Depression Screening [facility] Start: 1977 Hepatitis C screening Hepatitis C Screening [facility] Start: 1977 HIV screening HIV Screening [facility] Blood chemistry [facility] Work Phone: Cyclic citrullinated peptide IgG Ab [Units/volume] in Serum or Plasma [facility] Lactic acid measurement [facility] MR Lumbar spine [facility] Patient Education [facility] Work Phone: Patient referral [facility] Work Phone: Prostate specific an tigen measurement [facility] US.doppler Lower extremity vein [facility] Immunizations Immunization Date Immunization Notes Care Provider Claudia santiago 10-20-2022 Covid Pfizer Bivalen t Booster Dr. Filipe Ybarra MD Work Phone: [facility] 10-17-2021 Covid (Pfizer) Dr. Filipe Ybarra MD Work Phone: [facility] 02-14-2021 Covid (Pfizer) Dr. Filipe Ybarra Work Phone: [facility] 01-24-2021 Covid (Pfizer) Dr. Filipe Ybarra Work Phone: [facility] 04-21-2014 zoster vaccine, live Xr [facility] Work Phone: [facility] 09-19-2012 influenza virus vaccine, unspecified formulation [facility] [place] Work Phone: [facility] 10-05-2011 influenza virus vaccine, unspecified formulation [facility] [place] Work Phone: [facility] 09-20-2010 influenza virus vaccine, unspecified formulation [facility] [place] Work Phone: [facility] Work Phone: 08-17-2009 influenza virus vaccine, unspecified formulation Xr [place] Work Phone: [facility] 10-12-2008 influenza virus vaccine, unspecified formulation Xr [place] Work Phone: [facility] Work Phone: 09-30-2007 influenza virus vaccine, unspecified formulation [facility] [place] Work Phone: [facility] 09-20-2006 influenza virus vaccine, unspecified formulation [facility]r [place] Work Phone: [facility] 09-22-2005 influenza virus vaccine, unspecified formulation Xr [place] Work Phone: [facility] Work Phone: Payers Date Payer Category Payer Unknown [id number] 2024 Unknown [id number] 2024 Self-pay [id number] 2024 Unknown [id number] 2019 Unknown PENELOPE [employer]AM PPO [id number] 2019-Present [phone] [address] [place] [address] PPO [id number] Private Health Insurance [id number] Unknown [id number] 62 Unknown [id number] 2.840.1.609785.3.579.2.4 62 Unknown [id number] 2.16840.1.689185.3.579.2.4 62 Unknown [id number] 2.16.840.1.942275.3.579.2.4 62 Unknown [id number] 2.16840.1.788575.3.579.2.4 62 Unknown [id number] 2.16.840.1.882531.3.579.2.4 62 Unknown [id number] 2.16.840.1.430621.3.579.2.4 62 Unknown [id number] 2.16.840.1.289204.3.579.2.4 62 Unknown [id number] 2.16.840.1.290388.3.579.2.4 62 Unknown [id number] 2.16.840.1.245325.3.579.2.4 62 Unknown [id number] 2.16.840.1.630668.3.579.2.4 62 Unknown [id number] 2.16.840.1.122992.3.579.2.4 62 Unknown [id number] 2.16.840.1.878047.3.579.2.4 62 Unknown [id number] 2.16.840.1.593739.3.579.2.4 62 Unknown [id number] 2.16.840.1.308036.3.579.2.4 62 Unknown [id number] 2.16.840.1.892093.3.579.2.4 62 Unknown [id number] 2.16.840.1.093203.3.579.2.4 62 Unknown [id number] 2.16.840.1.868657.3.579.2.4 62 Unknown [id number] 2.16.840.1.797901.3.579.2.4 62 Unknown [id number] 2.16.840.1.028293.3.579.2.4 62 Unknown [id number] 2.16.840.1.798943.3.579.2.4 62 Unknown [id number] 2.16.840.1.845926.3.579.2.4 62 Unknown [id number] 2.16.840.1.142100.3.579.2.4 62 Unknown [id number] 2.16.840.1.562698.3.579.2.4 62 Social History Date Type Detail Facility Start: 06-09-2022 End: 03-20-2024 Tobacco smoking status NHIS Unknown if ever smoked [facility] Start: 1960 Sex Assigned At Male [facility] Start: 10-16-2020 Tobacco smoking stat us NHIS Never smoked tobacco [facility] Start: 10-16-2020 Tobacco use and exposure Smokeless tobacco non-user [facility] Start: 10-16-2020 History of Social function [facility] Start: 10-16-2020 Tobacco use panel [facility] Start: 1960 Sex assigned at Not on file [facility] Start: 09-16-2020 End: 10-16-2020 Exposure to SARS-CoV-2 (event) Not sure [facility] Start: 01-06-2025 End: 02-13-2025 Tobacco smoking status NHIS Ex-smoker (finding) [facility] Start: 01-25-2025 End: 02-15-2025 Sex Male (finding) [facility] Medical Equipment Procedure Code Equipment Code Equipment Origin al Text Equipment Identifier Dates Herniorrhaphy, inguinal, laparoscopic CLIP,HEMOLOCK MED WECK FDA Start: 03-27-2024 Herniorrhaphy, inguinal, laparoscopic ([id number]) Extra-gynaecologic al surgical mesh, synthetic polymer, non-bioabsorbable ()[id number] FDA Start: 03-27-2024 Herniorrhaphy, inguinal, laparoscopic ([id number]) Extra-gynaecologic al surgical mesh, composite-polymer ()[id number] FDA Start: 03-27-2024 Herniorrhaphy, inguinal, laparoscopic Endoscopic manual linear stapler ()[id number] DT FDA Start: 03-27-2024 Herniorrhaphy, inguinal, laparoscopic CLIP,HEMOLOCK MED WECK FDA Start: 03-27-2024 Herniorrhaphy, inguinal, laparoscopic CLIP,HEMOLOCK MED WECK FDA Start: 03-27-2024 Herniorrhaphy, inguinal, laparoscopic CLIP,HEMOLOCK MED WECK FDA Start: 03-27-2024 Herniorrhaphy, inguinal, laparoscopic CLIP,HEMOLOCK JENA DELEON FDA Start: 03-27-2024 Herniorrhaphy, inguinal, laparoscopic CLIP,HEMDOMI DELEON FDA Start: 03-27-2024 Goals Date Patient Goal Desired Activity /State Functional Status Date Assessment Result Facility 03-27-2024 Functional status Ambulates;Bathroom Priv ilege [facility] Work Phone: Mental Status Date Assessment Result Facility 03-27-2024 Cognitive function Level Of Consciousness Sedated [facility] Work Phone: 03-27-2024 Cognitive function Voice/Name [facility] Work Phone: Clinical Notes 10-16-2020 to 03-28-2025 Note Date & Type Note Facility 03-28-2025 Radiology Diagnostic study note [facility] Imaging Services [address], [place] [address] L/S Spine Min 4 Views MR#: [id number] Acct: [id number] Name: ZHENG WATKINS Rep #: [id number] : 1960 M 65 From: Kendal Aguilera MD PCP: Dr. Filipe Ybarra MD Status: R EG CLI Study:L/S Spine Min 4 Views Date of Exam: 03/28/25 Exam# [id number] Ordering Dr: Alysa Ybarra MD EXAM: XR Lumbosacral Spine Flexion/Extension Only, 2 or 3 Views CLINICAL INDICATION: LUMBAR RADICULOPATHY, RIGHT SIDE TECHNIQUE: Lateral flexion/extension views of the lumbar spine and sacrum. COMPARISON: No relevant prior studies available. FINDINGS: VERTEBRAE: Moderate facet arthropathy of L3-S1. Anterior spurring T12-L4. No acute fracture. Normal sagittal alignment. No instability. SACRUM/COCCYX: Unremarkable as visualized. No acute fracture. DISC SPACES: No acute findings. No significant narrowing. SOFT TISSUES: Unremarkable. RAD/L/S Spine Min 4 Views IMPRESSION: Degenerative changes as above. Reading Location: [id number] CC: Dr. Filipe Ybarra MD ~ Complaint Analyst: Signed [facility] 02-13-2025 Discharge summary [facility] 02-13-2025 Discharge summary Note Date/Time February 13, 2025 2:06pm [facility] Medical Records Department [address] [place] [address] Emergency Department Summary 02/13/25 MR#: [id number] Acct: [id number] Name: ZHENG WATKINS Rep #:[id number] : 1960 64 From: Madi Brooks MD PCP: Dr. Filipe Ybarra MD Status:R EG ER Location: ED HPI History of Present Illness Chief Complaint: Lower Extremity Injury Detail of Chief Complaint: Abscess of the left leg involving the superficial posterior compartment and Informant: patient and spouse/S.O. Onset/Context/Timing Onset: - (CT done today. Was seen approxi a month ago to rule out DVT and was.) Context: - (Unknown since patient has no symptoms other than slight swelling) Timing: - (Unable to determine) Quality: Abscess posterior superficial compartment of the left leg and head of the g Location: Left leg posteriorly Current Severity: Asymptomatic Maximum Severity: Asymptomatic Worsened by: Not applicable Relieved by: Not applicable Associated Symptoms Associated Symptoms: Abnormal CAT scan Narrative Narrative: Patient is a 64-year-old male with history of GERD, hypertension, borderline type 2 diabetes and BMI of 34.4. Last ate/drank at 0600. He has no antibiotic allergies. Denies a traumatic fever, heart murmur, mitral prolapse. He denies fever, chills night sweats. He is not on any immunosuppressive meds. He has history of hypertension on amlodipine and valsartan. Prior similar symptoms: No Recent Illness/Hospitalization: No PFSH PFSH Medical History Abnormal computed tomography of lower extremity Leg abscess Lumbar radiculopathy Lumbar strain Elevated C-reactive protein (CRP) Myalgia Malaise and fatigue Arthritis Varicose veins of both legs with edema Hypersomnolence Wears glasses Alcohol use Rash History of steroid therapy Gastric reflux Chewing tobacco dependence in remission History of edema BPH (benign prostatic hyperplasia) Borderline type 2 diabetes mellitus Abdominal discomfort Great toe pain Flu vaccine need Dermatitis Obesity Hyperglycemia Colon cancer screening Hypertension Erectile dysfunction Umbilical hernia GERD (gastroesophageal reflux disease) Seasonal allergies Home Medications ?Medication ?Instructions ?Recorded ?Last Taken ?Type ascorbate calcium (vitamin C) 500 1,000 mg PO DAILY 02/13/25 History mg tablet cholecalciferol (vitamin D3) 50 50 mcg PO DAILY 02/13/25 History mcg (2,000 unit) capsule multivitamin (Daily Multi-Vitamin 1 tab PO DAILY 11/0502/13/25 History tablet) loratadine 10 mg tablet (Claritin) 10 mg PO DAILY PRN allergy symptoms 03/19/23 02/13/25 History omega 3 350 mg-dha 235 mg-epa 90 1 cap PO DAILY 02/13/25 History mg-fish oil 597 mg capsule,delay rel ([place]-3) aspirin 81 mg tablet,delayed 81 mg PO DAILY 08/22/24 0 02/13/25 History release (Adult Aspirin Regimen) tadalafil 20 mg tablet 10 mg (1/2 x 20 mg) PO DAILY #30 09/18/24 Unknown Rx TABLETS amlodipine 5 mg tablet 5 mg PO DAILY #90 tabs 11/2702/13/25 Rx doxazosin 4 mg tablet 4 mg PO BID 3 months #180 ta bs 11/27/24 02/13/25 Rx valsartan 160 1 tab PO DAILY #90 tabs 11/1502/13/25 Rx mg-hydrochlorothiazide 25 mg tablet metaxalone 800 mg tablet 800 mg PO TID PRN muscle dae n #20 02/12/25 02/13/25 Rx tabs prednisone 10 mg tablet 10 mg PO DAILY #30 tabs 01/1502/13/25 Rx famotidine 20 mg tablet (Acid 20 mg PO DAILY 02/13/25 02/13/25 History Controller) Allergy/AdvReac Type Severity Reaction Status Date / Time No Known Allergies Allergy Verified 02/13/25 10:58 Family History Other Heart disease Hypertension Myocardial infarction Surgical History Status post inguinal hernia repair Social History household members: spouse Smoking Status: Former smoker how long ago did patient quit smokin11/15/1989 alcohol intake: current alcohol intake frequency: holidays/special occasions only what type of physical activity do you participate in: walking frequency: daily ROS ROS ED Constitutional Constitutional ED: Denies chills, fever(s), subjective or sweats Eyes Eyes: Denies change in vision Cardiovascular Cardiovascular: Denies chest pain or palpitations Respiratory/Chest Respiratory/Chest: Denies cough, dyspnea or dyspnea on exertion Gastrointestinal Gastrointestinal: Denies abdominal pain, nausea or vomiting Musculoskeletal Musculoskeletal: Denies arthralgias or myalgias Integumentary Reports abscess; Denies rash Neurologic Neurologic: Denies weakness Hematologic/Lymphatic Hematologic/Lymphatic: Reports systems reviewed and no addt'l complaints, exceptas documented EXAM Physical Exam Const Vital Signs: 02/13/25 10:59 Temperature 97.8 F Temperature Source Temporal Pulse Rate 75 Respiratory Rate 16 Blood Pressure 174/62 H Blood Pressure Mean 99 Pulse Ox 98 Oxygen Delivery Method Room Air Positive well nourished and well developed Constitutional Narrative: BMI 34.4. Blood pressure is elevated 174/62. General Appearance ED: well developed and NAD; Negative for pallor HEENT Reports moist mucous membranes Eyes PERRL and EOMs intact bilaterally General Eye ED: Negative for pale conjunctiva or scleral icterus Neck no lymphadenopathy, supple and no JVD Resp normal respiratory effort and clear to auscultation bilaterally Cardio regular rate, regular rhythm, S1 normal heart sound, S2 normal heart sound and no murmurs Extremity Extremity Narrative: Slight swelling on the left. There is no leg vein distention, discoloration, palpable cords tenderness on the distribution deep venous system. There is no evidence of cellulitis of the left lower extremity. Neuro oriented x3 and CN's II-XII intact bilaterally Sensorium / Orientation: alert Psych mental status grossly normal Skin no rashes or lesions noted, no wounds and skin turgor normal General Skin Exam: Negative for jaundice or pallor MDM MDM MDM Narrative Medical decision making narrative: Patient has an abscess posterior compartment left leg between the medial gastrocanemias and the soleus muscle. There is an additional abscess noted within the medial head of the gastrocnemius within the lower thigh only visible on axial imaging. Sepsis workup was undertaken. Patient denies history of diabetes however past medical history reveals he has type 2 diabetes and his blood sugarsrecently have been approximately 150. He is diet controlled. He is on no medication. Sepsis workup was undertaken. He was started on vancomycin and ampicillin. Will contact Dr. Casey Howell since he will need in all likelihood operative intervention in light of where the abscesses are located. Lab Data Attestation: I reviewed the patient's lab results. Lab results narrative: White count reveals shift. White count is 6.7. H&H is normal. Indices are unremarkable. Labs: Laboratory Results - last 24 hr 02/13/25 11:15 WBC 6.7 RBC 4.28 L Hgb 13.9 Hct 39.5 L MCV 92.3 MCH 32.5 H MCHC 35.2 RDW Std Deviation 45.1 H RDW Coeff of [place] 13.2 Plt Count 176 MPV 9.6 Immature Gran % (Auto) 0.600 Neut % (Auto) 89.5 H Lymph % (Auto) 8.2 L [place] % (Auto) 1.6 Eos % (Auto) 0.0 Baso % (Auto) 0.1 Absolute Neuts (auto) 6.0 Absolute Lymphs (auto) 0.55 L Nucleated RBC % 0 ESR 6 Sodium 137 Potassium 4.4 Chloride 98 Carbon Dioxide 24.8 Anion Gap 14 BUN 21 H Creatinine 0.92 Estim Creat Clear Calc 95.86 Est GFR (MDRD) Non-Af 92 BUN/Creatinine Ratio 23.1 H Glucose 186 H Lactic Acid 2.6 H* Calcium 9.2 Total Bilirubin 0.57 AST 23 ALT 22 Alkaline Phosphatase 50 C-React Prot Ext Range 4.14 H Total Protein 7.1 Albumin 4.6 Globulin 2.5 Albumin/Globulin Ratio 1.9 Abscess within the superficial posterior compartment of the left leg, between the medial gastrocnemius and soleus muscles. Additional partially visualized abscess within the medial head of the gastrocnemius within the lower thigh, only visible on axial imaging. CT of the left lower thigh is recommended for imaging completion. Urgent surgical consultation for possible incision and debridement is recommended. CT was performed as an outpatient today. EKG Initial EKG: Attestation: I personally reviewed and interpreted this EKG as follows: Interpretation: Sinus Rhythm (Rate is 69. There is evidence of LVH by voltage criteria. AL interval is 148 ms. History is a 94 ms. QT durations are94 ms. [place] is normal) Management Discussion w/another healthcare provider: Emr Analyst (Sales Data Analyst was asked to page Dr. Casey Howell is on for orthopedics. Dr. Howell recommended sending toradiology suite to have this drained by ultrasound or CT. I was informed that Dr. Olivo is not in house. Will obtain ESR and CRP. If these are elevatedwe will contact Dr. Howell and give ) Treatment and Re-Evaluation :: CT was reviewed again. CT was performed on 09 February. With a normal white count, normal ESR and slightly elevated CRP which is markedly lower than it was January 15 (101 down to 4) would indicate this is not an infectious process and in all likelihood represents a ruptured muscle and specifically plantaris muscle. Comments:: Patient was instructed to stop the muscle relaxant because there is adverse effects that someone his age and would not recommend prednisone either. This is probably the reason why his blood sugar is elevated and there are other potential complications. Discharge Plan Triage Chief Complaint: Lower Extremity Injury ED Provider: Madi Brooks Dx/Rx/DC Orders Clinical Impression: Traumatic rupture of left plantaris muscle, Borderline type 2 diabetes mellitus, Elevated blood pressure reading with diagnosis of hypertension, BMI 34.0-34.9,adult Instructions: Self-Care for Strains and Sprains Prescriptions: No Action multivitamin [Daily Multi-Vitamin] Tablet 1 tab PO DAILY ascorbate calcium (vitamin C) 500 mg tablet 1,000 mg PO DAILY cholecalciferol (vitamin D3) 50 mcg (2,000 unit) capsule 50 mcg PO DAILY loratadine [Claritin] 10 mg tablet 10 mg PO DAILY PRN (Reason: allergy symptoms) aspirin [Adult Aspirin Regimen] 81 mg tablet,delayed release (DR/EC) 81 mg PO DAILY prednisone 10 mg tablet 10 mg PO DAILY Qty: 30 0RF Rx Instructions: 4 tablets daily x3 days, then 3 tablets daily x3 days, then 2 tablets daily x3 days, then 1 tablet daily x3 days metaxalone 800 mg tablet 800 mg PO TID PRN (Reason: muscle pain) Qty: 20 0RF [place]-3 350 mg-235 mg- 90 mg-597 mg capsule,delayed release(DR/EC) 1 cap PO DAILY famotidine [Acid Controller] 20 mg tablet 20 mg PO DAILY tadalafil 20 mg tablet 10 mg PO DAILY Qty: 30 3RF valsartan-hydrochlorothiazide 160-25 mg tablet 1 tab PO DAILY Qty: 90 1RF doxazosin 4 mg tablet 4 mg PO BID 90 Days Qty: 180 1RF amlodipine 5 mg tablet 5 mg PO DAILY Qty: 90 1RF Primary Care Provider: Filipe Ybarra Referrals: Filipe Ybarra MD [Primary Care Provider] - 1-2 Weeks Activity Restrictions/Additional Instructions: 1. Your blood sugar is elevated 186. This should be rechecked in 1 to 2 weeks when you have your blood pressure rechecked which was elevated at 174/62. 2. If you have some discomfort with walking or swelling recommend ice 6 times aday to your left calf Print Language: Iranian Disposition Disposition: Home, Self Care What to do if you have Problems For any increased pain, shortness of breath, bleeding, nausea or vomiting, chestpain, or any unexpected problems, contact your Primary Care Provider. Call [facility] ([phone]) or report to the closest Emergency Room. Call 911 if necessary. 02/13/25 1406 <Electronically signed by Madi Brooks MD> Cosigner Signature (if applicable): CC: Dr. Filipe Ybarra MD ~ Signed [facility] Work Phone: 1(461) 223-840704-01-2025 Hospital Discharge instructions Additional Instructions 1. Your blood sugar is elevated 186. This should be rechecked in 1 to 2 weeks when you have your blood pressure rechecked which was elevated at 174/62. 2. If you have some discomfort with walking or swelling recommend ice 6 times a day to your left [facility]WS[facility] Work Phone: 1(520) 383-200303-31-2025 Radiology Diagnostic study note [facility] Imaging Services [address], [place] [id number] Extremity Lower WITH Contrast MR#: [id number] Acct: [id number] Name: ZHENG WATKINS Rep #: [id number] : 1960 M 64 From: Merry Sofia MD PCP: Dr. Filipe Ybarra MD Status: R EG CLI Study:Extremity Lower WITH Contrast Date of E xam: 02/09/25 Exam# [id number] Ordering Dr: Alysa Ybarra MD PROCEDURE: EXTREMITY LOWER WITH CONTRAST 02/09/2025 REASON FOR EXAM: 64-year-old male, LEFT CALF PAIN, ELEVATED CRP TECHNIQUE: Axial CT images of the left lower extremity obtained with intravenous contrast. Coronal and Sagittal reconstruction series were provided. CONTRAST: Isovue 370 VOLUME: 100mL One or more dose reduction techniques were used (e.g., Automated exposure control, adjustment of the mA and/or kV according to patient size, use of iterative reconstruction technique). RADIATION DOSE SUMMARY: CTDlvol: 15 mGy DLP: 1100 mGycm COMPARISON: None. FINDINGS: Bones: No acute osseous fracture or aggressive osseous lesions. No evidence of osteomyelitis. Joints: Mild degenerative changes of the left knee joint. The joint spaces of the left knee and ankle are maintained. No traumatic subluxation or dislocation. Soft Tissues: There is a thin, rim enhancing hypodense fluid collection within the superficial posterior compartment of the left leg, between the medial gastrocnemius and soleus muscles. This measures approximately 5.1 x 1.0 x11.7 cm (AP x TV x CC, series 2, image 96 and series 303, image 77). There is an additional rim enhancing hypodense fluid collection which arises from the medial head of the gastrocnemius in the lower thigh, only visible on axial imaging. CT/Extremity Lower WITH Contrast IMPRESSION: Abscess within the superficial posterior compartment of the left leg, between the medial gastrocnemius and soleus muscles. Additional partially visualized abscess within the medial head of the gastrocnemius within the lower thigh, only visible on axial imaging. CT of the left lower thigh is recommended for imaging completion. Urgent surgical consultation for possible incision and debridement is recommended. Reading Location: [facility] CC: Dr. Filipe Ybarra MD ~ Complaint Analyst: Signed [facility]02-26-2025 Evaluation note* Diagnosis Onset Date Resolution Status Admit Date Arthritis acute January 10, 2025 11:23am Malaise and fatigue acute Febru brian 2024 11:23am Pain of left calf inactive Februar y 2024 11:23am Arthritis acute January 17 8:36am Elevated C-reactive protein (CRP) acute January 17, 2025 8:36am Malaise and fatigue acute January 17, 2025 8:36am Myalgia acute January 17 8:36am [facility] Work Phone: 1(843) 791-674802-26-2025 Evaluation note* Diagnosis Onset Date Resolution Status Admit Date Arthritis acute January 10, 2025 11:23am Malaise and fatigue acute Febru 2024 11:23am Pain of left calf inactive y 2024 11:23am Arthritis acute January 17 8:36am Elevated C-reactive protein (CRP) acute January 17, 2025 8:36am Malaise and fatigue acute January 17, 2025 8:36am Myalgia acute January 17 8:36am Lumbar radiculopathy acute Jacky h 2024 10:45am Lumbar strain acute February 12, 2025 10:45am [facility] Work Phone: 1(346) 659-322302-26-2025 Evaluation note* Diagnosis Onset Date Resolution Status Admit Date Arthritis acute January 10, 2025 11:23am Malaise and fatigue acute Febru 2024 11:23am Pain of left calf inactive y 2024 11:23am Arthritis acute January 17 8:36am Elevated C-reactive protein (CRP) acute January 17, 2025 8:36am Malaise and fatigue acute January 17, 2025 8:36am Myalgia acute January 17 8:36am Lumbar radiculopathy acute Jacky h 2024 10:45am Lumbar strain acute February 12, 2025 10:45am Elevated C-reactive protein (CRP) acute February 14, 2025 1:08pm Lumbar radiculopathy acute Apri l 2024 1:08pm Myalgia acute February 14 1:08pm Traumatic rupture of left plantaris muscle acute February 14, 2025 1:08pm Borderline type 2 diabetes mellitus chronic February 14, 2025 1:08pm Hypertension chronic February 14, 2 025 1:08pm [facility] Work Phone: 1(486) 814-193602-26-2025 Evaluation note* Diagnosis Onset Date Resolution Status Admit Date Arthritis acute January 10, 2025 11:23am Malaise and fatigue acute Febru brian 2024 11:23am Pain of left calf inactive uar y 2024 11:23am Arthritis acute January 17 8:36am Elevated C-reactive protein (CRP) acute January 17, 2025 8:36am Malaise and fatigue acute January 17, 2025 8:36am Myalgia acute January 17 8:36am Lumbar radiculopathy acute Jacky h 2024 10:45am Lumbar strain acute February 12, 2025 10:45am Elevated C-reactive protein (CRP) acute February 14, 2025 1:08pm Lumbar radiculopathy acute Apri l 2024 1:08pm Myalgia acute February 14 1:08pm Borderline type 2 diabetes mellitus chronic February 14, 2025 1:08pm Hypertension chronic February 14, 2 025 1:08pm Traumatic rupture of left plantaris muscle inactive February 14, 2025 1:08pm Back pain acute March 26, 2025 2:36pm Lumbar radiculopathy acute March 26, 2025 2:36pm [facility] Work Phone: 1(643) 491-921005-13-2024 History and physical note Author Khadar Mead [facility] March 27, 2024 8:49am Note Date/Time March 27, 2024 7:22a [facility] Medical Records Department [address] [place] [address] History & Physical Exam 03/27/24 0721 MR#: [id number] Acct: [id number] Name: ZHENG WATKINS Rep #:[id number] : 1960 64 From: Khadar Mead MD PCP: Dr. Filipe Ybarra MD Status:R [facility] Location: [place] [address] History and Physical Date of Admission: 03/27/24 [facility] Complaint: hernias Accompanied by: Is patient in pain?: No Allergies No Known Allergies Allergy (Verified 03/16/24 08:09) Medications ascorbate calcium (vitamin C) 500 mg tablet 500 mg PO DAILY 11/05/21 [History Confirmed 03/16/24] aspirin 81 mg chewable tablet 81 mg PO DAILY 11/05/21 [History Confirmed 03/16/24] cholecalciferol (vitamin D3) 50 mcg (2,000 unit) capsule 50 mcg PO DAILY 11/05/21 [History Confirmed 03/16/24] docosahexaenoic acid 200 mg capsule (Algal [place]-3 DHA) mg PO 11/05/21 [History Confirmed 03/16/24] famotidine 20 mg tablet 20 mg PO DAILY 11/05/21 [History Confirmed 03/16/24] multivitamin (Daily Multi-Vitamin tablet) 1 tab PO DAILY 11/05/21 [History Confirmed 03/16/24] loratadine 10 mg tablet (Claritin) 10 mg PO DAILY 03/19/23 [History Confirmed 03/16/24] tadalafil 20 mg tablet 10 mg (1/2 x 20 mg) PO DAILY PRN sexual activity #30 tabs06/28/23 [Rx Confirmed 03/16/24] amlodipine 5 mg tablet 5 mg PO DAILY #90 tabs 01/05/24 [Rx Confirmed 03/16/24] doxazosin 4 mg tablet 4 mg PO BID 3 months #180 tabs 01/05/24 [Rx Confirmed 03/16/24] valsartan 160 mg-hydrochlorothiazide 25 mg tablet 1 tab PO DAILY #90 tabs 01/05/24 [Rx Confirmed 03/16/24] [facility] Medical History (Updated 03/16/24 @ 09:[address] Khadar Mead MD) Abdominal discomfort Borderline type 2 diabetes mellitus BPH (benign prostatic hyperplasia) Colon cancer screening Dermatitis Erectile dysfunction Flu vaccine need GERD (gastroesophageal reflux disease) Great toe pain Hyperglycemia Hypertension Obesity Seasonal allergies Umbilical hernia Surgical History History of right knee joint replacement Family History Other Heart disease Hypertension Myocardial infarction Social History Smoking Status: Former smoker how long ago did patient quit smokin11/15/1989 alcohol intake: current alcohol intake frequency: holidays/special occasions only what type of physical activity do you participate in: walking frequency: daily HPI HPI HPI: 64-year-old gentleman. I have most recently seen him June 09, 2022. He presented at that time wanting an umbilical herniorrhaphy and a right inguinal herniorrhaphy. Also considered a tap block. I had also seen him previously November 25, 2021 for the same issue. We were considering an umbilical herniorrhaphy with Ventralex mesh on laparoscopic right inguinal herniorrhaphy. He is had issue with uncontrolled hypertension and also significant venous insufficiency. The patient states only now has he had his hypertension better controlled. He is on multiple different medications that is being controlled by Dr. Filipe Ybarra. He has been on low-dose aspirin for 30 years. Has never had any documented cardiac or TRANSFORMATION MANAGER events. He does take doxazosin. He has nocturia x 2. He has never seen a urologist. He suspects that his right inguinal hernia has progressively enlarged. ROS General General: No weight change, appetite, fatigue, colon cancer, breast cancer or weakness HEENT HEENT: No difficulty swallowing, eye injury, eye surgery, swollen glands or hoarseness Endo Endocrine: No thyroid disease, diabetes mellitus, thyroid cancer, Hair loss, heat intolerance or cold intolerance Skin Skin: No rash or changing moles Musc Musculoskeletal: No back problems, arthritis, rheumatoid arthritis, gout or joint pain Cardio Cardiovascular: Yes high blood pressure; No murmur, pacemaker, heart disease, atrial fibrillation, heart attack, heart stent, palpitations, shortness of breat with exertion or chest pain Psych Psychiatric: No depression, anxiety or hearing voices Resp Respiratory: No shortness of breath, No sleep apnea, No cough, No COPD, No asthma, No emphysema and No wheezing Gastro Gastrointestinal: No abdominal pain, No nausea or vomiting, No diarrhea, No constipation, No blood in stool, No acid reflux, No hemorrhoids, No ulcers, No gallbladder problem and No black,tarry stools Frank Hematologic: Yes blood thinners, No blood disorders, No bleeding, No anemia and No blood clots Additional Details: baby aspirin/ fish oil Neuro Neurologic: No numbness, No tingling and No weakness Exam Const General: cooperative, healthy appearing, comfortable and no acute distress [facility] Head: normal to inspection Eyes General: appearance normal, both eyes and all related structures Neck Neck: normal visual inspection Chest Chest palpation & inspection: normal inspection of the chest Resp Effort & Inspection: normal respiratory effort Auscultation: clear to auscultation bilaterally Cardio Rate: regular rate Rhythm: regular rhythm GI Inspection: normal to inspection and obesity Palpation: soft Other: Umbilical hernia, approximately 2 cm diameter defect but difficult to appreciate Other: None reducible right inguinal hernia. Testicles descended. No defect on the left. Bilateral proximal thighs have significant superficial venous engorgement distention. Nontender Musc Cervical Spine: normal cervical lordosis Skin General: no rashes or lesions noted Neuro General: patient alert and patient awake Extrem Other: Bilateral lower extremities have very significant varicose veins. Hyperpigmentation noted. Psych Appearance: grossly normal Assessment and Plan Assessment and Plan (1) Inguinal hernia of right side without obstruction or gangrene: Status: Acute (2) Umbilical hernia: Status: Chronic Qualifiers: Obstruction and gangrene presence: without obstruction or gangrene Qualified Code(s): K42.9 - Umbilical hernia without obstruction or gangrene (3) BPH (benign prostatic hyperplasia): Status: Acute Qualifiers: Lower urinary tract symptom presence: symptoms present Lower urinary tract symptom detail: nocturia Qualified Code(s): N40.1 - Benign prostatic hyperplasia with lower urinary tract symptoms; R35.1 - Nocturia Plan: Patient presents with an umbilical hernia and a progressively enlarging right inguinal hernia. The right inguinal hernia is now incompletely reducible. I propose for him an umbilical herniorrhaphy with Ventralex mesh in combination with a laparoscopic right inguinal herniorrhaphy with mesh. He is aware of technique, benefit, risk and alternatives. It is of note that he has significant bilateral extremity superficial venous incompetency. Great care will need to be taken at the time of surgery to avoid any venous enlargement. He has nocturia x 2. He is already on doxazosin. We have notified Dr. Filiep Ybarra and she will assist with additional medications in hopes of preventing a postoperative urinary catheter. The patient is very much aware of the technique, benefit, risk, alternatives. He will need to delay returning to golf. We discussed potential trip plans thathe has particularly driving and he will need to wear support hose and exit the vehicle frequently. That trip is not scheduled till the end of April. He and his have had an opportunity ask and have questions answered. I have asked him to stop his low-dose aspirin as current recommendations are consistent with the same. I appreciate the option of assisting with his surgical care and appreciate the medical assistance regarding his urinary obstructive symptoms. Copy: Dr. Filipe Mead M.D., [place].S. I have examined the patient and the H&P has been reviewed. There are no clinicalchanges since date of exam. Khadar Mead M.D., [place]. 03/27/24 0849 <Electronically signed by Khadar Mead MD> Cosigner Signature (if applicable): CC: Dr. Filipe Ybarra MD; Dr. Khadar Mead MD~ Signed [facility] Work Phone: 1(935) 580-340512-02-2020 History of Present illness Narrative* Lizzy Cote (Rt), Lauren - 10/16/2020 12:50 PM EST Radiology Service Progress Note PATIENT NAME: Zheng Watkins DATE OF SERVICE: October 16, 2020 TIME: 1:12 PM PATIENT IDENTITY VERIFICATION COMPLETED USING TWO (2) IDENTIFIERS: Name and Date of confirmedby patient verbally. FALL SCREENING: Has the patient had 2 falls in the last year or 1 fall with injury or currently using an Ambulatory Assistive Device (Walker, Cane, Wheelchair, Crutches, etc.)? No PATIENT GENDER DATA: Male PATIENT RELEVANT IMPLANT DATA REVIEWED: Yes RADIOLOGY DEPARTMENT: General X-ray: Exam(s) Completed: Lower Extremity X- Ray(s): Toes, Right: PERIPHERAL IV DATA: Not applicable SIGNED BY: RT Ricardo October 16, 2020 1:12 PM documented in this encounterThe [facility]health SystemEvaluation note* Diagnosis Onset Date Resolution Status Hypertension chronic Venous insufficiency noneact james Contact dermatitis noneactiv e Dermatitis chronic Hypertension chronic Left leg swelling acute Redness and swelling of lower leg acute [facility] Work Phone: Evaluation note* Diagnosis Onset Date Resolution Status Left leg swelling acute Redness and swelling of lower leg acute Hypertension chronic Obesity chronic Umbilical hernia chronic Hypertension chronic Obesity chronic Hypertension chronic Obesity chronic Hypertension chronic Obesity chronic Flu vaccine need acute Erectile dysfunction chronic Hypertension chronic Hypertension chronic Upper respiratory infection noneactive Back pain noneactive Otitis media noneactive Fall noneactive Great toe pain acute Hypertension chronic [facility] Work Phone: Evaluation note* Diagnosis Onset Date Resolution Status Borderline type 2 diabetes mellitus acute Erectile dysfunction chronic Hypertension chronic Borderline type 2 diabetes mellitus acute Erectile dysfunction chronic GERD (gastroesophageal reflux disease) chronic Hypertension chronic [facility] Work Phone: Evaluation note* Diagnosis Onset Date Resolution Status Borderline type 2 diabetes mellitus acute Erectile dysfunction chronic GERD (gastroesophageal reflux disease) chronic Hypertension chronic Psoriasis acute Strain of right knee acute Inguinal hernia of right gilmer e without obstruction or gangrene acute BPH (benign prostatic hyperplasia) chronic Umbilical hernia chronic Inguinal hernia of right gilmer e without obstruction or gangrene acute Umbilical hernia chronic BPH (benign prostatic hyperplasia) chronic Hypertension [facility] Work Phone: Reason for referral (narrative)No reason for referral information availableWSamaritan Hospital Work Phone: Chief Complaint and Reason for Visit Chief Complaint SWELLING AND RASH ON CHEST 2 M FU DISCUSS HERNIA SURGERY Other specified soft tissue disorders Reason for Visit Hypertension Venous insufficiency Contact dermatitis Dermatitis Hypertension Left leg swelling Redness and swelling of lower leg Chief Complaint DISCUSS HERNIA SURGE RY Other specified soft tissue disorders 3 M FU 2 WK FU Amb Documentation 1 W FU 2 W FU 2 W FU COLD (12 DAYS LONG) 1 M FU Reason for Visit Left leg swelling Redness and swelling of lower leg Hypertension Obesity Umbilical hernia Hypertension Obesity Hypertension Obesity Hypertension Obesity Flu vaccine need Erectile dysfunction Hypertension Hypertension Upper respiratory infection Back pain Otitis media Fall Great toe pain Hypertension Chief Complaint BP AND MED FOLLOW UP 3 M FU Reason for Visit Borderline type 2 di abetes mellitus Erectile dysfunction Hypertension Borderline type 2 diabetes mellitus Erectile dysfunction GERD (gastroesophageal reflux disease) Hypertension Chief Complaint 3 M FU R KNEE/PAIN/RASH Hernia Rash ON LEG DISCUSS NEW MED Laparoscopic,Right Inguinal Hernia Repair & Umbili Laparoscopic,Right Inguinal Hernia Repair & Umbili Reason for Visit Borderline type 2 di abetes mellitus Erectile dysfunction GERD (gastroesophageal reflux disease) Hypertension Psoriasis Strain of right knee Inguinal hernia of right side without obstruction or gangrene BPH (benign prostatic hyperplasia) Umbilical hernia Inguinal hernia of right side without obstruction or gangrene Umbilical hernia BPH (benign prostatic hyperplasia) Hypertension Chief Complaint Admit Date poss dvt January 06, 2025 10:04am Pain January 10, 2025 11:23am FU January 17, 2025 8:36 am Reason for Visit Admit Date Arthritis January 10, 2025 11:23am Malaise and fatigue January 10, 2025 11:23am Pain of left calf January 10, 2025 11:23am Arthritis January 17, 2025 8:36 am Elevated C-reactive protein (CRP) January 17, 2025 8:36am Malaise and fatigue January 17, 2025 8:36 am Myalgia January 17, 2025 8:36 am Chief Complaint Admit Date poss dvt January 06, 2025 10:04am Pain January 10, 2025 11:23am FU January 17, 2025 8:36 am Pain in left lower leg February 09, 2025 7:53am SCIATICA PAIN February 12, 2025 10: 45am abnormal xray February 13, 2025 10:5 7am Reason for Visit Admit Date Arthritis January 10, 2025 11:23am Malaise and fatigue January 10, 2025 11:23am Pain of left calf January 10, 2025 11:23am Arthritis January 17, 2025 8:36 am Elevated C-reactive protein (CRP) January 17, 2025 8:36am Malaise and fatigue January 17, 2025 8:36 am Myalgia January 17, 2025 8:36 am Lumbar radiculopathy February 12, 2025 10 :45am Lumbar strain February 12, 2025 10: 45am Chief Complaint Admit Date poss dvt January 06, 2025 10:04am Pain January 10, 2025 11:23am FU January 17, 2025 8:36 am Pain in left lower leg February 09, 2025 7:53am SCIATICA PAIN February 12, 2025 10: 45am abnormal xray February 13, 2025 10:5 7am 1 M FU February 14, 2025 1:08 pm Reason for Visit Admit Date Arthritis January 10, 2025 11:23am Malaise and fatigue January 10, 2025 11:23am Pain of left calf January 10, 2025 11:23am Arthritis January 17, 2025 8:36 am Elevated C-reactive protein (CRP) January 17, 2025 8:36am Malaise and fatigue January 17, 2025 8:36 am Myalgia January 17, 2025 8:36 am Lumbar radiculopathy February 12, 2025 10 :45am Lumbar strain February 12, 2025 10: 45am Elevated C-reactive protein (CRP) February 14, 2025 1:08pm Lumbar radiculopathy February 14, 2025 1:0 8pm Myalgia February 14, 2025 1:08 pm Traumatic rupture of left plantaris musc le February 14, 2025 1:08pm Borderline type 2 diabetes mellitus Apri l 2024 1:08pm Hypertension February 14, 2025 1:08 pm Chief Complaint Admit Date poss dvt January 06, 2025 10:04am Pain January 10, 2025 11:23am FU January 17, 2025 8:36 am Pain in left lower leg February 09, 2025 7:53am SCIATICA PAIN February 12, 2025 10: 45am abnormal xray February 13, 2025 10:5 7am 1 M FU February 14, 2025 1:08 pm RASH ON LOWER BACK, RIGHT EYE SWOLLEN Ap ril 2024 9:15am FU ON SCIATICA March 26, 2025 2:36p m LUMBAR STRAIN W/RADICULOPATHY/RX HERE Ma y 2024 8:30am Lumbar radiculopathy March 28, 2025 9:32 am Reason for Visit Admit Date Arthritis January 10, 2025 11:23am Malaise and fatigue January 10, 2025 11:23am Pain of left calf January 10, 2025 11:23am Arthritis January 17, 2025 8:36 am Elevated C-reactive protein (CRP) January 17, 2025 8:36am Malaise and fatigue January 17, 2025 8:36 am Myalgia January 17, 2025 8:36 am Lumbar radiculopathy February 12, 2025 10 :45am Lumbar strain February 12, 2025 10: 45am Elevated C-reactive protein (CRP) February 14, 2025 1:08pm Lumbar radiculopathy February 14, 2025 1:0 8pm Myalgia February 14, 2025 1:08 pm Borderline type 2 diabetes mellitus Apri l 2024 1:08pm Hypertension February 14, 2025 1:08 pm Traumatic rupture of left plantaris musc le February 14, 2025 1:08pm Back pain March 26, 2025 2:36p m Lumbar radiculopathy March 26, 2025 2:36 pm Chief Complaint Admit Date poss dvt January 06, 2025 10:04am Pain January 10, 2025 11:23am FU January 17, 2025 8:36 am Pain in left lower leg February 09, 2025 7:53am SCIATICA PAIN February 12, 2025 10: 45am abnormal xray February 13, 2025 10:5 7am 1 M FU February 14, 2025 1:08 pm RASH ON LOWER BACK, RIGHT EYE SWOLLEN Ap ril 2024 9:15am FU ON SCIATICA March 26, 2025 2:36p m LUMBAR STRAIN W/RADICULOPATHY/RX HERE Ma y 2024 8:30am Lumbar radiculopathy March 28, 2025 9:32 am SWELLING IN HANDS AND CALFS April 27 12:20pm Family History Relationship Condition Age at Onset Recorded Date/T sara Not Specified Cardiac disease Unknown Myocardial infarction Unknown Hypertension Unknown Advance Directives Advance Directive Response Recorded Date/ Time Name of Medical Power of Nuclear Station Operator MARLI JUNE March 20, 2024 1:32pm Living Will Yes March 20, 2024 1: 32pm Power of Nuclear Station Operator Yes March 20, 2024 1:32pm Advance Directive Response Recorded Date/ Time Living Will No January 06 025 11:43am Power of Nuclear Station Operator No January 06, 2025 11:43am Advance Directive Response Recorded Date/ Time Living Will No January 06 11:43am Do you have a Healthcare Power of Nuclear Station Operator? No January 06, 2025 11:43am Living Will No February 13, 2025 11:10am Do you have a Healthcare Power of Nuclear Station Operator? No February 13, 2025 11:10am Summary Purpose Additional Source Comments Goals (unrecognized section and content) Goals may be documented in a n alternate sectionGoals may be documented in an alternate sectionGoals may be documented in an alternate sectionGoals may be documented in an alternate sectionGoals may be documented in an alternate sectionGoals may be documented in an alternate sectionGoals may be documented in an alternate sectionGoals may be documented in an alternate sectionGoals may be documented in an alternate section Care Teams (unrecognized sec tion and content) Team Status: Active Member Role Status Dates BRAYDEN JOSE Family Provider Active Dr. Filipe Ybarra MD Primary Care Provider Active Team Status: Inactive Member Role Status Dates Dr. Filipe Ybarra MD Primary Care P rovider, Attending Provider, Referring Provider Active Team Status: Inactive Member Role Status Dates Dr. Filipe Ybarra MD Primary Care Provider, Atten ding Provider Active Team Status: Inactive Member Role Status Dates Dr. Filipe Ybarra MD Primary Care Provider, Refer ring Provider Active Matthew ESQUIVEL, PA Attending Provider Active Team Status: Inactive Member Role Status Dates Dr. Filipe Ybarra MD Primary Care Provider, Refer ring Provider Active Dr. Khadar Mead MD Attending Provider Active Team Status: Inactive Member Role Status Dates Dr. Filipe Ybarra MD Primary Care Provider, Refer ring Provider Active Jessica ESQUIVEL PA-C Attending Provider Active Team Status: Active Member Role Status Dates Dr. Filipe Ybarra MD Primary Care Provider Active Dr. Khadar Mead MD Attending Provid er, Referring Provider, Other Provider Active Team Status: Inactive Member Role Status Dates Dr. Filiep Ybarra MD Primary Care Provider Active Dr. Khadar Mead MD Attending Provider, Referring Provider Active Outside [employer] Consultant Relationship Specialty Start Date End Date Brayden Garcia [address] [place] [id number] PCP - General 09/22/05 Team Status: Active Member Role Status Dates Dr. Filipe Ybarra MD Primary Care Provider Active Team Status: Inactive Member Role Status Dates Dr. Filipe Ybarra MD Primary Care Provider Active Start: January 06, 2025 End: January 06, 2025 Albert Lopez MD Attending Provider Active Star t: January 06, 2025 End: January 06, 2025 Albert Lopez MD Emergency Provider Active Star t: January 06, 2025 End: January 06, 2025 Team Status: Active Member Role Status Dates Dr. Filipe Ybarra MD Primary Care Provider Active Start: January 06, 2025 Dr. Lior Wall MD Attending Provider Active S tart: January 06, 2025 Albert Lopez MD Referring Provider Active Star t: January 06, 2025 Team Status: Inactive Member Role Status Dates Dr. Filipe Ybarra MD Primary Care Provider Active Start: January 10, 2025 End: January 10, 2025 Dr. Filipe Ybarra MD Attending Provider Active Start: January 10, 2025 End: January 10, 2025 Dr. Filipe Ybarra MD Referring Provider Active Start: January 10, 2025 End: January 10, 2025 Team Status: Inactive Member Role Status Dates Dr. Filipe Ybarra MD Primary Care Provider Active Start: January 17, 2025 End: January 17, 2025 Dr. Filipe Ybarra MD Attending Provider Active Start: January 17, 2025 End: January 17, 2025 Dr. Filipe Ybarra MD Referring Provider Active Start: January 17, 2025 End: January 17, 2025 Team Status: Active Member Role Status Dates Dr. Filipe Ybarra MD Primary Care Provider Active Start: January 17, 2025 Dr. Filipe Ybarra MD Attending Provider Active Start: January 17, 2025 Dr. Filipe Ybarra MD Referring Provider Active Start: January 17, 2025 Team Status: Active Member Role Status Dates Dr. Filipe Ybarra MD Primary Care Provider Active Start: February 09, 2025 Dr. Filipe Ybarra MD Attending Provider Active Start: February 09, 2025 Dr. Filipe Ybarra MD Referring Provider Active Start: February 09, 2025 Team Status: Inactive Member Role Status Dates Dr. Filipe Ybarra MD Primary Care Provider Active Start: February 12, 2025 End: February 12, 2025 Dr. Filipe Ybarra MD Referring Provider Active Start: February 12, 2025 End: February 12, 2025 Shady Chan PA, PA Attending Provider Active Start: February 12, 2025 End: February 12, 2025 Team Status: Inactive Member Role Status Dates Dr. Filipe Ybarra MD Primary Care Provider Active Start: February 13, 2025 End: February 13, 2025 Dr. Madi Brooks MD Emergency Provider Active Sta rt: February 13, 2025 End: February 13, 2025 Team Status: Inactive Member Role Status Dates Dr. Filipe Ybarra MD Primary Care Provider Active Start: February 09, 2025 End: February 09, 2025 Dr. Filipe Ybarra MD Attending Provider Active Start: February 09, 2025 End: February 09, 2025 Dr. Filpie Ybarra MD Referring Provider Active Start: February 09, 2025 End: February 09, 2025 Team Status: Inactive Member Role Status Dates Dr. Filipe Ybarra MD Primary Care Provider Active Start: February 14, 2025 End: February 14, 2025 Dr. Filipe Ybarra MD Attending Provider Active Start: February 14, 2025 End: February 14, 2025 Dr. Filipe Ybarra MD Referring Provider Active Start: February 14, 2025 End: February 14, 2025 Team Status: Inactive Member Role Status Dates Dr. Filipe Ybarra MD Primary Care Provider Active Start: February 13, 2025 End: February 13, 2025 Dr. Madi Brooks MD Attending Provider Active Sta rt: February 13, 2025 End: February 13, 2025 Dr. Madi Brooks MD Emergency Provider Active Sta rt: February 13, 2025 End: February 13, 2025 Team Status: Inactive Member Role Status Dates Dr. Filipe Ybarra MD Primary Care Provider Active Start: March 12, 2025 End: March 12, 2025 Dr. Filipe Ybarra MD Referring Provider Active Start: March 12, 2025 End: March 12, 2025 Shady Chan PA, PA Attending Provider Active Start: March 12, 2025 End: March 12, 2025 Team Status: Inactive Member Role Status Dates Dr. Filipe Ybarra MD Primary Care Provider Active Start: March 26, 2025 End: March 26, 2025 Dr. Filipe Ybarra MD Attending Provider Active Start: March 26, 2025 End: March 26, 2025 Dr. Filipe Ybarra MD Referring Provider Active Start: March 26, 2025 End: March 26, 2025 Team Status: Active Member Role Status Dates Dr. Filipe Ybarra MD Primary Care Provider Active Start: March 28, 2025 SIERRA Nguyen Attending Provider Active Start: March 28, 2025 SIERRA Nguyen Referring Provider Active Start: March 28, 2025 Team Status: Inactive Member Role Status Dates Dr. Filipe Ybarra MD Primary Care Provider Active Start: March 28, 2025 End: March 28, 2025 Dr. Filipe Ybarra MD Attending Provider Active Start: March 28, 2025 End: March 28, 2025 Dr. Filipe Ybarra MD Referring Provider Active Start: March 28, 2025 End: March 28, 2025 Team Status: Inactive Member Role Status Dates Dr. Filipe Ybarra MD Primary Care Provider Active Start: April 27, 2025 End: April 27, 2025 Dr. Filipe Ybarra MD Referring Provider Active Start: April 27, 2025 End: April 27, 2025 SIERRA Andres Attending Provider Active St art: April 27, 2025 End: April 27, 2025 Source Comments (unrecognize d section and content) In the event this informatio n is protected by the Federal Confidentiality of Alcohol and Drug Abuse Patient Records regulations: The Federal rules restrict any use of the information to criminally investigate or prosecute any alcohol or drug abuse patient.[facility] (unrecognized sect ion and content) No Status Records Found INFORMATION SOURCE (unrecogn ized section and content) DATE CREATED AUTHOR 04/13/2025 [facility] FOR RECORDS PERTAINING TO PATIENTS WHO ARE OR HAVE BEEN ENROLLED IN A CHEMICAL DEPENDENCY/SUBSTANCEABUSE PROGRAM, SOME INFORMATION MAY BE OMITTED. This clinical summary was aggregated from multiple sources. Caution should be exercised in using it in the provision of clinical care. This summary normalizes information from multiple sources, and as a consequence, information in this document may materially change the coding, format and clinical context of patient data. In addition, data may be omitted in some cases. CLINICAL DECISIONS SHOULD BE BASED ON THE PRIMARY CLINICAL RECORDS. [facility]. provides no warranty or guarantee of the accuracy or completeness of information in this document.
== END | disposition home or self-care (01) ==
LOC: CVS 14:11
PROVIDERS: PCP Internal Medicine; Referring Provider Physician Assistant; Visit Provider Physician Assistant
DX: M79.89 Other specified soft tissue disorders (principal)
CPT/HCPCS: 93971

== ENCOUNTER 2025-05-16 01:01 | Emergency (ER) | payer MEDICARE, SELFPAY ==
[2025-05-16 01:02] VITALS: BP 150/81; PULSE 90; RESP 16; TEMP 37; O2SAT 92; BMI 33.2
--- NOTE | 2025-05-16 03:06 | EX.ED.DYSGE1 ---
HPI History of Present Illness Chief Complaint: Back Informant: patient Narrative Narrative: Patient is a 65-year-old male with past medical history of hypertension and GERD. He states he has been struggling with low back pain for a long time. He states however his symptoms he feels are worsening at this time. He reports radiation of pain down the right leg. He denies any recent trauma. He denies any loss of bowel or bladder control or IV drug use. He reports that he is scheduled to have an MRI in the next few days but he cannot sleep secondary to the worsening pain and therefore comes in for evaluation. He also denies any recent back surgeries or injections [facility] Medical History Back pain Abnormal computed tomography of lower extremity Leg abscess Lumbar radiculopathy Lumbar strain Elevated C-reactive protein (CRP) Myalgia Malaise and fatigue Arthritis Varicose veins of both legs with edema Hypersomnolence Wears glasses Alcohol use Rash History of steroid therapy Gastric reflux Chewing tobacco dependence in remission History of edema BPH (benign prostatic hyperplasia) Borderline type 2 diabetes mellitus Abdominal discomfort Great toe pain Flu vaccine need Dermatitis Obesity Hyperglycemia Colon cancer screening Hypertension Erectile dysfunction Umbilical hernia GERD (gastroesophageal reflux disease) Seasonal allergies Home Medications ?Medication ?Instructions ?Recorded ?Last Taken ?Type ascorbate calcium (vitamin C) 500 1,000 mg PO DAILY 11/05/21 02/13/25 History mg tablet cholecalciferol (vitamin D3) 50 50 mcg PO DAILY 11/05/21 02/13/25 History mcg (2,000 unit) capsule multivitamin (Daily Multi-Vitamin 1 tab PO DAILY 11/05/21 02/13/25 History tablet) loratadine 10 mg tablet (Claritin) 10 mg PO DAILY PRN allergy symptoms 03/19/23 02/13/25 History omega 3 350 mg-dha 235 mg-epa 90 1 cap PO DAILY 03/20/24 02/13/25 History mg-fish oil 597 mg capsule,delay rel ([place]enton-3) aspirin 81 mg tablet,delayed 81 mg PO DAILY 08/22/24 02/13/25 History release (Adult Aspirin Regimen) tadalafil 20 mg tablet 10 mg (1/2 x 20 mg) PO DAILY #30 09/18/24 Unknown Rx TABLETS famotidine 20 mg tablet (Acid 20 mg PO DAILY 02/13/25 02/13/25 History Controller) amlodipine 5 mg tablet 5 mg PO DAILY #90 tabs 04/10/25 Unknown Rx valsartan 160 1 tab PO DAILY #90 tabs 04/10/25 Unknown Rx mg-hydrochlorothiazide 25 mg tablet doxazosin 4 mg tablet 4 mg PO BID 3 months #180 tabs 04/11/25 Unknown Rx prednisone 10 mg tablet 10 mg PO DIRECTED #39 tabs 04/27/25 Unknown Rx gabapentin 300 mg capsule 300 mg PO TID #90 caps 05/16/25 Unknown Rx prednisone 20 mg tablet 40 mg (2 x 20 mg) PO DAILY 5 days 05/16/25 Unknown Rx #10 tabs Allergy/AdvReac Type Severity Reaction Status Date / Time No Known Allergies Allergy Verified 04/27/25 12:25 Family History Other Heart disease Hypertension Myocardial infarction Surgical History Status post inguinal hernia repair Social History household members: spouse Smoking Status: Former smoker how long ago did patient quit smokin11/15/1989 alcohol intake: current alcohol intake frequency: holidays/special occasions only what type of physical activity do you participate in: walking frequency: daily ROS ROS ED Constitutional Constitutional ED: Denies chills or fever(s) Eyes Eyes: Denies change in vision ENT ENT ED: Denies sore throat Respiratory/Chest Respiratory/Chest: Denies cough or dyspnea Gastrointestinal Gastrointestinal: Denies abdominal pain, diarrhea, nausea or vomiting Genitourinary Genitourinary ED: Denies dysuria or hematuria Musculoskeletal Musculoskeletal: Reports back pain Integumentary Denies rash Neurologic Neurologic: Denies headache(s) Hematologic/Lymphatic Hematologic/Lymphatic: Denies easy bleeding or easy bruising EXAM Physical Exam Const Vital Signs: 05/16/25 01:02 Temperature 98.6 F Temperature Source Oral Pulse Rate 90 Respiratory Rate 16 Blood Pressure 150/81 H Blood Pressure Mean 104 Pulse Ox 92 Positive well nourished, well developed and obese General Appearance ED: well developed; Negative for pallor Nutritional Appearance: obese HEENT HEENT Narrative: Normocephalic atraumatic Eyes PERRL and EOMs intact bilaterally General Eye ED: Negative for scleral icterus Neck supple Resp normal respiratory effort and clear to auscultation bilaterally Cardio regular rate and regular rhythm Rate: other Other Details: Radial and carotid pulses equal and symmetric Back/Spine Back/Spine Narrative: No bony deformity or step-off of the thoracic or lumbar spine No saddle anesthesia, no clonus or Babinski, patellar reflex is plus 1 out of 4 on the right and plus 2 out of 4 on the left, straight leg raise is positive on right as well. Extremity normal to inspection Extremity Narrative: No bony deformity or joint effusion noted Compartments are soft and compressible going against compartment syndrome Negative Homans' sign bilaterally Neuro oriented x3 and CN's II-XII intact bilaterally Sensorium / Orientation: alert Psych mental status grossly normal Skin no rashes or lesions noted and no wounds General Skin Exam: Negative for jaundice or pallor MDM MDM MDM Narrative Medical decision making narrative: Patient arrived to the ER hypertensive otherwise with stable vitals. He reported longstanding back pain that have worsened recently without trauma. He denied loss of bowel or bladder control or IV drug use going against cauda equina or epidural abscess. Without report of recent back injections or surgery also I have low concern for discitis. His history and exam is consistent with lumbar radiculopathy. However he is neurovascularly intact so therefore there is no need for emergent orthopedic/spine surgery consultation. As he has an MRI scheduled in the next 1 to 2 days I do not feel the need for emergent imaging either. Therefore he will be given symptomatic care and is otherwise safe for discharge History & Record Review Discussion w/independent historian: Patient Discharge Plan Triage Chief Complaint: Back ED Provider: Sreekanth Campo Dx/Rx/DC Orders Clinical Impression: Acute lumbar radiculopathy, Hypertension, GERD (gastroesophageal reflux disease) Instructions: Understanding Lumbar Radiculopathy Prescriptions: New prednisone 20 mg tablet 40 mg PO DAILY 5 Days Qty: 10 0RF gabapentin 300 mg capsule 300 mg PO TID Qty: 90 0RF No Action multivitamin [Daily Multi-Vitamin] Tablet 1 tab PO DAILY ascorbate calcium (vitamin C) 500 mg tablet 1,000 mg PO DAILY cholecalciferol (vitamin D3) 50 mcg (2,000 unit) capsule 50 mcg PO DAILY loratadine [Claritin] 10 mg tablet 10 mg PO DAILY PRN (Reason: allergy symptoms) aspirin [Adult Aspirin Regimen] 81 mg tablet,delayed release (DR/EC) 81 mg PO DAILY prednisone 10 mg tablet 10 mg PO DIRECTED Qty: 39 0RF Rx Instructions: see taper instructions: 5 tabs x 3 days, 4 tabs x 3 days, 3 tabs x 2 days, 2 tabs x 2 days, 1 tab x 2 days [place]enton-3 350 mg-235 mg- 90 mg-597 mg capsule,delayed release(DR/EC) 1 cap PO DAILY famotidine [Acid Controller] 20 mg tablet 20 mg PO DAILY tadalafil 20 mg tablet 10 mg PO DAILY Qty: 30 3RF amlodipine 5 mg tablet 5 mg PO DAILY Qty: 90 1RF valsartan-hydrochlorothiazide 160-25 mg tablet 1 tab PO DAILY Qty: 90 1RF doxazosin 4 mg tablet 4 mg PO BID 90 Days Qty: 180 1RF Primary Care Provider: Filipe Ybarra Referrals: Joey Hendricks MD [Med Staff - Active Staff] - Filipe Ybarra MD [Primary Care Provider] - Activity Restrictions/Additional Instructions: Please obtain your MRI as this will definitively show if there is nerve impingement causing your symptoms. However your exam does suggest this. Therefore take the steroid to reduce inflammation and the gabapentin to reduce nerve firing which will help control pain/symptoms. Return to the ER should you have any further concerns Print Language: Citizen [place] Disposition Disposition: Home, Self Care Discharge Date/Time: 05/16/25 03:23
--- OUTSIDE RECORDS SUMMARY | 2025-05-16 03:10 | XMS RPT_ITS | CCD ---
Author Organization [facility] Care Team Providers Care Medical Scientific Officer Name Role Phone Dr. Filipe Ybarra Primary Care Provider [phone] Dr. Filipe Ybarra Referring Provider [phone] Ric SWEENEY, ABEL Lang Attending Provider [phone] Tate, Dr. Dent Attending Provider [phone] Dr. Khadar Mead Attending [...] Referring Provider Dr. Khadar Mead Other Provider Garcia Brayden Escobarzabeth Primary Care Provider Tate FELDER, Dr. Dent Primary Care Provider Albert Lopez MD Attending Provider Albert Lpoez MD Emergency Provider Dr. Lior Wall MD Attending Provider John FELDER, Albert Referring Provider Tate FELDER, Dr. Dent Attending Provider Dr. Filipe Ybarra MD Referring Provider Shady Hampton Attending Provider Todd FELDER, Dr. Barraza Emergency Provider Dr. Madi Brooks MD Attending Provider Shady Hampton Referring Provider Luis Regan Attending Provider Luis Regan Referring Provider Oleghe, Efewongbe Attending Unavailable Oleghe, Efewongbe Referring Unavailable Oleghe, Efewongbe Primary Care Unavailable Oleghe, Efewongbe Attending Unavailable Oleghe, Efewongbe Primary Care Unavailable Oleghe, Efewongbe Referring Unavailable Oleghe, Efewongbe Primary Care Unavailable Albert Lopez Attending Unavailable Oleghe, Efewongbe Referring Unavailable Oleghe, Efewongbe Primary Care Unavailable Oleghe, Efewongbe Attending Unavailable Oleghe, Efewongbe Primary Care Unavailable Luis Regan Attending Unavailable Luis Regan Referring Unavailable Oleghe, Efewongbe Attending Unavailable Oleghe, [...] Unavailable Albert Lopez Referring Unavailable Oleghe, Efewongbe Attending Unavailable Oleghe, Efewongbe Primary Care Unavailable Oleghe, Efewongbe Referring Unavailable Oleghe, Efewongbe Primary Care Unavailable Khadar Mead Attending Unavailable Mary Bridges Attending Unavailable Oleghe, Efewongbe Primary Care Unavailable Oleghe, Efewongbe Referring Unavailable Oleghe, Efewongbe Referring Unavailable Oleghe, Efewongbe Primary Care Unavailable Luis Regan Attending Unavailable Oleghe, Efewongbe Referring Unavailable Oleghe, Efewongbe Attending Unavailable Oleghe, Efewongbe Primary Care Unavailable Oleghe, Efewongbe Referring Unavailable Oleghe, Efewongbe Primary Care Unavailable Shady Hampton Attending Unavailable Oleghe, Efewongbe Primary Care Unavailable Madi Brooks Attending Unavailable Oleghe, Efewongbe Referring Unavailable Oleghe, Efewongbe Attending Unavailable Oleghe, Efewongbe Primary Care Unavailable Oleghe, Efewongbe Attending Unavailable Oleghe, Efewongbe Referring Unavailable Oleghe, Efewongbe Primary Care Unavailable Oleghe, Efewongbe Attending Unavailable Oleghe, Efewongbe Primary Care Unavailable Oleghe, Efewongbe Referring Unavailable Oleghe, Efewongbe Primary Care Unavailable Luis Regan Referring Unavailable Luis Regan Attending Unavailable Oleghe, Efewongbe Referring Unavailable Oleghe, Efewongbe Primary Care Unavailable Shady Hampton Attending Unavailable Oleghe, Efewongbe Primary Care Unavailable Oleghe, Efewongbe Attending Unavailable Oleghe, Efewongbe Referring Unavailable Oleghe, Efewongbe Referring Unavailable Oleghe, Efewongbe Primary Care Unavailable Filipe Ybarra Attending Unavailable Medications Current Medications Medication Drug Class(es) Dates Sig (Normalized) Sig (Original) aspirin 81 mg delayed release oral tablet (18 sources) Platelet Aggregation Inhibitor, Nonsteroidal Anti-inflammatory Drug [...] 9:13am calcium ascorbate 500 mg oral tablet (11 sources) Start: 11-05-2021 take 2 tablets by [...] 2021 1:00am cholecalciferol 0.05 mg oral capsule (11 sources) Vitamin D Start: 11-05-2021 take 1 capsule by mouth once daily Cholecalciferol (Vitamin D3) 50 mcg (2,000 unit) capsule Active 50 ug PO DAILY November 05, 2021 1:00am docosahexaenoic acid 200 mg oral capsule (3 sources) Start: 11-05-2021 Docosahexaenoic Acid (Algal [place]-3 Dha) 200 mg capsule Active MG PO November 05, 2021 12:00am famotidine 20 mg oral tablet (16 sources) Histamine-2 Receptor Antagonist Start: 02-13-2025 take [...] 05, 2021 1:00am September 01, 2024 12:28pm loratadine 10 mg oral tablet (20 sources) Start: 03-19-2023 take 1 tablet by [...] 25, 2022 11:50am Multivitamin (Daily Multi-Vitamin) tablet (11 sources) Start: 11-05-2021 Multivitamin ( Daily Multi-Vitamin) tablet Active 1 {tbl} PO DAILY November 05, 2021 1:00am Start: 11-05-2021 take 1 tablet by rainer once daily Multivitamin (Daily Multi-Vitamin) tablet Active 1 TABLET PO DAILY November 05, 2021 12:00am Start: 11-05-2021 take 1 tablet by rainer once daily Multivitamin (Daily Multi-Vitamin) tablet Active 1 TABLET PO DAILY November 05, 2021 1:00am [place] 2-Wsg-Nvz-Fish Oil ([place]-3) 350 mg-235 mg- 90 mg-597 mg capsule,delayed release(DR/EC) (8 sources) Start: 03-20-2024 [place] 3-Dha-Ep a-Fish Oil ([place]-3) 350 mg-235 mg- 90 mg-597 mg capsule,delayed release(DR/EC) Active 1 NMA PO DAILY March 20, 2024 12:00am Start: 03-20-2024 take 1 capsule by [facility] once daily [place] 2-Uco-Vtt-Fish Oil ([place]-3) 350 mg-235 mg- 90 mg-597 mg capsule,delayed release(DR/EC) Active 1 CAP PO DAILY March 20, 2024 12:00am predniSONE 10 mg oral tablet (20 sources) Start: 04-27-2025 Prednisone 10 mg tablet Active 10 mg PO As Directed 39 April 27, 2025 12:00am see taper instructions: 5 tabs x 3 days, 4 tabs x 3 days, 3 tabs x 2 days, 2 tabs x 2 days, 1 tab x 2 days Start: 02-12-2025 End: 03-26-2025 take 4 tablets [...] and 1 tab once daily days 10-12. tadalafil 20 mg oral tablet (20 sources) [...] / HYDROcodone bitartrate 5 mg oral tablet (8 sources) Opioid Agonist Start: 03-27-2024 End: 05-03-2024 Hydrocodone-Acetami nophen 5-325 mg tablet Discontinued 1 {tbl} PO EVERY 6 HOURS as needed for pain 06 16March 27, 2024 May 03, 2024 9:15am Start: 03-27-2024 take 1 tablet by rainer th every six hours Hydrocodone-Acetaminophen Active 1 TABLE T PO EVERY 6 HOURS 8 March 27, 2024 200 actuat albuterol 0.09 mg/actuat dry powder inhaler (10 sources) beta2-Adrenergic Agonist Start: 09-08-2022 End: 12-11-2022 Albuterol Sulfate 90 mcg/actuation aerosol powdr breath activated Discontinued 2 NMA INHALATION Q4H as needed September 08, 2022 12:00am December 11, 2022 10:34am Start: 09-08-2022 End: 12-11-2022 Albuterol Sulfate Discontinu ed 2 INH INHALATION Q4H September 08, 2022 12:00am December 11, 2022 10:34am amLODIPine 5 mg oral tablet (20 sources) Dihydropyridine Calcium Channel Aury Start: 03-20-2022 End: 04-10-2025 take 1 tablet by mouth once daily Amlodipine 5 mg tablet Discontinued 5 mg PO DAILY November 27, 2024 5:28pm April 10, 2025 10:16am Start: 11-26-2021 End: 03-20-2022 take 1 tablet by mouth once daily Amlodipine 10 mg tablet Discontinued 10 mg PO DAILY December 22, 2021 11:11am March 20, 2022 1:24pm amoxicillin 875 mg / clavulanate 125 mg oral tablet (10 sources) Penicillin-class Antibacterial Start: 09-08-2022 End: 09-25-2022 Amoxicillin-Pot Clavulanate 875-125 mg tablet Discontinued 1 {tbl} PO Q12H September 08, 2022 12:00am September 25, 2022 11:49am Start: 09-08-2022 End: 09-25-2022 take 1 tablet by mouth every twelve hours Amoxicillin-Pot Clavulanate Discontinued 1 TABLET PO Q12H September 08, 2022 12:00am September 25, 2022 11:49am benzonatate 100 mg oral capsule (10 sources) Non-narcotic Antitussive Start: 09-08-2022 End: 03-19-2023 take 1 capsule by mouth twice daily as needed Benzonatate 100 mg capsule Discontinued 100 mg PO TWICE A DAY as needed September 08, 2022 12:00am March 19, 2023 8:43am betamethasone 0.5 mg/ml / clotrimazole 10 mg/ml topical cream (16 sources) Azole Antifungal, Corticosteroid Start: 03-20-2024 End: [...] 12:00am February 16, 2024 12:05am CD cream (11 sources) Start: 11-05-2021 End: 06-19-2022 CD cream [...] Activ e TOPICAL November 05, 2021 1:00am doxazosin 4 mg oral tablet (20 sources) alpha-Adrenergic Aury Start: 05-03-2023 End: 04-11-2025 take 1 tablet by mouth twice daily Doxazosin 4 mg tablet Discontinued 4 mg PO TWICE A DAY 180 90 November 27, 2024 5:27pm April 11, 2025 5:26pm Start: 07-16-2022 End: 05-03-2023 take 4 mg [...] 05, 2022 1:00am February 06, 2022 9:45am doxycycline hyclate 100 mg oral capsule (7 sources) Tetracycline-class Drug Start: 08-22-2024 End: 09-05-2024 take 1 capsule by mouth twice daily Doxycycline Hyclate 100 mg capsule Discontinued 100 mg PO TWICE A DAY August 22, 2024 12:00am September 04, 2024 12:00am September 05, 2024 12:08am finasteride 5 mg oral tablet (8 sources) 5-alpha Reductase Inhibitor Start: 03-22-2024 End: [...] 22, 2022 4:19pm March 19, 2023 9:05am hydroCHLOROthiazide 25 mg / valsartan 160 mg oral tablet (20 sources) Thiazide Diuretic, Angiotensin 2 Receptor Aury Start: 03-19-2023 End: 04-10-2025 Valsartan-Hydrochlorothiazid e 160-25 mg tablet Discontinued 1 {tbl} PO DAILY November 27, 2024 5:27pm April 10, 2025 10:16am Start: 03-19-2023 End: 01-05-2024 take 1 tablet by mouth once daily Valsartan-Hydrochlorothiazide Discontinu ed 1 TABLET PO DAILY October 15, 2023 5:10pm January 05, 2024 9:59pm metaxalone 800 mg oral tablet (5 sources) Start: 02-12-2025 End: 03-26-2025 take 1 tablet by mouth three times daily as needed for pain Metaxalone 800 mg tablet Discontinued 800 mg PO THREE TIMES A DAY as needed for muscle pain February 12, 2025 12:00am March 26, 2025 3:00pm methylPREDNISolone 4 mg oral tablet (11 sources) Corticosteroid Start: 03-20-2022 End: 04-08-2022 take [...] 24 hr Discontinued 50 mg PO DAILY July 31, 2022 12:00am August 18, 2022 11:39am sildenafil 100 mg oral tablet (20 sources) [...] activity triamcinolone acetonide 1 mg/ml topical cream (20 sources) Corticosteroid Start: 04-08-2022 End: 07-17-2022 Triamcinolone Acetonide 0.1 % cream Discontinued 1 NMA TOPICAL TWICE A DAY as needed for Dermatitis 453.6 June 11, 2022 10:58am July 17, 2022 10:55am valACYclovir 1000 mg oral tablet (3 sources) Herpesvirus Nucleoside Analog DNA Polymerase Inhibitor, [...] Translations: [Umbilical hernia without obstruction or gangrene] Episodic Abdominal pain (9 sources) Abdominal discomfort; Translations: [Unspecified abdominal pain] 03-19-2023 Episodic Allergic reactions (13 sources) Inflammatory dermatosis; Translations: [Dermatitis, unspecified] Episodic Diabetes mellitus without complication (20 sources) Hyperglycemia; Translations: [Hyperglycemia, unspecified] Onset: 02-14-2025 11-17-2021 Episodic E Codes: Fall (1 source) Unspecified fall, initial encounter; Translations: [Unspecified fall] Episodic E Codes: Natural/environment (7 sources) Insect bite - wound; Translations: [Bitten or stung by nonvenomous insect and other nonvenomous arthropods, initial encounter] 08-22-2024 Episodic Esophageal disorders (13 sources) Gastroesophageal reflux disease; Translations: [Gastro-esophageal reflux disease without esophagitis] 01-12-2024 Chronic Essential hypertension (20 sources) Hypertensive disorder; Translations: [Essential (primary) hypertension] Onset: 01-25-2025 Chronic Hyperplasia of prostate (12 sources) Benign prostatic hyperplasia; Translations: [Benign prostatic hyperplasia without lower urinary tract symptoms] Onset: 09-01-2024 03-22-2024 Chronic Immunizations and screening for infectious disease (11 sources) Needs influenza immunization; Translations: [Encounter for immunization] Episodic Osteoarthritis (20 sources) Arthritis; Translations: [Unspecified osteoarthritis, unspecified site] 01-10-2025 Chronic Other connective tissue disease (11 sources) Swelling of lower leg; Translations: [Other specified soft tissue disorders] 06-09-2022 Episodic Other connective tissue disease (11 sources) Swelling of left lower limb; Translations: [Other specified soft tissue disorders] 06-09-2022 Episodic Other connective tissue disease (5 sources) Other specified soft tissue disorders; Translations: [Swelling of limb] Onset: 05-03-2025 Episodic Other connective tissue disease (10 sources) Pain in hallux; Translations: [Pain in unspecified toe(s)] 09-25-2022 Episodic Other connective tissue disease (1 source) Pain in unspecified toe(s); Translations: [Pain in limb] Episodic Other connective tissue disease (7 sources) Swollen calf; Translations: [Other specified soft tissue disorders] 01-14-2025 Episodic Other connective tissue disease (18 sources) Muscle pain; Translations: [Myalgia, unspecified site] 01-10-2025 Episodic Other connective tissue disease (14 sources) Pain in calf; Translations: [Pain in left lower leg] 01-14-2025 Episodic Other connective tissue disease (3 sources) Swelling of right lower limb; Translations: [Other specified soft tissue disorders] 04-27-2025 Episodic Other diseases of veins and lymphatics (1 source) Venous insufficiency (chronic) (peripheral); Translations: [Venous (peripheral) insufficiency, unspecified] Episodic Other inflammatory condition of skin (8 sources) Psoriasis; Translations: [Psoriasis, unspecified] 02-02-2024 Chronic Other inflammatory condition of skin (1 source) Psoriasis, unspecified; Translations: [Other psoriasis] 02-02-2024 Chronic Other male genital disorders (15 sources) Male erectile dysfunction, unspecified; Translations: [Erectile dysfunction] Chronic Other nutritional; endocrine; and metabolic disorders (11 sources) Obesity; Translations: [Obesity, unspecified] 07-31-2022 Chronic Other nutritional; endocrine; and metabolic disorders (4 sources) Obesity, unspecified; Translations: [Obesity, unspecified] Chronic Other nutritional; endocrine; and metabolic disorders (5 sources) Body mass index 30+ - obesity; Translations: [Body mass index (BMI) 34.0-34.9, adult] 02-13-2025 Chronic Other screening for suspected conditions (not mental disorders or infectious disease) (20 sources) Patient encounter status; Translations: [Encounter for screening for malignant neoplasm of colon] Onset: 03-01-2025 11-17-2021 Episodic Other upper respiratory disease (11 sources) Seasonal allergy; Translations: [Other seasonal allergic rhinitis] 11-17-2021 Chronic Other upper respiratory infections (1 source) Acute upper respiratory infection, unspecified; Translations: [Acute upper respiratory infections of unspecified site] Episodic Otitis media and related conditions (1 source) Otitis media, unspecified, unspecified ear; Translations: [Unspecified otitis media] Episodic Residual codes; unclassified (7 sources) Hypersomnia; Translations: [Hypersomnia, unspecified] 05-03-2024 Chronic Residual codes; unclassified (1 source) Hypersomnia, unspecified; Translations: [Hypersomnia, unspecified] Onset: 05-25-2024 Chronic Skin and subcutaneous tissue infections (6 sources) Abscess of lower limb; Translations: [Cutaneous abscess of limb, unspecified] Onset: 02-16-2025 02-12-2025 Episodic Spondylosis; intervertebral disc disorders; other back problems (20 sources) Dorsalgia, unspecified; Translations: [Backache, unspecified] Onset: 03-28-2025 Episodic Sprains and strains (20 sources) Strain of knee; Translations: [Strain of unspecified muscle(s) and tendon(s) at lower leg level, right leg, initial encounter] Onset: 02-13-2025 02-02-2024 Episodic Unclassified (1 source) M54.16 - Radiculopathy, lumbar region,M54.9 - Dorsalgia, unspecified Varicose veins of lower extremity (7 sources) Varicose veins of lower limb co-occurrent with edema; Translations: [Varicose veins of bilateral lower extremities with other complications] 09-01-2024 Episodic Past or Other Problems Problem Classification Problem Date Documented Da te Episodic/Chronic Genitourinary symptoms and ill-defined conditions (1 source) Nocturia; Translations: [Nocturia] Onset: 09-01-2024 Episodic Malaise and fatigue (20 sources) Malaise and fatigue; Translations: [Other malaise] Onset: 01-17-2025 01-10-2025 Episodic Other connective tissue disease (1 source) Pain in left lower leg; Translations: [Pain in left lower leg] Onset: 01-17-2025 Episodic Other connective tissue disease (1 source) Myalgia, unspecified site; Translations: [Myalgia, unspecified site] Onset: 01-17-2025 Episodic Results Test Name Value Interpretation Reference Range Facility Internal Medicine Office Vis laura 04-27-2025 Internal Medicine Office Visit [facility] [address] [place] [id number] OFFICE VISIT Date of Service: 04/27/25 MR#: [id number] Acct: [id number] Name: ZHENG WATKINS Rep #: [id number] : 1960 Provider: SIERRA Lei Age/Sex: 65/M [place] [facility] Status: Signed Intake Vital Signs 03/26/25 15:02 04/27/25 12:24 Height 5 ft 9 in 5 ft 9 in Weight: 227 lb 234 lb BMI 33.5 34.5 BP 142/78 H 130/68 H Blood Pressure Location Lt brachial Lt brachial Position Sitting Sitting Respiration 16 18 Pulse 76 85 Pulse Source Monitor Monitor Temp 98.7 F 97.8 F Temp Source Temporal Temporal Pulse Oximetry (%) 93 94 Oxygen Delivery Method room air room air Intake Visit Reasons: SWELLING IN HANDS AND CALFS Chief Complaint: SWELLING IN HANDS AND CALVES Is patient in pain?: Yes (5 lower back ) Allergies No Known Allergies Allergy (Verified 04/27/25 12:25) Medications ???Medication ???Instructions ???Recorded ???Confirmed ???Type ascorbate calcium (vitamin C) 500 1,000 mg PO DAILY 11/05/21 History mg tablet cholecalciferol (vitamin D3) 50 50 mcg PO DAILY 11/05/21 04/27/25 History mcg (2,000 unit) capsule multivitamin (Daily Multi-Vitamin 1 tab PO DAILY 11/05/21 04/27/25 History tablet) loratadine 10 mg tablet (Claritin) 10 mg PO DAILY PRN allergy sympt oms 03/19/23 04/27/25 History omega 3 350 mg-dha 235 mg-epa 90 1 cap PO DAILY 03/20/24 04/27/25 H istory mg-fish oil 597 mg capsule,delay rel ([place]-3) aspirin 81 mg tablet,delayed 81 mg PO DAILY 08/22/24 04/27/25 H istory release (Adult Aspirin Regimen) tadalafil 20 mg tablet 10 mg (1/2 x 20 mg) PO DAILY #30 1 11/18/23 04/27/25 Rx TABLETS famotidine 20 mg tablet (Acid 20 mg PO DAILY 02/13/25 04/27/25 H istory Controller) amlodipine 5 mg tablet 5 mg PO DAILY #90 tabs 04/10/25 Rx valsartan 160 1 tab PO DAILY #90 tabs 04/10/25 0 04/27/25 Rx mg-hydrochlorothiazi de 25 mg tablet doxazosin 4 mg tablet 4 mg PO BID 3 months #180 tabs 04/27/25 Rx prednisone 10 mg tablet 10 mg PO DIRECTED #39 tabs 04/1504/27/25 Rx Have you fallen in the past year?: No Nurse's Note: pt reports that he noticed swelling in calves and wrists about a week ago. [facility] Medical History Back pain Abnormal computed tomography of lower [...] walking frequency: daily HPI HPI Chief Complaint: SWELLING IN HANDS AND CALVES Details: ZHENG WATKINS, is a 65 M who presents to the office today for swelling in the extremities. Patient states that he has had problems in the past with this same swelling. He states that his problems started with some back pains / sciatica type symptoms that occurred on the right side a few weeks ago. He noticed that the leg was swelling some about a week ago (lower leg and ankle). He states that about 2 months ago [facility] with some radiculopathy. he was given muscle relaxant and prednisone. He then had shingles last month and had some steroids along with antiviral medication Patient again has had swelling in the hands previously which is why he had been given prednisone in the past. No recent hospitalizations He did have a 10-hour (one-way) car right towards the beginning of February Patient states that when he was able to be walking regularly that his leg swelling was so much better. He states that since he has been having sciatica the past few. ROS Const Constitutional: No body ache, chills, excessive sweating, fatigue, fever(s), f (more content not included)... Normal [facility] Venous Duplex US, Unilateral on 04-27-2025 Venous Duplex US, Unilateral [facility] [address] [place] [address] Venous Duplex US, Unilateral 04/27/25 1419 MR#: [id number] Acct: [id number] Name: ZHENG WATKINS Rep #: [id number] : 1960 65 From: Aris Gross MD Attending Dr: SIERRA Lei Status: REG CLI Ordering Dr: Luis Chan PA Date: 04/27/25 Location: [facility] Sex: M C Admitted: Reason For Study Reason For Study: RLE SWELLING RIGHT GSV is normal. CFV is compressible, spontaneous, phasic, competent and demonstrates normal augmentation. FV is compressible, spontaneous, phasic, competent and demonstrates normal augmentation. POP V is compressible, spontaneous, phasic, competent and demonstrates normal augmentation. T/P Trunk is compressible. PTV is compressible. RT PerV is compressible. Procedure This is a venous duplex using B-mode, color flow and spectral Doppler. Exam performed in department. A preliminary report was called and/or faxed to Luis ESQUIVEL @ [phone] @ 14:30. VL/Venous Duplex US, Unilateral Interpretation Summary Deep veins of the right lower extremity are patent and compressible segmentally. There is no evidence of right lower extremity deep vein thrombosis. Valvular competence appears intact within the proximal deep venous system on the right . The right great saphenous vein appears patent and compressible segmentally. Ordering Physician: Luis Chan Referring Physician: Filipe Ybarra Performed By: Rakel Garcia, RDCS, RVT 04/27/25 1857 Date Aris Gross MD CC: Dr. Filipe Ybarra MD; SIERRA Lei Date Dictated: 04/27/25 1419 Date Transcribed: 04/27/25 1857 Director Hematology: Signed Normal [facility] Venous duplex ultrasound rep ortOrdered By: Aris Gross on 04-27-2025 US Vein [facility] [address] [place] [address] Venous Duplex US, Unilateral 04/27/25 1419 MR#: [id number] Acct: [id number] Name: ZHENG WATKINS Rep #:[id number] : 1960 65 From: Aris Gross MD Attending Dr: SIERRA Lei Stat us: REG CLI Ordering Dr: Luis Chan Date: 04/27/25 Location: [facility] Sex: M C Admitted: Reason For Study Reason For Study: RLE SWELLING RIGHT GSV is normal. CFV is compressible, spontaneous, phasic, competent and demonstrates normal augmentation. FV is compressible, spontaneous, phasic, competent and demonstrates normal augmentation. POP V is compressible, spontaneous, phasic, competent and demonstrates normal augmentation. T/P Trunk is compressible. PTV is compressible. RT PerV is compressible. Procedure This is a venous duplex using B-mode, color flow and spectral Doppler. Exam performed in department. A preliminary report was called and/or faxed to Luis ESQUIVEL @ [phone] @ 14:30. VL/Venous Duplex US, Unilateral Interpretation Summary Deep veins of the right lower extremity are patent and compressible segmentally.There is no evidence of right lower extremity deep vein thrombosis. Valvular competence appears intact within the proximal deep venous system on the right . The right great saphenous vein appears patent and compressible segmentally. Ordering Physician: Luis Chan Referring Physician: Filipe Ybarra Performed By: Rakel Garcia, RDCS, RVT 04/27/251856 Date _ Aris Gross MD CC: Dr. Filipe Ybarra MD; SIERRA Lei ~ Date Dictated: 04/27/25 1419 Date Transcribed: 04/27/251856 Director Hematology: Signed [facility] Other Phone: L/S Spine Min 4 Viewson 03-15 L/S Spine Min 4 Views [facility] Imaging Services [address] [place] [id number] L/S Spine Min 4 Views MR#: [id number] Acct: [id number] Name: ZHENG WATKINS Rep #: [id number] : 1960 M 65 From: Rickey Aguilera MD PCP: Dr. Filipe Ybarra MD Status: REG CLI Study: L/S Spine Min 4 Views Date of Exam: 03/28/25 Exam# [id number] Ordering Dr: Filipe Ybarra MD EXAM: XR [...] IMPRESSION: Degenerative changes as above. Reading Location: [facility] CC: Dr. Filipe Ybarra MD Director Hematology: Signed Normal [facility] Internal Medicine Office Vis laura 03-26-2025 Internal Medicine Office Visit [facility] [address] [place] [address] OFFICE VISIT Date of Service: 03/26/25 MR#: [id number] Acct: [id number] Name: ZHENG WATKINS Rep #: [id number] : 1960 Provider: Dr. Filipe alvarez MD Age/Sex: 65/M Location[place] [facility] Status: Signed Intake Vital Signs 02/14/25 13:12 [...] istory mg-fish oil 597 mg capsule,delay rel ([place]-3) aspirin 81 mg tablet,delayed 81 mg PO [...] you fallen in the past year?: No [facility] Medical History (Updated 03/26/25 @ 17:[address] Filipe Ybarra MD) Back pain Abnormal computed tomography of [...] No abn (more content not included)... Normal [facility] Urgent Care Visit Reporton 0 03-12-2025 Urgent Care Visit Report [facility] [address], [address] [place] [address] OFFICE VISIT Date of Service: 03/12/25 MR#: [id number] Acct: [id number] Name: ZHENG WATKINS Rep #: [id number] : 1960 Provider: SIERRA Lazo Age/Sex: 65/M Location[place] [facility] Status: Signed Intake Vital Signs 02/14/25 13:12 [...] BACK, RIGHT EYE SWOLLEN Chief Complaint: Follow-up Etl Programmer Required: No Is patient in pain?: No [...] istory mg-fish oil 597 mg capsule,delay rel ([place]-3) aspirin 81 mg tablet,delayed 81 mg PO [...] any change of soaps, foods or perfumes. [facility] Medical History Abnormal computed tomography of lower [...] if close contacts with similar complaints. No njjk-mxk-touzthz products taken to assist. No other associated symptoms and no other al (more content not included)... Normal [facility] Inital Evaluation (1) - PTon 03-06-2025 Inital Evaluation (1) - PT [facility] Physical Therapy [facility] [address] [place] [address] / REHABILITATION SERVICES INITIAL EVALUATION MR#: [id number] Acct: [id number] Name: ZHENG WATKINS Rep #: [id number] : 1960 65 From: Gerson Barker PT, Cert. MD Edwards, OCS Referring Dr.: SIERRA Lazo Status: REG R CR Insurance: [facility] [id number] SELF PAY INSURANCE Patient's Visit Information Visit Information Visit Information: ZHENG WATKINS is a 65 year old M referred to Physical Therapy by SIERRA Lazo with a diagnosis of . Date of Evaluation: 03/06/25 Physical Therapist: Gerson Barker PT, Cert SHAN, OCS Visit Plan Frequency: 2x /Week Duration: [...] lumbar ROM for function of recovery for golClear Metalsg Goal Time Frame: 4-6 Weeks Goal 3:: [...] to be FAXED BACK to us at [phone] for Medicare purposes. For Medicare only, by signing this I certify the plan of care. Please let me know if there are questions or concerns regarding this plan of care. Physician Signature: D ate: 03/06/25 1056 CC: Dr. Filipe Ybarra MD; (more content not included)... Normal [facility] Culture, Blood (WB)on 2024 CUB Blood cultures x2, from two different sites No growth in 5 days. Normal [facility] Comment on above: Performed By: #### L 100.0100, M200.1000, L500.4050, L503.6005 ####[facility] [address] [place], [place], [address] CUB Blood cultures x2, from two different sites No growth in 5 days. Normal [facility] Comment on above: Performed By: #### M 200.1000 ####[facility] [address] [place], [address] Internal Medicine Office Vis iton 02-14-2025 Internal Medicine Office Visit [facility] [place], [place] [address] OFFICE VISIT Date of Service: 02/14/25 MR#: [id number] Acct: [id number] Name: ZHENG WATKINS Rep #: [id number] : 1960 Provider: Dr. Filipe alvarez MD Age/Sex: 64/M Location[place] [facility] Status: Signed Intake Vital Signs 01/17/25 08:50 [...] Reasons: 1 M FU Chief Complaint: Follow-up Etl Programmer Required: No Accompanied by: Self Is patient [...] istory mg-fish oil 597 mg capsule,delay rel ([place]-3) aspirin 81 mg tablet,delayed 81 mg PO [...] the past year?: No PFSH Medical History Abnormal computed tomography of [...] steroid, he (more content not included)... Normal [facility] Laboratory - Hematology and Cell countsOrdered By: Filipe Ybarra on 02-14-2025 HbA1c (Bld) [Mass fraction] 6.0 % 4.2-6.3 [facility] 12 Lead EKGon 02-13-2025 12 Lead EKG [facility] [address] [place] [address] 12 Lead EKG 02/13/25 1120 MR#: [id number] Acct: [id number] Name: ZHENG WATKINS Rep #: [id number] : 1960 64 From: Peyman Adame MD [...] Borderline ECG Confirmed by Peyman Adame ([id number]), online content editor BRENNEN PEDRAZA ([id number]) on 02/14/2025 7:47:13 AM Referred By: Confirmed By: Peyman Adame 02/14/25 0747 Date Peyman Adame MD CC: Dr. Filipe Ybarra MD; Dr. Madi Brooks MD Signed Normal [facility] Absolute lymphocyte countOrd ered By: Madi Brooks on 02-13-2025 Lymphocytes Auto (Unsp spec) [#/Vol] 0.55 10*3/uL Low 0.83-4.51 [facility] Absolute neutrophil countOrd ered By: Madi Brooks on 02-13-2025 Neutrophils (Bld) [#/Vol] 6.0 10*3/uL 2.0-7.7 [facility] Anion gap in Serum or Plasma Ordered By: Madi Brooks on 02-13-2025 Anion gap [Moles/Vol] 14 mmol/L 5-15 [facility] Automated lymphocyte count a s percentage of total leukocytesOrdered By: Madialexis Brooks on 02-13-2025 Lymphocytes/100 WBC Auto (Unsp spec) 8.2 % Low 19-41 [facility] BUN/creatinine ratioOrdered By: Madialexis Brooks on 02-13-2025 Urea nitrogen/Creatinine [Mass ratio] 23.1 mg/mg High 10-20 [facility] Basophil percentageOrdered B y: Madi Brooks on 02-13-2025 Basophils/100 WBC (Bld) 0.1 % 0-1 [facility] Bilirubin, totalOrdered By: Madialexis Brooks on 02-13-2025 Bilirubin [Mass/Vol] 0.57 mg/dL 0.00-1.30 [facility] Blood cultureOrdered By: Madialexis Brooks on 02-13-2025 Bacteria identified Cx Nom (Bld) No growth in 5 days. [facility] Bacteria identified Cx Nom (Bld) No growth in 5 days. [facility] CBC W/Diff, Automatedon Absolute Lymph 0.55 X10 3/uL Low 0.83-4.51 [facility] Comment on above: Performed By: #### L 100.0100, M200.1000, L500.4050, L503.6005 #### [facility] [address] [place], [address] Absolute Neut 6.0 X10 3/uL Normal 2.0-7.7 [facility] Comment on above: Performed By: #### L 100.0100, M200.1000, L500.4050, L503.6005 #### [facility] [address] [place], [address] Basophils/100 WBC (Bld) 0.1 % Normal 0-1 [facility] Comment on above: Performed By: #### L 100.0100, M200.1000, L500.4050, L503.6005 #### [facility] [address] [place], [address] Eosinophils/100 WBC (Bld) 0.0 % Normal 0-5 [facility] Comment on above: Performed By: #### L 100.0100, M200.1000, L500.4050, L503.6005 #### [facility] [address] [place], [address] Erythrocyte distribution width (RBC) [Ratio] 13.2 % Normal 11.6-14.6 [facility] Comment on above: Performed By: #### L 100.0100, M200.1000, L500.4050, L503.6005 #### [facility] [address] [place], [address] Hematocrit (Bld) [Volume fraction] 39.5 % Low 40-54 [facility] Comment on above: Performed By: #### L 100.0100, M200.1000, L500.4050, L503.6005 #### [facility] [address] [place], [address] Hemoglobin (Bld) [Mass/Vol] 13.9 g/dL Normal 13.0-16.5 [facility] Comment on above: Performed By: #### L 100.0100, M200.1000, L500.4050, L503.6005 #### [facility] [address] [place], [address] IG% 0.600 Normal 0.0-0.9 [facility] Comment on above: Result Comment: IG% - Immature Granulocytes (promyelocytes, myelocytes and metamyelocytes) > 1% indicates that a LEFT SHIFT is Present. Performed By: #### L 100.0100, M200.1000, L500.4050, L503.6005 #### [facility] [address] [place], [address] Lymphocytes/100 WBC (Bld) 8.2 % Low 19-41 [facility] Comment on above: Performed By: #### L 100.0100, M200.1000, L500.4050, L503.6005 #### [facility] [address] [place], [address] MCH (RBC) [Entitic mass] 32.5 pg High 27.0-32.0 [facility] Comment on above: Performed By: #### L 100.0100, M200.1000, L500.4050, L503.6005 #### [facility] [address] [place], [address] MCHC (RBC) [Mass/Vol] 35.2 g/dL Normal 32-36 [facility] Comment on above: Performed By: #### L 100.0100, M200.1000, L500.4050, L503.6005 #### [facility] [address] [place], [address] MCV (RBC) [Entitic vol] 92.3 fL Normal 80-94 [facility] Comment on above: Performed By: #### L 100.0100, M200.1000, L500.4050, L503.6005 #### [facility] [address] [place], [address] Monocytes/100 WBC (Bld) 1.6 % Normal 0-10 [facility] Comment on above: Performed By: #### L 100.0100, M200.1000, L500.4050, L503.6005 #### [facility] [address] [place], [address] Neutrophils/100 WBC (Bld) 89.5 % High 47-70 [facility] Comment on above: Performed By: #### L 100.0100, M200.1000, L500.4050, L503.6005 #### [facility] [address] [place], [address] Nucleated RBC (Bld) [#/Vol] 0 10*3/uL Normal 0-5 [facility] Comment on above: Performed By: #### L 100.0100, M200.1000, L500.4050, L503.6005 #### [facility] [address] [place], [address] Platelet mean volume (Bld) [Entitic vol] 9.6 fL Normal 6.2-12.0 [facility] Comment on above: Performed By: #### L 100.0100, M200.1000, L500.4050, L503.6005 #### [facility] [address] [place], [address] Platelets (Bld) [#/Vol] 176 10*3/uL Normal 150-450 [facility] Comment on above: Performed By: #### L 100.0100, M200.1000, L500.4050, L503.6005 #### [facility] [address] [place], [address] RBC (Bld) [#/Vol] 4.28 10*6/uL Low 4.6-6.2 [facility] Comment on above: Performed By: #### L 100.0100, M200.1000, L500.4050, L503.6005 #### [facility] [address] [place], [address] RDW SD 45.1 fl High 35.1-43.9 [facility] Comment on above: Performed By: #### L 100.0100, M200.1000, L500.4050, L503.6005 #### [facility] [address] [place], [address] WBC (Bld) [#/Vol] 6.7 10*3/uL Normal 4.4-11.0 [facility] Comment on above: Performed By: #### L 100.0100, M200.1000, L500.4050, L503.6005 #### [facility] [address] [place], [address] CRPon 02-13-2025 C-REACTIVE PROT 4.14 mg/L High 0.0-3.0 [facility] Comment on above: Performed By: #### L 501.6710, L101.9900 ####[facility] [address] [place], [address] CRP [Mass/Vol]Ordered By: Aracelis Brooks on 02-13-2025 C-Reactive Protein Extended Range 4.14 mg/L High 0.0-3.0 [facility] Carbon dioxide, total [Moles /volume] in Central venous bloodOrdered By: Madi Brooks on 02-13-2025 CO2 [Moles/Vol] 24.8 mmol/L 21.0-32.0 [facility] Chloride assayOrdered By: Aracelis Brooks on 02-13-2025 Chloride [Moles/Vol] 98 mmol/L 98-108 [facility] Comprehensive Metabolic Prof ilon 02-13-2025 Albumin [Mass/Vol] 4.6 g/dL Normal 3.4-4.8 [facility] Comment on above: Performed By: #### L 100.0100, M200.1000, L500.4050, L503.6005 ####[facility] [address] [place], [address] Albumin/Globulin [Mass ratio] 1.9 {ratio} Normal 0.9-2.4 [facility] Comment on above: Performed By: #### L 100.0100, M200.1000, L500.4050, L503.6005 ####[facility] [address] [place], [address] ALK PHOS 50 U/L Normal 40-129 [facility] Comment on above: Performed By: #### L 100.0100, M200.1000, L500.4050, L503.6005 ####[facility] [address] [place], [address] ALT [Catalytic activity/Vol] 22 U/L Normal <=46 [facility] Comment on above: Performed By: #### L 100.0100, M200.1000, L500.4050, L503.6005 ####[facility] [address] [place], [address] AST [Catalytic activity/Vol] 23 U/L Normal <=37 [facility] Comment on above: Performed By: #### L 100.0100, M200.1000, L500.4050, L503.6005 ####[facility] [address] [place], [address] Bilirubin [Mass/Vol] 0.57 mg/dL Normal 0.00-1.30 [facility] Comment on above: Performed By: #### L 100.0100, M200.1000, L500.4050, L503.6005 ####[facility] [address] [place], [address] BUN/CRE 23.1 RATIO High 10-20 [facility] Comment on above: Performed By: #### L 100.0100, M200.1000, L500.4050, L503.6005 ####[facility] [address] [place], [address] Calcium [Mass/Vol] 9.2 mg/dL Normal 7.6-11.0 [facility] Comment on above: Performed By: #### L 100.0100, M200.1000, L500.4050, L503.6005 ####[facility] [address] [place], [address] Chloride [Moles/Vol] 98 mmol/L Normal 98-108 [facility] Comment on above: Performed By: #### L 100.0100, M200.1000, L500.4050, L503.6005 ####[facility] [address] [place], [address] CO2 [Moles/Vol] 24.8 mmol/L Normal 21.0-32.0 [facility] Comment on above: Performed By: #### L 100.0100, M200.1000, L500.4050, L503.6005 ####[facility] [address] [place], [address] Creatinine [Mass/Vol] 0.92 mg/dL Normal 0.70-1.20 [facility] Comment on above: Performed By: #### L 100.0100, M200.1000, L500.4050, L503.6005 ####[facility] [address] [place], [address] ECRCL 95.86 ml/min Normal 50-250 [facility] Comment on above: Performed By: #### L 100.0100, M200.1000, L500.4050, L503.6005 ####[facility] [address] [place], [address] GAP 14 Normal 5-15 [facility] Comment on above: Performed By: #### L 100.0100, M200.1000, L500.4050, L503.6005 ####[facility] [address] [place], [address] GFR/1.73 sq M.predicted among non-blacks MDRD (S/P/Bld) [Vol rate/Area] 92 mL/min/{1.73_m2} Normal >60 [facility] Comment on above: Result Comment: mL/m in/1.73m2 CKD-EPI Creatinine Equation (2020) Performed By: #### L 100.0100, M200.1000, L500.4050, L503.6005 ####[facility] [address] [place], [address] Globulin (S) [Mass/Vol] 2.5 g/dL Normal 2.2-4.2 [facility] Comment on above: Performed By: #### L 100.0100, M200.1000, L500.4050, L503.6005 ####[facility] [address] [place], [address] Glucose [Mass/Vol] 186 mg/dL High 70-99 [facility] Comment on above: Performed By: #### L 100.0100, M200.1000, L500.4050, L503.6005 ####[facility] [address] [place], [address] Potassium [Moles/Vol] 4.4 mmol/L Normal 3.3-5.1 [facility] Comment on above: Performed By: #### L 100.0100, M200.1000, L500.4050, L503.6005 ####[facility] [address] [place] [place], [address] Sodium [Moles/Vol] 137 mmol/L Normal 133-145 [facility] Comment on above: Performed By: #### L 100.0100, M200.1000, L500.4050, L503.6005 ####[facility] [address] [place], [address] T PROT 7.1 g/dL Normal 5.9-8.4 [facility] Comment on above: Performed By: #### L 100.0100, M200.1000, L500.4050, L503.6005 ####[facility] [address] [place], [address] Urea nitrogen [Mass/Vol] 21 mg/dL High 4-19 [facility] Comment on above: Performed By: #### L 100.0100, M200.1000, L500.4050, L503.6005 ####[facility] [address] [place], [address] Emergency Department Summary on 02-13-2025 Emergency Department Summary [facility] Medical Records Department [address] [place] [address] Emergency Department Summary 02/13/25 MR#: [id number] Acct: [id number] Name: ZHENG WATKINS Rep #: [id number] : 1960 64 From: Madi Brooks MD [...] istory mg-fish oil 597 mg capsule,delay rel ([place]-3) aspirin 81 mg tablet,delayed 81 mg PO [...] c Hematolog (more content not included)... Normal [facility] Eosinophil percentageOrdered By: Madialexis Brooks on 02-13-2025 Eosinophils/100 WBC (Bld) 0.0 % 0-5 [facility] Erythrocyte Sed Rateon 02-13 SED RATE 6 mm/hr Normal 0-20 [facility] Comment on above: Performed By: #### L 501.6710, L101.9900 ####[facility] [address] [place], [address] Erythrocyte distribution wid th ratioOrdered By: Madialexis Brooks on 02-13-2025 Erythrocyte distribution width (RBC) [Ratio] 13.2 % 11.6-14.6 [facility] Erythrocyte distribution wid th standard deviationOrdered By: Madialexis Brooks on 02-13-2025 Erythrocyte distribution width (RBC) [Entitic vol] 45.1 fL High 35.1-43.9 [facility] Erythrocyte distribution width (RBC) [Ratio] 45.1 fl High 35.1-43.9 [facility] Erythrocyte sedimentation ra teOrdered By: Madi Brooks on 02-13-2025 ESR (Bld) [Velocity] 6 mm/h 0-20 [facility] Estimation of creatinine raphael aranceOrdered By: Madi Brooks on 02-13-2025 Estimated Creatinine Clearance Calc 95.86 ml/min 50-250 [facility] GFR/1.73 sq M.predicted sebastián g non-blacks MDRD (S/P/Bld) [Vol rate/Area]Ordered By: Madi Brooks on 04-01-2025 Estimated GFR (MDRD) Non-Af Amer 92 >60 [facility] Comment on above: mL/min/1.73m2 CKD-EP I Creatinine Equation (2020) Glomerular filtration rate ( GFR) estimation/1.73 sq m using serum, plasma, or whole bOrdered By: Madi Brooks on 02-13-2025 GFR/1.73 sq M.predicted among non-blacks MDRD (S/P/Bld) [Vol rate/Area] 92 mL/min/{1.73_m2} >60 [facility] Comment on above: mL/min/1.73m2 CKD-EP I Creatinine Equation (2020) Hematocrit Auto (Bld) [Volum e fraction]Ordered By: Madi Brooks on 02-13-2025 Hematocrit (Bld) [Volume fraction] 39.5 % Low 40-54 [facility] Hemoglobin measurementOrdere d By: Madi Brooks on 02-13-2025 Hemoglobin (Bld) [Mass/Vol] 13.9 g/dL 13.0-16.5 [facility] Immature granulocytes/100 WB C Auto (Bld)Ordered By: Madi Brooks on 02-13-2025 Immature granulocytes/100 WBC (Bld) 0.600 % 0.0-0.9 [facility] Comment on above: IG% - Immature Granu locytes (promyelocytes, myelocytes and metamyelocytes) > 1% indicates that a LEFT SHIFT is Present. Laboratory - Chemistry and C hemistry - challengeOrdered By: Madi Brooks on 02-13-2025 AST [Catalytic activity/Vol] 23 U/L <38 [facility] Lactic Acidon 02-13-2025 Lactate [Moles/Vol] 2.6 mmol/L Invalid Interpretation Code 0.0-2.0 [facility] Comment on above: Order Comment: Y Result Comment: Crit ical Result(s) Called at 02/13/2025 by Gerson Xiao??Results read back by same. Critical Result(s) Called at 02/13/2025-12:10 by Gerson Xiao??Results read back by same. AMENDED REPORT 02/13/25 1220 LACTIC ACID previously reported as: 2.6 *H mmol/L Critical Result(s) Called at 02/13/2025 by Gerson Jj to [employer]??Results read back by same. Performed By: #### L 100.0100, M200.1000, L500.4050, L503.6005 ####[facility] [address] [place], [address] Lactic acid measurementOrder ed By: Madi Brooks on 02-13-2025 Lactate [Moles/Vol] 2.6 mmol/L High 0.0-2.0 [facility] Comment on above: Critical Result(s) C alled at 02/13/2025 by Gerson Jj to [employer] Results read back by same. Critical Result(s) Called at 02/13/2025-12:10 by Gerson Jj to [employer] Results read back by same.Previous reported result: 2.6 mmol/LEdited by: AUTOINAyad on 02/13/25:1220 AMENDED REPORT 02/13/25 1220 LACTIC ACID previously reported as: 2.6 *H mmol/L Critical Result(s) Called at 02/13/2025 by Gerson Jj to [employer] Results read back by same. Lymphocytes Auto (Unsp spec) [#/Vol]Ordered By: Madi Brooks on 02-13-2025 Lymphocytes (Bld) [#/Vol] 0.55 10*3/uL Low 0.83-4.51 [facility] Lymphocytes/100 WBC Auto (Un sp spec)Ordered By: Madi Brooks on 02-13-2025 Lymphocytes/100 WBC (Bld) 8.2 % Low 19-41 [facility] MCV (mean corpuscular volume ) determinationOrdered By: Madi Brooks on 02-13-2025 MCV (RBC) [Entitic vol] 92.3 fL 80-94 [facility] Mean corpuscular hemoglobin (MCH) determinationOrdered By: Madi Brooks on 02-13-2025 MCH (RBC) [Entitic mass] 32.5 pg High 27.0-32.0 [facility] Mean corpuscular hemoglobin concentration (MCHC) determinationOrdered By: Madi Brooks on 02-13-2025 MCHC (RBC) [Mass/Vol] 35.2 g/dL 32-36 [facility] Mean platelet volume determi nationOrdered By: Madi Brooks on 02-13-2025 Platelet mean volume (Bld) [Entitic vol] 9.6 fL 6.2-12.0 [facility] Monocyte percentageOrdered B y: Madi Brooks on 02-13-2025 Monocytes/100 WBC (Bld) 1.6 % 0-10 [facility] Neutrophil percentageOrdered By: Madi Brooks on 02-13-2025 Neutrophils/100 WBC (Bld) 89.5 % High 47-70 [facility] Nucleated red blood cell per centageOrdered By: Madi Brooks on 02-13-2025 Nucleated RBC/100 WBC (Bld) [Ratio] 0 % 0-5 [facility] Platelet countOrdered By: Aracelis Brooks on 02-13-2025 Platelets (Bld) [#/Vol] 176 10*3/uL 150-450 [facility] Potassium (Unsp spec) [Mass/ Vol]Ordered By: Madi Brooks on 02-13-2025 Potassium [Moles/Vol] 4.4 mmol/L 3.3-5.1 [facility] Potassium measurement (mass/ volume)Ordered By: Madi Brooks on 02-13-2025 Potassium (Unsp spec) [Mass/Vol] 4.4 mmol/L 3.3-5.1 [facility] RBC Auto (Bld) [#/Vol]Ordere d By: Madi Brooks on 02-13-2025 RBC (Bld) [#/Vol] 4.28 10*6/uL Low 4.6-6.2 [facility] Serum creatinine measurement (mass/volume)Ordered By: Madi Brooks on 02-13-2025 Creatinine [Mass/Vol] 0.92 mg/dL 0.70-1.20 [facility] Serum globulin measurementOr dered By: Madi Brooks on 02-13-2025 Globulin (S) [Mass/Vol] 2.5 g/dL 2.2-4.2 [facility] Serum glucose measurement (m ass/volume)Ordered By: Madi Brooks on 02-13-2025 Glucose [Mass/Vol] 186 mg/dL High 70-99 [facility] Serum or plasma C reactive p rotein measurement (mass/volume)Ordered By: Madi Brooks on 02-13-2025 CRP [Mass/Vol] 4.14 mg/L High 0.0-3.0 [facility] Serum or plasma alanine sood otransferase (ALT) measurementOrdered By: Madi Brooks on 02-13-2025 ALT [Catalytic activity/Vol] 22 U/L <47 [facility] Serum or plasma albumin allen urement (mass/volume)Ordered By: Madi Brooks on 02-13-2025 Albumin [Mass/Vol] 4.6 g/dL 3.4-4.8 [facility] Serum or plasma albumin/glob ulin mass ratioOrdered By: Madialexis Brooks on 02-13-2025 Albumin/Globulin [Mass ratio] 1.9 {ratio} 0.9-2.4 [facility] Serum or plasma alkaline almita sphatase measurementOrdered By: Madi Brooks on 02-13-2025 ALP [Catalytic activity/Vol] 50 U/L 40-129 [facility] Serum or plasma calcium allen urement (mass/volume)Ordered By: Madi Brooks on 02-13-2025 Calcium [Mass/Vol] 9.2 mg/dL 7.6-11.0 [facility] Serum or plasma urea nitroge n measurement (mass/volume)Ordered By: Madi Brooks on 02-13-2025 Urea nitrogen [Mass/Vol] 21 mg/dL High 4-19 [facility] Sodium levelOrdered By: Madi Brooks on 02-13-2025 Sodium [Moles/Vol] 137 mmol/L 133-145 [facility] Total proteinOrdered By: Madi Brooks on 02-13-2025 Protein [Mass/Vol] 7.1 g/dL 5.9-8.4 [facility] White blood cell (WBC) count Ordered By: Madi Brooks on 02-13-2025 WBC (Bld) [#/Vol] 6.7 10*3/uL 4.4-11.0 [facility] Urgent Care Visit Reporton 0 02-12-2025 Urgent Care Visit Report [facility] [address], [address] [place] [address] OFFICE VISIT Date of Service: 02/12/25 MR#: [id number] Acct: [id number] Name: ZHENG WATKINS Rep #: [id number] : 1960 Provider: SIERRA Lazo Age/Sex: 64/M [place] [facility] [place] Status: Signed Intake Vital Signs 01/17/25 08:50 [...] SCIATICA PAIN Chief Complaint: Body ache, Swelling Etl Programmer Required: No Is patient in pain?: Yes [...] istory mg-fish oil 597 mg capsule,delay rel ([place]-3) aspirin 81 mg tablet,delayed 81 mg PO [...] sleeping the best but is still sleeping. [facility] Medical History (Updated 02/12/25 @ 11:40 by [...] fall to the same. PMH NC. No [id number] products abdomen taken to assist. No other associated symptoms and no other alleviating/aggravat ing factors. ROS Const Constitutional: No other (As above) Exam Const General: cooperative, healthy appearing and no acute distress Orientation: alert and awake Chest Chest palpation inspection: normal inspection of the chest Resp Effort Inspection: normal respiratory effort and able to speak in c (more content not included)... Normal [facility] Extremity Lower WITH Contras ton 02-09-2025 Extremity Lower WITH Contrast [facility] Imaging Services [address] [place] [address] [id number] Extremity Lower WITH Contrast MR#: [id number] Acct: [id number] Name: ZHENG WATKINS Rep #: [id number] : 1960 M 64 From: Vika Aguilar nd, MD PCP: Dr. Filipe Ybarra MD Status: REG CLI Study: Extremity Lower WITH Contrast Date of Exam: Exam# [id number] Ordering Dr: Filipe Ybarra MD PROCEDURE: EXTREMITY [...] incision and debridement is recommended. Reading Location: [facility] CC: Dr. Fliipe Ybarra MD Director Hematology: Signed [facility] CCP IgG Antibodieson 025 CCP IgG Ab. [facility] Comment on above: Result Comment: TEST RESULTS LIMITS Anti-CCP Ab, IgG/IgA 3 units 0-19 Negative <20 Weak positive 20 - 39 Moderate positive 40 - 59 Strong positive >59 TESTING PERFORMED AT [facility]. ORIGINAL REPORT ON FILE IN LAB CONTAINS ADDITIONAL TEST SITE INFORMATION. Performed By: #### L 101.9900, L4600.0100, L501.6710, L100.0100, L500.4050, L501.9520, L505.7010, L3100.5450, L506.0400 ####[facility] [id number] [place], [address] Absolute lymphocyte countOrd ered By: Filipe Canelaalysa on 01-17-2025 Lymphocytes Auto (Unsp spec) [#/Vol] 0.94 10*3/uL 0.83-4.51 [facility] Absolute neutrophil countOrd ered By: Filipe Canelaalysa on 01-17-2025 Neutrophils (Bld) [#/Vol] 5.2 10*3/uL 2.0-7.7 [facility] Anion gap in Serum or Plasma Ordered By: Cindyimerestefaníafernando Summersmarioalysa on 01-17-2025 Anion gap [Moles/Vol] 14 mmol/L 5-15 [facility] Automated lymphocyte count a s percentage of total leukocytesOrdered By: Cindyimerestefaníafernando Summersmarioalysa on 01-17-2025 Lymphocytes/100 WBC Auto (Unsp spec) 13.2 % Low 19-41 [facility] BUN/creatinine ratioOrdered By: Katiadouglasfernando Summersmarioalysa on 01-17-2025 Urea nitrogen/Creatinine [Mass ratio] 20.0 mg/mg 10-20 [facility] Basophil percentageOrdered B y: Filipe Ybarra on 01-17-2025 Basophils/100 WBC (Bld) 0.3 % 0-1 [facility] Bilirubin Test strip Ql (U)O rdered By: Cindyimerestefaníafernando Summersmarioalysa on 01-17-2025 Bilirubin Ql (U) Negative Negative [facility] Bilirubin, totalOrdered By: Andrewfernando Rolaalysa on 01-17-2025 Bilirubin [Mass/Vol] 0.40 mg/dL 0.00-1.30 [facility] CBC W/Diff, Automatedon Absolute Lymph 0.94 X10 3/uL Normal 0.83-4.51 [facility] Comment on above: Performed By: #### L 500.4052, L501.6710, L100.0100, L400.0001 #### [facility] [address] [place], [place], [id number] Absolute Neut 5.2 X10 3/uL Normal 2.0-7.7 [facility] Comment on above: Performed By: #### L 500.4050, L501.6710, L100.0100, L400.0001 #### [facility] [address] [place], [address] Basophils/100 WBC (Bld) 0.3 % Normal 0-1 [facility] Comment on above: Performed By: #### L 500.4050, L501.6710, L100.0100, L400.0001 #### [facility] [address] [place], [address] Eosinophils/100 WBC (Bld) 2.1 % Normal 0-5 [facility] Comment on above: Performed By: #### L 500.4050, L501.6710, L100.0100, L400.0001 #### [facility] [address] [place], [address] Erythrocyte distribution width (RBC) [Ratio] 11.9 % Normal 11.6-14.6 [facility] Comment on above: Performed By: #### L 500.4050, L501.6710, L100.0100, L400.0001 #### [facility] [address] [place], [address] Hematocrit (Bld) [Volume fraction] 35.6 % Low 40-54 [facility] Comment on above: Performed By: #### L 500.4050, L501.6710, L100.0100, L400.0001 #### [facility] [address] [place], [address] Hemoglobin (Bld) [Mass/Vol] 12.7 g/dL Low 13.0-16.5 [facility] Comment on above: Performed By: #### L 500.4050, L501.6710, L100.0100, L400.0001 #### [facility] [address] [place], [address] IG% 0.300 Normal 0.0-0.9 [facility] Comment on above: Result Comment: IG% - Immature Granulocytes (promyelocytes, myelocytes and metamyelocytes) > 1% indicates that a LEFT SHIFT is Present. Performed By: #### L 500.4050, L501.6710, L100.0100, L400.0001 #### [facility] [address] [place], [address] Lymphocytes/100 WBC (Bld) 13.2 % Low 19-41 [facility] Comment on above: Performed By: #### L 500.4050, L501.6710, L100.0100, L400.0001 #### [facility] [address] [place], [address] MCH (RBC) [Entitic mass] 32.5 pg High 27.0-32.0 [facility] Comment on above: Performed By: #### L 500.4050, L501.6710, L100.0100, L400.0001 #### [facility] [address] [place], [address] MCHC (RBC) [Mass/Vol] 35.7 g/dL Normal 32-36 [facility] Comment on above: Performed By: #### L 500.4050, L501.6710, L100.0100, L400.0001 #### [facility] [address] [place], [address] MCV (RBC) [Entitic vol] 91.0 fL Normal 80-94 [facility] Comment on above: Performed By: #### L 500.4050, L501.6710, L100.0100, L400.0001 #### [facility] [address] [place], [address] Monocytes/100 WBC (Bld) 10.9 % High 0-10 [facility] Comment on above: Performed By: #### L 500.4050, L501.6710, L100.0100, L400.0001 #### [facility] [address] [place], [address] Neutrophils/100 WBC (Bld) 73.2 % High 47-70 [facility] Comment on above: Performed By: #### L 500.4050, L501.6710, L100.0100, L400.0001 #### [facility] [address] [place], [address] Nucleated RBC (Bld) [#/Vol] 0 10*3/uL Normal 0-5 [facility] Comment on above: Performed By: #### L 500.4050, L501.6710, L100.0100, L400.0001 #### [facility] [address] [place], [address] Platelet mean volume (Bld) [Entitic vol] 8.8 fL Normal 6.2-12.0 [facility] Comment on above: Performed By: #### L 500.4050, L501.6710, L100.0100, L400.0001 #### [facility] [address] [place], [address] Platelets (Bld) [#/Vol] 362 10*3/uL Normal 150-450 [facility] Comment on above: Performed By: #### L 500.4050, L501.6710, L100.0100, L400.0001 #### [facility] [address] [place], [address] RBC (Bld) [#/Vol] 3.91 10*6/uL Low 4.6-6.2 [facility] Comment on above: Performed By: #### L 500.4050, L501.6710, L100.0100, L400.0001 #### [facility] [address] [place], [address] RDW SD 39.7 fl Normal 35.1-43.9 [facility] Comment on above: Performed By: #### L 500.4050, L501.6710, L100.0100, L400.0001 #### [facility] [address] [place], [address] WBC (Bld) [#/Vol] 7.1 10*3/uL Normal 4.4-11.0 [facility] Comment on above: Performed By: #### L 500.4050, L501.6710, L100.0100, L400.0001 #### [facility] [address] [place], [address] CRPon 01-17-2025 C-REACTIVE PROT 101.00 mg/L High 0.0-3.0 [facility] Comment on above: Performed By: #### L 500.4050, L501.6710, L100.0100, L400.0001 #### [facility] [address] [place], [address] CRP [Mass/Vol]Ordered By: Cindy Ybarra on 01-17-2025 C-Reactive Protein Extended Range 101.00 mg/L High 0.0-3.0 [facility] Carbon dioxide, total [Moles /volume] in Central venous bloodOrdered By: Filipe Ybarra on 01-17-2025 CO2 [Moles/Vol] 24.9 mmol/L 21.0-32.0 [facility] Chloride assayOrdered By: Cindy Ybarra on 01-17-2025 Chloride [Moles/Vol] 96 mmol/L Low 98-108 [facility] Comprehensive Metabolic Prof ilon 01-17-2025 Albumin [Mass/Vol] 3.8 g/dL Normal 3.4-4.8 [facility] Comment on above: Performed By: #### L 500.4050, L501.6710, L100.0100, L400.0001 #### [facility] [address] [place], [address] Albumin/Globulin [Mass ratio] 1.3 {ratio} Normal 0.9-2.4 [facility] Comment on above: Performed By: #### L 500.4050, L501.6710, L100.0100, L400.0001 #### [facility] [address] [place], [address] ALK PHOS 55 U/L Normal 40-129 [facility] Comment on above: Performed By: #### L 500.4050, L501.6710, L100.0100, L400.0001 #### [facility] [address] [place], [address] ALT [Catalytic activity/Vol] 16 U/L Normal <=46 [facility] Comment on above: Performed By: #### L 500.4050, L501.6710, L100.0100, L400.0001 #### [facility] [address] [place], [address] AST [Catalytic activity/Vol] 22 U/L Normal <=37 [facility] Comment on above: Performed By: #### L 500.4050, L501.6710, L100.0100, L400.0001 #### [facility] [address] [place], [address] Bilirubin [Mass/Vol] 0.40 mg/dL Normal 0.00-1.30 [facility] Comment on above: Performed By: #### L 500.4050, L501.6710, L100.0100, L400.0001 #### [facility] [address] [place], [address] BUN/CRE 20.0 RATIO Normal 10-20 [facility] Comment on above: Performed By: #### L 500.4050, L501.6710, L100.0100, L400.0001 #### [facility] [address] [place], [address] Calcium [Mass/Vol] 9.5 mg/dL Normal 7.6-11.0 [facility] Comment on above: Performed By: #### L 500.4050, L501.6710, L100.0100, L400.0001 #### [facility] [address] [place], [address] Chloride [Moles/Vol] 96 mmol/L Low 98-108 [facility] Comment on above: Performed By: #### L 500.4050, L501.6710, L100.0100, L400.0001 #### [facility] [address] [place], [address] CO2 [Moles/Vol] 24.9 mmol/L Normal 21.0-32.0 [facility] Comment on above: Performed By: #### L 500.4050, L501.6710, L100.0100, L400.0001 #### [facility] [address] [place], [address] Creatinine [Mass/Vol] 0.86 mg/dL Normal 0.70-1.20 [facility] Comment on above: Performed By: #### L 500.4050, L501.6710, L100.0100, L400.0001 #### [facility] [address] [place], [address] GAP 14 Normal 5-15 [facility] Comment on above: Performed By: #### L 500.4050, L501.6710, L100.0100, L400.0001 #### [facility] [address] [place], [address] GFR/1.73 sq M.predicted among non-blacks MDRD (S/P/Bld) [Vol rate/Area] 96 mL/min/{1.73_m2} Normal >60 [facility] Comment on above: Result Comment: mL/m in/1.73m2 CKD-EPI Creatinine Equation (2020) Performed By: #### L 500.4050, L501.6710, L100.0100, L400.0001 #### [facility] [address] [place], [address] Globulin (S) [Mass/Vol] 3.0 g/dL Normal 2.2-4.2 [facility] Comment on above: Performed By: #### L 500.4050, L501.6710, L100.0100, L400.0001 #### [facility] [address] [place], [address] Glucose [Mass/Vol] 136 mg/dL High 70-99 [facility] Comment on above: Performed By: #### L 500.4050, L501.6710, L100.0100, L400.0001 #### [facility] [address] [place], [address] Potassium [Moles/Vol] 4.7 mmol/L Normal 3.3-5.1 [facility] Comment on above: Performed By: #### L 500.4050, L501.6710, L100.0100, L400.0001 #### [facility] [address] [place], [address] Sodium [Moles/Vol] 135 mmol/L Normal 133-145 [facility] Comment on above: Performed By: #### L 500.4050, L501.6710, L100.0100, L400.0001 #### [facility] [address] [place], [address] T PROT 6.8 g/dL Normal 5.9-8.4 [facility] Comment on above: Performed By: #### L 500.4050, L501.6710, L100.0100, L400.0001 #### [facility] [address] [place], [address] Urea nitrogen [Mass/Vol] 17 mg/dL Normal 4-19 [facility] Comment on above: Performed By: #### L 500.4050, L501.6710, L100.0100, L400.0001 #### [facility] [address] [place], [address] Eosinophil percentageOrdered By: Filipe Ybarra on 01-17-2025 Eosinophils/100 WBC (Bld) 2.1 % 0-5 [facility] Epithelial cells.squamous LM Ql (Urine sed)Ordered By: Filipe Ybarra on 01-17-2025 Epithelial cells.squamous LM.HPF (Urine sed) [#/Area] 0 /[HPF] 0-5 [facility] Erythrocyte distribution wid th ratioOrdered By: Filipe Ybarra on 01-17-2025 Erythrocyte distribution width (RBC) [Ratio] 11.9 % 11.6-14.6 [facility] Erythrocyte distribution wid th standard deviationOrdered By: Filipe Ybarra on 01-17-2025 Erythrocyte distribution width (RBC) [Entitic vol] 39.7 fL 35.1-43.9 [facility] Erythrocyte distribution width (RBC) [Ratio] 39.7 fl 35.1-43.9 [facility] GFR/1.73 sq M.predicted sebastián g non-blacks MDRD (S/P/Bld) [Vol rate/Area]Ordered By: Filipe Ybarra on 01-17-2025 Estimated GFR (MDRD) Non-Af Amer 96 >60 [facility] Comment on above: mL/min/1.73m2 CKD-EP I Creatinine Equation (2020) Glomerular filtration rate ( GFR) estimation/1.73 sq m using serum, plasma, or whole bOrdered By: Filipe Ybarra on 01-17-2025 GFR/1.73 sq M.predicted among non-blacks MDRD (S/P/Bld) [Vol rate/Area] 96 mL/min/{1.73_m2} >60 [facility] Comment on above: mL/min/1.73m2 CKD-EP I Creatinine Equation (2020) Glucose Ql (U)Ordered By: Cindy Ybarra on 01-17-2025 Urine Glucose (UA) Normal mg/dl Normal [facility] Hematocrit Auto (Bld) [Volum e fraction]Ordered By: Filipe Ybarra on 01-17-2025 Hematocrit (Bld) [Volume fraction] 35.6 % Low 40-54 [facility] Hemoglobin measurementOrdere d By: Filipe Ybarra on 01-17-2025 Hemoglobin (Bld) [Mass/Vol] 12.7 g/dL Low 13.0-16.5 [facility] Immature granulocytes/100 WB C Auto (Bld)Ordered By: Filipe Ybarra on 01-17-2025 Immature granulocytes/100 WBC (Bld) 0.300 % 0.0-0.9 [facility] Comment on above: IG% - Immature Granu locytes (promyelocytes, myelocytes and metamyelocytes) > 1% indicates that a LEFT SHIFT is Present. Internal Medicine Office Vis laura 01-17-2025 Internal Medicine Office Visit [facility] [address] [place] [address] [place] [address] OFFICE VISIT Date of Service: 01/17/25 MR#: [id number] Acct: [id number] Name: ZHENG WATKINS Rep #: [id number] : 1960 Provider: Dr. Filipe alvarez MD Age/Sex: 64/M Location[place] [facility] [place] Status: Signed Intake Vital Signs 09/01/24 09:25 [...] Reasons: FU Chief Complaint: Body ache, Swelling Etl Programmer Required: No Accompanied by: Self Is patient [...] istory mg-fish oil 597 mg capsule,delay rel ([place]-3) aspirin 81 mg tablet,delayed 81 mg PO [...] in hands knees feet jarod and legs [facility] Medical History (Updated 01/17/25 @ 09:21 by [...] on inspir (more content not included)... Normal [facility] Ketones Test strip Ql (U)Ord ered By: Filipe Ybarra on 01-17-2025 Ketones Ql (U) Negative Negative [facility] Laboratory - Chemistry and C hemistry - challengeOrdered By: Filipe Ybarra on 01-17-2025 AST [Catalytic activity/Vol] 22 U/L <38 [facility] Lymphocytes Auto (Unsp spec) [#/Vol]Ordered By: Filipe Ybarra on 01-17-2025 Lymphocytes (Bld) [#/Vol] 0.94 10*3/uL 0.83-4.51 [facility] Lymphocytes/100 WBC Auto (Un sp spec)Ordered By: Filipe Ybarra on 01-17-2025 Lymphocytes/100 WBC (Bld) 13.2 % Low 19-41 [facility] MCV (mean corpuscular volume ) determinationOrdered By: Filipe Ybarra on 01-17-2025 MCV (RBC) [Entitic vol] 91.0 fL 80-94 [facility] Mean corpuscular hemoglobin (MCH) determinationOrdered By: Filipe Ybarra on 01-17-2025 MCH (RBC) [Entitic mass] 32.5 pg High 27.0-32.0 [facility] Mean corpuscular hemoglobin concentration (MCHC) determinationOrdered By: Filipe Ybarra on 01-17-2025 MCHC (RBC) [Mass/Vol] 35.7 g/dL 32-36 [facility] Mean platelet volume determi nationOrdered By: Filipe Ybarra on 01-17-2025 Platelet mean volume (Bld) [Entitic vol] 8.8 fL 6.2-12.0 [facility] Microscopic analysis of urin e for red blood cells (RBC)Ordered By: Filipe Ybarra on 01-17-2025 Microscopic analysis of urine for red blood cells (RBC) 0 SEEN /hpf 0-5 [facility] Urine RBC 0 SEEN /hpf 0-5 [facility] Monocyte percentageOrdered B y: Filipe Ybarra on 01-17-2025 Monocytes/100 WBC (Bld) 10.9 % High 0-10 [facility] Mucus LM Ql (Urine sed)Order ed By: Filipe Ybarra on 01-17-2025 Mucus Ql (Urine sed) 0 SEEN /hpf [facility] Neutrophil percentageOrdered By: Filipe Ybarra on 01-17-2025 Neutrophils/100 WBC (Bld) 73.2 % High 47-70 [facility] Nitrite Test strip Ql (U)Ord ered By: Filipe Ybarra on 01-17-2025 Nitrite Ql (U) Negative Negative [facility] Nucleated red blood cell per centageOrdered By: Filipe Ybarra on 01-17-2025 Nucleated RBC/100 WBC (Bld) [Ratio] 0 % 0-5 [facility] Platelet countOrdered By: Cindy Ybarra on 01-17-2025 Platelets (Bld) [#/Vol] 362 10*3/uL 150-450 [facility] Potassium (Unsp spec) [Mass/ Vol]Ordered By: Filipe Ybarra on 01-17-2025 Potassium [Moles/Vol] 4.7 mmol/L 3.3-5.1 [facility] Potassium measurement (mass/ volume)Ordered By: Filipe Ybarra on 01-17-2025 Potassium (Unsp spec) [Mass/Vol] 4.7 mmol/L 3.3-5.1 [facility] Protein Test strip Ql (U)Ord ered By: Filipe Ybarra on 01-17-2025 Protein Ql (U) 15 mg/dl High Negative [facility] RBC Auto (Bld) [#/Vol]Ordere d By: Filipe Ybarra on 01-17-2025 RBC (Bld) [#/Vol] 3.91 10*6/uL Low 4.6-6.2 [facility] Serum creatinine measurement (mass/volume)Ordered By: Filipe Ybarra on 01-17-2025 Creatinine [Mass/Vol] 0.86 mg/dL 0.70-1.20 [facility] Serum globulin measurementOr dered By: Filipe Ybarra on 01-17-2025 Globulin (S) [Mass/Vol] 3.0 g/dL 2.2-4.2 [facility] Serum glucose measurement (m ass/volume)Ordered By: Filipe Ybarra on 01-17-2025 Glucose [Mass/Vol] 136 mg/dL High 70-99 [facility] Serum or plasma C reactive p rotein measurement (mass/volume)Ordered By: Filipe Ybarra on 01-17-2025 CRP [Mass/Vol] 101.00 mg/L High 0.0-3.0 [facility] Serum or plasma alanine sood otransferase (ALT) measurementOrdered By: Filipe Ybarra on 01-17-2025 ALT [Catalytic activity/Vol] 16 U/L <47 [facility] Serum or plasma albumin allen urement (mass/volume)Ordered By: Filipe Ybarra on 01-17-2025 Albumin [Mass/Vol] 3.8 g/dL 3.4-4.8 [facility] Serum or plasma albumin/glob ulin mass ratioOrdered By: Filipe Ybarra on 01-17-2025 Albumin/Globulin [Mass ratio] 1.3 {ratio} 0.9-2.4 [facility] Serum or plasma alkaline almita sphatase measurementOrdered By: Filipe Ybarra on 01-17-2025 ALP [Catalytic activity/Vol] 55 U/L 40-129 [facility] Serum or plasma calcium allen urement (mass/volume)Ordered By: Filipe Ybarra on 01-17-2025 Calcium [Mass/Vol] 9.5 mg/dL 7.6-11.0 [facility] Serum or plasma urea nitroge n measurement (mass/volume)Ordered By: Filipe Ybarra on 01-17-2025 Urea nitrogen [Mass/Vol] 17 mg/dL 4-19 [facility] Sodium levelOrdered By: Katia becerraxander Tate on 01-17-2025 Sodium [Moles/Vol] 135 mmol/L 133-145 [facility] Squamous epithelial cells de tection in urine sediment by light microscopyOrdered By: Filipe Ybarra on 01-17-2025 Epithelial cells.squamous LM Ql (Urine sed) 0 SEEN /hpf 0-5 [facility] Total proteinOrdered By: Felice Ybarra on 01-17-2025 Protein [Mass/Vol] 6.8 g/dL 5.9-8.4 [facility] Urinalysis, Completeon 01-17 RBC 0 SEEN Normal 0-5 [facility] Comment on above: Order Comment: COLLE CTOR TO SPECIFY Performed By: #### L 500.1850, L501.2310, L100.0100, L400.0001 #### [facility] [place], [address] Urine blood detectionOrdered By: Filipe Ybarra on 01-17-2025 Urine Occult Blood Negative Negative [facility] Urine clarityOrdered By: Felice Ybarra on 01-17-2025 Clarity (U) Clear Clear [facility] Urine color determinationOrd ered By: Filipe Ybarra on 01-17-2025 Color (U) Yellow Yellow [facility] Urine glucose detectionOrder ed By: Filipe Ybarra on 01-17-2025 Glucose Ql (U) Normal mg/dl Normal [facility] Urine leukocyte esterase det ection by dipstickOrdered By: Filipe Ybarra on 01-17-2025 Leukocyte esterase Test strip Ql (U) Negative Negative [facility] Urine pHOrdered By: Yoli Ybarra on 01-17-2025 pH (U) 6.0 [pH] 5.0 - 8.0 [facility] Urine sediment bacteria coun t by microscopy (number/high power field)Ordered By: Filipe Ybarra on 01-17-2025 Bacteria LM.HPF (Urine sed) [#/Area] 0 /[HPF] None Seen [facility] Urine specific gravity measu rementOrdered By: Filipe Ybarra on 01-17-2025 Specific gravity (U) [Rel density] 1.010 1.002-1.030 [facility] Urine urobilinogen measureme ntOrdered By: Filipe Ybarra on 01-17-2025 Urobilinogen Ql (U) Normal mg/dl Normal [facility] Urobilinogen Ql (U)Ordered B y: Filipe Ybarra on 01-17-2025 Urine Urobilinogen Normal mg/dl Normal [facility] White blood cell (WBC) count Ordered By: Filipe Ybarra on 01-17-2025 WBC (Bld) [#/Vol] 7.1 10*3/uL 4.4-11.0 [facility] White blood cell countOrdere d By: Filipe Ybarra on 01-17-2025 Urine WBC 0 SEEN /hpf 0-5 [facility] White blood cell count 0 SEEN /hpf 0-5 [facility] ZACHARY w/ Reflex Mult Confirmon 01-15-2025 ANTI-DNA (DS)AB TNP Normal [facility] Comment on above: Performed By: #### L 101.9900, L4600.0100, L501.6710, L100.0100, L500.4050, L501.9520, L505.7010, L3100.5450, L506.0400 ####[facility] [id number] [place], [address] ANTISCLERODERM TNP Normal [facility] Comment on above: Performed By: #### L 101.9900, L4600.0100, L501.6710, L100.0100, L500.4050, L501.9520, L505.7010, L3100.5450, L506.0400 ####[facility] [id number] [place], [address] CPK Total, Creatine Kinaseon 01-11-2025 CPK TOTAL 53 U/L Normal 24-195 [facility] Comment on above: Performed By: #### L 501.3620 ####[facility] [address] [place], [address] ZACHARY serumOrdered By: Andrew Ybarra on 01-10-2025 Anti-Nuclear Antibody Screen Negative Negative [facility] Comment on above: Performed at: [address] [id number] Director: Joey Edmondson PhD, Phone: [phone] Absolute lymphocyte countOrd ered By: Filipe Ybarra on 01-10-2025 Lymphocytes Auto (Unsp spec) [#/Vol] 1.12 10*3/uL 0.83-4.51 [facility] Absolute neutrophil countOrd ered By: Filipe Ybarra on 01-10-2025 Neutrophils (Bld) [#/Vol] 4.6 10*3/uL 2.0-7.7 [facility] Automated lymphocyte count a s percentage of total leukocytesOrdered By: Filipe Ybarra on 01-10-2025 Lymphocytes/100 WBC Auto (Unsp spec) 17.1 % Low 19-41 [facility] BUN/creatinine ratioOrdered By: shayla Ybarra on 01-10-2025 Urea nitrogen/Creatinine [Mass ratio] 18.7 mg/mg 10-20 [facility] Basophil percentageOrdered B y: Filipe Ybarra on 01-10-2025 Basophils/100 WBC (Bld) 0.3 % 0-1 [facility] Bilirubin, totalOrdered By: Filipe Ybarra on 01-10-2025 Bilirubin [Mass/Vol] 0.58 mg/dL 0.00-1.30 [facility] CBC W/Diff, Automatedon 12-17 Absolute Lymph 1.12 X10 3/uL Normal 0.83-4.51 [facility] Comment on above: Performed By: #### L 101.9900, L4600.0100, L501.6710, L100.0100, L500.4050, L501.9520, L505.7010, L3100.5450, L506.0400 ####[facility] [address] [place], [address] Absolute Neut 4.6 X10 3/uL Normal 2.0-7.7 [facility] Comment on above: Performed By: #### L 101.9900, L4600.0100, L501.6710, L100.0100, L500.4050, L501.9520, L505.7010, L3100.5450, L506.0400 ####[facility] [address] [place], [address] Basophils/100 WBC (Bld) 0.3 % Normal 0-1 [facility] Comment on above: Performed By: #### L 101.9900, L4600.0100, L501.6710, L100.0100, L500.4050, L501.9520, L505.7010, L3100.5450, L506.0400 ####[facility] [address] [place], [place], [id number](541) Eosinophils/100 WBC (Bld) 1.8 % Normal 0-5 [facility] Comment on above: Performed By: #### L 101.9900, L4600.0100, L501.6710, L100.0100, L500.4050, L501.9520, L505.7010, L3100.5450, L506.0400 ####[facility] [address] [place], [place], [phone]) Erythrocyte distribution width (RBC) [Ratio] 11.9 % Normal 11.6-14.6 [facility] Comment on above: Performed By: #### L 101.9900, L4600.0100, L501.6710, L100.0100, L500.4050, L501.9520, L505.7010, L3100.5450, L506.0400 ####[facility] [address] [place], [address](997) Hematocrit (Bld) [Volume fraction] 37.3 % Low 40-54 [facility] Comment on above: Performed By: #### L 101.9900, L4600.0100, L501.6710, L100.0100, L500.4050, L501.9520, L505.7010, L3100.5450, L506.0400 ####[facility] [address] [place], [address] Hemoglobin (Bld) [Mass/Vol] 13.0 g/dL Normal 13.0-16.5 [facility] Comment on above: Performed By: #### L 101.9900, L4600.0100, L501.6710, L100.0100, L500.4050, L501.9520, L505.7010, L3100.5450, L506.0400 ####[facility] [address] [place], [address] IG% 0.500 Normal 0.0-0.9 [facility] Comment on above: Result Comment: IG% - Immature Granulocytes (promyelocytes, myelocytes and metamyelocytes) > 1% indicates that a LEFT SHIFT is Present. Performed By: #### L 101.9900, L4600.0100, L501.6710, L100.0100, L500.4050, L501.9520, L505.7010, L3100.5450, L506.0400 ####[facility] [address] [place], [address] Lymphocytes/100 WBC (Bld) 17.1 % Low 19-41 [facility] Comment on above: Performed By: #### L 101.9900, L4600.0100, L501.6710, L100.0100, L500.4050, L501.9520, L505.7010, L3100.5450, L506.0400 ####[facility] [address] [place], [address] MCH (RBC) [Entitic mass] 32.2 pg High 27.0-32.0 [facility] Comment on above: Performed By: #### L 101.9900, L4600.0100, L501.6710, L100.0100, L500.4050, L501.9520, L505.7010, L3100.5450, L506.0400 ####[facility] [address] [place], [address] MCHC (RBC) [Mass/Vol] 34.9 g/dL Normal 32-36 [facility] Comment on above: Performed By: #### L 101.9900, L4600.0100, L501.6710, L100.0100, L500.4050, L501.9520, L505.7010, L3100.5450, L506.0400 ####[facility] [address] [place], [address] MCV (RBC) [Entitic vol] 92.3 fL Normal 80-94 [facility] Comment on above: Performed By: #### L 101.9900, L4600.0100, L501.6710, L100.0100, L500.4050, L501.9520, L505.7010, L3100.5450, L506.0400 ####[facility] [address] [place], [address] Monocytes/100 WBC (Bld) 10.6 % High 0-10 [facility] Comment on above: Performed By: #### L 101.9900, L4600.0100, L501.6710, L100.0100, L500.4050, L501.9520, L505.7010, L3100.5450, L506.0400 ####[facility] [address] [place], [address] Neutrophils/100 WBC (Bld) 69.7 % Normal 47-70 [facility] Comment on above: Performed By: #### L 101.9900, L4600.0100, L501.6710, L100.0100, L500.4050, L501.9520, L505.7010, L3100.5450, L506.0400 ####[facility] [address] [place], [address] Nucleated RBC (Bld) [#/Vol] 0 10*3/uL Normal 0-5 [facility] Comment on above: Performed By: #### L 101.9900, L4600.0100, L501.6710, L100.0100, L500.4050, L501.9520, L505.7010, L3100.5450, L506.0400 ####[facility] [address] [place], [address] Platelet mean volume (Bld) [Entitic vol] 9.3 fL Normal 6.2-12.0 [facility] Comment on above: Performed By: #### L 101.9900, L4600.0100, L501.6710, L100.0100, L500.4050, L501.9520, L505.7010, L3100.5450, L506.0400 ####[facility] [address] [place], [address] Platelets (Bld) [#/Vol] 303 10*3/uL Normal 150-450 [facility] Comment on above: Performed By: #### L 101.9900, L4600.0100, L501.6710, L100.0100, L500.4050, L501.9520, L505.7010, L3100.5450, L506.0400 ####[facility] [address] [place], [address] RBC (Bld) [#/Vol] 4.04 10*6/uL Low 4.6-6.2 [facility] Comment on above: Performed By: #### L 101.9900, L4600.0100, L501.6710, L100.0100, L500.4050, L501.9520, L505.7010, L3100.5450, L506.0400 ####[facility] [address] [place], [address] RDW SD 40.1 fl Normal 35.1-43.9 [facility] Comment on above: Performed By: #### L 101.9900, L4600.0100, L501.6710, L100.0100, L500.4050, L501.9520, L505.7010, L3100.5450, L506.0400 ####[facility] [address] [place], [address] WBC (Bld) [#/Vol] 6.5 10*3/uL Normal 4.4-11.0 [facility] Comment on above: Performed By: #### L 101.9900, L4600.0100, L501.6710, L100.0100, L500.4050, L501.9520, L505.7010, L3100.5450, L506.0400 ####[facility] [address] [place], [place], [address] CRPon 01-10-2025 C-REACTIVE PROT 83.20 mg/L High 0.0-3.0 [facility] Comment on above: Performed By: #### L 101.9900, L4600.0100, L501.6710, L100.0100, L500.4050, L501.9520, L505.7010, L3100.5450, L506.0400 ####[facility] [address] [facility] [facility] [place], [place], [id number] CRP [Mass/Vol]Ordered By: Cindy Ybarra on 01-10-2025 C-Reactive Protein Extended Range 83.20 mg/L High 0.0-3.0 [facility] Carbon dioxide measurementOr dered By: Filipe Ybarra on 01-10-2025 CO2 [Moles/Vol] 28.1 mmol/L 22.0-29.0 [facility] Centromere B antibody assayO rdered By: Filipe Ybarra on 01-10-2025 Centromere [facility] Comment on above: Test not performed Chloride measurementOrdered By: Filipe Ybarra on 01-10-2025 Chloride [Moles/Vol] 97 mmol/L 96-108 [facility] Chromatin antibody assayOrde red By: Filipe Ybarra on 01-10-2025 Antichromatin Antibodies [facility] Comment on above: Test not performed Comprehensive Metabolic Prof ilon 01-10-2025 CO2 [Moles/Vol] 28.1 mmol/L Normal 22.0-29.0 [facility] Comment on above: Performed By: #### L 101.9900, L4600.0100, L501.6710, L100.0100, L500.4050, L501.9520, L505.7010, L3100.5450, L506.0400 ####[facility] [address] [place], [address] Creatinine [Moles/Vol]Ordere d By: Filipe Ybarra on 01-10-2025 Creatinine [Mass/Vol] 0.9 mg/dL 0.8-1.3 [facility] Cyclic citrullinated peptide IgG QnOrdered By: Filipe Ybarra on 01-10-2025 Cyclic Citrullinated Peptide IgG Ab See comment [facility] Comment on above: TEST RESULTS LIMITSA nti-CCP Ab, IgG/IgA 3 units 0-19 Negative <20 Weak positive 20 - 39 Moderate positive 40 - 59 Strong positive >59 TESTING PERFORMED AT [facility]. ORIGINAL REPORT ON FILE IN LAB CONTAINS ADDITIONAL TEST SITE INFORMATION. DNA double strand Ab Qn (S)O rdered By: Filipe Ybarra on 01-10-2025 Anti-Double Strand DNA Antibody TNP [facility] Comment on above: Test not performed Eosinophil percentageOrdered By: Filipe Ybarra on 01-10-2025 Eosinophils/100 WBC (Bld) 1.8 % 0-5 [facility] Erythrocyte Sed Rateon 01-10 SED RATE 21 mm/hr High 0-20 [facility] Comment on above: Performed By: #### L 101.9900, L4600.0100, L501.6710, L100.0100, L500.4050, L501.9520, L505.7010, L3100.5450, L506.0400 ####[facility] [address] [place], [place], [id number] Erythrocyte distribution wid th ratioOrdered By: Filipe Ybarra on 01-10-2025 Erythrocyte distribution width (RBC) [Ratio] 11.9 % 11.6-14.6 [facility] Erythrocyte distribution wid th standard deviationOrdered By: Filipe Ybarra on 01-10-2025 Erythrocyte distribution width (RBC) [Entitic vol] 40.1 fL 35.1-43.9 [facility] Erythrocyte distribution width (RBC) [Ratio] 40.1 fl 35.1-43.9 [facility] Erythrocyte sedimentation ra teOrdered By: Filipe Ybarra on 01-10-2025 ESR (Bld) [Velocity] 21 mm/h High 0-20 [facility] GFR/1.73 sq M.predicted sebastián g non-blacks MDRD (S/P/Bld) [Vol rate/Area]Ordered By: Filipe Ybarra on 01-10-2025 Estimated GFR (MDRD) Non-Af Amer 96 >60 [facility] Comment on above: mL/min/1.73m2 CKD-EP I Creatinine Equation (2020) Glomerular filtration rate ( GFR) estimation/1.73 sq m using serum, plasma, or whole bOrdered By: shayla Ybarra on 01-10-2025 GFR/1.73 sq M.predicted among non-blacks MDRD (S/P/Bld) [Vol rate/Area] 96 mL/min/{1.73_m2} >60 [facility] Comment on above: mL/min/1.73m2 CKD-EP I Creatinine Equation (2020) Hematocrit Auto (Bld) [Volum e fraction]Ordered By: Filipe Ybarra on 01-10-2025 Hematocrit (Bld) [Volume fraction] 37.3 % Low 40-54 [facility] Hemoglobin measurementOrdere d By: Filipe Ybarra on 01-10-2025 Hemoglobin (Bld) [Mass/Vol] 13.0 g/dL 13.0-16.5 [facility] Immature granulocytes/100 WB C Auto (Bld)Ordered By: Filipe Ybarra on 01-10-2025 Immature granulocytes/100 WBC (Bld) 0.500 % 0.0-0.9 [facility] Comment on above: IG% - Immature Granu locytes (promyelocytes, myelocytes and metamyelocytes) > 1% indicates that a LEFT SHIFT is Present. Internal Medicine Office Vis iton 01-10-2025 Internal Medicine Office Visit [facility] [address] [place] [address] [place] [address] OFFICE VISIT Date of Service: 01/10/25 MR#: [id number] Acct: [id number] Name: ZHENG WATKINS Rep #: [id number] : 1960 Provider: Dr. Filipe alvarez MD Age/Sex: 64/M [place] [facility] [place] Status: Signed Intake Vital Signs 01/06/25 10:05 [...] Acute visit. Feeling well. Left calf pain Etl Programmer Required: No Accompanied by: Is patient in [...] istory mg-fish oil 597 mg capsule,delay rel ([place]-3) aspirin 81 mg tablet,delayed 81 mg PO [...] having swelling on right leg with discomfort [facility] Medical History (Updated 01/10/25 @ 23:17 by [...] help with the swelling. 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 Normal [facility] Herminia-1 antibody assayOrdered B y: Filipe Ybarra on 01-10-2025 HERMINIA-1 Antibody TNP [facility] Comment on above: Test not performed Laboratory - Chemistry and C hemistry - challengeOrdered By: Filipe Ybarra on 01-10-2025 AST [Catalytic activity/Vol] 22 U/L <38 [facility] Lymphocytes Auto (Unsp spec) [#/Vol]Ordered By: Filipe Ybarra on 01-10-2025 Lymphocytes (Bld) [#/Vol] 1.12 10*3/uL 0.83-4.51 [facility] Lymphocytes/100 WBC Auto (Un sp spec)Ordered By: Filipe Ybarra on 01-10-2025 Lymphocytes/100 WBC (Bld) 17.1 % Low 19-41 [facility] MCV (mean corpuscular volume ) determinationOrdered By: Filipe Ybarra on 01-10-2025 MCV (RBC) [Entitic vol] 92.3 fL 80-94 [facility] Mean corpuscular hemoglobin (MCH) determinationOrdered By: Filipe Ybarra on 01-10-2025 MCH (RBC) [Entitic mass] 32.2 pg High 27.0-32.0 [facility] Mean corpuscular hemoglobin concentration (MCHC) determinationOrdered By: Filipe Ybarra on 01-10-2025 MCHC (RBC) [Mass/Vol] 34.9 g/dL 32-36 [facility] Mean platelet volume determi nationOrdered By: Filipe Ybarra on 01-10-2025 Platelet mean volume (Bld) [Entitic vol] 9.3 fL 6.2-12.0 [facility] Monocyte percentageOrdered B y: Filipe Ybarra on 01-10-2025 Monocytes/100 WBC (Bld) 10.6 % High 0-10 [facility] Neutrophil percentageOrdered By: Filipe Ybarra on 01-10-2025 Neutrophils/100 WBC (Bld) 69.7 % 47-70 [facility] Nucleated red blood cell per centageOrdered By: Filipe Ybarra on 01-10-2025 Nucleated RBC/100 WBC (Bld) [Ratio] 0 % 0-5 [facility] Platelet countOrdered By: Cindy Ybarra on 01-10-2025 Platelets (Bld) [#/Vol] 303 10*3/uL 150-450 [facility] RBC Auto (Bld) [#/Vol]Ordere d By: Filipe Ybarra on 01-10-2025 RBC (Bld) [#/Vol] 4.04 10*6/uL Low 4.6-6.2 [facility] RESIDENTIAL REMODELING SUBCONTRACTOR abOrdered By: Filipe Ybarra on 01-10-2025 RESIDENTIAL REMODELING SUBCONTRACTOR Antibody TNP [facility] Comment on above: Test not performed Rheumatoid Factoron 01-10-20 25 RHEUMATOID FAC < 10.0 Normal <15 [facility] Comment on above: Performed By: #### L 101.9900, L4600.0100, L501.6710, L100.0100, L500.4050, L501.9520, L505.7010, L3100.5450, L506.0400 ####[facility] [address] [place], [address] Rheumatoid factor Ql (S)Orde red By: Filipe Ybarra on 01-10-2025 Rheumatoid Factor < 10.0 IU/mL <15 [facility] SCL-70 extractable nuclear A b Qn (S)Ordered By: Filipe Ybarra on 01-10-2025 Scl-70 (Scleroderma) Antibody [facility] Comment on above: Test not performed SS-A IgG antibody assayOrder ed By: Filipe Ybarra on 01-10-2025 SS-A/Ro IgG Antibody [facility] Comment on above: Test not performed SS-B IgG antibody assayOrder ed By: Filipe Ybarra on 01-10-2025 SS-B/La IgG Antibody [facility] Comment on above: Test not performed Serum DNA double strand anti body assay (units/volume)Ordered By: Filipe Ybarra on 01-10-2025 DNA double strand Ab Qn (S) [facility] Comment on above: Test not performed Serum Scl-70 antibody assay (units/volume)Ordered By: Filipe Ybarra on 01-10-2025 SCL-70 extractable nuclear Ab Qn (S) [facility] Comment on above: Test not performed Serum globulin measurementOr dered By: Filipe Ybarra on 01-10-2025 Globulin (S) [Mass/Vol] 2.8 g/dL 2.2-4.2 [facility] Serum glucose measurement (m ass/volume)Ordered By: Filipe Ybarra on 01-10-2025 Glucose [Mass/Vol] 141 mg/dL High 70-99 [facility] Serum or plasma C reactive p rotein measurement (mass/volume)Ordered By: Filipe Ybarra on 01-10-2025 CRP [Mass/Vol] 83.20 mg/L High 0.0-3.0 [facility] Serum or plasma alanine sood otransferase (ALT) measurementOrdered By: Filipe Ybarra on 01-10-2025 ALT [Catalytic activity/Vol] 14 U/L <47 [facility] Serum or plasma albumin allen urement (mass/volume)Ordered By: Filipe Ybarra on 01-10-2025 Albumin [Mass/Vol] 3.9 g/dL 3.4-4.8 [facility] Serum or plasma albumin/glob ulin mass ratioOrdered By: Filipe Ybarra on 01-10-2025 Albumin/Globulin [Mass ratio] 1.4 {ratio} 0.9-2.4 [facility] Serum or plasma alkaline almita sphatase measurementOrdered By: Filipe Ybarra on 01-10-2025 ALP [Catalytic activity/Vol] 62 U/L 40-129 [facility] Serum or plasma anion gap de termination (moles/volume)Ordered By: Filipe Ybarra on 01-10-2025 Anion gap [Moles/Vol] 11 mmol/L 5-15 [facility] Serum or plasma calcium allen urement (mass/volume)Ordered By: Filipe Ybarra on 01-10-2025 Calcium [Mass/Vol] 9.1 mg/dL 7.6-11.0 [facility] Serum or plasma creatine kin ase activityOrdered By: Filipe Ybarra on 01-10-2025 CK [Catalytic activity/Vol] 53 U/L 24-195 [facility] Serum or plasma creatinine m easurement (moles/volume)Ordered By: Filipe Ybarra on 01-10-2025 Creatinine [Moles/Vol] 0.9 mg/dL 0.8-1.3 [facility] Serum or plasma cyclic citru llinated peptide IgG antibody assay (units/volume)Ordered By: Filipe Ybarra on 01-10-2025 Cyclic citrullinated peptide IgG Qn See comment [facility] Comment on above: TEST RESULTS LIMITSA nti-CCP Ab, IgG/IgA 3 units 0-19 Negative <20 Weak positive 20 - 39 Moderate positive 40 - 59 Strong positive >59 TESTING PERFORMED AT [facility]. ORIGINAL REPORT ON FILE IN LAB CONTAINS ADDITIONAL TEST SITE INFORMATION. Serum or plasma potassium me asurementOrdered By: Filipe Ybarra on 01-10-2025 Potassium [Moles/Vol] 4.4 mmol/L 3.3-5.1 [facility] Serum or plasma sodium measu rement (moles/volume)Ordered By: Filipe Ybarra on 01-10-2025 Sodium [Moles/Vol] 136 mmol/L 133-145 [facility] Serum or plasma urea nitroge n measurement (mass/volume)Ordered By: Filipe Ybarra on 01-10-2025 Urea nitrogen [Mass/Vol] 16 mg/dL 4-19 [facility] Serum rheumatoid factor dete ctionOrdered By: Filipe Ybarra on 01-10-2025 Rheumatoid factor Ql (S) < 10.0 IU/mL <15 [facility] Brewer antibody assayOrdered By: Filipe Ybarra on 01-10-2025 SM Antibody TNP [facility] Comment on above: Test not performed T4 Free Directon 01-10-2025 T4 FREE DIRECT 1.40 ng/dL Normal 0.76-1.46 [facility] Comment on above: Performed By: #### L 101.9900, L4600.0100, L501.6710, L100.0100, L500.4050, L501.9520, L505.7010, L3100.5450, L506.0400 ####[facility] [address] [place], [address] T4 freeOrdered By: Filipe Ybarra on 01-10-2025 Free T4 [Mass/Vol] 1.40 ng/dL 0.76-1.46 [facility] TSH DL <= 0.005 mIU/L QnOrde red By: Filipe Ybarra on 01-10-2025 Thyroid Stimulating Hormone (TSH) 1.220 uIU/mL 0.300-4.200 [facility] TSH Qn 1.220 uIU/mL 0.300-4.200 [facility] Thyroid Stim Hormone (TSH)on 01-10-2025 TSH 1.220 uIU/mL Normal 0.300-4.200 [facility] Comment on above: Performed By: #### L 101.9900, L4600.0100, L501.6710, L100.0100, L500.4050, L501.9520, L505.7010, L3100.5450, L506.0400 ####[facility] [address] [place], [address] Total proteinOrdered By: Felice Ybarra on 01-10-2025 Protein [Mass/Vol] 6.7 g/dL 5.9-8.4 [facility] White blood cell (WBC) count Ordered By: Filipe Ybarra on 01-10-2025 WBC (Bld) [#/Vol] 6.5 10*3/uL 4.4-11.0 [facility] Emergency Department Summary on 01-06-2025 Emergency Department Summary [facility] Medical Records Department [address] [place] [address] Emergency Department Summary 01/06/25 MR#: [id number] Acct: [id number] Name: ZHENG WATKINS Rep #: [id number] : 1960 64 From: Albert Lopez MD [...] the emergency department with concern for DVT. [facility] Medical History Varicose veins of [...] istory mg-fish oil 597 mg capsule,delay rel ([place]-3) aspirin 81 mg tablet,delayed 81 mg PO [...] he h (more content not included)... Normal [facility] Venous Duplex US, Unilateral on 01-06-2025 Venous Duplex US, Unilateral [facility] [address] [place] [address] Venous Duplex US, Unilateral 01/06/25 1054 MR#: [id number] Acct: [id number] Name: ZHENG WATKINS Rep #: [id number] : 1960 64 From: Lior Wall MD [...] Physician: Filipe Ybarra Performed By: Thalia Nielsen RVT 01/08/25 1605 Date Lior Wall MD CC: Dr. Albert Lopez MD; Dr. Filipe Ybarra MD Date Dictated: 01/06/25 1054 Date Transcribed: 01/08/25 1605 Director Hematology: Signed Normal [facility] CBC W/Diff, Automatedon 10- Absolute Lymph 1.16 X10 3/uL Normal 0.83-4.51 [facility] Comment on above: Performed By: #### L 500.4050, L500.4100, L501.9940, L501.9985, L100.0100 ####[facility] [address] [place], [address] Absolute Neut 3.6 X10 3/uL Normal 2.0-7.7 [facility] Comment on above: Performed By: #### L 500.4050, L500.4100, L501.9940, L501.9985, L100.0100 ####[facility] [address] [place], [address] Basophils/100 WBC (Bld) 0.6 % Normal 0-1 [facility] Comment on above: Performed By: #### L 500.4050, L500.4100, L501.9940, L501.9985, L100.0100 ####[facility] [address] [place], [address] Eosinophils/100 WBC (Bld) 2.2 % Normal 0-5 [facility] Comment on above: Performed By: #### L 500.4050, L500.4100, L501.9940, L501.9985, L100.0100 ####[facility] [address] [place], [address] Erythrocyte distribution width (RBC) [Ratio] 12.1 % Normal 11.6-14.6 [facility] Comment on above: Performed By: #### L 500.4050, L500.4100, L501.9940, L501.9985, L100.0100 ####[facility] [address] [place], [address] Hematocrit (Bld) [Volume fraction] 40.9 % Normal 40-54 [facility] Comment on above: Performed By: #### L 500.4050, L500.4100, L501.9940, L501.9985, L100.0100 ####[facility] [address] [place], [address] Hemoglobin (Bld) [Mass/Vol] 14.1 g/dL Normal 13.0-16.5 [facility] Comment on above: Performed By: #### L 500.4050, L500.4100, L501.9940, L501.9985, L100.0100 ####[facility] [id number] [place], [address] IG% 0.200 Normal 0.0-0.9 [facility] Comment on above: Result Comment: IG% - Immature Granulocytes (promyelocytes, myelocytes and metamyelocytes) > 1% indicates that a LEFT SHIFT is Present. Performed By: #### L 500.4050, L500.4100, L501.9940, L501.9985, L100.0100 ####[facility] [id number] [place], [address] Lymphocytes/100 WBC (Bld) 21.4 % Normal 19-41 [facility] Comment on above: Performed By: #### L 500.4050, L500.4100, L501.9940, L501.9985, L100.0100 ####[facility] [address] [place], [address] MCH (RBC) [Entitic mass] 32.3 pg High 27.0-32.0 [facility] Comment on above: Performed By: #### L 500.4050, L500.4100, L501.9940, L501.9985, L100.0100 ####[facility] [address] [place], [address] MCHC (RBC) [Mass/Vol] 34.5 g/dL Normal 32-36 [facility] Comment on above: Performed By: #### L 500.4050, L500.4100, L501.9940, L501.9985, L100.0100 ####[facility] [address] [place], [address] MCV (RBC) [Entitic vol] 93.6 fL Normal 80-94 [facility] Comment on above: Performed By: #### L 500.4050, L500.4100, L501.9940, L501.9985, L100.0100 ####[facility] [address] [place], [address] Monocytes/100 WBC (Bld) 8.8 % Normal 0-10 [facility] Comment on above: Performed By: #### L 500.4050, L500.4100, L501.9940, L501.9985, L100.0100 ####[facility] [address] [place], [address] Neutrophils/100 WBC (Bld) 66.8 % Normal 47-70 [facility] Comment on above: Performed By: #### L 500.4050, L500.4100, L501.9940, L501.9985, L100.0100 ####[facility] [address] [place], [address] Nucleated RBC (Bld) [#/Vol] 0 10*3/uL Normal 0-5 [facility] Comment on above: Performed By: #### L 500.4050, L500.4100, L501.9940, L501.9985, L100.0100 ####[facility] [address] [place], [address] Platelet mean volume (Bld) [Entitic vol] 10.2 fL Normal 6.2-12.0 [facility] Comment on above: Performed By: #### L 500.4050, L500.4100, L501.9940, L501.9985, L100.0100 ####[facility] [address] [place], [address] Platelets (Bld) [#/Vol] 211 10*3/uL Normal 150-450 [facility] Comment on above: Performed By: #### L 500.4050, L500.4100, L501.9940, L501.9985, L100.0100 ####[facility] [address] [place], [address] RBC (Bld) [#/Vol] 4.37 10*6/uL Low 4.6-6.2 [facility] Comment on above: Performed By: #### L 500.4050, L500.4100, L501.9940, L501.9985, L100.0100 ####[facility] [address] [place], [address] RDW SD 41.8 fl Normal 35.1-43.9 [facility] Comment on above: Performed By: #### L 500.4050, L500.4100, L501.9940, L501.9985, L100.0100 ####[facility] [address] [place], [address] WBC (Bld) [#/Vol] 5.4 10*3/uL Normal 4.4-11.0 [facility] Comment on above: Performed By: #### L 500.4050, L500.4100, L501.9940, L501.9985, L100.0100 ####[facility] [address] [place], [address] Comprehensive Metabolic Prof ilon 09-01-2024 Albumin [Mass/Vol] 3.8 g/dL Normal 3.2-5.0 [facility] Comment on above: Performed By: #### L 500.4050, L500.4100, L501.9940, L501.9985, L100.0100 ####[facility] [address] [place], [address] Albumin/Globulin [Mass ratio] 1.1 {ratio} Normal 0.9-2.4 [facility] Comment on above: Performed By: #### L 500.4050, L500.4100, L501.9940, L501.9985, L100.0100 ####[facility] [address] [place], [address] ALK P 56 U/L Normal 45-117 [facility] Comment on above: Performed By: #### L 500.4050, L500.4100, L501.9940, L501.9985, L100.0100 ####[facility] [address] [place], [address] ALT [Catalytic activity/Vol] 58 U/L Normal 16-61 [facility] Comment on above: Performed By: #### L 500.4050, L500.4100, L501.9940, L501.9985, L100.0100 ####[facility] [address] [place], [address] AST [Catalytic activity/Vol] 36 U/L Normal 15-37 [facility] Comment on above: Performed By: #### L 500.4050, L500.4100, L501.9940, L501.9985, L100.0100 ####[facility] [address] [place], [address] Bilirubin [Mass/Vol] 0.50 mg/dL Normal 0.20-1.00 [facility] Comment on above: Result Comment: For patients on eltrombopag therapy, use of Dimension Campbell TBIL is not recommended. Performed By: #### L 500.4050, L500.4100, L501.9940, L501.9985, L100.0100 ####[facility] [address] [place], [address] BUN/CRE 20.8 RATIO High 10-20 [facility] Comment on above: Performed By: #### L 500.4050, L500.4100, L501.9940, L501.9985, L100.0100 ####[facility] [address] [place], [address] CA,Total 9.2 mg/dL Normal 8.5-10.1 [facility] Comment on above: Performed By: #### L 500.4050, L500.4100, L501.9940, L501.9985, L100.0100 ####[facility] [address] [place], [address] Chloride [Moles/Vol] 102 mmol/L Normal 98-107 [facility] Comment on above: Performed By: #### L 500.4050, L500.4100, L501.9940, L501.9985, L100.0100 ####[facility] [address] [place], [address] CO2 [Moles/Vol] 30.0 mmol/L Normal 21.0-32.0 [facility] Comment on above: Performed By: #### L 500.4050, L500.4100, L501.9940, L501.9985, L100.0100 ####[facility] [address] [place], [address] Creatinine [Mass/Vol] 1.06 mg/dL Normal 0.70-1.30 [facility] Comment on above: Result Comment: The validity of the calculated GFR GFRAA in patients over 70 years has not been determined. Clinical correlation is essential. Performed By: #### L 500.4050, L500.4100, L501.9940, L501.9985, L100.0100 ####[facility] [address] [place], [address] EST GFR - AA 90 mL/min Normal >60 [facility] Comment on above: Result Comment: Afri can Ivorian GFR Calc Performed By: #### L 500.4050, L500.4100, L501.9940, L501.9985, L100.0100 ####[facility] [address] [place], [address] GAP 3 Low 5-15 [facility] Comment on above: Performed By: #### L 500.4050, L500.4100, L501.9940, L501.9985, L100.0100 ####[facility] [address] [place], [address] GFR/1.73 sq M.predicted among non-blacks MDRD (S/P/Bld) [Vol rate/Area] 74 mL/min/{1.73_m2} Normal >60 [facility] Comment on above: Result Comment: Non- GFR Calc Performed By: #### L 500.4050, L500.4100, L501.9940, L501.9985, L100.0100 ####[facility] [address] [place], [address] Globulin (S) [Mass/Vol] 3.4 g/dL Normal 2.2-4.2 [facility] Comment on above: Performed By: #### L 500.4050, L500.4100, L501.9940, L501.9985, L100.0100 ####[facility] [address] [place], [address] Glucose [Mass/Vol] 147 mg/dL High 74-106 [facility] Comment on above: Result Comment: Fast ing Glucose result greater than or equal to 126 mg/dL suggests DIABETES MELLITUS per A.D.A. criteria. Performed By: #### L 500.4050, L500.4100, L501.9940, L501.9985, L100.0100 ####[facility] [address] [place], [address] Potassium [Moles/Vol] 4.0 mmol/L Normal 3.5-5.1 [facility] Comment on above: Performed By: #### L 500.4050, L500.4100, L501.9940, L501.9985, L100.0100 ####[facility] [address] [place], [address] Sodium [Moles/Vol] 135 mmol/L Low 136-145 [facility] Comment on above: Performed By: #### L 500.4050, L500.4100, L501.9940, L501.9985, L100.0100 ####[facility] [address] [place], [address] T PROT 7.2 g/dL Normal 6.4-8.2 [facility] Comment on above: Performed By: #### L 500.4050, L500.4100, L501.9940, L501.9985, L100.0100 ####[facility] [address] [place], [address] Urea nitrogen [Mass/Vol] 22 mg/dL High 06-01 [facility] Comment on above: Performed By: #### L 500.4050, L500.4100, L501.9940, L501.9985, L100.0100 ####[facility] [address] [place], [address] Hemoglobin A1con 09-01-2024 HbA1c (Bld) [Mass fraction] 5.9 % High 3.8-5.6 [facility] Comment on above: Result Comment: Norm al < 5.7 % Prediabetic 5.7 - 6.4 % Diabetic >or= 6.5 % Please note range changes. Performed By: #### L 500.4050, L500.4100, L501.9940, L501.9985, L100.0100 ####[facility] [address] [place], [address] Internal Medicine Office Vis laura 09-01-2024 Internal Medicine Office Visit [facility] [address] [place] [address] [place] [address] OFFICE VISIT Date of Service: 09/01/24 MR#: [id number] Acct: [id number] Name: ZHENG WATKINS Rep #: [id number] : 1960 Provider: Dr. Filipe alvarez MD Age/Sex: 64/M [place] [facility] [place] Status: Signed Intake Vital Signs 05/03/24 09:17 [...] 4 M FU Chief Complaint: 4m f/u Etl Programmer Required: No Accompanied by: Self Is patient [...] History mg-fish oil 597 mg capsule,delay rel ([place]-3) doxazosin 4 mg tablet 4 mg PO [...] you fallen in the past year?: No [facility] Medical History (Updated 09/01/24 @ 12:26 by [...] Musc Musculoskele (more content not included)... Normal [facility] Lipid Profileon 09-01-2024 Cholesterol [Mass/Vol] 184 mg/dL Normal 200 [facility] Comment on above: Result Comment: <200 mg/dL Desirable 200-240 mg/dL Borderline >240 mg/dL High Risk Performed By: #### L 500.4050, L500.4100, L501.9940, L501.9985, L100.0100 ####[facility] [address] [place], [place], [address] Cholesterol in HDL [Mass/Vol] 42 mg/dL Normal [facility] Comment on above: Result Comment: The drugs N-Acetylcysteine and Metamizole may falsely depress this assay. Reference Range HDL <40 mg/dL Low HDL Cholesterol HDL >or= 60 mg/dL High HDL Cholesterol Performed By: #### L 500.4050, L500.4100, L501.9940, L501.9985, L100.0100 ####[facility] [address] [place], [address] Cholesterol in LDL [Mass/Vol] 117 mg/dL Normal 0-130 [facility] Comment on above: Performed By: #### L 500.4050, L500.4100, L501.9940, L501.9985, L100.0100 ####[facility] [address] [place], [address] Cholesterol in VLDL [Mass/Vol] 25 mg/dL Normal 5-40 [facility] Comment on above: Performed By: #### L 500.4050, L500.4100, L501.9940, L501.9985, L100.0100 ####[facility] [address] [place], [address] Triglyceride [Mass/Vol] 124 mg/dL Normal [facility] Comment on above: Result Comment: The drugs N-Acetylcysteine and Metamizole may falsely depress this assay. Serum Triglycerides Reference Interval Normal <150 mg/dL Borderline high 150 - 199 mg/dL High 200 - 499 mg/dL Very High > or = 500 mg/dL Performed By: #### L 500.4050, L500.4100, L501.9940, L501.9985, L100.0100 ####[facility] [address] [place], [address] PSA,Total- Diagnosticon 08-15 PSA, DIAGNOSTIC 3.96 ng/mL Normal 0.0-4.0 [facility] Comment on above: Result Comment: This test was performed using the TPSA assay method for the [employer] chemistry system. Values obtained with different assay methods cannot be used interchangably. When changing PSA assays in the course of monitoring a patient, additional sequential testing should be carried out to confirm baseline values. Performed By: #### L 500.4050, L500.4100, L501.9940, L501.9985, L100.0100 ####[facility] [address] [place], [address] Office Visit Reporton 2023 Office Visit Report [facility] [address] [place] [address] OFFICE VISIT Date of Service: 08/22/24 MR#: [id number] Acct: [id number] Patient: ZHENG WATKINS Rep #: [id number] : 1960 Provider: ABEL Davis Age/Sex: 64/M [place] [facility] Status: Signed Intake Vital Signs 05/03/24 09:17 [...] History mg-fish oil 597 mg capsule,delay rel ([place]-3) doxazosin 4 mg tablet 4 mg PO [...] develops fever, (more content not included)... Normal [facility] Surgery Visit Reporton 06-12 Surgery Visit Report [facility] [address] [place] [address] OFFICE VISIT Date of Service: 06/12/24 MR#: [id number] Acct: [id number] Name: ZHENG WATKINS Rep #: [id number] : 1960 Provider: Dr. Khadar tello MD Age/Sex: 64/M Location: [facility] Status: Signed Intake Vital Signs 05/03/24 09:17 Height 5 ft 10 in Weight: 231 lb BMI 33.1 BP 130/80 H Blood Pressure Location Lt brachial Position Sitting Respiration 16 Pulse 87 Pulse Source Monitor Temp 98.9 F Temp Source Temporal Pulse Oximetry (%) 93 Oxygen Delivery Method room air Intake Visit Reasons: INCISION CHECK Chief Complaint: Incision check Etl Programmer Required: No Is patient in pain?: No [...] History mg-fish oil 597 mg capsule,delay rel ([place]-3) doxazosin 4 mg tablet 4 mg PO [...] No weakness (more content not included)... Normal [facility] Surgery Visit Reporton 05-30 Surgery Visit Report [facility] [address] [place] [address]. [address] [place] [address] OFFICE VISIT Date of Service: 05/30/24 MR#: [id number] Acct: [id number] Name: ZHENG WATKINS Rep #: [id number] : 1960 Provider: Dr. Khadar tello MD Age/Sex: 64/M Location: [facility] Status: Signed Intake Vital Signs 05/03/24 09:17 [...] you fallen in the past year?: No [facility] Medical History (Updated 05/03/24 @ 11:58 by [...] applicable) CC: Dr. Filipe Ybarra MD Normal [facility] Basophil percentageOrdered B y: Filipe Ybarra on 03-22-2024 Basophil percentage 0 SEEN /hpf 0-5 [facility] Basophil percentage 4.22 ng/mL 0.0-4.0 [facility] Comment on above: This test was perfor med using the TPSA assay method for the[employer] chemistry system. Values obtained with differentassay methods cannot be used interchangably.When changing PSA assays in the course of monitoring apatient, additional sequential testing should be carriedout to confirm baseline values. Basophil percentageOrdered B y: Khadar Mead on 03-22-2024 Chloride [Moles/Vol] 103 mmol/L 98-107 [facility] Glucose [Mass/Vol] 139 mg/dL 74-106 [facility] Comment on above: Fasting Glucose resu lt greater than or equal to 126 mg/dL suggests DIABETES MELLITUS per A.D.A. criteria. Hemoglobin (Bld) [Mass/Vol] 14.2 g/dL 13.0-16.5 [facility] Potassium [Moles/Vol] 3.8 mmol/L 3.5-5.1 [facility] Sodium [Moles/Vol] 137 mmol/L 136-145 [facility] WBC (Bld) [#/Vol] 5.6 10*3/uL 4.4-11.0 [facility] Bilirubin Test strip Ql (U)O rdered By: Filipe Ybarra on 03-22-2024 Bilirubin Ql (U) Negative Negative [facility] Determination of erythrocyte mean corpuscular volume (MCV)Ordered By: Khadar Mead on 03-22-2024 MCV (RBC) [Entitic vol] 94.2 fL 80-94 [facility] Erythrocyte distribution wid th ratioOrdered By: Khadar Mead on 03-22-2024 Erythrocyte distribution width (RBC) [Ratio] 12.2 % 11.6-14.6 [facility] Erythrocyte distribution wid th standard deviationOrdered By: Khadar Mead on 03-22-2024 Erythrocyte distribution width (RBC) [Entitic vol] 42.3 fL 35.1-43.9 [facility] Hematocrit Auto (Bld) [Volum e fraction]Ordered By: Khadar Mead on 03-22-2024 Hematocrit (Bld) [Volume fraction] 40.8 % 40-54 [facility] Ketones Test strip Ql (U)Ord ered By: Filipe Ybarra on 03-22-2024 Ketones Ql (U) Negative Negative [facility] Laboratory - Chemistry and C hemistry - challengeOrdered By: Khadar Mead on 03-22-2024 CO2 [Moles/Vol] 30.0 mmol/L 21.0-32.0 [facility] Urea nitrogen/Creatinine [Mass ratio] 24.5 mg/mg 10-20 [facility] Laboratory - Hematology and Cell countsOrdered By: Khadar Mead on 03-22-2024 MCH (RBC) [Entitic mass] 32.8 pg 27.0-32.0 [facility] MCHC (RBC) [Mass/Vol] 34.8 g/dL 32-36 [facility] Platelet mean volume (Bld) [Entitic vol] 9.5 fL 6.2-12.0 [facility] Platelets (Bld) [#/Vol] 216 10*3/uL 150-450 [facility] Mucus LM Ql (Urine sed)Order ed By: Filipe Ybarra on 03-22-2024 Mucus Ql (Urine sed) 0 SEEN /hpf [facility] Nitrite Test strip Ql (U)Ord ered By: Filipe Ybarra on 03-22-2024 Nitrite Ql (U) Negative Negative [facility] No Panel InformationOrdered By: Filipe Ybarra on 03-22-2024 Urine RBC 0 SEEN /hpf 0-5 [facility] No Panel InformationOrdered By: Khadar Mead on 03-22-2024 Estimated GFR (MDRD) Amer 94 mL/min >60 [facility] Comment on above: GFR Calc Estimated GFR (MDRD) Non-Af Amer 78 mL/min >60 [facility] Comment on above: Non- GFR Calc Protein Test strip Ql (U)Ord ered By: Filipe Ybarra on 03-22-2024 Protein Ql (U) Negative Negative [facility] RBC Auto (Bld) [#/Vol]Ordere d By: Khadar Mead on 03-22-2024 RBC (Bld) [#/Vol] 4.33 10*6/uL 4.6-6.2 [facility] Serum or plasma calcium allen urement (mass/volume)Ordered By: Khadar Mead on 03-22-2024 Calcium [Mass/Vol] 9.2 mg/dL 8.5-10.1 [facility] Serum or plasma creatinine m easurement (mass/volume)Ordered By: Khadar Mead on 03-22-2024 Creatinine [Mass/Vol] 1.02 mg/dL 0.70-1.30 [facility] Comment on above: The validity of the calculated GFR & GFRAA in patients over 70 years has not been determined. Clinical correlation is essential. Serum or plasma urea nitroge n measurement (mass/volume)Ordered By: Khadar Mead on 03-22-2024 Urea nitrogen [Mass/Vol] 25 mg/dL 7-18 [facility] Squamous epithelial cells de tection in urine sediment by light microscopyOrdered By: Filipe Ybarra on 03-22-2024 Epithelial cells.squamous LM Ql (Urine sed) 0 SEEN /hpf 0-5 [facility] Thin prep Papanicolaou smear with manual screeningOrdered By: Khadar Mead on 03-22-2024 Thin prep Papanicolaou smear with manual screening 4 -15 [facility] Urine blood detectionOrdered By: Filipe Ybarra on 03-22-2024 RBC Ql (U) Negative Negative [facility] Urine clarityOrdered By: Felice Ybarra on 03-22-2024 Clarity (U) Clear Clear [facility] Urine color determinationOrd ered By: Filipe Ybarra on 03-22-2024 Color (U) Yellow Yellow [facility] Urine glucose detectionOrder ed By: Filipe Ybarra on 03-22-2024 Glucose Ql (U) Normal mg/dl Normal [facility] Urine leukocyte esterase det ection by dipstickOrdered By: Filipe Ybarra on 03-22-2024 Leukocyte esterase Test strip Ql (U) Negative Negative [facility] Urine pHOrdered By: Yoli Ybarra on 03-22-2024 pH (U) 6.5 [pH] 5.0 - 8.0 [facility] Urine sediment bacteria coun t by microscopy (number/high power field)Ordered By: Filipe Ybarra on 03-22-2024 Bacteria LM.HPF (Urine sed) [#/Area] 0 /[HPF] None Seen [facility] Urine specific gravity measu rementOrdered By: Filipe Ybarra on 03-22-2024 Specific gravity (U) [Rel density] 1.010 1.002-1.030 [facility] Urine urobilinogen measureme ntOrdered By: Filipe Ybarra on 03-22-2024 Urobilinogen Ql (U) Normal mg/dl Normal [facility] Basophil percentageOrdered B y: Filipe Ybarra on 01-12-2024 Bilirubin [Mass/Vol] 0.70 mg/dL 0.20-1.00 [facility] Comment on above: For patients on eltr ombopag therapy, use of Dimension Campbell TBIL is not recommended. Chloride [Moles/Vol] 104 mmol/L 98-107 [facility] Glucose [Mass/Vol] 133 mg/dL 74-106 [facility] Comment on above: Fasting Glucose resu lt greater than or equal to 126 mg/dL suggests DIABETES MELLITUS per A.D.A. criteria. Potassium [Moles/Vol] 4.1 mmol/L 3.5-5.1 [facility] Protein [Mass/Vol] 7.4 g/dL 6.4-8.2 [facility] Sodium [Moles/Vol] 139 mmol/L 136-145 [facility] Laboratory - Chemistry and C hemistry - challengeOrdered By: Filipe Ybarra on 01-12-2024 Albumin/Globulin [Mass ratio] 1.2 {ratio} 0.9-2.4 [facility] ALP [Catalytic activity/Vol] 51 U/L 45-117 [facility] ALT [Catalytic activity/Vol] 74 U/L 16-61 [facility] CO2 [Moles/Vol] 27.0 mmol/L 21.0-32.0 [facility] Globulin (S) [Mass/Vol] 3.3 g/dL 2.2-4.2 [facility] Urea nitrogen/Creatinine [Mass ratio] 25.0 mg/mg 10-20 [facility] No Panel InformationOrdered By: Filipe Ybarra on 01-12-2024 Estimated GFR (MDRD) Amer 92 mL/min >60 [facility] Comment on above: GFR Calc Estimated GFR (MDRD) Non-Af Amer 76 mL/min >60 [facility] Comment on above: Non- GFR Calc Serum or plasma calcium allen urement (mass/volume)Ordered By: Filipe Ybarra on 01-12-2024 Calcium [Mass/Vol] 9.7 mg/dL 8.5-10.1 [facility] Serum or plasma creatinine m easurement (mass/volume)Ordered By: Filipe Ybarra on 01-12-2024 Creatinine [Mass/Vol] 1.04 mg/dL 0.70-1.30 [facility] Comment on above: The validity of the calculated GFR & GFRAA in patients over 70 years has not been determined. Clinical correlation is essential. Serum or plasma urea nitroge n measurement (mass/volume)Ordered By: Filipe Ybarra on 01-12-2024 Urea nitrogen [Mass/Vol] 26 mg/dL 7-18 [facility] Thin prep Papanicolaou smear with manual screeningOrdered By: Filipe Ybarra on 01-12-2024 Thin prep Papanicolaou smear with manual screening 4.1 g/dL 3.2-5.0 [facility] Thin prep Papanicolaou smear with manual screening 57 U/L 15-37 [facility] Thin prep Papanicolaou smear with manual screening 8 5-15 [facility] Whole blood hemoglobin A1c/t otal hemoglobin ratio (mass fraction)Ordered By: Filipe Ybarra on 01-12-2024 HbA1c (Bld) [Mass fraction] 5.8 % 3.8-5.6 [facility] Comment on above: Normal < 5.7 % Predi abetic 5.7 - 6.4 % Diabetic >or= 6.5 % Please note range changes. Basophil percentageon 2021 Chloride [Moles/Vol] 102 mmol/L 98-107 [facility] Work Phone: Glucose [Mass/Vol] 115 mg/dL 74-106 [facility] Work Phone: Comment on above: Fasting Glucose resu lt from 100 to 125 mg/dL suggests IMPAIRED HOMEOSTASIS per A.D.A. criteria. Potassium [Moles/Vol] 4.3 mmol/L 3.5-5.1 [facility] Work Phone: Sodium [Moles/Vol] 137 mmol/L 136-145 [facility] Work Phone: Laboratory - Chemistry and C hemistry - challengeon 09-25-2022 CO2 [Moles/Vol] 29.0 mmol/L 21.0-32.0 [facility] Work Phone: Urea nitrogen/Creatinine [Mass ratio] 22.8 mg/mg 10-20 [facility] Work Phone: No Panel Informationon 09-25 Estimated GFR (MDRD) Amer 101 mL/min >60 [facility] Work Phone: Comment on above: GFR Calc Estimated GFR (MDRD) Non-Af Amer 83 mL/min >60 [facility] Work Phone: Comment on above: Non- GFR Calc Serum or plasma calcium allen urement (mass/volume)on 09-25-2022 Calcium [Mass/Vol] 8.9 mg/dL 8.5-10.1 [facility] Work Phone: Serum or plasma creatinine m easurement (mass/volume)on 09-25-2022 Creatinine [Mass/Vol] 0.96 mg/dL 0.70-1.30 [facility] Work Phone: Comment on above: The validity of the calculated GFR & GFRAA in patients over 70 years has not been determined. Clinical correlation is essential. Serum or plasma urea nitroge n measurement (mass/volume)on 09-25-2022 Urea nitrogen [Mass/Vol] 22 mg/dL 7-18 [facility] Work Phone: Thin prep Papanicolaou smear with manual screeningon 09-25-2022 Thin prep Papanicolaou smear with manual screening 6 5-15 [facility] Work Phone: XR Toes - right 3 Viewson IMPRESSION: No acute radiographic abnormalities seen in the first digit. Director Hematology: [facility] Transcribe Date/Time: Oct 16 2020 1:16P Dictated by : DAKOTAH JONES MD This examination was interpreted and the report reviewed and electronically signed by: DAKOTAH JONES MD on Oct 16 2020 1:27PM [facility] DIVISION OF RADIOLOGY * * *Final Report* [...] soft tissue swelling. DIVISION OF RADIOLOGY Provider, [facility] [place] - 10/16/2020 * * *Final Report* * [...] radiographic abnormalities seen in the first digit. Director Hematology: WILLIAM Transcribe Date/Time: Oct 16 2020 1:16P Dictated by : DAKOTAH JONES MD This examination was interpreted and the report reviewed and electronically signed by: DAKOTAH JONES MD on Oct 16 2020 1:27PM [facility] Radiology Study observation (narrative) [facility] - right 3 ViewsOrder ed By: [facility] Provider on 10-16-2020 [facility] Vital Signs Date Time Vital Sign Value Performing Clinician Jasmina harrison 04-27-2025 12:24-0400 Body height 175.[address] Filipe Ybarra MD Work Phone: [facility] 04-27-2025 12:24-040 Body mass index (BMI) [Ratio] 34.5 kg/m2 Dr. Filipe Ybarra MD Work Phone: [facility] 04-27-2025 12:24-0400 Body temperature 97.8 [degF] Dr. Filipe Ybarra MD Work Phone: [facility] 04-27-2025 12:24-0400 Body weight 106.[address] Filipe Ybarra MD Work Phone: [facility] 04-27-2025 12:24-0400 Diastolic blood pressure 68 mm[Hg] Dr. Filipe Ybarra MD Work Phone: [facility] 04-27-2025 12:24-0400 Heart rate 85 /min Dr. Filipe Ybarra MD Work Phone: [facility] 04-27-2025 12:24-0400 Respiratory rate 18 /min Dr. Filipe Ybarra MD Work Phone: [facility] 04-27-2025 12:24-0400 SaO2% (BldA) [Mass fraction] 94 % Dr. Filipe Ybarra MD Work Phone: [facility] 04-27-2025 12:24-0400 Systolic blood pressure 130 mm[Hg] Dr. Filipe Ybarra MD Work Phone: [facility] 03-26-2025 15:02-0400 Body height 175.[address] Filipe Ybarra MD Work Phone: [facility] 03-26-2025 15:02-0400 Body mass index (BMI) [Ratio] 33.5 kg/m2 Dr. Filipe Ybarra MD Work Phone: [facility] 03-26-2025 15:02-0400 Body temperature 98.7 [degF] Dr. Filipe Ybarra MD Work Phone: [facility] 03-26-2025 15:02-0400 Body weight 102.[address] Filipe Ybarra MD Work Phone: [facility] 03-26-2025 15:02-0400 Diastolic blood pressure 78 mm[Hg] Dr. Filipe Ybarra MD Work Phone: [facility] 03-26-2025 15:02-0400 Heart rate 76 /min Dr. Filipe Ybarra MD Work Phone: [facility] 03-26-2025 15:02-0400 Respiratory rate 16 /min Dr. Filipe Ybarra MD Work Phone: [facility] 03-26-2025 15:02-0400 SaO2% (BldA) [Mass fraction] 93 % Dr. Filipe Ybarra MD Work Phone: [facility] 03-26-2025 15:02-0400 Systolic blood pressure 142 mm[Hg] Dr. Filipe Ybarra MD Work Phone: [facility] 02-14-2025 13:12-0400 Body height 175.[address] Filipe Ybarra MD Work Phone: [facility] 02-14-2025 13:12-0400 Body mass index (BMI) [Ratio] 34.1 kg/m2 Dr. Filipe Ybarra MD Work Phone: [facility] 02-14-2025 13:12-0400 Body temperature 98.1 [degF] Dr. Filipe Ybarra MD Work Phone: [facility] 02-14-2025 13:12-0400 Body weight 104.[address] Filipe Ybarra MD Work Phone: [facility] 02-14-2025 13:12-0400 Diastolic blood pressure 78 mm[Hg] Dr. Filipe Ybarra MD Work Phone: [facility] 02-14-2025 13:12-0400 Heart rate 73 /min Dr. Filipe Ybarra MD Work Phone: [facility] 02-14-2025 13:12-0400 Respiratory rate 16 /min Dr. Filipe Ybarra MD Work Phone: [facility] 02-14-2025 13:12-0400 SaO2% (BldA) [Mass fraction] 94 % Dr. Filipe Ybarra MD Work Phone: [facility] 02-14-2025 13:12-0400 Systolic blood pressure 138 mm[Hg] Dr. Filipe Ybarra MD Work Phone: [facility] 02-13-2025 14:26-0400 Body temperature 97.6 [degF] Dr. Filipe Ybarra MD Work Phone: [facility] 02-13-2025 14:26-0400 Diastolic blood pressure 82 mm[Hg] Dr. Filipe Ybarra MD Work Phone: [facility] 02-13-2025 14:26-0400 Heart rate 60 /min Dr. Filipe Ybarra MD Work Phone: [facility] 02-13-2025 14:26-0400 Respiratory rate 20 /min Dr. Filipe Ybarra MD Work Phone: [facility] 02-13-2025 14:26-0400 SaO2% (BldA) [Mass fraction] 97 % Dr. Filipe Ybarra MD Work Phone: [facility] 02-13-2025 14:26-0400 Systolic blood pressure 163 mm[Hg] Dr. Filipe Ybarra MD Work Phone: [facility] 02-13-2025 10:59-0400 Body height 175.[address] Filipe Ybarra MD Work Phone: [facility] 02-13-2025 10:59-0400 Body mass index (BMI) [Ratio] 34.3 kg/m2 Dr. Filipe Ybarra MD Work Phone: [facility] 02-13-2025 10:59-0400 Body weight 105.[address] Filipe Ybarra MD Work Phone: [facility] 02-12-2025 10:46-0400 Body mass index (BMI) [Ratio] 34.8 kg/m2 Dr. Filipe Ybarra MD Work Phone: [facility] 02-12-2025 10:46-0400 Body weight 107.[address] Filiep Ybarra MD Work Phone: [facility] 02-12-2025 10:46-0400 Diastolic blood pressure 84 mm[Hg] Dr. Filipe Ybarra MD Work Phone: [facility] 02-12-2025 10:46-0400 Heart rate 64 /min Dr. Filipe Ybarra MD Work Phone: [facility] 02-12-2025 10:46-0400 Respiratory rate 16 /min Dr. Filipe Ybarra MD Work Phone: [facility] 02-12-2025 10:46-0400 SaO2% (BldA) [Mass fraction] 95 % Dr. Filipe Ybarra MD Work Phone: [facility] 02-12-2025 10:46-0400 Systolic blood pressure 132 mm[Hg] Dr. Filipe Ybarra MD Work Phone: [facility] 01-17-2025 08:50-0500 Body height 175.[address] Filipe Ybarra MD Work Phone: [facility] 01-17-2025 08:50-0500 Body mass index (BMI) [Ratio] 34.2 kg/m2 Dr. Filipe Ybarra MD Work Phone: [facility] 01-17-2025 08:50-0500 Body temperature 98 [degF] Dr. Filipe Ybarra MD Work Phone: [facility] 01-17-2025 08:50-0500 Body weight 105.[address] Filipe Ybarra MD Work Phone: [facility] 01-17-2025 08:50-0500 Diastolic blood pressure 68 mm[Hg] Dr. Filipe Ybarra MD Work Phone: [facility] 01-17-2025 08:50-0500 Heart rate 82 /min Dr. Filipe Ybarra MD Work Phone: [facility] 01-17-2025 08:50-0500 Respiratory rate 16 /min Dr. Filipe Ybarra MD Work Phone: [facility] 01-17-2025 08:50-0500 SaO2% (BldA) [Mass fraction] 91 % Dr. Filipe Ybarra MD Work Phone: [facility] 01-17-2025 08:50-0500 Systolic blood pressure 128 mm[Hg] Dr. Filipe Ybarra MD Work Phone: [facility] 01-10-2025 11:37-0500 Body mass index (BMI) [Ratio] 34.3 kg/m2 Dr. Filipe Ybarra MD Work Phone: [facility] 01-10-2025 11:37-0500 Body temperature 96.3 [degF] Dr. Filipe Ybarra MD Work Phone: [facility] 01-10-2025 11:37-0500 Body weight 105.[address] Filipe Ybarra MD Work Phone: [facility] 01-10-2025 11:37-0500 Diastolic blood pressure 78 mm[Hg] Dr. Filipe Ybarra MD Work Phone: [facility] 01-10-2025 11:37-0500 Heart rate 71 /min Dr. Filipe Ybarra MD Work Phone: [facility] 01-10-2025 11:37-0500 Respiratory rate 16 /min Dr. Filipe Ybarra MD Work Phone: [facility] 01-10-2025 11:37-0500 SaO2% (BldA) [Mass fraction] 98 % Dr. Filipe Ybarra MD Work Phone: [facility] 01-10-2025 11:37-0500 Systolic blood pressure 137 mm[Hg] Dr. Filipe Ybarra MD Work Phone: [facility] 01-06-2025 11:13-0500 Body temperature 97.9 [degF] Dr. Filipe Ybarra MD Work Phone: [facility] 01-06-2025 11:13-0500 Diastolic blood pressure 82 mm[Hg] Dr. Filipe Ybarra MD Work Phone: [facility] 01-06-2025 11:13-0500 Heart rate 84 /min Dr. Filipe Ybarra MD Work Phone: [facility] 01-06-2025 11:13-0500 Respiratory rate 16 /min Dr. Filipe Ybarra MD Work Phone: [facility] 01-06-2025 11:13-0500 SaO2% (BldA) [Mass fraction] 98 % Dr. Filipe Ybarra MD Work Phone: [facility] 01-06-2025 11:13-0500 Systolic blood pressure 141 mm[Hg] Dr. Filipe Ybarra MD Work Phone: [facility] 01-06-2025 10:05-0500 Body mass index (BMI) [Ratio] 33 kg/m2 Dr. Filipe Ybarra MD Work Phone: [facility] 01-06-2025 10:05-0500 Body weight 101.[address] Filipe Ybarra MD Work Phone: [facility] 03-27-2024 13:35-0400 Body temperature 97.7 [degF] Dr. Filipe Ybarra Work Phone: [facility] 03-27-2024 13:35-0400 Diastolic blood pressure 77 mm[Hg] Dr. Filipe Ybarra Work Phone: [facility] 03-27-2024 13:35-0400 Heart rate 59 /min Dr. Filipe Ybarra Work Phone: [facility] 03-27-2024 13:35-0400 Respiratory rate 16 /min Dr. Filipe Ybarra Work Phone: [facility] 03-27-2024 13:35-0400 SaO2% (BldA) [Mass fraction] 95 % Dr. Filipe Ybarra Work Phone: [facility] 03-27-2024 13:35-0400 Systolic blood pressure 168 mm[Hg] Dr. Filipe Ybarra Work Phone: [facility] 03-27-2024 11:05-0400 Inhaled oxygen flow rate 4 L/min Dr. Filipe Ybarra Work Phone: [facility] 03-27-2024 07:30-0400 Body height 177.[address] Filipe Ybarra Work Phone: [facility] 03-27-2024 07:30-0400 Body mass index (BMI) [Ratio] 32.5 kg/m2 Dr. Filipe Ybarra Work Phone: [facility] 03-27-2024 07:30-0400 Body weight 103.[address] Filipe Ybarra Work Phone: [facility] 03-22-2024 15:16-0400 Body mass index (BMI) [Ratio] 32 kg/m2 Dr. Filipe Ybarra Work Phone: [facility] 03-22-2024 15:16-0400 Body temperature 97.8 [degF] Dr. Filipe Ybarra Work Phone: [facility] 03-22-2024 15:16-0400 Body weight 101.[address] Filipe Ybarra Work Phone: [facility] 03-22-2024 15:16-0400 Diastolic blood pressure 62 mm[Hg] Dr. Filipe Ybarra Work Phone: [facility] 03-22-2024 15:16-0400 Heart rate 80 /min Dr. Filipe Ybarra Work Phone: [facility] 03-22-2024 15:16-0400 Respiratory rate 16 /min Dr. Filipe Ybarra Work Phone: [facility] 03-22-2024 15:16-0400 SaO2% (BldA) [Mass fraction] 98 % Dr. Filipe Ybarra Work Phone: [facility] 03-22-2024 15:16-0400 Systolic blood pressure 132 mm[Hg] Dr. Filipe Ybarra Work Phone: [facility] 03-21-2024 09:13-0400 Body mass index (BMI) [Ratio] 31.5 kg/m2 Dr. Filipe Ybarra Work Phone: [facility] 03-21-2024 09:13-0400 Body weight 99.[address] Filipe Ybarra Work Phone: [facility] 03-21-2024 09:13-0400 Diastolic blood pressure 98 mm[Hg] Dr. Filipe Ybarra Work Phone: [facility] 03-21-2024 09:13-0400 Respiratory rate 16 /min Dr. Filipe Ybarra Work Phone: [facility] 03-21-2024 09:13-0400 Systolic blood pressure 160 mm[Hg] Dr. Filipe Ybarra Work Phone: [facility] 03-16-2024 08:08-0400 Body mass index (BMI) [Ratio] 31.7 kg/m2 Dr. Filipe Ybarra Work Phone: [facility] 03-16-2024 08:08-0400 Body temperature 97.5 [degF] Dr. Filipe Ybarra Work Phone: [facility] 03-16-2024 08:08-0400 Body weight 100.[address] Filipe Ybarra Work Phone: [facility] 03-16-2024 08:08-0400 Diastolic blood pressure 82 mm[Hg] Dr. Filipe Ybarra Work Phone: [facility] 03-16-2024 08:08-0400 Heart rate 70 /min Dr. Filipe Ybarra Work Phone: [facility] 03-16-2024 08:08-0400 Respiratory rate 18 /min Dr. Filipe Ybarra Work Phone: [facility] 03-16-2024 08:08-0400 SaO2% (BldA) [Mass fraction] 97 % Dr. Filipe Ybarra Work Phone: [facility] 03-16-2024 08:08-0400 Systolic blood pressure 136 mm[Hg] Dr. Filipe Ybarra Work Phone: [facility] 02-02-2024 09:04-0400 Body mass index (BMI) [Ratio] 31.5 kg/m2 Dr. Fiilpe Ybarra Work Phone: [facility] 02-02-2024 09:04-0400 Body temperature 98.8 [degF] Dr. Filipe Ybarra Work Phone: [facility] 02-02-2024 09:04-0400 Body weight 99.[address] Filipe Ybarra Work Phone: [facility] 02-02-2024 09:04-0400 Diastolic blood pressure 90 mm[Hg] Dr. Filipe Ybarra Work Phone: [facility] 02-02-2024 09:04-0400 Heart rate 73 /min Dr. Filipe Ybarra Work Phone: [facility] 02-02-2024 09:04-0400 Respiratory rate 16 /min Dr. Filipe Ybarar Work Phone: [facility] 02-02-2024 09:04-0400 SaO2% (BldA) [Mass fraction] 95 % Dr. Filipe Ybarra Work Phone: [facility] 02-02-2024 09:04-0400 Systolic blood pressure 156 mm[Hg] Dr. Filipe Ybarra Work Phone: [facility] 01-12-2024 08:52-0500 Body height 177.[address] Filipe Ybarra Work Phone: [facility] 01-12-2024 08:52-0500 Body mass index (BMI) [Ratio] 32.6 kg/m2 Dr. Filipe Ybarra Work Phone: [facility] 01-12-2024 08:52-0500 Body temperature 97.2 [degF] Dr. Filipe Ybarra Work Phone: [facility] 01-12-2024 08:52-0500 Body weight 103.[address] Filipe Ybarra Work Phone: [facility] 01-12-2024 08:52-0500 Diastolic blood pressure 60 mm[Hg] Dr. Filipe Ybarra Work Phone: [facility] 01-12-2024 08:52-0500 Heart rate 92 /min Dr. Filipe Ybarra Work Phone: [facility] 01-12-2024 08:52-0500 Respiratory rate 16 /min Dr. Filipe Ybarra Work Phone: [facility] 01-12-2024 08:52-0500 SaO2% (BldA) [Mass fraction] 96 % Dr. Filipe Ybarra Work Phone: [facility] 01-12-2024 08:52-0500 Systolic blood pressure 128 mm[Hg] Dr. Filipe Ybarra Work Phone: [facility] 10-11-2023 12:55-0500 Body mass index (BMI) [Ratio] 34 kg/m2 Dr. Filipe Ybarra Work Phone: [facility] 10-11-2023 12:55-0500 Body temperature 98.2 [degF] Dr. Filipe Ybarra Work Phone: [facility] 10-11-2023 12:55-0500 Body weight 107.[address] Filipe Ybarra Work Phone: [facility] 10-11-2023 12:55-0500 Diastolic blood pressure 88 mm[Hg] Dr. Filipe Ybarra Work Phone: [facility] 10-11-2023 12:55-0500 Heart rate 73 /min Dr. Filipe Ybarra Work Phone: [facility] 10-11-2023 12:55-0500 Respiratory rate 16 /min Dr. Fliipe Ybarra Work Phone: [facility] 10-11-2023 12:55-0500 SaO2% (BldA) [Mass fraction] 98 % Dr. Filipe Ybarra Work Phone: [facility] 10-11-2023 12:55-0500 Systolic blood pressure 160 mm[Hg] Dr. Filipe Ybarra Work Phone: [facility] 09-25-2022 10:54-0500 Body temperature 97.5 [degF] Dr. Filipe Ybarra Work Phone: [facility] Work Phone: 09-25-2022 10:54-0500 Body weight 101.[address] Filipe Ybarra Work Phone: [facility] Work Phone: 09-25-2022 10:54-0500 Diastolic blood pressure 92 mm[Hg] Dr. Filipe Ybarra Work Phone: [facility] Work Phone: 09-25-2022 10:54-0500 Heart rate 60 /min Dr. Filipe Ybarra Work Phone: [facility] Work Phone: 09-25-2022 10:54-0500 Respiratory rate 18 /min Dr. Filipe Ybarra Work Phone: [facility] Work Phone: 09-25-2022 10:54-0500 SaO2% (BldA) [Mass fraction] 95 % Dr. Filipe Ybarra Work Phone: [facility] Work Phone: 09-25-2022 10:54-0500 Systolic blood pressure 144 mm[Hg] Dr. Filipe Ybarra Work Phone: [facility] Work Phone: 09-08-2022 14:03-0400 Body height 177.[address] Filipe Ybarra Work Phone: [facility] Work Phone: 09-08-2022 14:03-0400 Body mass index (BMI) [Ratio] 30.9 kg/m2 Dr. Filipe Ybarra Work Phone: [facility] Work Phone: 09-08-2022 14:03-0400 Body temperature 97 [degF] Dr. Filipe Ybarra Work Phone: [facility] Work Phone: 09-08-2022 14:03-0400 Body weight 97.[address] Filipe Ybarra Work Phone: [facility] Work Phone: 09-08-2022 14:03-0400 Diastolic blood pressure 92 mm[Hg] Dr. Filipe Ybarra Work Phone: [facility] Work Phone: 09-08-2022 14:03-0400 Heart rate 70 /min Dr. Filipe Ybarra Work Phone: [facility] Work Phone: 09-08-2022 14:03-0400 Respiratory rate 16 /min Dr. Filipe Ybarra Work Phone: [facility] Work Phone: 09-08-2022 14:03-0400 SaO2% (BldA) [Mass fraction] 97 % Dr. Filipe Ybarra Work Phone: [facility] Work Phone: 09-08-2022 14:03-0400 Systolic blood pressure 140 mm[Hg] Dr. Filipe Ybarra Work Phone: [facility] Work Phone: 08-18-2022 11:08-0400 Body mass index (BMI) [Ratio] 31.8 kg/m2 Dr. Filipe Ybarra Work Phone: [facility] Work Phone: 08-18-2022 11:08-0400 Body temperature 97.8 [degF] Dr. Filipe Ybarra Work Phone: [facility] Work Phone: 08-18-2022 11:08-0400 Body weight 100.[address] Filipe Ybarra Work Phone: [facility] Work Phone: 08-18-2022 11:08-0400 Diastolic blood pressure 86 mm[Hg] Dr. Filipe Ybarra Work Phone: [facility] Work Phone: 08-18-2022 11:08-0400 Heart rate 77 /min Dr. Filipe Ybarra Work Phone: [facility] Work Phone: 08-18-2022 11:08-0400 Respiratory rate 14 /min Dr. Filipe Ybarra Work Phone: [facility] Work Phone: 08-18-2022 11:08-0400 SaO2% (BldA) [Mass fraction] 96 % Dr. Filipe Ybarra Work Phone: [facility] Work Phone: 08-18-2022 11:08-0400 Systolic blood pressure 158 mm[Hg] Dr. Filipe Ybarra Work Phone: [facility] Work Phone: 07-31-2022 10:16-0400 Body mass index (BMI) [Ratio] 31.8 kg/m2 Dr. Filipe Ybarra Work Phone: [facility] Work Phone: 07-31-2022 10:16-0400 Body temperature 98.1 [degF] Dr. Filipe Ybarra Work Phone: [facility] Work Phone: 07-31-2022 10:16-0400 Body weight 100.[address] Filipe Ybarra Work Phone: [facility] Work Phone: 07-31-2022 10:16-0400 Diastolic blood pressure 110 mm[Hg] Dr. Filipe Ybarra Work Phone: [facility] Work Phone: 07-31-2022 10:16-0400 Heart rate 78 /min Dr. Filipe Ybrara Work Phone: [facility] Work Phone: 07-31-2022 10:16-0400 Respiratory rate 16 /min Dr. Filipe Ybarra Work Phone: [facility] Work Phone: 07-31-2022 10:16-0400 SaO2% (BldA) [Mass fraction] 95 % Dr. Filipe Ybarra Work Phone: [facility] Work Phone: 07-31-2022 10:16-0400 Systolic blood pressure 180 mm[Hg] Dr. Filipe Ybarra Work Phone: [facility] Work Phone: 07-17-2022 10:49-0400 Body mass index (BMI) [Ratio] 31.1 kg/m2 Dr. iFlipe Ybarra Work Phone: [facility] Work Phone: 07-17-2022 10:49-0400 Body temperature 97.4 [degF] Dr. Filipe Ybarra Work Phone: [facility] Work Phone: 07-17-2022 10:49-0400 Body weight 98.[address] Filipe Ybarra Work Phone: [facility] Work Phone: 07-17-2022 10:49-0400 Diastolic blood pressure 90 mm[Hg] Dr. Filipe Ybarra Work Phone: [facility] Work Phone: 07-17-2022 10:49-0400 Heart rate 74 /min Dr. Filipe Ybarra Work Phone: [facility] Work Phone: 07-17-2022 10:49-0400 Respiratory rate 18 /min Dr. Filipe Ybarra Work Phone: [facility] Work Phone: 07-17-2022 10:49-0400 SaO2% (BldA) [Mass fraction] 96 % Dr. Filipe Ybarra Work Phone: [facility] Work Phone: 07-17-2022 10:49-0400 Systolic blood pressure 170 mm[Hg] Dr. Filipe Ybarra Work Phone: [facility] Work Phone: 07-03-2022 09:10-0400 Body mass index (BMI) [Ratio] 31.8 kg/m2 Dr. Filipe Ybarra Work Phone: [facility] Work Phone: 07-03-2022 09:10-0400 Body temperature 97.8 [degF] Dr. Filipe Ybarra Work Phone: [facility] Work Phone: 07-03-2022 09:10-0400 Body weight 100.[address] Filipe Ybarra Work Phone: [facility] Work Phone: 07-03-2022 09:10-0400 Diastolic blood pressure 118 mm[Hg] Dr. Filipe Ybarra Work Phone: [facility] Work Phone: 07-03-2022 09:10-0400 Heart rate 79 /min Dr. Filipe Ybarra Work Phone: [facility] Work Phone: 07-03-2022 09:10-0400 Respiratory rate 16 /min Dr. Filipe Ybarra Work Phone: [facility] Work Phone: 07-03-2022 09:10-0400 SaO2% (BldA) [Mass fraction] 95 % Dr. Filipe Ybarra Work Phone: [facility] Work Phone: 07-03-2022 09:10-0400 Systolic blood pressure 184 mm[Hg] Dr. Filipe Ybarra Work Phone: [facility] Work Phone: 06-19-2022 09:12-0400 Body mass index (BMI) [Ratio] 31.7 kg/m2 Dr. Filipe Ybarra Work Phone: [facility] Work Phone: 06-19-2022 09:12-0400 Body temperature 96.8 [degF] Dr. Filipe Ybarra Work Phone: [facility] Work Phone: 06-19-2022 09:12-0400 Body weight 100.[address] Filipe Ybarra Work Phone: [facility] Work Phone: 06-19-2022 09:12-0400 Diastolic blood pressure 92 mm[Hg] Dr. Filipe Ybarra Work Phone: [facility] Work Phone: 06-19-2022 09:12-0400 Heart rate 82 /min Dr. Filipe Ybarra Work Phone: [facility] Work Phone: 06-19-2022 09:12-0400 Respiratory rate 16 /min Dr. Filipe Ybarra Work Phone: [facility] Work Phone: 06-19-2022 09:12-0400 SaO2% (BldA) [Mass fraction] 95 % Dr. Filipe Ybarra Work Phone: [facility] Work Phone: 06-19-2022 09:12-0400 Systolic blood pressure 160 mm[Hg] Dr. Filipe Ybarra Work Phone: [facility] Work Phone: 06-09-2022 12:43-0400 Body height 177.[address] Filipe Ybarra Work Phone: [facility] Work Phone: 06-09-2022 12:43-0400 Body mass index (BMI) [Ratio] 31.5 kg/m2 Dr. Filipe Ybarra Work Phone: [facility] Work Phone: 06-09-2022 12:43-0400 Body temperature 98.2 [degF] Dr. Filipe Ybarra Work Phone: [facility] Work Phone: 06-09-2022 12:43-0400 Body weight 99.[address] Filipe Ybarra Work Phone: [facility] Work Phone: 06-09-2022 12:43-0400 Diastolic blood pressure 89 mm[Hg] Dr. Filipe Ybarra Work Phone: [facility] Work Phone: 06-09-2022 12:43-0400 Heart rate 75 /min Dr. Filipe Ybarra Work Phone: [facility] Work Phone: 06-09-2022 12:43-0400 Respiratory rate 16 /min Dr. Filipe Ybarra Work Phone: [facility] Work Phone: 06-09-2022 12:43-0400 SaO2% (BldA) [Mass fraction] 98 % Dr. Filipe Ybarra Work Phone: [facility] Work Phone: 06-09-2022 12:43-0400 Systolic blood pressure 174 mm[Hg] Dr. Filipe Ybarra Work Phone: [facility] Work Phone: 04-08-2022 09:21-0400 Body mass index (BMI) [Ratio] 31.8 kg/m2 Dr. Filipe Ybarra Work Phone: [facility] Work Phone: 04-08-2022 09:21-0400 Body temperature 98.7 [degF] Dr. Filipe Ybarra Work Phone: [facility] Work Phone: 04-08-2022 09:21-0400 Body weight 100.[address] Filipe Ybarra Work Phone: [facility] Work Phone: 04-08-2022 09:21-0400 Diastolic blood pressure 86 mm[Hg] Dr. Filipe Ybarra Work Phone: [facility] Work Phone: 04-08-2022 09:21-0400 Heart rate 90 /min Dr. Filipe Ybarra Work Phone: [facility] Work Phone: 04-08-2022 09:21-0400 Respiratory rate 14 /min Dr. Filipe Ybarra Work Phone: [facility] Work Phone: 04-08-2022 09:21-0400 SaO2% (BldA) [Mass fraction] 97 % Dr. Filipe Ybarra Work Phone: [facility] Work Phone: 04-08-2022 09:21-0400 Systolic blood pressure 138 mm[Hg] Dr. Filipe Ybarra Work Phone: [facility] Work Phone: 03-20-2022 12:50-0400 Body mass index (BMI) [Ratio] 31.8 kg/m2 Dr. Filipe Ybarra Work Phone: [facility] Work Phone: 03-20-2022 12:50-0400 Body temperature 98.2 [degF] Dr. Filipe Ybarra Work Phone: [facility] Work Phone: 03-20-2022 12:50-0400 Body weight 100.[address] Filipe Ybarra Work Phone: [facility] Work Phone: 03-20-2022 12:50-0400 Diastolic blood pressure 76 mm[Hg] Dr. Filipe Ybarra Work Phone: [facility] Work Phone: 03-20-2022 12:50-0400 Heart rate 77 /min Dr. Filipe Ybarra Work Phone: [facility] Work Phone: 03-20-2022 12:50-0400 Respiratory rate 16 /min Dr. Filipe Ybarra Work Phone: [facility] Work Phone: 03-20-2022 12:50-0400 SaO2% (BldA) [Mass fraction] 97 % Dr. Filipe Ybarra Work Phone: [facility] Work Phone: 03-20-2022 12:50-0400 Systolic blood pressure 118 mm[Hg] Dr. Filipe Ybarra Work Phone: [facility] Work Phone: Encounters Encounter Date Encounter Type Care Provider Facility Start: 05-19-2025 ambulatory Filipe Flemingi ty:[facility] Start: 04-27-2025 End: 04-27-[address] Filipe Ybarra MD Work Phone: [facility] Work Phone: Start: 04-27-2025 End: 04-27-2025 Patient encounter procedure Luis ESQUIVEL -Cardiovascular Services Work Phone: Start: 04-27-2025 End: 04-27-2025 Patient encounter procedure Luis ESQUIVEL -[facility] Work Phone: Start: 04-27-2025 End: 04-27-[address] Filipe Ybarra MD Work Phone: [facility] Work Phone: Start: 04-27-2025 End: 04-27-2025 ambulatory Katiadouglasfernando Ybarra Facility:[facility] Start: 03-28-2025 End: 03-28-[address] Filipe Ybarra MD Work Phone: [facility] Work Phone: Start: 03-28-2025 End: 03-28-[address] Filipe [facility] -[facility] Work Phone: Start: 03-28-2025 ambulatory Filipe Ybarra Facili ty:[facility] Start: 03-28-2025 Registered Recurring Shady ESQUIVEL -Physical Therapy Work Phone: Start: 03-28-2025 End: 03-28-2025 [facility] Start: 03-26-2025 End: 03-26-[address] Filipe Ybarra MD -[facility] Work Phone: Start: 03-26-2025 End: 03-26-2025 ambulatory Efshalya Ybarra Facility:[facility] Start: 03-12-2025 End: 03-12-2025 Patient encounter procedure Shady ESQUIVEL -[facility] Work Phone: Start: 03-12-2025 End: 03-12-2025 ambulatory Efshayla Ybarra Facility:[facility] Start: 02-14-2025 End: 02-14-[address] Filipe Ybarra MD -[facility] Work Phone: Start: 02-14-2025 End: 02-14-2025 ambulatory Efshayla Canelae Facility:[facility] Start: 02-13-2025 End: 02-13-2025 Emergency department patient visit Dr. Filipe Ybarra MD Work Phone: -Emergency Department Work Phone: Start: 02-12-2025 End: 02-12-2025 ambulatory [facility] [place] Start: 02-12-2025 End: 02-12-2025 Patient encounter procedure Shady Chan [place] -[facility] Work Phone: Start: 02-09-2025 End: 02-09-[address] Filipe Ybarra MD Work Phone: [facility] Work Phone: Start: 02-09-2025 End: 02-09-[address] Filipe Ybarra MD -[facility] Work Phone: Start: 02-09-2025 End: 02-09-2025 ambulatory [facility] Facility:[facility] Start: 01-17-2025 End: 01-17-[address] Filipe Ybarra MD Work Phone: [facility] Work Phone: Start: 01-17-2025 End: 01-17-[address] Filipe Ybarra MD -Laboratory, [place] Start: 01-17-2025 End: 01-17-[address] Filipe Ybarra MD -[facility] Work Phone: Start: 01-17-2025 End: 01-17-2025 ambulatory yumiko Tate [place] Start: 01-17-2025 End: 01-17-2025 ambulatory [facility] Facility:[facility] Start: 01-10-2025 End: 01-10-[address] Filipe Ybarra MD Work Phone: [facility] Work Phone: Start: 01-10-2025 End: 01-10-[address] Filipe Ybarra MD -Laboratory, [place] Start: 01-10-2025 End: 01-10-[address] Filipe Ybarra MD -[facility] Work Phone: Start: 01-10-2025 End: 01-10-2025 ambulatory Efewongbe Oleghe Facility:[facility] Start: 01-10-2025 End: 01-10-2025 [facility] [place] [facility] Start: 01-06-2025 ambulatory Lior Easton Facility:[facility] Start: 01-06-2025 Non-patient / Non-visit Dr. Lior lara MD -[facility] Start: 01-06-2025 End: 01-06-2025 Emergency department patient visit Dr. Albert Lopez MD -Emergency Department Work Phone: Start: 01-06-2025 ambulatory Efewongbe Oleghe Facili ty:[facility] Start: 09-25-2024 [facility] Start: 09-01-2024 End: 09-01-[facility] Start: 09-01-2024 End: 09-01-2024 [facility]ulatory [facility] Facility:[facility] Start: 08-22-2024 End: 08-22-2024 ambulatory [facility] Facility:[facility] Start: 06-12-2024 End: 06-12-2024 [facility] Start: 06-08-2024 ambulatory Efewongbe Oleghe Facili ty:[facility] Start: 05-30-2024 End: 05-30-2024 ambulatory Efewongbe Oleghe Facility:[facility] Start: 03-27-2024 Non-patient / Non-visit Dr. Cindy Ybarra Work Phone: [facility] Start: 03-27-2024 End: 03-27-2024 Admission to same day surgery center Dr[facility] Filipe [facility]barra [facility] Start: 03-27-2024 End: 03-27-[address] Filipe Ybarra Work Phone: [facility] Work Phone: Start: 03-22-2024 End: 03-22-[address] Filipe Ybarra Work Phone: [facility] Work Phone: Start: 03-21-2024 End: 03-21-[address] Filipe Ybarra Work Phone: [facility] Work Phone: Start: 03-16-2024 End: 03-16-[address] Filipe Ybarra Work Phone: [facility] Work Phone: Start: 02-02-2024 End: 02-02-[address] Filipe Ybarra Work Phone: [facility] Work Phone: Start: 01-12-2024 End: 01-12-[address] Filipe Ybarra Work Phone: [facility] Work Phone: Start: 01-12-2024 End: 01-12-[address] Filipe Ybarra Work Phone: [facility] Work Phone: Start: 10-11-2023 End: 10-11-[address] Filipe Ybarra Work Phone: [facility] Work Phone: Start: 09-25-2022 End: 09-25-[address] Filipe Ybarra Work Phone: [facility] Work Phone: Start: 09-25-2022 End: 09-25-[address] Filipe Ybarra Work Phone: [facility] [place] Start: 09-25-2022 End: 09-25-[address] Filipe Ybarra Work Phone: [facility] Start: 09-08-2022 End: 09-08-[address] Filipe Ybarra Work Phone: [facility] Start: 08-18-2022 End: 08-18-[address] Filipe Ybarra Work Phone: [facility] Start: 07-31-2022 End: 07-31-[address] Filipe Ybarra Work Phone: [facility] Start: 07-17-2022 End: 07-17-[address] Filipe Ybarra Work Phone: [facility] Start: 07-16-2022 Non-patient / Non-visit Dr. Cindy Ybarra Work Phone: [facility] Start: 07-03-2022 End: 07-03-[address] Filipe Ybarra Work Phone: [facility] Start: 06-19-2022 End: 06-19-[address] Filipe Ybarra Work Phone: [facility] Start: 06-09-2022 Non-patient / Non-visit Dr. Cindy Ybarra Work Phone: [facility] Start: 06-09-2022 End: 06-09-[address] Filipe Ybarra Work Phone: [facility]-Cardiovascular Services Start: 06-09-2022 End: 06-09-[address] Filipe Ybarra Work Phone: [facility] Start: 04-08-2022 End: 04-08-[address] Filipe Ybarra Work Phone: [facility] Start: 03-20-2022 End: 03-20-[address] Filipe Ybarra Work Phone: [facility] Start: 10-16-2020 End: 10-16-2020 Subsequent hospital visit by physician [facility] Work Phone: Radiology Comment on above: Injury of right grea t toe, initial encounter [S99.921A] Procedures Date Procedure Procedure Detail Performing Clinician Start: 03-28-2025 X-ray of lumbosacral spine Dr. Filipe Ybarra MD Work Phone: Start: 02-13-[address] Rivre Ybarra MD Work Phone: Start: 02-13-[address] Filipe Ybarra MD Work Phone: Start: 02-09-2025 CT of lower limb wit h contrast Dr. Filipe Ybarra MD Work Phone: Start: 01-17-2025 Urnls dip stick/tabl et reagent auto microscopy Dr. Filipe Ybarra MD Work Phone: Start: 01-10-[address] Felice Ybarra MD Work Phone: Comment on above: Performed at: [address] [id number] Director: Joey Edmondson PhD, Phone: [phone] Start: 01-10-2025 Antibody to centrome re measurement [...] on above: Test not performed Start: 01-10-2025 RESIDENTIAL REMODELING SUBCONTRACTOR antibody measurement Dr. Filipe Ybarra MD Work Phone: Comment on above: Test not performed Start: 03-27-2024 Laparoscopic repair of inguinal hernia Dr. Filipe Ybarra Work Phone: Start: 10-16-2020 Radex toe minimum 2 views Oscar King [facility] Work Phone: History of repair of inguinal hernia Status post inguinal hernia repair Dr. Filipe Ybarra MD Work Phone: Comment on above: Right 03/27/24 Plan of Treatment Date Care Activity Detail Author Start: 2034 RSV Vaccine (1 - 1-dose 75+ series) RSV Vaccine (1 - 1-dose 75+ series) [facility] Start: 04-27-2025 Patient referral [facility] Work Phone: Start: 02-13-2025 [facility] Start: 02-13-2025 Bacteria identified in Blood by Culture Blood Culture [facility] Start: 02-13-2025 Blood culture Blood Culture [facility] Start: 02-13-2025 End: 02-13-2025 [facility] Start: 01-06-2025 [facility] Start: 07-16-2024 Covid-19 Vaccine ( season) Covid-19 Vaccine ( season) [facility] Start: 07-16-2024 Influenza vaccination Influenza Vaccine (#1) [facility] Start: 03-27-2024 Patient discharge [facility] Start: 02-19-2024 Advance Directive Discussion Advance Directive Discussion [facility] Start: 02-19-2024 Pneumococcal Vaccine: 65+ (1 of 1 - PCV) Pneumococcal Vaccine: 65+ (1 of 1 - PCV) [facility] Start: 09-25-2022 Patient referral [facility] Work Phone: Start: 06-16-2014 Shingrix Vaccine (2 of 3) Shingrix Vaccine (2 of 3) [facility] Start: 2014 Prostate specific antigen measurement Prostate Cancer Screening Discussion [facility] Start: 02-19-2004 Diabetes Screening Diabetes Screening [facility] Start: 02-19-2004 Screening for malignant neoplasm of colon [facility] Start: 1994 Lipid panel Lipid Screening [facility] Start: 1978 Urine microalbumin profile DTaP,Tdap,Td Vaccine (1 - Tdap) [facility] Start: 1977 Anxiety Screening Anxiety Screening [facility] Start: 1977 Depression Screening Depression Screening [facility] Start: 1977 Hepatitis C screening Hepatitis C Screening [facility] Start: 1977 HIV screening HIV Screening [facility] Blood chemistry [facility] Work Phone: Cyclic citrullinated peptide IgG Ab [Units/volume] in Serum or Plasma [facility] Lactic acid measurement [facility] MR Lumbar spine [facility] Patient Education [facility] Work Phone: Patient referral [facility] Work Phone: Prostate specific an tigen measurement [facility] US.doppler Lower extremity vein [facility] Immunizations Immunization Date Immunization Notes Care Provider Claudia barnett 12-06-2022 Covid Pfizer Bivalen t Booster Dr. Filipe Ybarra MD Work Phone: [facility] 10-17-2021 Covid (Pfizer) Dr. Filipe Ybarra MD Work Phone: [facility] 02-14-2021 Covid (Pfizer) Dr. Filipe Ybarra Work Phone: [facility] 01-24-2021 Covid (Pfizer) Dr. Filipe Ybarra Work Phone: [facility] 04-21-2014 zoster vaccine, live Xr [address] Work Phone: [facility] 09-19-2012 influenza virus vaccine, unspecified formulation Xr [place] Work Phone: [facility] 10-05-2011 influenza virus vaccine, unspecified formulation Xr [place] Work Phone: [facility] 09-20-2010 influenza virus vaccine, unspecified formulation Xr [place] Work Phone: [facility] Work Phone: 08-17-2009 influenza virus vaccine, unspecified formulation Xr [place] Work Phone: [facility] 10-12-2008 influenza virus vaccine, unspecified formulation Xr [place] Work Phone: [facility] Work Phone: 09-30-2007 influenza virus vaccine, unspecified formulation Xr [place] Work Phone: [facility] 09-20-2006 influenza virus vaccine, unspecified formulation Xr [place] Work Phone: [facility] 09-22-2005 influenza virus vaccine, unspecified formulation Xr [place] Work Phone: [facility] Work Phone: Payers Date Payer Category Payer Unknown [id number] 2024 Unknown [id number] 2024 Self-pay [id number] 2024 Unknown [id number] 2019 Unknown P[employer]ELOPE [employer]INGER PPO [id number] 2019-Present [phone] [address] [place] [address] PPO [id number] Private Health Insurance [id number] Unknown [id number] 2.16.840.1.594284.3.579.2.4 62 Unknown [id number] 2.16.840.1.826305.3.579.2.4 62 Unknown [id number] 2.16.840.1.502098.3.579.2.4 62 Unknown [id number] 2.16.840.1.318316.3.579.2.4 62 Unknown [id number] 2.16.840.1.999282.3.579.2.4 62 Unknown [id number] 2.16.840.1.677051.3.579.2.4 62 Unknown [id number] 2.16.840.1.261050.3.579.2.4 62 Unknown [id number] 2.16.840.1.297738.3.579.2.4 62 Unknown [id number] 2.16.840.1.965076.3.579.2.4 62 Unknown [id number] 2.16.840.1.870217.3.579.2.4 62 Unknown [id number] 2.16.840.1.205075.3.579.2.4 62 Unknown [id number] 2.16.840.1.986811.3.579.2.4 62 Unknown [id number] 2.16.840.1.520777.3.579.2.4 62 Unknown [id number] 2.16.840.1.954098.3.579.2.4 62 Unknown [id number] 2.16.840.1.421631.3.579.2.4 62 Unknown [id number] 2.16.840.1.692699.3.579.2.4 62 Unknown [id number] 2.16.840.1.318616.3.579.2.4 62 Unknown [id number] 2.16.840.1.731165.3.579.2.4 62 Unknown [id number] 2.16.840.1.561205.3.579.2.4 62 Unknown [id number] 2.16.840.1.418957.3.579.2.4 62 Unknown [id number] 2.16.840.1.120254.3.579.2.4 62 Unknown [id number] 2.16.840.1.637124.3.579.2.4 62 Unknown [id number] 2.16.840.1.642874.3.579.2.4 62 Unknown [id number] 2.16.840.1.515576.3.579.2.4 62 Unknown [id number] 2.16.840.1.117712.3.579.2.4 62 Social History Date Type Detail Facility Start: 06-09-2022 End: 03-20-2024 Tobacco smoking status SCIS Unknown if ever smoked [facility] Start: 1960 Sex Assigned At Male [facility] Start: 10-16-2020 Tobacco smoking stat us SCIS Never smoked tobacco [facility] Start: 10-16-2020 Tobacco use and exposure Smokeless tobacco non-user [facility] Start: 10-16-2020 History of Social function [facility] Start: 10-16-2020 Tobacco use panel [facility] Start: 1960 Sex assigned at Not on file [facility] Start: 09-16-2020 End: 10-16-2020 Exposure to SARS-CoV-2 (event) Not sure [facility] Start: 01-06-2025 End: 02-13-2025 Tobacco smoking status NHIS Ex-smoker (finding) [facility] Start: 01-25-2025 End: 02-15-2025 Sex Male (finding) [facility] Medical Equipment Procedure Code Equipment Code Equipment Origin al Text Equipment Identifier Dates Herniorrhaphy, inguinal, laparoscopic CLIP,HEMOLOCK MED WECK FDA Start: 03-27-2024 Herniorrhaphy, inguinal, laparoscopic ([id number]) Extra-gynaecologic al surgical mesh, synthetic polymer, non-bioabsorbable ()[id number] 1422 FDA Start: 03-27-2024 Herniorrhaphy, inguinal, laparoscopic ([id number]) Extra-gynaecologic al surgical mesh, composite-polymer ()[id number] 2042 FDA Start: 03-27-2024 Herniorrhaphy, inguinal, laparoscopic Endoscopic manual linear stapler ()[id number] DT FDA Start: 03-27-2024 Herniorrhaphy, inguinal, laparoscopic CLIP,HEMOLOCK MED WECK FDA Start: 03-27-2024 Herniorrhaphy, inguinal, laparoscopic CLIP,HEMOLOCK MED WECK FDA Start: 03-27-2024 Herniorrhaphy, inguinal, laparoscopic CLIP,HEMOLOCK MED WECK FDA Start: 03-27-2024 Herniorrhaphy, inguinal, laparoscopic CLIP,HEMOLOCK MED WECK FDA Start: 03-27-2024 Herniorrhaphy, inguinal, laparoscopic CLIP,HEMOLOCK MED WECK FDA Start: 03-27-2024 Herniorrhaphy, inguinal, laparoscopic CLIP,HEMOLOCK MED WECK FDA Start: 03-27-2024 Goals Date Patient Goal Desired Activity /State Functional Status Date Assessment Result Facility 03-27-2024 Functional status Ambulates;Bathroom Priv ilege [facility] Work Phone: Mental Status Date Assessment Result Facility 03-27-2024 Cognitive function Level Of Consciousness Sedated [facility] Work Phone: 03-27-2024 Cognitive function Voice/Name [facility] Work Phone: Clinical Notes 10-16-2020 to 03-28-2025 Note Date & Type Note Facility 03-28-2025 Radiology Diagnostic study note [facility] Imaging Services [address] [place] [address] L/S Spine Min 4 Views MR#: [id number] Acct: [id number] Name: ZHENG WATKINS Rep #: [id number] : 1960 M [id number] From: Kendal Aguilera MD PCP: Dr. Filipe Ybarra MD Status: R EG CLI Study:L/S Spine Min 4 Views Date of Exam: 03/28/25 Exam# [id number] Ordering Dr: Alysa Ybarra MD EXAM: XR [...] IMPRESSION: Degenerative changes as above. Reading Location: [facility] CC: Dr. Filipe Ybarra MD ~ Director Hematology: Signed [facility] 02-13-2025 Discharge summary [facility] 02-13-2025 Discharge summary Note Date/Time February 13, 2025 2:06pm [facility] Medical Records Department [address] [place] [address] Emergency Department Summary 02/13/25 MR#: [id number] Acct: [id number] Name: ZHENG WATKINS Rep #:[id number] : 1960 64 From: Madi Brooks MD [...] similar symptoms: No Recent Illness/Hospitalization: No PFSH [facility] Medical History Abnormal computed tomography of lower [...] History mg-fish oil 597 mg capsule,delay rel ([place]-3) aspirin 81 mg tablet,delayed 81 mg PO [...] 89.5 H Lymph % (Auto) 8.2 L [place] % (Auto) 1.6 Eos % (Auto) 0.0 [...] is evidence of LVH by voltage criteria. [place] interval is 148 ms. History is a 94 ms. QT durations are94 ms. [place] is normal) Management Discussion w/another healthcare provider: Regional Sales Manager (Cuff Stitcher was asked to page Dr. Casey Howell [...] PRN (Reason: muscle pain) Qty: 20 0RF [place]-3 350 mg-235 mg- 90 mg-597 mg capsule,delayed [...] aday to your left calf Print Language: Croatian Disposition Disposition: Home, Self Care What to do if you have Problems For any increased pain, shortness of breath, bleeding, nausea or vomiting, chestpain, or any unexpected problems, contact your Primary Care Provider. Call [facility] ([phone]) or report to the closest Emergency Room. Call 911 if necessary. 02/13/25 1406 <Electronically signed by Madi Brooks MD> Cosigner Signature (if applicable): CC: Dr. Filipe Ybarra MD ~ Signed [facility] Work Phone: 1(343) 369-344204-01-2025 Hospital Discharge instructions Additional Instructions 1. Your blood sugar is elevated 186. This should be rechecked in 1 to 2 weeks when you have your blood pressure rechecked which was elevated at 174/62. 2. If you have some discomfort with walking or swelling recommend ice 6 times a day to your left [facility] Work Phone: 1(807) 733-157003-31-2025 Radiology Diagnostic study note [facility] Imaging Services [address] [place], [place] [address] Extremity Lower WITH Contrast MR#: [id number] Acct: [id number] Name: ZHENG WATKINS Rep #: [id number] : 1960 M 64 From: Merry Sofia MD PCP: Dr. Filipe Ybarra MD Status: R EG CLI Study:Extremity Lower WITH Contrast Date of E xam: 02/09/25 Exam# [id number] Ordering Dr: Alysa Ybarra MD PROCEDURE: EXTREMITY [...] incision and debridement is recommended. Reading Location: [facility] CC: Dr. Filipe Ybarra MD ~ Director Hematology: Signed [facility] Evaluation note* Diagnosis Onset Date Resolution Status Admit Date Arthritis acute January 10, 2025 11:23am Malaise and fatigue acute 2024 11:23am Pain of left calf inactive y 2024 11:23am Arthritis acute January 17 8:36am Elevated C-reactive protein (CRP) acute January 17, 2025 8:36am Malaise and fatigue acute January 17, 2025 8:36am Myalgia acute January 17 8:36am [facility] Work Phone: 1(299) 483-537002-26-2025 Evaluation note* Diagnosis Onset Date Resolution Status Admit Date Arthritis acute January 10, 2025 11:23am Malaise and fatigue acute 2024 11:23am Pain of left calf inactive 2024 11:23am Arthritis acute January 17 8:36am Elevated C-reactive protein (CRP) acute January 17, 2025 8:36am Malaise and fatigue acute January 17, 2025 8:36am Myalgia acute January 17 8:36am Lumbar radiculopathy acute Jacky h 2024 10:45am Lumbar strain acute February 12, 2025 10:45am [facility] Work Phone: 1(329) 689-836202-26-2025 Evaluation note* Diagnosis Onset Date Resolution Status [...] 14, 2025 1:08pm Hypertension chronic February 14, 1:08pm [facility] Work Phone: 1(187) 855-454602-26-2025 Evaluation note* Diagnosis Onset Date Resolution Status Admit Date Arthritis acute January 10, 2025 11:23am Malaise and fatigue acute u 2024 11:23am Pain of left calf inactive [...] Lumbar radiculopathy acute March 26, 2025 2:36pm [facility] Work Phone: 1(246) 625-223902-26-2025 Evaluation note* Diagnosis Onset Date Resolution Status Admit Date Arthritis acute January 10, 2025 11:23am Malaise and fatigue acute Febru brian 2024 11:23am Pain of left calf inactive 2024 11:23am Arthritis acute January 17 8:36am Elevated C-reactive protein (CRP) acute January 17, 2025 8:36am Malaise and fatigue acute January 17, 2025 8:36am Myalgia acute January 17 8:36am Lumbar radiculopathy acute 2024 10:45am Lumbar strain acute February 12, 2025 10:45am Elevated C-reactive protein (CRP) acute February 14, 2025 1:08pm Lumbar radiculopathy acute Apri 2024 1:08pm Myalgia acute February 14 1:08pm Borderline type 2 diabetes mellitus chronic February 14, 2025 1:08pm Hypertension chronic February 14, 2 025 1:08pm Traumatic rupture of left plantaris muscle inactive February 14, 2025 1:08pm Back pain acute March 26, 2025 2:36pm Lumbar radiculopathy acute March 26, 2025 2:36pm Lumbar radiculopathy acute April 27, 2025 12:20pm Right leg swelling acute April 152024 12:20pm [facility] Work Phone: 1(872) 587-500405-13-2024 History and physical note Author Khadar Mead [facility] March 27, 2024 8:49am Note Date/Time March 27, 2024 7:22a m [facility] [facility] Medical Records Department [address] [place] [address] History & Physical Exam 03/27/24 0721 MR#: [id number] Acct: [id number] Name: ZHENG WATKINS Rep #:[id number] : 1960 64 From: Khadar Mead MD PCP: Dr. 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 He does take doxazosin. He has [...] healthy appearing, comfortable and no acute distress [facility] Head: normal to inspection Eyes General: appearance [...] already on doxazosin. We have notified Dr. Filipe Ybarra and she will assist with additional [...] obstructive symptoms. Copy: Dr. Filipe Mead M.D., F.A.C.S. I have examined the patient and the H&P has been reviewed. There are no clinicalchanges since date of exam. Khadar Mead M.D., F.A.C.S. 03/27/24 0849 <Electronically signed by Khadar Mead MD> Cosigner Signature (if applicable): CC: Dr. Filipe Ybarra MD; Dr. Khadar Mead MD~ Signed [facility] Work Phone: [phone] 741-537212-02-2020 History of Present illness Narrative* Lizzy Cote (Rt), Tech - 10/16/2020 12:50 PM EST Radiology Service [...] 16, 2020 1:12 PM documented in this encounterCleveland Clinic FoundationEvaluation note* Diagnosis Onset Date Resolution Status Hypertension chronic Venous insufficiency noneact james Contact dermatitis noneactiv e Dermatitis chronic Hypertension chronic Left leg swelling acute Redness and swelling of lower leg acute [facility] Work Phone: Evaluation note* Diagnosis Onset Date [...] noneactive Great toe pain acute Hypertension chronic [facility] Work Phone: Evaluation note* Diagnosis Onset Date Resolution Status Borderline type 2 diabetes mellitus acute Erectile dysfunction chronic Hypertension chronic Borderline type 2 diabetes mellitus acute Erectile dysfunction chronic GERD (gastroesophageal reflux disease) chronic Hypertension chronic [facility] Work Phone: Evaluation note* Diagnosis Onset Date [...] chronic BPH (benign prostatic hyperplasia) chronic Hypertension chronic [facility] Work Phone: Reason for referral (narrative)No reason for referral information availableWChillic[facility] Work Phone: Chief Complaint and Reason for [...] am SWELLING IN HANDS AND CALFS April 27, 025 12:20pm Chief Complaint Admit Date poss dvt January [...] IN HANDS AND CALFS April 27 12:20pm RT LEG SWELLING April 27, 2025 2:10 pm Reason for Visit Admit Date Arthritis [...] Lumbar radiculopathy March 26, 2025 2:36 pm Lumbar radiculopathy April 27, 2025 12: 20pm Right leg swelling April 27, 2025 12:2 0pm Family History No Family History Records Found Relationship Condition Age at Onset Recorded Date/T sara Not Specified Cardiac disease Unknown Myocardial infarction Unknown Hypertension Unknown Advance Directives No Advanced Directives Records Found Advance Directive Response Recorded Date/ Time Name of Medical Power of Television Repairer MARLI WATKINS March 20, 2024 1:32pm Living Will Yes March 20, 2024 1: 32pm Power of Television Repairer Yes March 20, 2024 1:32pm Advance Directive Response Recorded Date/ Time Living Will No January 06 11:43am Power of Television Repairer No January 06, 2025 11:43am Advance Directive Response Recorded Date/ Time Living Will No January 06 11:43am Do you have a Healthcare Power of Television Repairer? No January 06, 2025 11:43am Living Will No February 13, 2025 11:10am Do you have a Healthcare Power of Television Repairer? No February 13, 2025 11:10am Summary Purpose [...] Status: Active Member Role Status Dates BRAYDEN GARCIA Family Provider Active Dr. Filipe Ybarra MD Primary Care Provider Active Team Status: Inactive Member Role Status Dates Dr. Filipe Ybarra MD Primary Care P dina, Attending Provider, Referring Provider Active Team Status: [...] MD Primary Care Provider Active Dr. Khadar eMad MD Attending Provid er, Referring Provider, Other Provider Active Team Status: Inactive Member Role Status Dates Dr. Filipe Ybarra MD Primary Care Provider Active Dr. Khadar Mead MD Attending Provider, Referring Provider Active Medical Scientific Officer Relationship Specialty Start Date End Date Brayden Garcia [address] [place] [id number] PCP - General 09/22/05 Team Status: Active [...] March 12, 2025 End: March 12, 2025 SIERRA Nguyen Attending Provider Active Start: March 12, 2025 [...] April 27, 2025 End: April 27, 2025 Team Status: Inactive Member Role Status Dates Dr. Filipe Ybarra MD Primary Care Provider Active Start: April 27, 2025 End: April 27, 2025 SIERRA Andres Attending Provider Active St art: April 27, 2025 End: April 27, 2025 SIERRA Andres Referring Provider Active St art: April 27, 2025 End: April 27, 2025 Source Comments (unrecognize d section and content) In the event this informatio n is protected by the Federal Confidentiality of Alcohol and Drug Abuse Patient Records regulations: The Federal rules restrict any use of the information to criminally investigate or prosecute any alcohol or drug abuse patient.[facility] (unrecognized sect ion and content) No Status Records Found INFORMATION SOURCE (unrecogn ized section and content) DATE CREATED AUTHOR 05/15/2025 [facility] FOR RECORDS PERTAINING TO PATIENTS [...] BE BASED ON THE PRIMARY CLINICAL RECORDS. [employer] [facility]. provides no warranty or guarantee of the accuracy or completeness of information in this document.
[2025-05-16 03:23] VITALS: BP 141/80; PULSE 84; RESP 16; TEMP 37; O2SAT 95
== END 2025-05-16 03:23 | disposition home or self-care (01) ==
PROVIDERS: Emergency Provider Emergency Medicine; PCP Internal Medicine; Visit Provider Emergency Medicine
DX: M54.16 Radiculopathy, lumbar region (principal); K21.9 Gastro-esophageal reflux disease without esophagitis; Z87.891 Personal history of nicotine dependence; I10 Essential (primary) hypertension; Z79.82 Long term (current) use of aspirin; Z79.899 Other long term (current) drug therapy
CPT/HCPCS: 99283

== ENCOUNTER → 2025-05-19 | Outpatient (CLI) | payer MEDICARE, SELFPAY | END | disposition home or self-care (01) | PROVIDERS: PCP Internal Medicine; Referring Provider Physician Assistant; Visit Provider Physician Assistant | DX: M54.16 Radiculopathy, lumbar region (principal) | CPT/HCPCS: 72148 ==